=== PATIENT | male | born 1945 | race Caucasian/White ===

== ENCOUNTER 2017-01-01 09:40 | Inpatient (IN) | payer MEDICARE ==
[2016-12-31 14:06] VITALS: BMI 25.7
[2017-01-01 10:45] LABS: #Basophils 0.1 thou/uL (0.0-0.2); #Eosinphils 0.3 thou/uL (0.0-0.7); #Lymphocytes 3.3 thou/uL (1.20-3.40); #Monocytes 0.5 thou/uL (0.11-0.59); #Neutrophils 4.1 thou/uL (1.40-6.50); %Basophils 1.2 % (0.0-1.0); %Eosinophils 4.1 % (0.0-10.0); %Lymphocytes 39.7 % (21.0-51.0); %Monocytes 5.5 % (0.0-10.0); Hematocrit 36.2 % (42.0-52.0); Mean Platelet Volume 6.3 fL (7.4-10.4); Red Blood Cell (RBC) Count 4.33 mill/uL (4.70-6.10); White Blood Cell (WBC) Count 8.2 thou/uL (4.8-10.8)
[2017-01-01] MEDS ORDERED: Fentanyl 100 MCG/2 ML VIAL ONE ×7 (11:05→15:27)
[2017-01-01 11:37] LABS: Anion Gap 15 mmol/L (10-20); BUN (Urea Nitrogen) 30 mg/dL (8.4-25.7); Calc. Creatinine Clearance 50 mL/min (70-130); Calcium 9.8 mg/dL (7.8-10.44); Carbon Dioxide 22 mmol/L (23-31); Chloride 106 mmol/L (98-107); Estimated GFR-MDRD 47
[2017-01-01] MEDS ORDERED: CEFAZOLIN/Water 2 GM/20 ML SYRINGE ONE (11:53)
[2017-01-01] MEDS ORDERED: Propofol 200 MG/20 ML VIAL ONE (12:12)
[2017-01-01] MEDS ORDERED: Ondansetron HCl/PF 4 MG/2 ML Vial ONE (12:12)
[2017-01-01] MEDS ORDERED: ePHEDrine/0.9% NaCl/PF SYRINGE 50 mg/10 ml ONE (12:12)
[2017-01-01] MEDS ORDERED: PHENYLEPHRINE-NS 100 MCG/ML 10 ML SYRINGE ONE (12:12)
[2017-01-01] MEDS ORDERED: Tobramycin/Dexamethasone Ophth Oint 3.5 GM TUBE ONE (13:07)
[2017-01-01] MEDS ORDERED: Tobramycin Sulfate 1.2 GM VIAL ONE (13:08)
[2017-01-01] MEDS ORDERED: Promethazine HCl 25 MG/ML VIAL SLOW IVP PRN (14:25)
[2017-01-01] MEDS ORDERED: Promethazine HCl 25 MG/ML VIAL IM PRN (14:25)
[2017-01-01] MEDS ORDERED: HYDROmorphone 2 MG/ML VIAL SLOW IVP PRN (14:25)
[2017-01-01] MEDS ORDERED: Ondansetron HCl/PF 4 MG/2 ML Vial IVP PRN (14:25)
[2017-01-01] MEDS ORDERED: Ondansetron ODT 4 MG TAB PO PRN (15:47)
[2017-01-01] MEDS: HYDROcodone/Acetaminophen 10/325 mg Tablet PO PRN ×2 (17:32→21:26)
[2017-01-01] MEDS: Sodium Chloride 0.9% 1,000 ML IV SCH ×2 (17:36→21:47)
[2017-01-01] MEDS: diphenhydrAMINE 25 MG CAP PO PRN (21:33)
--- NOTE | 2017-01-02 00:48 | OP ---
DATE OF PROCEDURE: 01/01/2017 PREOPERATIVE DIAGNOSIS: Left septic shoulder or septic arthritis, possible osteomyelitis. POSTOPERATIVE DIAGNOSES: Left septic shoulder with chronic infection, possible shoulder osteomyelitis versus cystic changes. PROCEDURES PERFORMED: 1. Irrigation and debridement, left shoulder with arthrotomy. 2. Curettage and debridement of the humeral head cyst versus osteomyelitis. STAFF: Bradley Thurston M.D. TRANSPLANTER ORCHID: Azam Elizalde. ANESTHESIA: Renato Pedroza M.D. The patient received general endotracheal intubation. ESTIMATED BLOOD LOSS: 250 mL. TOURNIQUET TIME: None. IMPLANTS: Nine beads on a string from a mixture of 3 grams of vancomycin, 3.6 grams of tobramycin mixed with 3 grams of vancomycin with 1 package of cement. ANTIBIOTICS: After cultures were taken was vancomycin. CULTURES TAKEN: The patient had a superficial abscess anterior to the skin, which had tissue taken for path as well as for culture and culture sent. The patient had a deep abscess in his humeral head versus cyst which was taken. Cultures were taken as well as pathologic samples were taken for frozen and for permanents. Synovium was taken for both frozen and permanents. COMPLICATIONS: None. HISTORY OF PRESENT ILLNESS: Mr. Ring is a 71-year-old male who presents with continued left shoulder pain. He had an I\T\D down in February by Dr. Levi, had a repeat I\T\D performed by al, 10/25 and 10/27. He had undergone 6 weeks of antibiotics for a septic shoulder and he then had a chronic sinus that started on 11/19. I discussed with him on several times about repeating this I\T\D, but the patient could not, he said he was not able to, he came back in with draining sinuses in superior and inferior limb of this incision. The patient had a repeat MRI after this most recent I\T\D, showed the cystic changes of the humeral head, rotator cuff arthropathy, fluid collections. The patient previously cultured Pacnes in February of 2016, but no cultures were positive in September of 2016. The patient understood the risks and benefits of I\T\ D with arthrotomy with curettage of the bone, possible wound vacuum placement, indication for procedure, and he understood these risks and benefits and elected to proceed. A timeout was performed as the patient's left upper extremity as the operative site. Based on sight, consents, markings of completion of timeout, made an incision in line with the previous two draining sinuses superior and inferior, excising the inferior one, leaving the superior one in place, we incised down, came down onto what we thought was the deltopectoral interval in the previous scar plane that was from the previous procedure, went through that scar plane, found a cyst just adjacent subcutaneous, which was a large cyst noted on CT scan , which had a voluminous fat necrosis and possible skin, which had multiple neutrophils on high-power field when looked under greater than 20 on the frozen sections. We also cultured that. He had bleeding perfusion everywhere from the skin, everything that was touched bled. There were no obvious massive vessels. There was potentially a portion of the remnant cephalic that we cauterized, but he bled approximately 250 mL through the procedure. We then found our deltopectoral interval and came down onto the shoulder. We came down , took the remnants subscapularis and scar plane off the portion of the pec, exposed the head. We came under and got our subdeltoid space created and we then brought the head into position to where we could see it. We found the soft spot that might be the cystic change, creating the osteomyelitis. We then curetted into it and we created a hole into the space. We then curetted out, cultured and sent off fluid from the top of the head. We then scraped the glenoid, sent some synovium from the glenoid as well for path and culture. We then proceeded washing. We washed 5 liters. We mixed our vancomycin, tobramycin, and plain cement, placed 9 beads on a string which we passed which took the majority of the procedure to heal, we had controlled our bleeding, we then passed the beads into the glenohumeral space as well as into our previous large cyst. We closed the deltopectoral interval with some Prolenes and then closed the skin with nylon stitches. The patient will be admitted to the hospital, received a PICC line, IV antibiotics, started on vancomycin and consulted Dr. Hernandez for evaluation. The patient's outlook is guarded. I feel this is a difficult infection, may be difficult to clear. [facility]
[2017-01-02] MEDS: Vancomycin HCl 1.5 GM in Sodium Chloride 0.9% 250 ML 300 ML IVPB SCH ×2 (01:14→13:33)
[2017-01-02] MEDS: HYDROcodone/Acetaminophen 10/325 mg Tablet PO PRN ×6 (01:14→21:39)
[2017-01-02] MEDS: diphenhydrAMINE 25 MG CAP PO PRN ×2 (05:24→13:33)
[2017-01-02 07:57] LABS: Hematocrit 28.5 % (42.0-52.0)
[2017-01-02] MEDS ORDERED: FLU VACC TS2017-18 (>65YR) 0.5 ML SYRINGE IM ONE (09:00)
[2017-01-02] MEDS ORDERED: HYDROcodone/Acetaminophen 10/325 mg Tablet PO PRN ×2 (10:22→12:00)
[2017-01-02] MEDS: Polyethylene Glycol 3350 17 GM Packet PO PRN (11:47)
[2017-01-02] MEDS: Sodium Chloride 0.9% 1,000 ML IV SCH (17:53)
[2017-01-02] MEDS: diphenhydrAMINE 50 MG CAP PO PRN (21:42)
[2017-01-03] MEDS: Vancomycin HCl 1.5 GM in Sodium Chloride 0.9% 250 ML 300 ML IVPB SCH ×3 (01:52→15:41)
[2017-01-03] MEDS: HYDROcodone/Acetaminophen 10/325 mg Tablet PO PRN ×4 (04:02→20:00)
[2017-01-03] MEDS: Folic Acid 1 MG TAB PO SCH (08:01)
[2017-01-03] MEDS: Aspirin 325 mg Enteric Coated Tablet PO SCH (08:01)
[2017-01-03] MEDS: Lisinopril 10 MG TAB PO SCH (08:01)
[2017-01-03] MEDS: Multivit, Therapeutic 1 TAB PO SCH (08:02)
[2017-01-03] MEDS ORDERED: Fentanyl 100 MCG/2 ML VIAL ONE ×2 (10:37→12:22)
[2017-01-03] MEDS ORDERED: PHENYLEPHRINE-NS 100 MCG/ML 10 ML SYRINGE ONE (10:54)
[2017-01-03] MEDS ORDERED: Ondansetron HCl/PF 4 MG/2 ML Vial ONE (10:54)
[2017-01-03] MEDS ORDERED: Propofol 200 MG/20 ML VIAL ONE (10:54)
[2017-01-03] MEDS ORDERED: Promethazine HCl 25 MG/ML VIAL IM PRN (11:13)
[2017-01-03] MEDS ORDERED: Promethazine HCl 25 MG/ML VIAL SLOW IVP PRN (11:13)
[2017-01-03] MEDS ORDERED: Ondansetron HCl/PF 4 MG/2 ML Vial IVP PRN (11:13)
[2017-01-03 13:16] LABS: Hematocrit 28.1 % (42.0-52.0)
--- NOTE | 2017-01-03 13:22 | OP ---
DATE OF PROCEDURE: 01/03/2017 PREOPERATIVE DIAGNOSIS: Left septic shoulder with osteomyelitis. PROCEDURE PERFORMED: Incision and drainage of left shoulder. STAFF: Bradley Thurston M.D. GERIATRIC SOCIAL WORK PROFESSOR: Azam Elizalde PA-C. ANESTHESIA: [place]. The patient received general endotracheal intubation. ESTIMATED BLOOD LOSS: 100 mL. TOURNIQUET TIME: None. IMPLANTS: None. ANTIBIOTICS: Patient is currently on scheduled vancomycin. We removed a vancomycin and tobramycin bead string 9 total beads removed. The patient had 1 gram of vancomycin powder placed into the sub cutaneous tissues and into the subdeltoid space. The patient had a large Hemovac and a medium Hemov ac drain in place. COMPLICATIONS: None. HISTORY OF PRESENT ILLNESS: Mr. Ring is a 71-year-old male with a septic shoulder that has alr rianna undergone 3 I\T\D's. I discussed with the patient the risks and benefits of a repeat I\T\D wit h closure, drains in place. I discussed that this is difficult given his history of inability to cl ear the infection. PROCEDURE: We washed his shoulder, took down the sutures, rewashed the shoulder with blood again pr ofusely from everywhere. All of the path samples showed group B strep with obvious infection withou t any obvious at this point malignant cells. The patient had numerous white blood cells in his cyst within his humeral head. We opened up the space again, took down our previous sutures, removed ser hiram. Everything when just touched, grossly blood without any difficulty. There was no pulsatile bl eeding, just oozing from all the scarring and granulation tissue. We cleaned out the head again to ensure, we washed in the head, placed some Surgicel to stop the bleeding after we washed about a lit er and a half through the head. We then washed the rest of the tissues with the remaining 3-1/2 lit ers. We placed Surgicel, allowed it to dry. We then closed with Prolene. The deltopectoral remnan t interval more like predominantly conjoint and deltoid, we placed a Hemovac drain in the cyst anter iorly, medium, placed another Hemovac drain subdeltoid, large, medium was placed medially under the anterior chest wall within the cyst, a large one was placed subdeltoid. We then closed the skin wit h #1 PDS horizontal mattress and trauma stitches. The patient will be admitted back to the hospital. We will continue IV antibiotics. ID will be con sulted. Medicine will be consulted I will place a wound VAC on the patient's skin to help with stuart ling of the wound and leave the drains in likely for a week or longer to allow them to egress and de compress the cyst.
[2017-01-03] MEDS: Sodium Chloride 0.9% 1,000 ML IV SCH (15:38)
[2017-01-03] MEDS: diphenhydrAMINE 25 MG CAP PO PRN (15:41)
--- NOTE | 2017-01-03 16:30 | CON ---
DATE OF CONSULTATION: 01/03/2017 INITIAL INPATIENT CONSULTATION FOR MEDICINE/INFECTIOUS DISEASE REFERRING PHYSICIAN: Bradley Thurston M.D. PRIMARY CARE PHYSICIAN: Kenroy Ring M.D. CHIEF COMPLAINT: Chronic left shoulder infection. REASON FOR CONSULTATION: Antibiotic recommendations and medical management. HISTORY OF PRESENT ILLNESS: Mr. Ring is a pleasant 71-year-old gentleman with a recent past med ical history. The patient is really in his normal state of health with chronic left shoulder pain due to overuse a nd in 10/2015 underwent a left shoulder injection with steroids by Dr. Thurston. The patient initial ly did okay and felt better for a short period of time. The interval history is complicated by development of abdominal pain, evaluation showed a perforated duodenal ulcer with abdominal free air. The patient underwent exploratory laparotomy here in [facility] with repair of his perforated duodenal ulcer. He recovered, not doing well. On 02/25/2016, the patient was admitted for shoulder pain with increased erythema and fluctuance of the apex of the shoulder, as well as right hand weakness and possible stroke. MRI was done and was unremarkable for that, but due to the shoulder inflammation, the patient underwent incision and drai nage with removal of the gelatinous coagulated purulence. The patient was initially started on vanc omycin and Rocephin. Infectious Disease was consulted and the patient was seen by Dr. Hernandez. At that time, Dr. Hernandez recommended changing to the Rocephin to Zosyn. Cultures ultimately grew out Propionibacterium acnes and the patient was discharged on minocycline that to complete another 7 da ys for soft tissue infection only. The patient did well for about 7-1/2 half months, but developed increasing pain and swelling to the left shoulder. He had developed a fistulous tract and was seen by Dr. Thurston. He underwent aspira tion of the shoulder which revealed purulence, the patient had a PICC line placed and was subsequent ly admitted for incision and drainage on 10/27/2016. Cultures from the aspirate and from the incisi on and drainage were negative, but the patient was set up for 6 weeks of IV Rocephin and spent time at the [facility] and getting his antibiotics during that time. A sedimentation rate and C-reactive protein initially at that time were 76 and 10.16 respectively, and by the time he comple grant the antibiotic course were improved but not normal. The patient did not receive any oral antibi otics post-discharge. He had two repeat cultures done after the initial surgery, they cultured the drainage on 10/31/2016 and on 11/20/2016, and both those cultures were negative as well. The patient completed antibiotics in early 11/2016 and was ultimately discharged. Repeat MRI was do ne on 12/07/2016 that showed extensive abnormal longstanding rotator cuff injuries and severe muscle volume loss. It also showed associated nondisplaced, but healed fracture of the coronoid process. There is extensive abnormal joint fluid and periarticular fluid with fluid extending through the re gion of the AC joint and what appeared to be a superficial wound and a large multiloculated, multilo bulated fluid collections anteriorly, probably which were felt to be large synovial cyst. They did have some debris and there was abnormal bone marrow signal with enhancement of the humeral head and destruction within the humeral head itself. The patient will follow up with Dr. Thurston and was felt to still have ongoing infection and subsequ ently admitted postoperatively on 01/01/2017 for another incision and drainage of the shoulder with debridement to the bone and evacuation of this synovial cyst. On admission, his sed rate was 65 still, C-reactive protein was still elevated at 4.46. He was afeb rile with normal vitals. The patient tolerated the procedure well and was transferred to the floor. Cultures are positive at this point for group G strep and Staph aureus, oxacillin susceptibility i s pending. The patient is just now postop today from a second incision and drainage and washout of that shoulder. He denies any fevers or chills, no chest pain or shortness of breath, no nausea and vomiting. He is currently on vancomycin, tolerating that without any difficulty. No retching, no rashes or itching . PAST MEDICAL HISTORY: 1. Alcohol abuse. 2. Chronic obstructive pulmonary disease. 3. Paroxysmal atrial fibrillation. 4. Shoulder history as above. PAST SURGICAL HISTORY: 1. He had as a child at age 14, he has some kind of abdominal catastrophe and an exploratory laparo willie. 2. On 10/2015, he underwent a shoulder injection with steroids. 3. On 12/17/2015, he underwent exploratory laparotomy and duodenal ulcer repair. 4. On 02/25/2016, he underwent a superficial shoulder soft tissue incision and drainage. 5. On 10/27/2016, he underwent incision and drainage of the left shoulder by Dr. Levi. 6. On 01/01/2017, he underwent incision and drainage of the shoulder with debridement of the synovi al cyst. 7. On 01/03/2017, he underwent a repeat incision and drainage of the left shoulder with washout. HOME MEDICATIONS: 1. Aspirin 325 mg daily. 2. Hydrocodone/APAP 10/325. 3. Lisinopril 10 mg p.o. q.a.m. 4. Multivitamin. 5. MiraLax 17 grams daily. 6. Benadryl 25 to 50 mg p.r.n. 7. Folic acid 1 mg p.o. daily. 8. Thiamine 100 mg daily. ALLERGIES: NKDA. FAMILY HISTORY: Negative for clotting or bleeding disorder, no immune dysfunction. 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 He smoked 1 to 2 packs per day for 15 years, but q uit some 15 years ago. He drinks around 4 to 6 drinks per day of beer or hard spirits. He says it helps with his pain in his shoulder and neck. REVIEW OF SYSTEMS: A 10-point review of systems was performed and is negative for all other systems except as stated as per HPI. PHYSICAL EXAMINATION: VITAL SIGNS: Temperature current is 98.1, T-max is 98.3; pulse 73; blood pressure 100/63; respirato ry rate 16. GENERAL: He is awake. He is alert. He is oriented x3. He is a slightly disheveled looking and fontanez s a raspy voice. He appears to be in no distress. HEENT: Normocephalic, atraumatic. Pupils are equal, round, reactive to light bilaterally, mucous m embranes moist. He has no visible lesions, no thrush. NECK: Supple with no lymphadenopathy, JVD or thyromegaly with normal carotid upstrokes. LUNGS: Clear anteriorly. There are no wheezes, no rales, no rhonchi with good air movement. Symme tric chest excursion. CARDIOVASCULAR: Normal S1, S2, no S3 or S4. No audible murmurs. ABDOMEN: Scaphoid, it is nontender, nondistended, no masses, no organomegaly with normoactive bowel sounds present in all four quadrants. Prior surgical scars are well healed. EXTREMITIES: Lower extremities show no cyanosis, no clubbing, no edema with 2+ peripheral pulses shima unding. Right shoulder appears to be intact. Left shoulder is wrapped with postop dressing. There are two drain tubes coming out of the dressing. The dressing was not removed. SKIN: Otherwise, warm, moist and well-perfused without any rashes or lesions. NEUROLOGIC: Cranial nerves II through XII are grossly intact without any focal neurologic deficits. Strength on the left is secondary to pain with motion. LABORATORY DATA: Labs on admission showed sodium 139; potassium 4.2; chloride 106; bicarbonate 22; BUN 30; creatinine 1.46, up from his normal at 1 to 1.2; glucose 132; calcium 9.8. Liver function i s normal. CBC showed a white count of 8.2; hemoglobin 11.3 on admission, now down to 8.9 postop thi s morning; hematocrit of 36.2 and platelets of 387,000. Sed rate is 65 and C-reactive protein is 4. 46. RADIOGRAPHIC STUDIES: The patient's MRI on 12/07/2016, as detailed in the HPI. ASSESSMENT AND PLAN: 1. Chronic left shoulder infection/chronic osteomyelitis. The patient has had a definitive drainag e procedure open with debridement of bone and synovial cyst. He had a repeat washout two days after the first. Cultures are growing Staphylococcus aureus with susceptibilities pending and group G st rep. He is currently on vancomycin, which will continue for now. I recommend for long-term treatme nt and he receive a 6 to 8 week course of intravenous antibiotics with weekly sedimentation rate, C- reactive protein, and monitoring labs. If a sedimentation rate and C-reactive protein returned to n ormal at 6 weeks and then transition to p.o. at that time, otherwise would continue to complete a fu ll 8-week course. If he turns out to have methicillin-resistant Staphylococcus aureus, we would rec ommend 8 weeks regardless. We would consider adding rifampin 300 mg p.o. b.i.d. to aid in biofilm r eduction and penetration of the antibiotics into the bone tissue. I discussed with the patient, he is okay, not having any alcoholic beverages, so go ahead and start that therapy currently. I do thi nk the rifampin will interfere with treatment of his group G strep. If any other organisms do show up, I will have a look threshold for stopping the rifampin as an adjunct therapy. A final antibioti c selection will be determined based upon the susceptibility testing of the current organisms and th e finality of his currently pending cultures. 2. Long-term toxic medications: The patient will be on long-term antibiotics. We will need weekly sedimentation rate and C-reactive protein for infection monitoring as well as CBC and CMP. He vicki ins on vancomycin. He will need weekly vancomycin trough as well. 3. Abnormal creatinine: Normally, it is 1 to 1.2. It is currently 1.46. BUN is also elevated roman ost 20:1 pattern. This could be suggestive of dehydration. The patient is getting IV fluids at pre sent and has not been checked since admission. Recheck morning labs. 4. Acute blood loss anemia. Hemoglobin is 8.9 this morning preoperative for his second washout. W e will repeat hemoglobin and hematocrit in the morning. 5. History of alcohol abuse: Watch for signs of withdrawal. 6. History of chronic obstructive pulmonary disease: Breathing is currently stable. 7. History of paroxysmal atrial fibrillation, currently in normal sinus rhythm. 8. Hypertension, on lisinopril, we will hold that for the time being. Continue current management.
[2017-01-03 17:16] LABS: Prothrombin Time 13.9 SEC (12.0-14.7)
[2017-01-03] MEDS: Polyethylene Glycol 3350 17 GM Packet PO PRN (20:01)
[2017-01-03] MEDS: Rifampin 300 MG CAP PO SCH (21:43)
[2017-01-04] MEDS: HYDROcodone/Acetaminophen 10/325 mg Tablet PO PRN ×6 (01:43→22:24)
[2017-01-04] MEDS: diphenhydrAMINE 25 MG CAP PO PRN ×2 (01:44→18:19)
[2017-01-04] MEDS: Sodium Chloride 0.9% 1,000 ML IV SCH ×2 (02:47→19:54)
[2017-01-04] MEDS: Vancomycin HCl 1.5 GM in Sodium Chloride 0.9% 250 ML 300 ML IVPB SCH (04:48)
[2017-01-04 05:34] LABS: Hematocrit 21.5 % (42.0-52.0)
[2017-01-04 05:36] LABS: #Eosinphils 0.3 thou/uL (0.0-0.7); #Lymphocytes 2.9 thou/uL (1.20-3.40); #Monocytes 0.5 thou/uL (0.11-0.59); #Neutrophils 2.7 thou/uL (1.40-6.50); %Basophils 0.5 % (0.0-1.0); %Eosinophils 4.5 % (0.0-10.0); %Lymphocytes 45.6 % (21.0-51.0); Hematocrit 21.8 % (42.0-52.0); Mean Platelet Volume 6.6 fL (7.4-10.4); Red Blood Cell (RBC) Count 2.55 mill/uL (4.70-6.10); White Blood Cell (WBC) Count 6.4 thou/uL (4.8-10.8)
[2017-01-04] MEDS: Polyethylene Glycol 3350 17 GM Packet PO PRN ×2 (05:48→18:23)
[2017-01-04 05:55] LABS: ALT (SGPT) 7 U/L (8-55); AST (SGOT) 18 U/L (5-34); Alkaline Phosphatase 79 U/L (40-150); Anion Gap 9 mmol/L (10-20); BUN (Urea Nitrogen) 10 mg/dL (8.4-25.7); Bilirubin, Total 0.3 mg/dL (0.2-1.2); Calc. Creatinine Clearance 81 mL/min (70-130); Calcium 8.5 mg/dL (7.8-10.44); Carbon Dioxide 25 mmol/L (23-31); Chloride 108 mmol/L (98-107); Estimated GFR-MDRD 82; Globulin 2.8 g/dL (2.4-3.5); Protein, Total 5.7 g/dL (5.8-8.1)
[2017-01-04] MEDS ORDERED: CEFAZOLIN 2 GM in Sodium Chloride 0.9% 100 ML IVPB SCH (09:15)
[2017-01-04] MEDS ORDERED: CEFAZOLIN/Water 2 GM/20 ML SYRINGE SLOW IVP SCH (09:15)
[2017-01-04] MEDS: diphenhydrAMINE 50 MG CAP PO PRN (10:08)
[2017-01-04] MEDS: Aspirin 325 mg Enteric Coated Tablet PO SCH (10:09)
[2017-01-04] MEDS: Lisinopril 10 MG TAB PO SCH (10:09)
[2017-01-04] MEDS: Multivit, Therapeutic 1 TAB PO SCH (10:09)
[2017-01-04] MEDS: Folic Acid 1 MG TAB PO SCH (10:09)
[2017-01-04] MEDS: Rifampin 300 MG CAP PO SCH ×2 (10:10→21:05)
--- NOTE | 2017-01-04 12:16 | PDOC.PN ---
- Subjective Encounter Start Date: 01/04/17 Encounter Start Time: 10:30 -: old records requested/rev Pt seen and examined. Chart reviewed. Pain controlled, no acute events overnight. Deneis F/C, no N/V/D/C, no CP or SOB, shoulder discomfort tolerable. Cultrues reviewed 10 point ROS performed and neg for all systems except as above - Objective Resuscitation Status: FULL MAR Reviewed: Yes Vital Signs & Weight: Vital Signs (12 hours) Temp Pulse Resp BP BP Pulse Ox 01/04/17 12:05 98.9 F 93 18 132/61 97 01/04/17 10:09 111/62 01/04/17 08:25 98.4 F 80 20 111/62 94 L 01/04/17 04:39 97.9 F 82 16 119/60 97 01/04/17 00:15 98.4 F 87 16 105/51 L 98 Weight Weight 174 lb I&O: 01/03/17 01/04/17 01/05/17 06:59 06:59 06:59 Intake Total 1800 3280 Output Total 1725 1220 Balance 75 2060 Result Diagrams: 01/04/17 05:11 01/04/17 05:11 Radiology Reviewed by me: Yes EKG Reviewed by me: Yes Phys Exam - Physical Examination Constitutional: NAD HEENT: PERRLA, moist MMs, sclera anicteric, oral pharynx no lesions Neck: no nodes, no JVD, supple, full ROM Respiratory: no wheezing, no rales, no rhonchi, clear to auscultation bilateral Cardiovascular: RRR, no significant murmur, no rub Gastrointestinal: soft, non-tender, no distention, positive bowel sounds Musculoskeletal: no edema, pulses present left shoulder dressing c/D/I without strikethrough Neurological: non-focal, normal sensation, moves all 4 limbs Lymphatic: no nodes Psychiatric: normal affect, A&O x 3 Skin: no rash, normal turgor, cap refill <2 seconds Dx/Plan (1) Chronic osteomyelitis of humerus Code(s): M86.629 - OTHER CHRONIC OSTEOMYELITIS, UNSPECIFIED HUMERUS Status: Acute (2) MSSA (methicillin susceptible Staphylococcus aureus) infection Code(s): A49.01 - METHICILLIN SUSCEP STAPH INFECTION, UNSP SITE Status: Acute (3) Group G streptococcal infection Code(s): B95.4 - OTH STREPTOCOCCUS THE CAUSE OF DISEASES CLASSD ELSWHR Status: Acute (4) Septic arthritis of shoulder, left Code(s): M00.9 - PYOGENIC ARTHRITIS, UNSPECIFIED Status: Acute (5) group home (current) use of antibiotics Code(s): Z79.2 - [employer] SERVER DBA (CURRENT) USE OF ANTIBIOTICS Status: Acute (6) Acute blood loss as cause of postoperative anemia Code(s): D62 - ACUTE POSTHEMORRHAGIC ANEMIA Status: Acute (7) Chronic obstructive pulmonary disease Status: Acute (8) Paroxysmal a-fib Code(s): I48.0 - PAROXYSMAL ATRIAL FIBRILLATION Status: Acute Comment: Pt has discontinued meds (9) CKD (chronic kidney disease) stage 2, GFR 60-89 ml/min Code(s): N18.2 - CHRONIC KIDNEY DISEASE, STAGE 2 (MILD) Status: Chronic (10) Chronic alcoholism Code(s): F10.20 - ALCOHOL DEPENDENCE, UNCOMPLICATED Status: Chronic Comment : Counselled. on ASE protocol (11) HTN (hypertension) Code(s): I10 - ESSENTIAL (PRIMARY) HYPERTENSION Status: Chronic Comment: Pt has discontinued meds - Plan cont current plan of care, continue antibiotics, PT/OT, psychosocial rehabilitation counselor * . 1. Streamline Vanc to Ancef 2g IV q 8 hours, continue po Rifampin 300mg po BID. watch LFTs on Rifampin. PICC line today. Will discuss with case management superintendent terminal IV antibiotic options. 2. Would plan on treating for 6-8 weeks with IV antibiotics and Rifampin. weekly ESR and CRP. if nomal at 6wekks from 01/03, then would transition to oral abx for 3-6 months if not for lifelong suppression. If inflammatory markers not normal at 6 weeks, would continue until 8 before trnasition to oral. Will need weekly CBC, CMP, ESr, CRP while on abx, weekly PICC dressing change Pt interested in home or outpatient since he just spent 6 weeks in [place]
[2017-01-04] MEDS: CEFAZOLIN/Water 2 GM/20 ML SYRINGE SLOW IVP SCH ×2 (14:47→21:05)
[2017-01-05] MEDS: CEFAZOLIN/Water 2 GM/20 ML SYRINGE SLOW IVP SCH ×3 (05:05→21:46)
[2017-01-05] MEDS: HYDROcodone/Acetaminophen 10/325 mg Tablet PO PRN ×5 (05:06→21:45)
[2017-01-05 06:02] LABS: ALT (SGPT) Less than 7 U/L (8-55); AST (SGOT) 19 U/L (5-34); Alkaline Phosphatase 100 U/L (40-150); Anion Gap 9 mmol/L (10-20); BUN (Urea Nitrogen) 10 mg/dL (8.4-25.7); Bilirubin, Total 0.6 mg/dL (0.2-1.2); Calc. Creatinine Clearance 67 mL/min (70-130); Calcium 9.1 mg/dL (7.8-10.44); Carbon Dioxide 28 mmol/L (23-31); Chloride 108 mmol/L (98-107); Estimated GFR-MDRD 66; Globulin 3.1 g/dL (2.4-3.5); Protein, Total 6.1 g/dL (5.8-8.1)
[2017-01-05 06:19] LABS: Hematocrit 22.6 % (42.0-52.0); Hypochromia SLIGHT = 6-15 cells (100X) (0-5/hpf); Mean Platelet Volume 6.5 fL (7.4-10.4); Neutrophil 39 % (42-75); Red Blood Cell (RBC) Count 2.66 mill/uL (4.70-6.10); White Blood Cell (WBC) Count 4.9 thou/uL (4.8-10.8)
[2017-01-05] MEDS: diphenhydrAMINE 50 MG CAP PO PRN (09:18)
[2017-01-05] MEDS: Rifampin 300 MG CAP PO SCH ×2 (09:19→21:45)
[2017-01-05] MEDS: Aspirin 325 mg Enteric Coated Tablet PO SCH (09:19)
[2017-01-05] MEDS: Multivit, Therapeutic 1 TAB PO SCH (09:19)
[2017-01-05] MEDS: Lisinopril 10 MG TAB PO SCH (09:19)
[2017-01-05] MEDS: Folic Acid 1 MG TAB PO SCH (09:19)
--- NOTE | 2017-01-05 10:20 | PDOC.PN ---
- Subjective Encounter Start Date: 01/05/17 Encounter Start Time: 08:20 Pt seen and examined. NO acute events overnight. No F/C, noitching or rash, no n/V/D/C. Pain fairly well controlled. - Objective Resuscitation Status: Full MAR Reviewed: Yes Vital Signs & Weight: Vital Signs (12 hours) Temp Pulse Resp BP BP BP Pulse Ox 01/05/17 09:19 117/70 01/05/17 08:00 97.8 F 76 18 117/70 96 01/05/17 04:00 97.5 F L 79 12 116/65 95 01/05/17 00:00 97.9 F 73 18 114/63 96 Weight Admit Weight 174 lb Weight 174 lb I&O: 01/04/17 01/05/17 01/06/17 06:59 06:59 06:59 Intake Total 3280 2770 Output Total 1220 1050 Balance 2060 1720 Result Diagrams: 01/05/17 04:55 01/05/17 04:55 Phys Exam - Physical Examination Constitutional: NAD HEENT: PERRLA, moist MMs, sclera anicteric, oral pharynx no lesions Neck: no nodes, no JVD, supple, full ROM Respiratory: no wheezing, no rales, no rhonchi, clear to auscultation bilateral Cardiovascular: RRR, no significant murmur, no rub Gastrointestinal: soft, non-tender, no distention, positive bowel sounds Musculoskeletal: no edema, pulses present left shoulder dressing c/D/I Neurological: non-focal, normal sensation, moves all 4 limbs Lymphatic: no nodes Psychiatric: normal affect, A&O x 3 Skin: no rash, normal turgor, cap refill <2 seconds Deviation from normal: RUE PICC C/D/I Dx/Plan (1) Chronic osteomyelitis of humerus Code(s): M86.629 - OTHER CHRONIC OSTEOMYELITIS, UNSPECIFIED HUMERUS Status: Acute Comment: IV ancef plus rifampin for 6-8 weeks. can stop at 6 only if ESR and CRP normal. At completion of IV abx, would transition to po keflex TID for 3-6 months if not life. GBS and MSSA on culture. S/P debridement X 2 (2) MSSA (methicillin susceptible Staphylococcus aureus) infection Code(s): A49.01 - METHICILLIN SUSCEP STAPH INFECTION, UNSP SITE Status: Acute (3) Group G streptococcal infection Code(s): B95.4 - OTH STREPTOCOCCUS THE CAUSE OF DISEASES CLASSD ELSWHR Status: Acute (4) Septic arthritis of shoulder, left Code(s): M00.9 - PYOGENIC ARTHRITIS, UNSPECIFIED Status: Acute Qualifiers: Septic arthritis organism: staphylococcal Qualified Code(s): M00.012 - Staphylococcal arthritis, left shoulder (5) skilled nursing (current) use of antibiotics Code(s): Z79.2 - DIRECTOR OF ENTERPRISE STRATEGY (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 h/H 7.2 toda,y check in AM (7) Chronic obstructive pulmonary disease Status: Acute Qualifiers: COPD type: unspecified COPD Qualified Code(s): J44.9 - Chronic obstructive pulmonary disease, unspecified (8) Paroxysmal a-fib Code(s): I48.0 - PAROXYSMAL ATRIAL FIBRILLATION Status: Acute Comment: Pt has discontinued meds (9) CKD (chronic kidney disease) stage 2, GFR 60-89 ml/min Code(s): N18.2 - CHRONIC KIDNEY DISEASE, STAGE 2 (MILD) Status: Chronic (10) Chronic alcoholism Code(s): F10.20 - ALCOHOL DEPENDENCE, UNCOMPLICATED Status: Chronic Comment : Counselled. on ASE protocol (11) HTN (hypertension) Code(s): I10 - ESSENTIAL (PRIMARY) HYPERTENSION Status: Chronic Qualifiers: Hypertension type: essential hypertension Qualified Code(s): I10 - Essential (primary) hypertension Comment: Pt has discontinued meds - Plan cont current plan of care, continue antibiotics, PT/OT, social welfare clerk * . per Case management, pt to go to [facility] again. Will follow until discharge
[2017-01-05] MEDS: Sodium Chloride 0.9% 1,000 ML IV SCH (11:50)
[2017-01-05] MEDS: diphenhydrAMINE 25 MG CAP PO PRN (17:43)
--- NOTE | 2017-01-05 18:00 | PRG ---
DATE OF SERVICE: 01/05/2017 SUBJECTIVE: Mr. Ring has been readmitted with recrudescence of inflammatory process, left shoul olivia. The patient had completed 6 weeks of IV Rocephin in [place] in 12/07. Dr. Thurston order an MRI because of persistence of pain and it demonstrated extensive rotator cuff abnormalities, flui d in the joint as well as enhancement and abnormal marrow signal in humeral head consistent with inf ection or degenerative changes. Patient was admitted this time and underwent surgical debridement a gain by Dr. Thurston and the operative report has been reviewed. Sutures were taken down and shoulde r was rewashed, a lot of bleeding was noticed, a lot of granulation tissue was noticed with oozing. Previously patient had had a procedure on 01/01. The procedure was more extensive and initially th e area was approached to the deltopectoral interval, a large cyst noted on CT scan with fat necrosis and then the head of the humerus was inspected and there was evidence of a soft spot and this area was curetted. Cultures from the site have identified Staph aureus and group G strep and in rare tristian unts of Staph aureus with methicillin susceptible. The patient currently is awake and alert, modera te pain in the left shoulder. The patient has a PICC line in the right upper extremity. Denies hea daches, no visual symptoms, sore throat, odynophagia, or dysphagia. No dyspnea or chest pain. No a bdominal pain or diarrhea. Voiding without difficulty. No lower extremity symptoms. No neurologic al symptoms. PHYSICAL EXAMINATION: VITAL SIGNS: Essentially normal findings. He has been afebrile. LUNGS: Clear. HEART: S1, S2, regular rate. No S3, S4. SKIN: Left shoulder with negative pressure dressing over the anterior wound segment. He has a drai n in the anterolateral upper arm segment. ABDOMEN: Soft, not distended or tender. EXTREMITIES: Moves all lower extremities equally. Pulses are 1+ in dorsalis pedis. NEUROLOGIC: Cognitive function appears to be intact. LABORATORY AND DIAGNOSTIC DATA: White cell count 6.4 and 4.9, hemoglobin 7.2, platelets 270, and cr eatinine 1.09 down from admission. Cultures as noted above. The patient has a chest CT from October , which showed Bosniak II cyst, left shoulder joint destruction of humeral head and glenoid identifi ed. 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 The patient has had prior treatment for a protract ed period of time with IV Rocephin, which would have covered all the organisms isolated from the sit e, but now he has recurrence, and therefore we will need continuation of therapy. The patient has b een transitioned to cefazolin, is on rifampin too and I would advise continuation at least the cefaz binu for 8 weeks; after that, transition to oral Keflex 500 mg 3 times daily for a protracted period of time. Probably we will need to be on suppressive doses of Keflex at least for a year after that even longer than that in view of the chronicity of the lesion. We will set up treatment through ca se cardiac cath lab manager and will probably have to go back to [place] swing bed. Potential adverse reactions from the treatment discussed with patient, will need weekly labs throughout the duration of therapy and date of therapy calculated to be 03/06/2017.
[2017-01-06] MEDS: HYDROcodone/Acetaminophen 10/325 mg Tablet PO PRN ×6 (01:46→23:48)
[2017-01-06] MEDS: Sodium Chloride 0.9% 1,000 ML IV SCH ×2 (04:30→21:27)
[2017-01-06] MEDS: CEFAZOLIN/Water 2 GM/20 ML SYRINGE SLOW IVP SCH ×3 (06:46→21:28)
[2017-01-06 07:40] LABS: Hematocrit 22.9 % (42.0-52.0); Mean Platelet Volume 6.5 fL (7.4-10.4); Red Blood Cell (RBC) Count 2.69 mill/uL (4.70-6.10); White Blood Cell (WBC) Count 5.5 thou/uL (4.8-10.8)
[2017-01-06 08:01] LABS: Metamyelocyte 1 % (0-0); Neutrophil 29 % (42-75); Ovalocytes SLIGHT = 2-5 cells (100X) (0-1/hpf); Polychromasia SLIGHT = 2-3 cells (100X) (0-2/hpf); Reactive Lymphocytes 3 % (0-10)
[2017-01-06] MEDS: Aspirin 325 mg Enteric Coated Tablet PO SCH (09:08)
[2017-01-06] MEDS: Folic Acid 1 MG TAB PO SCH (09:08)
[2017-01-06] MEDS: Rifampin 300 MG CAP PO SCH ×2 (09:09→21:28)
[2017-01-06] MEDS: Lisinopril 10 MG TAB PO SCH (09:09)
[2017-01-06] MEDS: Multivit, Therapeutic 1 TAB PO SCH (09:09)
[2017-01-06] MEDS ORDERED: Dextrose 50% Abboject 50 ML SYRINGE SLOW IVP PRN (11:10)
[2017-01-06] MEDS ORDERED: HumaLOG 300 UNITS/3 ML VIAL SC PRN (11:10)
[2017-01-06] MEDS ORDERED: Dextrose 5% in Water 1,000 ML IV PRN (11:10)
--- NOTE | 2017-01-06 11:30 | PDOC.PN ---
- Subjective Encounter Start Date: 01/06/17 Encounter Start Time: 11:05 Pt sleeping soundly, no overnight events. 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 - Objective Resuscitation Status: Full MAR Reviewed: Yes Vital Signs & Weight: Vital Signs (12 hours) Temp Pulse Resp BP BP BP Pulse Ox 01/06/17 09:09 159/68 H 01/06/17 07:45 98.0 F 69 18 01/06/17 07:40 98.0 F 69 18 159/68 H 159/68 H 96 01/06/17 04:00 98 F 77 16 115/56 L 98 01/06/17 00:00 98.1 F 78 16 120/57 L 99 Weight Admit Weight 174 lb Weight 174 lb I&O: 01/05/17 01/06/17 01/07/17 06:59 06:59 06:59 Intake Total 2770 1800 Output Total 1050 70 Balance 1720 1730 Result Diagrams: 01/06/17 07:26 01/05/17 04:55 Radiology Reviewed by me: Yes Phys Exam - Physical Examination Constitutional: NAD HEENT: PERRLA, moist MMs, sclera anicteric, oral pharynx no lesions Neck: no nodes, no JVD, supple, full ROM Respiratory: no wheezing, no rales, no rhonchi, clear to auscultation bilateral Cardiovascular: RRR, no significant murmur, no rub Gastrointestinal: soft, non-tender, no distention, positive bowel sounds Musculoskeletal: no edema, pulses present left shoulder dressing c/D/I, RUE PICC c/D/I Neurological: non-focal, normal sensation, moves all 4 limbs Lymphatic: no nodes Psychiatric: normal affect, A&O x 3 Skin: no rash, normal turgor, cap refill <2 seconds Dx/Plan (1) Chronic osteomyelitis of humerus Code(s): M86.629 - OTHER CHRONIC OSTEOMYELITIS, UNSPECIFIED HUMERUS Status: Acute Comment: IV ancef plus rifampin for 6-8 weeks. can stop at 6 only if ESR and CRP normal. At completion of IV abx, would transition to po keflex TID for 3-6 months if not life. GBS and MSSA on culture. S/P debridement X 2. 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 h/H 7.2 toda,y check in AM (7) Chronic obstructive pulmonary disease Status: Acute Qualifiers: COPD type: unspecified COPD Qualified Code(s): J44.9 - Chronic obstructive pulmonary disease, unspecified (8) Paroxysmal a-fib Code(s): I48.0 - PAROXYSMAL ATRIAL FIBRILLATION Status: Acute Comment: Pt has discontinued meds (9) CKD (chronic kidney disease) stage 2, GFR 60-89 ml/min Code(s): N18.2 - CHRONIC KIDNEY DISEASE, STAGE 2 (MILD) Status: Chronic (10) Chronic alcoholism Code(s): F10.20 - ALCOHOL DEPENDENCE, UNCOMPLICATED Status: Chronic Comment : Counselled. on ASE protocol (11) HTN (hypertension) Code(s): I10 - ESSENTIAL (PRIMARY) HYPERTENSION Status: Chronic Qualifiers: Hypertension type: essential hypertension Qualified Code(s): I10 - Essential (primary) hypertension Comment: Pt has discontinued meds - Plan cont current plan of care, continue antibiotics, PT/OT, geriatric social worker to [facility] when arranged. Christopher mera DMM per my conversatio -: when i first saw him. surgars here have been fine. can check accuchecks -: today to make sure, but dount will be needed care home * .
[2017-01-06] MEDS: diphenhydrAMINE 25 MG CAP PO PRN (19:52)
[2017-01-07] MEDS: HYDROcodone/Acetaminophen 10/325 mg Tablet PO PRN ×3 (03:41→13:07)
[2017-01-07] MEDS: diphenhydrAMINE 25 MG CAP PO PRN ×2 (03:41→10:15)
[2017-01-07] MEDS: CEFAZOLIN/Water 2 GM/20 ML SYRINGE SLOW IVP SCH ×2 (05:33→13:05)
[2017-01-07] MEDS: Lisinopril 10 MG TAB PO SCH (08:51)
[2017-01-07] MEDS: Folic Acid 1 MG TAB PO SCH (08:51)
[2017-01-07] MEDS: Aspirin 325 mg Enteric Coated Tablet PO SCH (08:51)
[2017-01-07] MEDS: Multivit, Therapeutic 1 TAB PO SCH (08:51)
[2017-01-07] MEDS: Rifampin 300 MG CAP PO SCH (10:17)
[2017-01-07] MEDS: Sodium Chloride 0.9% 1,000 ML IV SCH (10:20)
--- NOTE | 2017-01-07 10:38 | SPC ---
ULTRASOUND GUIDED RIGHT UPPER EXTREMITY PICC LINE PLACEMENT: 01/04/2017 HISTORY: Left shoulder infection. The patient needs long-term IV antibiotics. FLUOROSCOPY TIME: 0.5 minutes with a total dose of 4102 mGy per cm2. TECHNIQUE: After informed consent was obtained, the patient was placed on the angiography table in the supine p osition. The right upper extremity was meticulously prepped and draped in the usual sterile fashion . The skin and subcutaneous tissues were infiltrated with buffered 1% Lidocaine for local anesthesi a at the intended puncture site. Utilizing concurrent real-time ultrasound guidance, the right basilic vein was accessed utilizing a micropuncture technique and concurrent real-time ultrasound guidance. A 5 Sami peel-away sheath w as placed. The catheter was measured and cut to the appropriate length. The catheter was placed ov er the guide wire with the tip positioned overlying the cavoatrial junction. The guide wire and pee l-away sheath were removed. The catheter was accessed and aspirated/flushed easily. The catheter w as secured to the skin utilizing a StatLock device. A dry, sterile dressing was placed. The patient tolerated the procedure well and without immediate complication. IMPRESSION: Technically successful placement of a single lumen, 5 Sami, 38 cm peripherally inserted central ca theter line via the right basilic vein. The tip of the catheter overlies the cavoatrial junction. Final spot fluoroscopic imaging of catheter placement is obtained. POS: [facility]
[2017-01-07 16:04] VITALS: BP 172/69; TEMP 97.6
--- NOTE | 2017-01-07 17:16 | PDOC.PN ---
- Subjective Encounter Start Date: 01/07/17 Encounter Start Time: 17:14 Patient seen and examined. No new complaints. No overnight events - Objective MAR Reviewed: Yes Vital Signs & Weight: Vital Signs (12 hours) Temp Pulse Resp BP BP Pulse Ox 01/07/17 15:10 97.6 F 81 16 172/69 H 97 01/07/17 08:51 159/68 H 01/07/17 08:20 98 F 72 16 98 01/07/17 07:55 98 F 72 16 127/72 98 01/07/17 07:50 98.0 F 72 16 127/72 98 Weight Admit Weight 174 lb Weight 174 lb I&O: 01/06/17 01/07/17 01/08/17 06:59 06:59 06:59 Intake Total 1800 2200 1600 Output Total 70 65 Balance 1730 2135 1600 Result Diagrams: 01/06/17 07:26 01/05/17 04:55 Phys Exam - Physical Examination Constitutional: NAD HEENT: PERRLA Neck: no JVD Respiratory: no wheezing Cardiovascular: no significant murmur Gastrointestinal: non-tender Musculoskeletal: pulses present Neurological: moves all 4 limbs lt shoulder dressing and wound vac noted Psychiatric: A&O x 3 Dx/Plan (1) Chronic osteomyelitis of humerus Code(s): M86.629 - OTHER CHRONIC OSTEOMYELITIS, UNSPECIFIED HUMERUS Status: Acute Comment: IV ancef plus rifampin for 6-8 weeks. can stop at 6 only if ESR and CRP normal. At completion of IV abx, would transition to po keflex TID for 3-6 months if not life. GBS and MSSA on culture. S/P debridement X 2. dr Hernandez back from vacation, can asssume termination clerk care (2) Chronic obstructive pulmonary disease Status: Acute Qualifiers: COPD type: unspecified COPD Qualified Code(s): J44.9 - Chronic obstructive pulmonary disease, unspecified (3) Depression Code(s): F32.9 - MAJOR DEPRESSIVE DISORDER, SINGLE EPISODE, UNSPECIFIED Status : Acute (4) CKD (chronic kidney disease) stage 2, GFR 60-89 ml/min Code(s): N18.2 - CHRONIC KIDNEY DISEASE, STAGE 2 (MILD) Status: Chronic (5) HTN (hypertension) Code(s): I10 - ESSENTIAL (PRIMARY) HYPERTENSION Status: Chronic Qualifiers: Hypertension type: essential hypertension Qualified Code(s): I10 - Essential (primary) hypertension Comment: Pt has discontinued meds - Plan * doing well * abx per dr hernandez * case mx for placement
--- NOTE | 2017-01-09 08:08 | DIS ---
DATE OF ADMISSION: 01/01/2017 DATE OF DISCHARGE: 01/07/2017 PREOPERATIVE DIAGNOSIS: Left septic shoulder with osteomyelitis. DISCHARGE DIAGNOSIS: Left septic shoulder with osteomyelitis. PROCEDURE: The patient underwent incision and drainage of left shoulder on 01/03/2017. HOSPITAL COURSE: Hospital stay fairly unremarkable. The patient was seen by our medical staff for his medical issues and was also seen by Dr. Hernandez for Infectious Disease purposes. He had no postop erative complications. At this time in the hospital, was unremarkable. He got IV antibiotics and a waited cultures and sensitivities. DISCHARGE CONDITION: Good/stable. DISPOSITION: He was discharged to other hospital inpatient facility for IV antibiotics and rehabili tation care. FOLLOWUP: Follow up would be in 10-[address] Hernandez would be completed via his office. DISCHARGE MEDICATIONS: Given with usage instructions. This is Duane Roman PA-C, dictating for Bradley Thurston M.D.
--- NOTE | 2017-01-10 23:16 | PQF ---
BREN GALLEGOS JUSTIN MD [id number] SURG B- [id number] CLINICAL DOCUMENTATION CLARIFICATION FORM: POST DISCHARGE Addendum to original discharge summary date: ____ Late entry note date: __ DATE: 01/10/17 ATTN: Dr. Thurston Please clarify the type of debridement done on the 01/01/17 for this patient. Please exercise your independent, professional judgment in responding to the clarification form. Clinical indicators are provided on the bottom of this form for your review Please check appropriate box(s): [ ] Excisional Debridement: [ ] Excised [ ] Cut away [ ] Other: Depth / layer: (deepest layer of debridement): [ ] Skin[ ] SubQ Tissue [ ] Fascia [ ] Muscle [ ] Tendon [ ] Bone Appearance of wound: (e.g., down to fresh bleeding tissue, etc.)___ Margins: (please specify): / x x Instruments used: [ ] Scissors [ ] Scalpel [ ] Curette [ ] Soft tissue clipper [ ] Other: [ ] Non-excisional Debridement: (Removal by ?ushing, brushing, chemical, or washing) [ ] Incision and Drainage only (No Debridement): Depth:[ ] Skin [ ] Sub Q[ ] Into soft tissue [ ] Escharectomy [ ] Other procedure diagnosis [ ] Unable to determine For continuity of documentation, please document condition throughout progress notes and discharge summary. Thank You. CLINICAL INDICATORS - SIGNS / SYMPTOMS / LABS I&D Cutting away of tissue (e.g., scissors, scalpel, curette, etc.) Debridement Removal of or excision of necrotic devitalized tissue or slough RISK FACTORS Bedridden/Immobile patient MTDD
== END 2017-01-07 15:55 | disposition swing bed (61) | DRG 498 ==
LOC: SDC 09:40 → SURG B 15:31
PROVIDERS: ADMIT Orthopaedic Surgery; ATTEND Orthopaedic Surgery
PROC: 0PDD0ZZ Extraction of Left Humeral Head, Open Approach (ICD-10-PCS; 2017-01-01)
PROC: 0R9K00Z Drainage of Left Shoulder Joint with Drainage Device, Open Approach (ICD-10-PCS; 2017-01-03)
PROC: 02HV33Z Insertion of Infusion Device into Superior Vena Cava, Percutaneous Approach (ICD-10-PCS; principal; 2017-01-04)
PROC: 30233N1 Transfusion of Nonautologous Red Blood Cells into Peripheral Vein, Percutaneous Approach (ICD-10-PCS; 2017-01-04)
PROC: B548ZZA Ultrasonography of Superior Vena Cava, Guidance (ICD-10-PCS; 2017-01-04)
PROC: 0QB90ZZ Excision of Left Femoral Shaft, Open Approach (ICD-10-PCS; 2017-01-04)
DX: M86.612 Other chronic osteomyelitis, left shoulder (principal); M00.812 Arthritis due to other bacteria, left shoulder; E11.22 Type 2 diabetes mellitus with diabetic chronic kidney disease; I48.0 Paroxysmal atrial fibrillation; D62 Acute posthemorrhagic anemia; J44.9 Chronic obstructive pulmonary disease, unspecified; Z87.891 Personal history of nicotine dependence; I12.9 Hypertensive chronic kidney disease with stage 1 through stage 4 chronic kidney disease, or unspecified chronic kidney disease; N18.2 Chronic kidney disease, stage 2 (mild)
CPT/HCPCS: 36415; 36416; 36430; 36569; 80048; 80053; 80202; 82565; 85014; 85018; 85025; 85610; 85652; 86140; 86850; 86900; 86901; 87070; 87077; 87102; 87186; 87205; 87206; 88304; 88307; 88312; 88331; 88342; 90471; 90682; C1713; C1751; G0008; J2405; J2704; J3010; J3260; J3370; J7050; P9016; Q0162; Q2036

== ENCOUNTER 2017-04-25 07:11 | Observation (INO) | payer MEDICARE ==
[2017-04-24 15:59] VITALS: BMI 26.6
--- NOTE | 2017-04-25 11:01 | MRI ---
MRI OF THE LEFT SHOULDER WITH AND WITHOUT IV CONTRAST: Date: 04/25/17 INDICATION: Left shoulder infection without injury. TECHNIQUE: Multiplanar, multisequence MR images were obtained of the left shoulder with and without IV contrast. The patient received 18 mL of MultiHance for the examination. FINDINGS: Again seen is a massive rotator cuff tear involving the subscapularis, supraspinatus, and infraspinat us. The teres minor tendon appears intact. There is marked muscular atrophy of the torn tendon muscul ature. There is cephalad migration of the humeral head with remodeling of the undersurface of the acr omion. There is marked concave-like remodeling of the glenoid articular surface, likely related to lo ngstanding rotator cuff osteoarthropathy. However, the areas of periarticular osteolysis involving th e humeral head persists. There is marked synovial enhancement seen within the glenohumeral joint with a focal peripherally enhancing complex fluid collection protruding through the subscapularis defect and through the level of the anterior deltoid measuring 4.3 x 7.8 x 4.6 cm suspicious for a large per iarticular abscess. There are some multiple shotty appearing lymph nodes seen within the left axillar y region. There is susceptibility artifact within the subcutaneous tissues overlying the superior and lateral aspect of the glenohumeral joint which may reflect sequelae of prior surgical intervention. IMPRESSION: 1. Findings of persistent septic arthritis and osteomyelitis of the proximal humeral head with assoc iated periarticular abscess. 2. Stable changes of massive rotator cuff tear with severe rotator cuff osteoarthropathy. POS: [facility]
[2017-04-25] MEDS ORDERED: Dexamethasone 4 mg/ml Vial ONE (12:22)
[2017-04-25] MEDS ORDERED: Midazolam HCl 2 mg/2 ml Vial ONE (12:22)
[2017-04-25] MEDS ORDERED: Fentanyl 100 MCG/2 ML VIAL ONE (12:22)
[2017-04-25 12:45] LABS: #Basophils 0.1 thou/uL (0.0-0.2); #Eosinphils 0.2 thou/uL (0.0-0.7); #Lymphocytes 2.5 thou/uL (1.20-3.40); #Monocytes 0.6 thou/uL (0.11-0.59); #Neutrophils 3.9 thou/uL (1.40-6.50); %Eosinophils 2.9 % (0.0-10.0); %Lymphocytes 34.5 % (21.0-51.0); %Monocytes 8.7 % (0.0-10.0); %Neutrophils 52.8 % (42.0-75.0); Hemoglobin 11.7 g/dL (14.0-18.0); Mean Corpuscular HGB CONC 31.7 g/dL (32.0-36.0); Mean Corpuscular Hemoglobin 25.5 pg (27.0-31.0); Mean Corpuscular Volume 80.4 fl (80.0-94.0); Mean Platelet Volume 7.4 fL (7.4-10.4); Platelet Count 295 thou/uL (130-400); RBC Distribution Width 14.2 % (11.5-14.5); White Blood Cell (WBC) Count 7.3 thou/uL (4.8-10.8)
[2017-04-25 13:03] LABS: Anion Gap 15 mmol/L (10-20); BUN (Urea Nitrogen) 22 mg/dL (8.4-25.7); Calc. Creatinine Clearance 64 mL/min (70-130); Calcium 9.7 mg/dL (7.8-10.44); Carbon Dioxide 18 mmol/L (23-31); Chloride 107 mmol/L (98-107); Estimated GFR-MDRD 61; Glucose 114 mg/dL (83-110); Potassium 4.3 mmol/L (3.5-5.1); Sodium 136 mmol/L (136-145)
[2017-04-25] MEDS ORDERED: Vancomycin HCl 1.5 GM, Admixture Fee 1 EACH in Sodium Chloride 0.9% 250 ML 300 ML IVPB SCH (13:15)
[2017-04-25] MEDS ORDERED: Diprivan 20 ML ONE (13:24)
[2017-04-25] MEDS ORDERED: PHENYLEPHRINE-NS 100 MCG/ML 10 ML SYRINGE ONE ×2 (13:33→14:30)
[2017-04-25] MEDS ORDERED: ePHEDrine/0.9% NaCl/PF SYRINGE 50 mg/10 ml ONE ×2 (13:43→14:30)
[2017-04-25] MEDS ORDERED: Bupivacaine HCl 0.5%/Epinephrine 1:200,000/PF 30 ml Vial ONE (14:09)
[2017-04-25] MEDS ORDERED: diphenhydrAMINE 25 MG CAP PO PRN ×2 (14:27→15:43)
[2017-04-25] MEDS ORDERED: Acetaminophen 325 MG TAB PO PRN (14:27)
[2017-04-25] MEDS ORDERED: Milk Of Magnesia 30 ML UDCUP PO PRN (14:27)
[2017-04-25] MEDS ORDERED: Bisacodyl 10 MG SUPP PR PRN (14:27)
[2017-04-25] MEDS ORDERED: Zolpidem Tartrate 5 MG TAB PO PRN (14:27)
[2017-04-25] MEDS ORDERED: traMADol HCl 50 MG TAB PO PRN (14:30)
[2017-04-25] MEDS ORDERED: Propofol 200 MG/20 ML VIAL ONE (14:30)
[2017-04-25] MEDS ORDERED: Ondansetron HCl/PF 4 MG/2 ML Vial IVP PRN (14:32)
[2017-04-25] MEDS ORDERED: Ondansetron ODT 4 MG TAB SL PRN (14:32)
[2017-04-25] MEDS ORDERED: Methocarbamol 1 GM/10 ML VIAL SLOW IVP PRN (14:34)
[2017-04-25] MEDS ORDERED: HYDROcodone/Acetaminophen 10/325 mg Tablet PO PRN (14:35)
--- NOTE | 2017-04-25 15:01 | RAD ---
TWO VIEWS RIGHT SHOULDER: Date: 04-25-17 Time: 1:54 p.m. Comparison: 04-10-17, CT of right shoulder 04-12-17 History: Status post reduction of previously noted glenohumeral joint dislocation. FINDINGS: The posterior dislocation of the right glenohumeral joint noted on prior imaging has been reduced. Th ere is prominent degenerative change at the right AC joint with joint space narrowing as well as supe rior and inferior osteophyte formation. There is no widening of the coracoclavicular interspace. There is an osseous density on the lateral examination projecting posterior to the proximal left twila ral shaft, just distal to the humeral head, partially obscured by monitoring lead. This is consistent with the posterior fracture fragment noted on the prior examination suggesting a reverse Bankhart fr acture fragment. In addition, on the scapular Y view, there is an osseous density anterior to the pro ximal humeral shaft inferior to the coracoid process, which appears to represent a remote anterior Ba nkhart fracture, as seen on prior CT exam. Osseous fragments noted anterior and posterior to the proximal left humeral head/neck junction, as se en on prior CT examination. IMPRESSION: Interval reduction in previously noted posterior shoulder dislocation. There is a corticated osseous fragment seen anterior and posterior, evidence of remote osseous anterior and posterior Bankhart frac tures respectively. These findings were better seen on the recent CT exam. POS: [facility]
[2017-04-25] MEDS ORDERED: Lorazepam 1 MG TAB PO PRN (15:44)
[2017-04-25] MEDS ORDERED: Polyethylene Glycol 3350 17 GM Packet PO PRN (15:44)
[2017-04-25] MEDS: Ketorolac Tromethamine 30 MG/ML VIAL IVP SCH ×2 (17:31→23:18)
--- NOTE | 2017-04-25 19:34 | OP ---
DATE OF PROCEDURE: 04/25/2017 PREOPERATIVE DIAGNOSES: Right rotator cuff arthropathy with posterior shoulder dislocation glenoid fracture, chronic, greater than 2 weeks. POSTOPERATIVE DIAGNOSES: Right rotator cuff arthropathy with posterior shoulder dislocation glenoid fracture, chronic, greater than 2 weeks. PROCEDURE PERFORMED: Closed reduction right shoulder. SURGEON: Bradley Thurston M.D. ANESTHESIA: Vakey. The patient received an LMA with single-shot interscalene. ESTIMATED BLOOD LOSS: None. ANTIBIOTICS: Vancomycin 1.5. IMPLANTS: None. EXPLANTS: None. COMPLICATIONS: None. HISTORY OF PRESENT ILLNESS: Mr. Ring is a 71-year-old male who had a fall on his right arm, dislocated his right shoulder posteriorly, had a locked posterior dislocation that was noted in the ER. I saw the patient in clinic 2 days ago, occurred about 16-17 days. The patient has a history of left shoulder chronic infection with osteomyelitis, had undergone multiple I and Ds, which has been unable to clear the infection. The patient presented back with a continued draining in his left shoulder, which was aspirated. MRI was performed today showing continued signs of osteomyelitis in the humeral head without continued abscess. The patient has now this right shoulder fracture dislocation with greater than 2 weeks old, locked posterior dislocation. I discussed with the patient undergoing a closed reduction. I do not desire at this time with the active osteo on his left shoulder to consider undergoing a reverse shoulder arthroplasty that would be definitive care for his right shoulder. The patient's left shoulder will need to be resolved this infection before we consider reversal on his right shoulder. The patient's left shoulder will need to undergo a repeat I and D and potentially [place], and I would like to stage it with this closed reduction today. The patient understood. My plan was an open versus closed reduction of his right shoulder. The patient understood the risks and benefits of pain, scar, bleeding, infection, damage to vital structures, decreased range of motion or strength, failure of procedure, and continued pain, need for further surgeries, redislocation. Understood the risks and benefits and elected to proceed. DESCRIPTION OF PROCEDURE: Timeout was performed designating the patient's right upper extremity as the operative site based on sight, consents, and markings. After completion of timeout, the patient received his interscalene block, his LMA placed. The patient was asleep on the table. I placed axial traction and locked the defect posteriorly as I unlocked he was able to sublux the shoulder anteriorly and was able to reduce the shoulder in to position. As I brought the patient up to about 50-degree point of elevation in front of his shoulder, he fell off the back when he was externally rotated. The patient was reduced. I took fluoro shots as well as hard film showing the patient reduced and placed him in a shoulder abduction brace with his arm externally rotated. The patient will likely require staged reverse shoulder arthroplasty to his right side so he can have one good arm. I need to clear the infection on his left shoulder before I proceed with the right shoulder. The patient is currently receiving Cipro from Dr. Hernandez. The patient will be admitted overnight for observation. I will need to create a plan with Dr. Hernandez for eradication. ELIZABETH
[2017-04-25] MEDS: Ciprofloxacin 500 MG TAB PO SCH (21:49)
[2017-04-25] MEDS: Famotidine 20 MG TAB PO SCH (21:49)
[2017-04-26] MEDS: Ketorolac Tromethamine 30 MG/ML VIAL IVP SCH ×2 (05:47→11:11)
[2017-04-26] MEDS: Ciprofloxacin 500 MG TAB PO SCH ×2 (05:47→20:37)
[2017-04-26] MEDS: traMADol HCl 50 MG TAB PO PRN ×2 (07:27→18:35)
[2017-04-26] MEDS: Multivit, Therapeutic 1 TAB PO SCH (08:19)
[2017-04-26] MEDS: Metoprolol Tartrate 25 MG TAB PO SCH (08:19)
[2017-04-26] MEDS: Aspirin 325 mg Enteric Coated Tablet PO SCH (08:19)
[2017-04-26] MEDS: Famotidine 20 MG TAB PO SCH ×2 (08:19→20:37)
[2017-04-26] MEDS: Lisinopril 5 MG TAB PO SCH (08:19)
[2017-04-26] MEDS: HYDROcodone/Acetaminophen 10/325 mg Tablet PO PRN ×2 (08:23→13:54)
[2017-04-26] MEDS: Methocarbamol 500 MG TAB PO PRN ×2 (11:11→18:34)
[2017-04-27] MEDS: traMADol HCl 50 MG TAB PO PRN ×2 (02:10→08:24)
[2017-04-27] MEDS: Ciprofloxacin 500 MG TAB PO SCH (04:50)
[2017-04-27] MEDS: HYDROcodone/Acetaminophen 10/325 mg Tablet PO PRN ×2 (04:53→12:15)
[2017-04-27 08:22] VITALS: TEMP 98.6
[2017-04-27] MEDS: Aspirin 325 mg Enteric Coated Tablet PO SCH (08:22)
[2017-04-27] MEDS: Multivit, Therapeutic 1 TAB PO SCH (08:22)
[2017-04-27] MEDS: Metoprolol Tartrate 25 MG TAB PO SCH (08:23)
[2017-04-27] MEDS: Lisinopril 5 MG TAB PO SCH (08:23)
[2017-04-27] MEDS: Famotidine 20 MG TAB PO SCH (08:23)
[2017-04-27] MEDS: Methocarbamol 500 MG TAB PO PRN (08:23)
[2017-04-27 11:54] VITALS: BP 131/72
== END 2017-04-27 12:22 | disposition home or self-care (01) ==
LOC: SDC 07:11 → SURG B 14:18
PROVIDERS: ADMIT Orthopaedic Surgery; ATTEND Orthopaedic Surgery
PROC: 0PS5XZZ Reposition Right Scapula, External Approach (ICD-10-PCS; principal; 2017-04-25)
DX: M12.811 Other specific arthropathies, not elsewhere classified, right shoulder (principal); S42.141A Displaced fracture of glenoid cavity of scapula, right shoulder, initial encounter for closed fracture; I10 Essential (primary) hypertension; E11.9 Type 2 diabetes mellitus without complications; F32.9 Major depressive disorder, single episode, unspecified; M86.8X1 Other osteomyelitis, shoulder; Z79.82 Long term (current) use of aspirin; Z79.2 Long term (current) use of antibiotics; Z79.84 Long term (current) use of oral hypoglycemic drugs; Z79.899 Other long term (current) drug therapy; Z88.1 Allergy status to other antibiotic agents; Z90.49 Acquired absence of other specified parts of digestive tract; Z98.890 Other specified postprocedural states; Z87.891 Personal history of nicotine dependence
CPT/HCPCS: 23575; 73030; 73223; 76000; 80048; 85025; 93005; 96374; 96376 ×2; 97139 ×5; 97530; 97535; G0378; G8978; G8979; G8980; G8987; G8988; G8989; 93010; J0670; J1100; J1885; J2250; J2704; J3010; J3370; J7050; Q0162

== ENCOUNTER 2017-05-16 09:03 | Inpatient (IN) | payer MEDICARE ==
[2017-05-15 15:44] VITALS: BMI 25.8
[2017-05-16 10:45] LABS: #Eosinphils 0.3 thou/uL (0.0-0.7); #Lymphocytes 2.2 thou/uL (1.20-3.40); #Monocytes 0.5 thou/uL (0.11-0.59); #Neutrophils 4.7 thou/uL (1.40-6.50); %Basophils 0.5 % (0.0-1.0); %Eosinophils 3.6 % (0.0-10.0); %Lymphocytes 28.5 % (21.0-51.0); %Neutrophils 61.5 % (42.0-75.0); Hemoglobin 10.9 g/dL (14.0-18.0); Mean Corpuscular HGB CONC 30.3 g/dL (32.0-36.0); Mean Corpuscular Hemoglobin 25.2 pg (27.0-31.0); Mean Corpuscular Volume 83.1 fl (80.0-94.0); Mean Platelet Volume 7.8 fL (7.4-10.4); Platelet Count 299 thou/uL (130-400); RBC Distribution Width 14.6 % (11.5-14.5); Red Blood Cell (RBC) Count 4.34 mill/uL (4.70-6.10); White Blood Cell (WBC) Count 7.7 thou/uL (4.8-10.8)
[2017-05-16 10:57] LABS: Anion Gap 14 mmol/L (10-20); BUN (Urea Nitrogen) 20 mg/dL (8.4-25.7); Calc. Creatinine Clearance 80 mL/min (70-130); Calcium 9.6 mg/dL (7.8-10.44); Carbon Dioxide 16 mmol/L (23-31); Chloride 109 mmol/L (98-107); Estimated GFR-MDRD 81; Glucose 126 mg/dL (83-110); Potassium 4.4 mmol/L (3.5-5.1); Sodium 135 mmol/L (136-145)
[2017-05-16] MEDS ORDERED: Midazolam HCl 2 mg/2 ml Vial ONE (10:57)
[2017-05-16] MEDS ORDERED: Fentanyl 100 MCG/2 ML VIAL ONE ×2 (10:57→14:10)
[2017-05-16] MEDS ORDERED: Tobramycin Sulfate 1.2 GM VIAL ONE (12:40)
[2017-05-16] MEDS ORDERED: Tobramycin/Dexamethasone Ophth Oint 3.5 GM TUBE ONE (12:40)
[2017-05-16] MEDS ORDERED: Milk Of Magnesia 30 ML UDCUP PO PRN (14:37)
[2017-05-16] MEDS ORDERED: traMADol HCl 50 MG TAB PO PRN (14:37)
[2017-05-16] MEDS ORDERED: Ondansetron HCl/PF 4 MG/2 ML Vial IV PRN (14:37)
[2017-05-16] MEDS ORDERED: Acetaminophen 325 MG TAB PO PRN (14:37)
[2017-05-16] MEDS ORDERED: Fentanyl 100 MCG/2 ML VIAL SLOW IVP PRN (14:37)
[2017-05-16] MEDS ORDERED: Bisacodyl 10 MG SUPP PR PRN (14:37)
[2017-05-16] MEDS ORDERED: Promethazine HCl 25 MG/ML VIAL IM PRN (14:37)
[2017-05-16] MEDS ORDERED: Vancomycin HCl 1 GM in Premix Bag 1 BAG IVPB SCH ×2 (16:00→17:00)
[2017-05-16] MEDS ORDERED: Bupivacaine PF 0.5% 30 ML VIAL ONE (16:36)
[2017-05-16] MEDS ORDERED: PHENYLEPHRINE-NS 100 MCG/ML 10 ML SYRINGE ONE (17:11)
[2017-05-16] MEDS ORDERED: ePHEDrine/0.9% NaCl/PF SYRINGE 50 mg/10 ml ONE (17:11)
[2017-05-16] MEDS ORDERED: Glycopyrrolate 0.2 MG/ML 5 ML SYRINGE ONE (17:11)
[2017-05-16] MEDS ORDERED: Labetalol 100 MG/20 ML MDV ONE (17:11)
[2017-05-16] MEDS ORDERED: Lidocaine 1% PF 5 ML VIAL ONE (17:11)
[2017-05-16] MEDS ORDERED: Propofol 200 MG/20 ML VIAL ONE (17:11)
[2017-05-16] MEDS ORDERED: HumaLOG 300 UNITS/3 ML VIAL SC PRN (17:46)
[2017-05-16] MEDS ORDERED: Dextrose 50% Abboject 50 ML SYRINGE SLOW IVP PRN (17:46)
[2017-05-16] MEDS ORDERED: Dextrose 5% in Water 1,000 ML IV PRN (17:46)
--- NOTE | 2017-05-16 21:09 | CON ---
DATE OF CONSULTATION: 05/16/2017 REASON FOR CONSULTATION: Medical management. HISTORY OF PRESENT ILLNESS: A 71-year-old male with a past medical history of hypertension, atrial f ibrillation on aspirin and type 2 diabetes (diet controlled), as well as COPD, who presents to the em ergency room with toe pain, right shoulder pain and had right shoulder surgery today. Surgical Riky noel consulted us for medical management. He currently has no complaints. His pain is well controlled . He denies chest pain, shortness of breath, lightheadedness. He has no abdominal or urinary sympto ms. REVIEW OF SYSTEMS: A 10-point review of systems done and negative. PHYSICAL EXAMINATION: VITAL SIGNS: Temperature 97.3, pulse 70, respiratory rate 18, oxygen saturation 95% on room air, blo od pressure 90/47. LABORATORY DATA: CBC and CMP noncontributory. IMAGING: None. ASSESSMENT AND PLAN: 1. Hypotension. The patient is asymptomatic and he is currently receiving IV fluids. We will monit or blood pressure and give him a bolus of normal saline if he remains hypotensive. 2. Hypertension. Hold his home medications. He takes metoprolol and lisinopril on outpatient basis . 3. Atrial fibrillation. He is currently rate controlled. He takes aspirin on an outpatient basis. He also states Eliquis was prescribed in the past, but he was unable to afford it and Coumadin was n ot prescribed by doctors for unclear reasons. He can restart aspirin once cleared by Surgery. 4. Chronic obstructive pulmonary disease. The patient not on any inhalers on reports. No symptoms. He quit smoking cigarettes in 2001 5. Type 2 diabetes mellitus, diet controlled. We will monitor his blood glucose before meals and at bedtime. Place him on a diabetic diet and sliding scale insulin. CODE STATUS: FULL CODE.
[2017-05-16] MEDS ORDERED: Sodium Chloride 0.9% 500 ML IV SCH (22:30)
[2017-05-16] MEDS ORDERED: Chloraseptic Spray 180 ml Bottle PO PRN (22:30)
[2017-05-17] MEDS: HYDROcodone/Acetaminophen 10/325 mg Tablet PO PRN ×5 (00:22→23:28)
[2017-05-17] MEDS: Vancomycin HCl 1 GM in Premix Bag 1 BAG IVPB SCH ×2 (00:22→12:24)
[2017-05-17] MEDS: traMADol HCl 50 MG TAB PO PRN ×2 (02:53→08:34)
[2017-05-17 04:27] LABS: #Eosinphils 0.1 thou/uL (0.0-0.7); #Lymphocytes 2.1 thou/uL (1.20-3.40); #Monocytes 0.5 thou/uL (0.11-0.59); #Neutrophils 3.2 thou/uL (1.40-6.50); %Basophils 0.7 % (0.0-1.0); %Eosinophils 2.2 % (0.0-10.0); %Neutrophils 54.2 % (42.0-75.0); Mean Corpuscular HGB CONC 31.6 g/dL (32.0-36.0); Mean Corpuscular Hemoglobin 25.3 pg (27.0-31.0); Mean Corpuscular Volume 80.2 fl (80.0-94.0); Mean Platelet Volume 7.4 fL (7.4-10.4); Platelet Count 240 thou/uL (130-400); RBC Distribution Width 14.3 % (11.5-14.5); Red Blood Cell (RBC) Count 3.55 mill/uL (4.70-6.10); White Blood Cell (WBC) Count 5.9 thou/uL (4.8-10.8)
--- NOTE | 2017-05-17 07:00 | OP ---
PREOPERATIVE DIAGNOSES: Left shoulder osteomyelitis with subcutaneous abscess, failure of previous treatment, IV's, as well as open treatment. PROCEDURES PERFORMED: Humeral head resection with placement of PROSTALAC antibiotic spacer (hemiarthroplasty) and incision and drainage of the left shoulder wound and abscess. STAFF: Bradley Thurston M.D. STRATEGIC ACCOUNT DIRECTOR: Danie Elizalde PA-C. ANESTHESIA: [place]. The patient received general endotracheal intubation with a single-shot interscalene block. ESTIMATED BLOOD LOSS: 650 with 1 unit of blood in. URINE OUTPUT: The patient had no urine output. COMPLICATIONS: None. ANTIBIOTICS: One gram of vancomycin. CULTURES SENT: Abscess fluid and tissue for path as well as culture, Gram stain , aerobe, anaerobe, fungal and acid fast. Humeral head sent for path and culture, Gram stain, acid fast. COMPLICATIONS: None. HISTORY OF PRESENT ILLNESS: Mr. Ring is a 71-year-old male who is well known to my service, had multiple I and D of left shoulder for recurrent abscess and fluid collection. I discussed with him that given that he continues to have this drainage and shows signs of potentially fluid within the humeral head that I needed to perform an osteotomy to remove any potential site of infection, clear out the recurrent infections, wash the shoulder out, the antibiotic spacer potentially require repeat I and D, understood these risks and benefits and elected to proceed. PROCEDURE NOTE: Time-out was performed designating the patient's left lower extremity as the operative site based on sight, consents, and markings. After timeout, the patient's left shoulder incision, went down, found the abscess evacuated. Probably 40 mL of purulent material abscess found in the plane, previous scar plane, came down through the plane to expose the humeral head using an osteotome and saw cut the head in about 12-15 degrees of retroversion, removed the head, broached up to size 3 for the Ascend Flex stem and bur down to ensure we had good position for our humeral head, and then for our PROSTALAC spacer. We washed out the wound. We had substantial bleeding about 450 mL out medially, this is predominantly from the bone after we built a spacer, we had put 2 bags of cement with 6 grams of vancomycin and 4 vials of tobramycin built our spacer, let it cure, it was hardened. We then placed it into position. I liked the overall alignment and position of this spacer, we then reduced the shoulder. We curetted and cleaned out the abscess and removed some of the rind of the abscess, but it was subcu, and I was concerned it might devascularize if I took too much for washing out total of 4.5 liters of fluid. We then closed with #1 Prolene. The deltopectoral interval of the scar plane leaving a large drain in the subdeltoid plane and a second drain and the large abscess fluid. We tried to close the space down. We then closed the skin with 2-0 nylon. The patient will be admitted for ID consult, PICC line placed, will be on vancomycin and Levaquin until the consult by Dr. Hernandez. The patient will await final cultures. ELIZABETH
--- NOTE | 2017-05-17 08:50 | PDOC.PN ---
- Subjective Encounter Start Date: 05/17/17 Encounter Start Time: 08:52 Subjective: No new complaints- has L shoulder pain but controlled w medications -: No acute events overnight. He had tachycardia but resolved w hydration. - Objective Resuscitation Status: Resuscitation Status FULL:Full Resuscitation MAR Reviewed: Yes Vital Signs & Weight: Vital Signs (12 hours) Temp Pulse Resp BP Pulse Ox 05/17/17 04:00 97.8 F 72 18 123/72 96 05/17/17 02:37 96 05/16/17 23:58 97.8 F 123 H 21 H 119/78 96 05/16/17 23:30 97.8 F 121 H 20 119/78 96 Weight Weight 175 lb I&O: 05/16/17 05/17/17 05/18/17 06:59 06:59 06:59 Intake Total 2200 Output Total 1370 Balance 830 Result Diagrams: 05/17/17 03:42 05/16/17 10:33 Additional Labs: Accuchecks 05/17/17 05:42 POC Glucose 129 H Phys Exam - Physical Examination Constitutional: NAD HEENT: PERRLA, moist MMs, sclera anicteric Neck: no JVD, supple, full ROM Respiratory: no wheezing, no rales, no rhonchi, clear to auscultation bilateral Cardiovascular: RRR, no significant murmur, no rub Gastrointestinal: soft, non-tender, no distention, positive bowel sounds Musculoskeletal: no edema, pulses present Neurological: non-focal, moves all 4 limbs Psychiatric: normal affect, A&O x 3 Skin: no rash, normal turgor Dx/Plan (1) Paroxysmal a-fib Code(s): I48.0 - PAROXYSMAL ATRIAL FIBRILLATION Status: Acute Comment: Rate controlled now. Will resume metoprolol when BP stable. (2) HTN (hypertension) Code(s): I10 - ESSENTIAL (PRIMARY) HYPERTENSION Status: Chronic Qualifiers: Hypertension type: essential hypertension Comment: On metoprolol and Lisinopril. BP being held due to hypotensive episodes that resolved w hydration (3) Tachycardia Code(s): R00.0 - TACHYCARDIA, UNSPECIFIED Status: Acute Plan: Likely 2/2 volume depletion. EKG showed sinus tachy, BNP not elevated. Resolved w parenteral hydration - Plan cont current plan of care * .
--- NOTE | 2017-05-17 13:21 | EKG ---
Test Reason : CHEST PAIN Blood Pressure : / mmHG Vent. Rate : 119 BPM Atrial Rate : 119 BPM P-R Int : 200 ms QRS Dur : 078 ms QT Int : 288 ms P-R-T Axes : -14 048 025 degrees QTc Int : 405 ms Sinus tachycardia Otherwise normal ECG Confirmed by DOLLY PATINO ([id number]) on 05/17/2017 1:21:30 PM Referred By: MICHELLE Confirmed By:DOLLY PATINO
--- NOTE | 2017-05-17 17:00 | CON ---
DATE OF CONSULTAITON: 05/17/2017 REASON FOR CONSULTATION: Recrudescence of inflammatory process, left shoulder. HISTORY OF PRESENT ILLNESS: A 71-year-old patient, history of alcoholism, COPD, and atrial fibrillat ion, who has had recurrent left shoulder dislocations. In 10/2015, the patient received a shoulder i njection of corticosteroids and subsequently developed pain and erythema. Dr. Levi at that time d id surgical debridement of the left shoulder, there was a significant amount of cloudy fluid identifi ed. The area was irrigated and drain placed. Cultures from the site yielded propionibacterium acne and the patient was discharged with 7-day course of minocycline. In 10/2016, he was readmitted with persistence of leakage of fluids from the left shoulder site. A CT of the area demonstrated progress ion of changes secondary to septic joint involving the left shoulder with stranding of the subcutaneo us fat and evidence of a joint effusion there. There was evidence of destructive changes in the prox imal humerus and glenoid and collection noted. The operative report included the lack of evidence of significant scar. There was evidence of excessive fluid in the space. From 10/2016, we have 4 diff erent samples submitted for cultures and only one of them yielded what is described as skin jerry in rare amounts. The patient was nonetheless prescribed intravenous Rocephin for the possibility of pro pionibacterium acne. In 12/07/2016, the patient underwent repeat MRI of the left shoulder and it myles wed a very extensive abnormal longstanding rotator cuff injuries with muscle volume loss and a nondis placed healed fracture, coronoid process, and extensive abnormal joint fluid and periarticular fluid and a multiloculated fluid collection anteriorly with extensive amount of debris. There was also ext ensive abnormal marrow signal within enhancement within the humeral head and multiple focal areas of circumscribed bone destruction within the humeral head. In 01/05/2017, he was readmitted with recrud escence of inflammatory process and this is after 6 weeks of IV Rocephin in [place]. Dr. Brad conklin did a surgical intervention again and did a washout and was bleeding and lot of granulation tissue noticed with oozing. Cultures at this time identified Staphylococcus aureus and group G Streptococcu s in rare amounts, and he was then transitioned to cefazolin and rifampin and then this was planned t o be given for 8 weeks. I was able to see patient in the outpatient setting after completion of ther apy. Because of developmental reaction to cephalosporins, we had to transition him to oral ciproflox acin. Unfortunately, he persisted with drainage and pain in the left shoulder and required another s urgical procedure, at this time was more radical procedure including resection of the humeral head by Dr. Cruz. The operative note was reviewed and there was abscess evacuated probably 40 mL of purul ent material. The head was cut about 12-15 degrees of retroversion, removed, and spacer was placed w ith cement and vancomycin as well as tobramycin. We have 2 pathology reports from the shoulder, one from December, which showed acute neutrophilic inflammation, but no necrosis with negative AFB and fun gal stains and one from 05/16/2017 with numerous necrotic fragments and negative for neutrophils, lym phocytes from the abscess, negative for malignancy and then the soft tissue left humeral head as well with 5 broken active tissue fragments with granulation tissue acute and chronic inflammation. Thus far, the cultures from the shoulder have yielded no growth. There is an aspirate from 04/23/2017 whi ch yielded no growth, although there were many WBCs seen. The patient is currently in bed. He does not in acute distress. Denies headaches. No sore throat, odynophagia, dysphagia, or dyspnea. No ch est pain, no back pain, no genitourinary symptoms. No abdominal pain. No diarrhea. No other joint symptoms. PAST MEDICAL HISTORY: Includes perforated duodenal ulcer with surgical repair, alcohol dependence sy ndrome, COPD, paroxysmal atrial fibrillation, chronic rotator cuff problems left shoulder with ruptur e, chronic arthritis there and multiple procedures with one superficial culture from the initial I&D by Dr. Levi in 2015 yielded propionibacterium and then procedures in October with numerous samples sent with negative cultures and then third procedure by Dr. Thurston with more extensive I&D which yie lded Staph aureus and group B strep. FAMILY HISTORY: Noncontributory. ALLERGIES: CEFAZOLIN. CURRENT MEDICATION LIST: Includes levofloxacin and vancomycin. PHYSICAL EXAMINATION: VITAL SIGNS: Temperature normal. Other vital signs are not remarkable. SKIN: Shows the left shoulder surgical site with the usual appearance. He still has a drain in plac e. Peripheral IV access. No lymphadenopathy. HEENT: Ocular movements are conjugate. Oral cavity with numerous teeth in place with marked dental decay and gum disease. NECK: Supple. No jugular venous distention. LUNGS: With symmetric clear breath sounds. HEART: S1, S2, regular rate. No S3 or S4. ABDOMEN: Soft, not distended or tender. No ascites. No bladder distention. GENITOURINARY: No genital abnormalities. EXTREMITIES: No other joint inflammatory activity noted. Pulses are 1+ in dorsalis pedis. He is ab le to move extremities equally except for limitations imposed by the left shoulder process. NEUROLOGIC: Cognitive function appears to be intact. LABORATORY DATA: White cell count 7.7 and 5.9, hemoglobin 10.9, MCV 83, platelets 299 with normal di fferential. Creatinine 0.92, sodium 135, and BNP 39. The patient has had hepatitis C nonreactive te sting in the recent past. All the cultures from the shoulder samples have been reviewed in the above note. ASSESSMENT: Chronic obstructive pulmonary disease and alcohol dependency syndrome, atrial fibrillati on, chronic rotator cuff abnormality, left shoulder with rupture, arthritis left shoulder and recurre nt fluid buildup in shoulder with numerous procedures with one positive culture for propionibacterium at the end of 2015 from a superficial drainage and then numerous cultures in the middle of 2016 with all negative results and then positive culture for Staph aureus and Streptococcus from October with p ersistence of abnormalities and drainage and now more radical procedure. DISCUSSION: The patient probably has 3 different components of his current issue. Degenerative arth ritis of the joint with rotator cuff damage and degenerative process of the head of humerus and super imposed infection, possibly initially from propionibacterium and then possible superinfection by Stap hylococcus aureus and streptococcus. The patient has been received extensive antimicrobial therapy a nd now has persisted with changes. He was admitted and had resection of the humeral head. It is pos sible that this time that he does not have any more viable organism at the site, although he still fontanez d some element of acute and chronic inflammation with extensive necrosis. We will wait for further r esults of cultures, but most likely he will require retreatment in view of the refractory nature of t his problem and the still presence of inflammatory changes in the pathology from the resected humeral head. The patient has intent allow PICC line to be inserted, but I have discussed with him that it will be necessary. The regimen will be chosen once we have the final culture results.
[2017-05-18] MEDS: Vancomycin HCl 1 GM in Premix Bag 1 BAG IVPB SCH (01:13)
[2017-05-18 01:14] LABS: Vancomycin, Trough 12.1 ug/mL
[2017-05-18] MEDS: HYDROcodone/Acetaminophen 10/325 mg Tablet PO PRN ×4 (03:36→22:16)
[2017-05-18 04:42] LABS: Hemoglobin 8.8 g/dL (14.0-18.0); Mean Corpuscular HGB CONC 31.6 g/dL (32.0-36.0); Mean Corpuscular Hemoglobin 25.5 pg (27.0-31.0); Mean Corpuscular Volume 80.5 fl (80.0-94.0); Mean Platelet Volume 7.7 fL (7.4-10.4); Platelet Count 218 thou/uL (130-400); RBC Distribution Width 14.5 % (11.5-14.5); Red Blood Cell (RBC) Count 3.46 mill/uL (4.70-6.10); White Blood Cell (WBC) Count 6.4 thou/uL (4.8-10.8)
[2017-05-18 04:52] LABS: Anion Gap 11 mmol/L (10-20); BUN (Urea Nitrogen) 11 mg/dL (8.4-25.7); Calc. Creatinine Clearance 85 mL/min (70-130); Calcium 9.1 mg/dL (7.8-10.44); Carbon Dioxide 25 mmol/L (23-31); Chloride 104 mmol/L (98-107); Estimated GFR-MDRD 86; Glucose 117 mg/dL (83-110); Potassium 3.9 mmol/L (3.5-5.1); Sodium 136 mmol/L (136-145)
[2017-05-18] MEDS: diphenhydrAMINE 25 MG CAP PO PRN ×2 (08:15→22:16)
[2017-05-18] MEDS: Multivit, Therapeutic 1 TAB PO SCH (08:17)
[2017-05-18] MEDS: Metoprolol Tartrate 25 MG TAB PO SCH (08:57)
[2017-05-18] MEDS: Lisinopril 5 MG TAB PO SCH (08:57)
[2017-05-18] MEDS: traMADol HCl 50 MG TAB PO PRN (09:22)
[2017-05-18] MEDS ORDERED: Ketorolac Tromethamine 30 MG/ML VIAL IVP SCH (10:30)
--- NOTE | 2017-05-18 11:43 | PDOC.PN ---
- Subjective Encounter Start Date: 05/18/17 Encounter Start Time: 11:40 Subjective: no fever chills - Objective Resuscitation Status: Resuscitation Status FULL:Full Resuscitation MAR Reviewed: Yes Vital Signs & Weight: Vital Signs (12 hours) Temp Pulse Resp BP Pulse Ox 05/18/17 08:57 75 05/18/17 08:00 98.3 F 75 16 95 05/18/17 07:20 98.3 F 75 16 108/52 L 95 05/18/17 04:00 98.2 F 60 18 107/58 L 92 L 05/18/17 00:00 98.3 F 80 18 129/82 95 Weight Weight 175 lb I&O: 05/17/17 05/18/17 05/19/17 06:59 06:59 06:59 Intake Total 2200 400 Output Total 1370 2205 Balance 830 -1805 Result Diagrams: 05/18/17 00:31 05/18/17 00:31 Additional Labs: Accuchecks 05/18/17 05/17/17 05/17/17 11:13 19:30 16:12 POC Glucose 189 H 129 H 137 H 05/17/17 11:07 POC Glucose 149 H Phys Exam - Physical Examination Neck: no JVD Respiratory: no wheezing Cardiovascular: no significant murmur, irregular Gastrointestinal: soft, positive bowel sounds Musculoskeletal: no edema Dx/Plan (1) DM type 2 (diabetes mellitus, type 2) Status: Acute Qualifiers: Diabetes mellitus complication status: without complication Diabetes mellitus chcf insulin use: without chcf use Qualified Code(s): E11.9 - Type 2 diabetes mellitus without complications (2) Atrial fibrillation Code(s): I48.91 - UNSPECIFIED ATRIAL FIBRILLATION Status: Chronic Qualifiers: Atrial fibrillation type: paroxysmal Qualified Code(s): I48.0 - Paroxysmal atrial fibrillation Comment: currently in sinus rhythm, on Amiodarone (3) HTN (hypertension) Code(s): I10 - ESSENTIAL (PRIMARY) HYPERTENSION Status: Chronic Qualifiers: Hypertension type: essential hypertension Comment: On metoprolol and Lisinopril. BP being held due to hypotensive episodes that resolved w hydration (4) Anemia Code(s): D64.9 - ANEMIA, UNSPECIFIED Status: Acute Qualifiers: Anemia type: unspecified type Qualified Code(s): D64.9 - Anemia, unspecified - Plan cont B-khalida/ GLORIA for HTN -: DM diet controlled, cont ACCU -: AF rate controlled on B-khalida * .
[2017-05-18] MEDS: Vancomycin HCl 1.25 GM in Sodium Chloride 0.9% 250 ML 250 ML IVPB SCH (12:04)
[2017-05-18] MEDS ORDERED: Polyethylene Glycol 3350 17 GM Packet PO SCH (14:30)
[2017-05-18] MEDS: Ketorolac Tromethamine 30 MG/ML VIAL IVP SCH (18:02)
[2017-05-19] MEDS: Ketorolac Tromethamine 30 MG/ML VIAL IVP SCH ×4 (00:31→17:48)
[2017-05-19] MEDS: Vancomycin HCl 1.25 GM in Sodium Chloride 0.9% 250 ML 250 ML IVPB SCH ×2 (00:32→12:25)
[2017-05-19] MEDS: HYDROcodone/Acetaminophen 10/325 mg Tablet PO PRN ×2 (08:11→18:12)
[2017-05-19] MEDS: Multivit, Therapeutic 1 TAB PO SCH (08:12)
[2017-05-19] MEDS: Polyethylene Glycol 3350 17 GM Packet PO SCH (08:12)
[2017-05-19] MEDS: Metoprolol Tartrate 25 MG TAB PO SCH (09:51)
[2017-05-19] MEDS: Lisinopril 5 MG TAB PO SCH (09:51)
[2017-05-19] MEDS: diphenhydrAMINE 25 MG CAP PO PRN ×2 (10:45→20:26)
[2017-05-19] MEDS ORDERED: Metoprolol Tartrate 25 MG TAB PO SCH (11:15)
[2017-05-19] MEDS ORDERED: Lisinopril 5 MG TAB PO SCH (11:15)
--- NOTE | 2017-05-19 12:23 | PDOC.PN ---
- Subjective Encounter Start Date: 05/19/17 Encounter Start Time: 12:21 Subjective: shoulder pain but otherwise feels OK -: no dizziness/CP.no fever/chills - Objective Resuscitation Status: Resuscitation Status FULL:Full Resuscitation MAR Reviewed: Yes Vital Signs & Weight: Vital Signs (12 hours) Temp Pulse Resp BP BP Pulse Ox 05/19/17 11:22 80 98/48 L 05/19/17 09:51 68 91/52 L 05/19/17 09:36 97.8 F 68 18 95 05/19/17 07:15 97.8 F 68 18 91/52 L 95 05/19/17 05:29 96 05/19/17 04:00 98.3 F 83 18 123/68 96 Weight Weight 175 lb I&O: 05/18/17 05/19/17 05/20/17 06:59 06:59 06:59 Intake Total 400 Output Total 2205 40 Balance -1805 -40 Result Diagrams: 05/18/17 00:31 05/18/17 00:31 Additional Labs: Accuchecks 05/19/17 05/19/17 05/18/17 11:23 05:52 20:46 POC Glucose 138 H 113 H 109 05/18/17 05/18/17 15:53 06:22 POC Glucose 108 125 H Microbiology 05/16/17 13:05 Shoulder - Left Acid Fast Bacilli Smear - Final 05/16/17 13:05 Humerus - Left Acid Fast Bacilli Smear - Final 05/16/17 13:05 Shoulder - Left Bacterial Culture - Preliminary 05/16/17 13:05 Shoulder - Fluid Bacterial Culture - Preliminary 05/16/17 13:05 Shoulder - Fluid Anaerobic Culture - Preliminary 05/16/17 13:05 Humerus - Left Bacterial Culture - Preliminary 05/16/17 13:05 Humerus - Left Anaerobic Culture - Preliminary Laboratory Tests 05/16/17 05/17/17 05/18/17 10:33 03:42 00:31 Hgb 10.9 L 9.0 L 8.8 L Phys Exam - Physical Examination Constitutional: NAD HEENT: PERRLA, moist MMs, sclera anicteric, oral pharynx no lesions Neck: no nodes, no JVD, supple, full ROM Respiratory: no wheezing, no rales, no rhonchi, clear to auscultation bilateral Cardiovascular: RRR, no significant murmur Gastrointestinal: soft, non-tender, no distention, positive bowel sounds Musculoskeletal: no edema, pulses present Neurological: non-focal, normal sensation, moves all 4 limbs Left shoulder in sling ,dressing w/o bleeding Psychiatric: normal affect, A&O x 3 Skin: no rash Dx/Plan (1) Hypotension Status: Acute Qualifiers: Hypotension type: other hypotension type Qualified Code(s): I95.89 - Other hypotension (2) Status post total shoulder arthroplasty Code(s): Z96.619 - PRESENCE OF UNSPECIFIED ARTIFICIAL SHOULDER JOINT Status: Acute Qualifiers: Laterality: left Qualified Code(s): Z96.612 - Presence of left artificial shoulder joint (3) DM type 2 (diabetes mellitus, type 2) Status: Chronic Qualifiers: Diabetes mellitus complication status: without complication Diabetes mellitus shelter insulin use: without terminologist use Qualified Code(s): E11.9 - Type 2 diabetes mellitus without complications (4) Acute blood loss as cause of postoperative anemia Code(s): D62 - ACUTE POSTHEMORRHAGIC ANEMIA Status: Acute Comment: Monitor trend (5) Chronic obstructive pulmonary disease Status: Chronic Qualifiers: COPD type: unspecified COPD Qualified Code(s): J44.9 - Chronic obstructive pulmonary disease, unspecified (6) Paroxysmal a-fib Code(s): I48.0 - PAROXYSMAL ATRIAL FIBRILLATION Status: Chronic Comment: Rate controlled now. Will resume metoprolol when BP stable. (7) Rotator cuff arthropathy Code(s): M12.819 - OTH SPECIFIC ARTHROPATHIES, NEC, UNSP SHOULDER Status: Chronic Qualifiers: Laterality: right Qualified Code(s): M12.811 - Other specific arthropathies , not elsewhere classified, right shoulder (8) Chronic alcoholism Code(s): F10.20 - ALCOHOL DEPENDENCE, UNCOMPLICATED Status: Chronic Comment : Counselled. (9) H/O TIA (transient ischemic attack) and stroke Code(s): Z86.73 - PRSNL HX OF TIA (TIA), AND CEREB INFRC W/O RESID DEFICITS Status: Chronic Comment: on ASA (10) HTN (hypertension) Code(s): I10 - ESSENTIAL (PRIMARY) HYPERTENSION Status: Chronic Qualifiers: Hypertension type: essential hypertension Comment: On metoprolol and Lisinopril. BP being held due to hypotensive episodes that resolved w hydration - Plan DVT proph w/SCDs restart IVF as BP still lower side.Metoprolol on hold w risk of A-fib/RVR -: monitor H/H. -: pain meds ,rehab per primary team -: ABx per ID.may need PICC but has H/O Alcohalism -: Blood sugar controlled.cont ISS & accuchecks * . Review of Systems - Review of Systems Constitutional: negative: fever, chills, sweats, weakness, malaise, other ENT: negative: Ear Pain, Ear Discharge, Nose Pain, Nose Discharge, Nose Congestion, Mouth Pain, Mouth Swelling, Throat Pain, Throat Swelling, Other Respiratory: negative: Cough, Dry, Shortness of Breath, Hemoptysis, SOB with Excertion, Pleuritic Pain, Sputum, Wheezing Cardiovascular: negative: chest pain, palpitations, orthopnea, paroxysmal nocturnal dyspnea, edema, light headedness, other Gastrointestinal: negative: Nausea, Vomiting, Abdominal Pain, Diarrhea, Constipation, Melena, Hematochezia, Other Genitourinary: negative: Dysuria, Frequency, Incontinence, Hematuria, Retention , Other Musculoskeletal: Shoulder Pain. negative: Neck Pain, Arm Pain, Back Pain, Hand Pain, Leg Pain, Foot Pain, Other Skin: negative: Rash, Lesions, Dm, Bruising, Other Neurological: negative: Weakness, Numbness, Incoordination, Change in Speech, Confusion, Seizures, Other - Medications/Allergies Allergies/Adverse Reactions: Allergies Allergy/AdvReac Type Severity Reaction Status Date / Time cefazolin [From [facility]] Allergy Severe Swollen Verified 05/15/17 15:44 Lips Medications: Current Medications Acetaminophen (Tylenol) 650 mg PO Q6H PRN PRN Reason: Headache/Temp >101F/Mild Pain Last Admin: 05/16/17 22:51 Dose: 650 mg Hydrocodone Bitart/Acetaminophen ([place] 10/325) 1 tab PO Q4H PRN PRN Reason: Moderate Pain (4-6) Last Admin: 05/17/17 06:55 Dose: 1 tab Hydrocodone Bitart/Acetaminophen ([place] 10/325) 2 tab PO Q4H PRN PRN Reason: Severe Pain (7-10) Last Admin: 05/19/17 08:11 Dose: 2 tab Bisacodyl (Dulcolax) 10 mg GA DAILY PRN PRN Reason: Constipation Dextrose/Water (Dextrose 50%) 25 gm SLOW IVP PRN PRN PRN Reason: Hypoglycemia Diphenhydramine HCl (Benadryl) 50 mg PO BID PRN PRN Reason: Allergies Last Admin: 05/19/17 10:45 Dose: 50 mg Fentanyl (Sublimaze) 50 mcg SLOW IVP Q30M PRN PRN Reason: Severe breakthrough pain Glucagon (Glucagon) 1 mg IM PRN PRN PRN Reason: Hypoglycemia Levofloxacin 500 mg/ Device 100 mls @ 100 mls/hr IVPB 1500 [facility] Last Admin: 05/18/17 14:06 Dose: 100 mls Dextrose/Water (D5w) 1,000 mls @ 0 mls/hr IV .Q0M PRN; As Directed PRN Reason: Hypoglycemia Vancomycin HCl 1.25 gm/ Sodium (Chloride) 250 mls @ 166.667 mls/hr IVPB 0100, 1300 [facility] Last Admin: 05/19/17 00:32 Dose: 250 mls Sodium Chloride (Normal Saline 0.9%) 1,000 mls @ 70 mls/hr IV .[id number] [facility] Insulin Human Lispro (Humalog) 0 units SC .MILD SLIDING SCALE PRN PRN Reason: Mild Correctional Scale Ketorolac Tromethamine (Toradol) 15 mg IVP Q6HR [facility] Stop: 05/23/17 18:01 Last Admin: 05/19/17 11:54 Dose: 15 mg Lisinopril (Zestril) 5 mg PO DAILY [facility] Lisinopril (Zestril) 5 mg PO NOW [facility] Stop: 05/19/17 13:15 Last Admin: 05/19/17 11:22 Dose: Not Given Magnesium Hydroxide (Milk Of Magnesium) 30 ml PO DAILY PRN PRN Reason: Constipation Metoprolol Tartrate (Lopressor) 25 mg PO QAM [facility] Metoprolol Tartrate (Lopressor) 25 mg PO NOW [facility] Stop: 05/19/17 13:15 Last Admin: 05/19/17 11:24 Dose: Not Given Miscellaneous Medication (Pharmacy To Dose) 1 each IVPB ONE PRN PRN Reason: DOSING Stop: 06/15/17 15:46 Multivitamins (Theragran) 1 tab PO DAILY [facility] Last Admin: 05/19/17 08:12 Dose: 1 tab Ondansetron HCl (Zofran) 4 mg IV Q6H PRN PRN Reason: Nausea Phenol (Chloraseptic [place] 180 Ml Bot) 0 ml PO PRN PRN PRN Reason: SORE THROAT Last Admin: 05/16/17 22:51 Dose: 1 spr Polyethylene Glycol (Miralax) 17 gm PO DAILY [facility] Last Admin: 05/19/17 08:12 Dose: 17 gm Promethazine HCl (Phenergan) 12.5 mg IM Q4H PRN PRN Reason: Nausea Sodium Chloride (Flush - Normal Saline) 10 ml IVF PRN PRN PRN Reason: Saline Flush Tramadol HCl (Ultram) 50 mg PO Q6H PRN PRN Reason: Mild Pain (1-3) Last Admin: 05/16/17 18:09 Dose: 50 mg Tramadol HCl (Ultram) 100 mg PO Q6H PRN PRN Reason: Moderate Pain (4-6) Last Admin: 05/18/17 09:22 Dose: 100 mg
[2017-05-19] MEDS: Sodium Chloride 0.9% 1,000 ML IV SCH (12:51)
[2017-05-20] MEDS: Ketorolac Tromethamine 30 MG/ML VIAL IVP SCH ×4 (01:09→17:39)
[2017-05-20] MEDS: HYDROcodone/Acetaminophen 10/325 mg Tablet PO PRN ×6 (01:10→22:54)
[2017-05-20] MEDS: Vancomycin HCl 1.25 GM in Sodium Chloride 0.9% 250 ML 250 ML IVPB SCH (01:11)
[2017-05-20 01:20] LABS: Vancomycin, Trough 23.5 ug/mL
[2017-05-20] MEDS: Sodium Chloride 0.9% 1,000 ML IV SCH ×2 (03:58→17:39)
[2017-05-20] MEDS: diphenhydrAMINE 25 MG CAP PO PRN ×2 (07:43→16:22)
[2017-05-20] MEDS: Polyethylene Glycol 3350 17 GM Packet PO SCH (07:44)
[2017-05-20] MEDS: Multivit, Therapeutic 1 TAB PO SCH (07:45)
[2017-05-20] MEDS: Metoprolol Tartrate 25 MG TAB PO SCH (09:59)
[2017-05-20] MEDS: Lisinopril 5 MG TAB PO SCH (09:59)
[2017-05-20] MEDS: Vancomycin HCl 1 GM in Premix Bag 1 BAG IVPB SCH (16:22)
--- NOTE | 2017-05-20 17:07 | PDOC.PN ---
- Subjective Encounter Start Date: 05/20/17 Encounter Start Time: 17:05 Subjective: only complaint is his allergies, on benedryl, his request - Objective Resuscitation Status: Resuscitation Status FULL:Full Resuscitation MAR Reviewed: Yes Vital Signs & Weight: Vital Signs (12 hours) Temp Pulse Resp BP BP Pulse Ox 05/20/17 16:46 98.3 F 65 12 146/61 H 99 05/20/17 11:40 98.1 F 72 12 123/70 94 L 05/20/17 09:59 73 111/55 L 05/20/17 09:58 73 111/55 L 05/20/17 08:35 98.4 F 55 L 16 97 05/20/17 07:51 98.4 F 55 L 16 124/64 97 05/20/17 05:16 98 F 92 16 127/59 L 95 Weight Weight 175 lb I&O: 05/19/17 05/20/17 05/21/17 06:59 06:59 06:59 Intake Total 840 1080 Output Total 40 20 950 Balance -40 820 130 Result Diagrams: 05/18/17 00:31 05/18/17 00:31 Additional Labs: Accuchecks 05/20/17 05/20/17 05/20/17 16:39 11:07 05:53 POC Glucose 137 H 120 H 120 H 05/19/17 20:19 POC Glucose 128 H Phys Exam - Physical Examination Neck: no JVD Respiratory: clear to auscultation bilateral Cardiovascular: RRR, no significant murmur Gastrointestinal: soft, non-tender, positive bowel sounds Musculoskeletal: no edema Dx/Plan (1) DM type 2 (diabetes mellitus, type 2) Status: Chronic Qualifiers: Diabetes mellitus complication status: without complication Diabetes mellitus termite technician insulin use: without residential use Qualified Code(s): E11.9 - Type 2 diabetes mellitus without complications (2) Atrial fibrillation Code(s): I48.91 - UNSPECIFIED ATRIAL FIBRILLATION Status: Chronic Qualifiers: Atrial fibrillation type: paroxysmal Qualified Code(s): I48.0 - Paroxysmal atrial fibrillation Comment: currently in sinus rhythm, on Amiodarone (3) HTN (hypertension) Code(s): I10 - ESSENTIAL (PRIMARY) HYPERTENSION Status: Chronic Qualifiers: Hypertension type: essential hypertension Comment: On metoprolol and Lisinopril. BP being held due to hypotensive episodes that resolved w hydration (4) Anemia Code(s): D64.9 - ANEMIA, UNSPECIFIED Status: Acute Qualifiers: Anemia type: unspecified type Qualified Code(s): D64.9 - Anemia, unspecified - Plan on iv antibx. cont lisinopril,metoprolol * .
[2017-05-21] MEDS: Ketorolac Tromethamine 30 MG/ML VIAL IVP SCH ×4 (00:46→17:42)
[2017-05-21] MEDS: diphenhydrAMINE 25 MG CAP PO PRN ×3 (00:46→17:41)
[2017-05-21] MEDS: Vancomycin HCl 1 GM in Premix Bag 1 BAG IVPB SCH ×2 (04:26→16:31)
[2017-05-21] MEDS: HYDROcodone/Acetaminophen 10/325 mg Tablet PO PRN ×5 (04:27→22:01)
[2017-05-21] MEDS: Sodium Chloride 0.9% 1,000 ML IV SCH ×2 (04:28→17:42)
[2017-05-21] MEDS: Multivit, Therapeutic 1 TAB PO SCH (08:55)
[2017-05-21] MEDS: Polyethylene Glycol 3350 17 GM Packet PO SCH (08:56)
--- NOTE | 2017-05-21 10:10 | PDOC.PN ---
- Subjective Encounter Start Date: 05/21/17 Encounter Start Time: 10:08 Subjective: no complaints - Objective Resuscitation Status: Resuscitation Status FULL:Full Resuscitation MAR Reviewed: Yes Vital Signs & Weight: Vital Signs (12 hours) Temp Pulse Resp BP Pulse Ox 05/21/17 09:47 97.6 F 72 16 96 05/21/17 07:50 97.6 F 72 16 133/69 96 05/21/17 04:00 98.2 F 79 18 131/72 95 05/21/17 00:00 98.1 F 76 18 132/70 94 L Weight Weight 175 lb I&O: 05/20/17 05/21/17 05/22/17 06:59 06:59 06:59 Intake Total 840 1920 Output Total 20 1002 Balance 820 918 Result Diagrams: 05/18/17 00:31 05/18/17 00:31 Additional Labs: Accuchecks 05/21/17 05/20/17 05/20/17 05:23 20:45 16:39 POC Glucose 120 H 152 H 137 H 05/20/17 11:07 POC Glucose 120 H Phys Exam - Physical Examination Neck: no JVD Respiratory: clear to auscultation bilateral Cardiovascular: RRR, no significant murmur Gastrointestinal: soft, positive bowel sounds Musculoskeletal: no edema Dx/Plan (1) DM type 2 (diabetes mellitus, type 2) Status: Chronic Qualifiers: Diabetes mellitus complication status: without complication Diabetes mellitus intermediate card tender insulin use: without shelter use Qualified Code(s): E11.9 - Type 2 diabetes mellitus without complications (2) Atrial fibrillation Code(s): I48.91 - UNSPECIFIED ATRIAL FIBRILLATION Status: Chronic Qualifiers: Atrial fibrillation type: paroxysmal Qualified Code(s): I48.0 - Paroxysmal atrial fibrillation Comment: currently in sinus rhythm, on Amiodarone (3) HTN (hypertension) Code(s): I10 - ESSENTIAL (PRIMARY) HYPERTENSION Status: Chronic Qualifiers: Hypertension type: essential hypertension Comment: On metoprolol and Lisinopril. BP being held due to hypotensive episodes that resolved w hydration (4) Anemia Code(s): D64.9 - ANEMIA, UNSPECIFIED Status: Acute Qualifiers: Anemia type: unspecified type Qualified Code(s): D64.9 - Anemia, unspecified - Plan cont lisinopril, metoprolol -: cont accu/ss -: on iv antibx * .
[2017-05-21] MEDS: Lisinopril 5 MG TAB PO SCH ×2 (11:35→16:38)
[2017-05-21] MEDS: Metoprolol Tartrate 25 MG TAB PO SCH ×2 (11:35→16:38)
--- NOTE | 2017-05-21 16:43 | SPC ---
ULTRASOUND GUIDED RIGHT UPPER EXTREMITY PICC LINE PLACEMENT 05/21/17 HISTORY: Shoulder infection. Patient knees shelter IV antibiotics. TECHNIQUE: After informed consent was obtained, patient was placed on the angiography table in the supine positi on. The right upper extremity was meticulously prepped and draped in the usual sterile fashion. Skin and subcutaneous tissues were infiltrated with buffered 1% lidocaine overlying the right basilic vein . The right basilic vein was accessed utilizing micropuncture technique and concurrent real time ultr asound guidance. The 5 Romanian peel away sheath was placed. The catheter was measured and cut to the appropriate length . The catheter was placed over the guide wire with the tip position overlying the distal SVC. The cat heter was accessed and aspirated/flushed easily. The catheter was secured to the skin and a dry steri le dressing was placed. Patient tolerated the procedure well without immediate complication. FLUOROSCOPY: Total fluoroscopy time is 0.9 minutes with total dose of 6727 mGy*cm2. FINDINGS: Technically successful placement of a single lumen 5 Romanian 40 cm PICC line via the right basilic vei n. Tip of the catheter overlies the distal SVC. IMPRESSION: Technically successful right upper extremity PICC line placement. POS: [facility]
[2017-05-22] MEDS: Ketorolac Tromethamine 30 MG/ML VIAL IVP SCH ×2 (00:48→06:31)
[2017-05-22 04:04] LABS: Vancomycin, Trough 28.9 ug/mL
[2017-05-22] MEDS: Vancomycin HCl 1 GM in Premix Bag 1 BAG IVPB SCH (04:41)
[2017-05-22] MEDS: diphenhydrAMINE 25 MG CAP PO PRN (06:32)
[2017-05-22] MEDS: HYDROcodone/Acetaminophen 10/325 mg Tablet PO PRN (06:32)
[2017-05-22] MEDS: Metoprolol Tartrate 25 MG TAB PO SCH (08:27)
[2017-05-22] MEDS: Lisinopril 5 MG TAB PO SCH (08:27)
[2017-05-22] MEDS: Multivit, Therapeutic 1 TAB PO SCH (08:27)
[2017-05-22 08:28] VITALS: BP 141/65
[2017-05-22 08:29] VITALS: TEMP 98.1
[2017-05-22] MEDS: Sodium Chloride 0.9% 1,000 ML IV SCH (08:29)
[2017-05-22] MEDS: Polyethylene Glycol 3350 17 GM Packet PO SCH (08:30)
[2017-05-22 10:20] LABS: Fungus Stain Final report (.)
--- NOTE | 2017-05-22 11:46 | DIS ---
DATE OF ADMISSION: 05/16/2017 DATE OF DISCHARGE: 05/22/2017 Patient admitted to [facility] by Dr. Bradley Thurston on 05/16/2017. Underwent humeral head resection with placement of spacer, incision and drainage of left wound abscess for osteomyelitis. FINAL DIAGNOSES: Osteomyelitis of left humerus, depression, hyponatremia, long-term use of antibioti cs, methicillin sensitive Staph aureus, atrial fibrillation, chronic alcoholism, COPD, diabetes melli tus type 2, hypertension, paroxysmal atrial fibrillation. DISCHARGE MEDICATIONS: Metoprolol 25 mg a day, aspirin 2 tabs daily, lisinopril 5 mg a day, vancomyc in 1 gram q.24 hours, levofloxacin 500 mg IV q.24 hours, hydrocodone 10/325 one or two as needed for pain q.4 hours. ALLERGIES: Allergic to CEFAZOLIN. CODE STATUS: FULL. PENDING AT THE TIME OF DISCHARGE: Acid fast culture, anaerobic culture of humeral fluid on multiple specimens. HOSPITAL COURSE: Postoperatively, [facility] was consulted for medical management. H is blood sugar was monitored and ranged from 107 to 164, on no medications. His white cell count was 7.7, 5.9, and 6.4 with no left shift, platelet count was normal, hemoglobin postop 10.9 dropped down to 8.8. He was also seen in consultation by Dr. Krunal Hernandez. On 05/21/2017, the patient had a PI CC line placed. Patient will be followed outpatient basis for antibiotics by Dr. Krunal Hernandez. Joseph l be followed up by Dr. Bradley Thurston per his recommendations.
[2017-05-22] MEDS ORDERED: Vancomycin HCl 1 GM in Premix Bag 1 BAG IVPB SCH (16:00)
[2017-05-22] MEDS ORDERED: Heparin 1,000 UNITS/ML VIAL ONE (16:29)
[2017-05-24 10:20] LABS: Fungus Stain Final report (.)
== END 2017-05-22 09:39 | disposition swing bed (61) | DRG 982 ==
LOC: SDC 09:03 → SURG B 15:28
PROVIDERS: ADMIT Orthopaedic Surgery; ATTEND Orthopaedic Surgery
PROC: 0PBD0ZZ Excision of Left Humeral Head, Open Approach (ICD-10-PCS; principal; 2017-05-16)
PROC: 0RHK08Z Insertion of Spacer into Left Shoulder Joint, Open Approach (ICD-10-PCS; 2017-05-16)
PROC: 0X930ZZ Drainage of Left Shoulder Region, Open Approach (ICD-10-PCS; 2017-05-16)
PROC: 0J9F00Z Drainage of Left Upper Arm Subcutaneous Tissue and Fascia with Drainage Device, Open Approach (ICD-10-PCS; 2017-05-16)
PROC: 3E0T3BZ Introduction of Anesthetic Agent into Peripheral Nerves and Plexi, Percutaneous Approach (ICD-10-PCS; 2017-05-16)
PROC: 30233N1 Transfusion of Nonautologous Red Blood Cells into Peripheral Vein, Percutaneous Approach (ICD-10-PCS; 2017-05-16)
PROC: 02HV33Z Insertion of Infusion Device into Superior Vena Cava, Percutaneous Approach (ICD-10-PCS; 2017-05-21)
PROC: B548ZZA Ultrasonography of Superior Vena Cava, Guidance (ICD-10-PCS; 2017-05-21)
DX: E11.69 Type 2 diabetes mellitus with other specified complication (principal); D62 Acute posthemorrhagic anemia; I95.89 Other hypotension; I48.0 Paroxysmal atrial fibrillation; J44.9 Chronic obstructive pulmonary disease, unspecified; E87.1 Hypo-osmolality and hyponatremia; L02.414 Cutaneous abscess of left upper limb; M86.612 Other chronic osteomyelitis, left shoulder; B95.62 Methicillin resistant Staphylococcus aureus infection as the cause of diseases classified elsewhere; M12.811 Other specific arthropathies, not elsewhere classified, right shoulder; F32.9 Major depressive disorder, single episode, unspecified; Z79.2 Long term (current) use of antibiotics; F10.20 Alcohol dependence, uncomplicated; Z79.84 Long term (current) use of oral hypoglycemic drugs; I10 Essential (primary) hypertension; Z88.1 Allergy status to other antibiotic agents; M19.012 Primary osteoarthritis, left shoulder; Z79.82 Long term (current) use of aspirin; Z87.891 Personal history of nicotine dependence; Z86.73 Personal history of transient ischemic attack (TIA), and cerebral infarction without residual deficits
CPT/HCPCS: 36415; 36416; 36430; 36569; 80048; 80202; 83880; 85025; 85027; 86850; 86900; 86901; 87070; 87102; 87116; 87205; 87206; 88305; 93005; 93010; C1713; C1751; G8978-GP-CM; G8979-GP-CK; G8987-GO-CK; G8988-GO-CK; G8989-GO-CK; J1644; J1885; J1956; J2001; J2250; J2704; J3010; J3260; J3370; J7050; P9016; S0020

== ENCOUNTER 2017-06-26 15:52 | Inpatient (IN) | payer MEDICARE ==
[2017-06-26 19:11] LABS: #Eosinphils 0.1 thou/uL (0.0-0.7); #Lymphocytes 3.6 thou/uL (1.20-3.40); #Monocytes 0.8 thou/uL (0.11-0.59); #Neutrophils 5.2 thou/uL (1.40-6.50); %Basophils 0.5 % (0.0-1.0); %Eosinophils 0.8 % (0.0-10.0); %Lymphocytes 37.3 % (21.0-51.0); %Monocytes 7.7 % (0.0-10.0); %Neutrophils 53.8 % (42.0-75.0); Hemoglobin 10.8 g/dL (14.0-18.0); Mean Corpuscular HGB CONC 33.1 g/dL (32.0-36.0); Mean Corpuscular Hemoglobin 24.7 pg (27.0-31.0); Mean Corpuscular Volume 74.8 fl (80.0-94.0); Mean Platelet Volume 7.4 fL (7.4-10.4); Platelet Count 325 thou/uL (130-400); RBC Distribution Width 14.4 % (11.5-14.5); Red Blood Cell (RBC) Count 4.35 mill/uL (4.70-6.10); White Blood Cell (WBC) Count 9.7 thou/uL (4.8-10.8)
[2017-06-26] MEDS ORDERED: Morphine 4 MG/ML VIAL ONE (19:14)
[2017-06-26 19:18] LABS: INR-International Normal Ratio 1.1; PTT 34.7 SEC (22.9-36.1); Prothrombin Time 14.3 SEC (12.0-14.7)
[2017-06-26 19:26] LABS: Hypochromia SLIGHT = 6-15 cells (100X) (0-5/hpf); MDiff Complete? YES; Microcytosis SLIGHT = 6-15 cells (100X) (0-5/hpf); PLT Morphology Comment Appears Adequate; Polychromasia SLIGHT = 2-3 cells (100X) (0-2/hpf)
[2017-06-26 19:27] LABS: Lactic Acid 1.9 mmol/L (0.5-2.2)
[2017-06-26 19:33] LABS: ALT (SGPT) 13 U/L (8-55); AST (SGOT) 19 U/L (5-34); Albumin 4.4 g/dL (3.4-4.8); Alkaline Phosphatase 91 U/L (40-150); Anion Gap 12 mmol/L (10-20); BUN (Urea Nitrogen) 29 mg/dL (8.4-25.7); Bilirubin, Total 0.2 mg/dL (0.2-1.2); Calc. Creatinine Clearance 0 mL/min (70-130); Calcium 10.3 mg/dL (7.8-10.44); Carbon Dioxide 25 mmol/L (23-31); Chloride 105 mmol/L (98-107); Estimated GFR-MDRD 60; Globulin 3.8 g/dL (2.4-3.5); Glucose 139 mg/dL (83-110); Magnesium 1.7 mg/dL (1.6-2.6); Potassium 3.6 mmol/L (3.5-5.1); Protein, Total 8.2 g/dL (5.8-8.1); Sodium 138 mmol/L (136-145)
[2017-06-26] MEDS ORDERED: Lorazepam 2 MG/ML VIAL ONE (20:05)
[2017-06-26 21:58] LABS: Bilirubin Negative (Negative); Blood, Urine Negative (Negative); Clarity CLEAR (Clear); Glucose, Urine (Dipstick) Negative (Negative); Leukocyte Negative (Negative); Nitrite Negative (Negative); Protein, Urine (Dipstick) Trace mg/dL (Neg-Trace); Urobilinogen 0.2 mg/dL (0.2-1.0); pH, Urine 5.5 (5.0-9.0)
[2017-06-26] MEDS ORDERED: Ondansetron ODT 4 MG TAB SL PRN (22:46)
[2017-06-26] MEDS ORDERED: Sodium Chloride 0.9% 1,000 ML IV SCH (22:46)
[2017-06-26] MEDS ORDERED: Ondansetron HCl/PF 4 MG/2 ML Vial IVP PRN (22:46)
[2017-06-26] MEDS ORDERED: Acetaminophen 325 MG TAB PO PRN (22:46)
[2017-06-26 22:59] VITALS: BMI 25.8
[2017-06-26] MEDS ORDERED: Diazepam 5 MG TAB PO PRN (23:11)
[2017-06-26] MEDS ORDERED: Magnesium Oxide 400 MG TAB PO SCH (23:15)
[2017-06-26] MEDS ORDERED: Multivitamin W/ Minerals 1 TAB PO SCH (23:15)
[2017-06-26] MEDS ORDERED: Thiamine HCl 200 MG/2 ML VIAL IM SCH (23:15)
[2017-06-26] MEDS ORDERED: Folic Acid 1 MG TAB PO SCH (23:15)
[2017-06-26] MEDS ORDERED: Diazepam 5 MG TAB PO SCH (23:15)
--- NOTE | 2017-06-27 02:48 | PDOC.EVN ---
Event Note - Event Note Event Note: Full code. DPOA - self/family
[2017-06-27] MEDS ORDERED: HYDROcodone/Acetaminophen 10/325 mg Tablet PO PRN (02:49)
[2017-06-27] MEDS ORDERED: Bisacodyl 10 MG SUPP PR PRN (02:50)
[2017-06-27] MEDS ORDERED: Mag-Al 1200 mg/1200 mg/30 ML UDCUP PO PRN (02:50)
[2017-06-27] MEDS ORDERED: Ondansetron ODT 4 MG TAB PO PRN (02:50)
[2017-06-27] MEDS ORDERED: Senokot 8.6 MG TAB PO PRN (02:50)
[2017-06-27] MEDS ORDERED: Ondansetron HCl/PF 4 MG/2 ML Vial IVP PRN (02:50)
[2017-06-27] MEDS ORDERED: Calcium Carbonate 500 MG ChewTAB PO PRN (02:50)
[2017-06-27] MEDS ORDERED: Acetaminophen 325 MG TAB PO PRN (02:50)
[2017-06-27] MEDS ORDERED: cloNIDine 0.1 MG TAB PO PRN (02:53)
[2017-06-27] MEDS ORDERED: Nitroglycerin 0.4 MG TAB (25 Tab Bottle) PO PRN (02:54)
--- NOTE | 2017-06-27 03:49 | HP ---
DATE OF ADMISSION: 06/26/2017 The patient was seen and examined on 06/26/2017. CHIEF COMPLAINT: The patient was sent from Dr. Thurston's office for possible opioid withdrawal and a ntibiotic. HISTORY OF PRESENT ILLNESS: The patient is a 71-year-old white male with chronic osteomyelitis of th e left shoulder, presented to the emergency room with above complaints. The patient was admitted to this facility in 04/2017 and underwent the humeral head resection with pl acement of the spacer. He underwent PICC line placement and was started on antibiotics to be complet ed until 07/04/2017. Four days ago, the patient signed against medical advice and PICC line was discontinued. He was also on [place] 10/325 two tablets every 4 hours along with Ativan as needed at the assisted [facility]. Over the last 2 to 3 days, the patient has been feeling generally weak, fatigued with poor appetite. He also had nausea and diarrhea. No vomiting, abdominal pain, fever reported. He had intermittent chills without any diaphoresis. No chest pain, palpitations, lightheadedness, syncope or focal neuro logic deficit reported. In the emergency room, initial vital signs showed temperature 98.1, respirations 16, pulse of 96 with a blood pressure of 127/70 with O2 saturation 98% on room air. He received vancomycin, Ativan, morp neal with 1 liter IV fluid in the emergency room. PAST MEDICAL HISTORY: 1. Chronic osteomyelitis of the left shoulder, status post humeral head resection with placement of spacer. 2. Hypertension. 3. Paroxysmal atrial fibrillation on aspirin. He was unable to afford Eliquis or Xarelto. 4. History of TIA. 5. Chronic anemia. 6. History of alcoholism. 7. COPD. 8. History of diabetes. Last A1c was 5.6. 9. Chronic low back pain. PAST SURGICAL HISTORY: 1. Several left shoulder surgeries. 2. Gastric surgery. ALLERGIES: The patient is allergic to CEFAZOLIN. CURRENT HOME MEDICATIONS: The patient takes aspirin 325 mg daily, Benadryl as needed, Dwight 10/325 a s needed. Please note the patient is currently out of pain medications. Lisinopril 5 mg daily, Lopr essor 25 mg daily, multivitamin 1 tablet daily. SOCIAL HISTORY: The patient currently lives at home. He left AMA 4 days ago. 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 He is . He is independent of activities of daily living. He has history of alcoh olism. He has been off alcohol while in the assisted facility. However, he was found to have alcohol intoxication when he left for [facility]. FAMILY HISTORY: Negative for premature coronary artery disease. REVIEW OF SYSTEMS: The following complete review of systems was negative, unless otherwise mentioned in the HPI or below: Constitutional: Weight loss or gain, ability to conduct usual activities. Sk in: Rash, itching. Eyes: Double vision, pain. ENT/Mouth: Nose bleeding, neck stiffness, pain, te nderness. Cardiovascular: Palpitations, dyspnea on exertion, orthopnea. Respiratory: Shortness of breath, wheezing, cough, hemoptysis, fever or night sweats. Gastrointestinal: Poor appetite, abdom inal pain, heartburn, nausea, vomiting, constipation, or diarrhea. Genitourinary: Urgency, frequenc y, dysuria, nocturia. Musculoskeletal: Pain, swelling. Neurologic/Psychiatric: Anxiety, depressio n. Allergy/Immunologic: Skin rash, bleeding tendency. PHYSICAL EXAMINATION: VITAL SIGNS: As discussed above. GENERAL: A 71-year-old male in no apparent distress, feels better after the IV fluids and medication s in the emergency room. HEENT: Head atraumatic, normocephalic. Sclerae are anicteric. Dry mucous membranes. No oral lesio n. NECK: Supple, no JVD appreciated. No carotid bruit. LUNGS: Clear to auscultation bilaterally, no wheezing, rales or rhonchi. HEART: S1, S2 present. Regular rate and rhythm. No murmur, rubs, or gallops appreciated. ABDOMEN: Soft, nontender, bowel sounds present. EXTREMITIES: No edema or calf tenderness. There is some ecchymosis with mild tenderness over the le ft shoulder. No drainage noted. There is reduced range of motion. SKIN: As discussed above. LYMPH NODES: No palpable lymph nodes in the neck. PERIPHERAL VASCULAR: Radial pulses palpable bilaterally. MUSCULOSKELETAL: No joint swelling or tenderness. LABORATORY FINDINGS: CBC showed WBC 9.7 with hemoglobin 10.8, hematocrit 32.5, and platelet of 325. PT, INR, PTT normal range. Chemistry showed sodium 138, potassium 3.6, chloride 105, bicarbonate 25 , BUN 29, creatinine 1.19, glucose of 139. Lactic acid 1.9. Urinalysis was negative for wbc and femi teria. Shoulder x-ray by my review from last admission was negative for acute fractures or dislocation. IMPRESSION: 1. Dehydration, probably secondary to narcotic withdrawal. Please note that the patient signed agai nst medical advice from the assisted facility on 06/23/2017. 2. Osteomyelitis of the left humerus status post humeral head resection and placement of spacer in 04/2017. Please note that patient was supposed to continue antibiotics until for 07/04/2017. 3. Chronic pain syndrome secondary to #2. 4. History of alcohol abuse. 5. Chronic obstructive pulmonary disease. 6. Diabetes mellitus type 2. 7. Hypertension. 8. Paroxysmal atrial fibrillation on aspirin. 9. Depression without any suicidal ideation. 10. Chronic anemia. 11. Prerenal azotemia from dehydration. 12. Chronic kidney disease stage 2. PLAN: The patient will be monitored on the medical floor. Dr. Thurston and Infectious Disease, Dr. Marie gardiner will be consulted. We will hold PICC line placement for now until clarified with Dr. Bertrand Hernandez. We will start him on hydrocodone for pain control. We will keep him n.p.o. for possibl e surgical intervention if needed. We will continue his home medications. We will monitor for alcoh ol withdrawal. Plan of care was discussed with the patient in detail, he stated understanding. IV vancomycin will be continued.
[2017-06-27] MEDS ORDERED: Diazepam 5 MG TAB PO PRN (04:00)
[2017-06-27] MEDS: Sodium Chloride 0.9% 1,000 ML IV SCH ×2 (05:47→07:49)
[2017-06-27] MEDS: Aspirin 325 MG TAB PO SCH (07:44)
[2017-06-27] MEDS: Multivit, Therapeutic 1 TAB PO SCH (07:45)
[2017-06-27] MEDS: Metoprolol Tartrate 25 MG TAB PO SCH ×2 (07:45→20:26)
[2017-06-27] MEDS: Docusate 100 MG CAP PO SCH ×2 (07:45→20:26)
[2017-06-27] MEDS: Heparin 5,000 UNITS/ML VIAL SC SCH ×2 (07:48→20:26)
[2017-06-27] MEDS ORDERED: Ketorolac Tromethamine 30 MG/ML VIAL IVP SCH (11:00)
--- NOTE | 2017-06-27 14:39 | CON ---
DATE OF CONSULTATION: 06/27/2017 HISTORY OF PRESENT ILLNESS: Mr. Ring is a 71-year-old male, who presented to my office yesterday concerning for withdrawal as well as dehydration. The patient has a history of chronic osteomyeliti s, treated on a 42-day course that stopped as of being discharged from a facility in [place], be cause of AMA. The patient presented to my office and noted to have boggy swelling in his left arm. The patient had signs and symptoms of potential withdrawal. He was getting opioids as well as benzod iazepines in the clinic. The patient was sent to the emergency room, evaluated, and admitted per Honorio gutiérrez. PAST MEDICAL HISTORY: Osteomyelitis of left shoulder, status post a hemostat resection with antibiot ic spacer placement, multiple I and Ds of his left shoulder, hypertension, paroxysmal atrial fibrilla tion, history of TIA, chronic anemia, history of alcoholism, history of questionable chronic obstruct snow pulmonary disease, history of diabetes, and chronic low back pain. PAST SURGICAL HISTORY: Multiple left shoulder surgeries and I and Ds, gastric procedure. ALLERGIES: CEFAZOLIN. CURRENT MEDICATIONS: Please see full list. SOCIAL HISTORY: Lives at home. 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 The patient has a history of alcoholism, was drinking last from his clinic. PHYSICAL EXAMINATION: GENERAL: Alert and oriented, in no acute distress. VITAL SIGNS: Stable. EXTREMITIES: Focus exam of left upper extremity shows some bogginess at the anterior incision, but n o erythema, no obvious gross purulence, nontender to palpation, crepitus to range of motion consisten t with his previous rotator cuff arthropathy. IMPRESSION: 1. Left shoulder osteomyelitis with chronic infection. 2. Chronic pain. 3. Alcohol abuse. 4. Chronic obstructive pulmonary disease. 5. Hypertension. 6. Anemia. 7. Chronic kidney disease. ASSESSMENT AND PLAN: The patient needs a PICC line placed, completed antibiotics, will be treated by Medicine for his withdrawal of IV antibiotics, and continuing IV antibiotics, I think he will need o rosita supression for life. The patient will need treatment for his pain medication withdrawal.
[2017-06-27] MEDS ORDERED: HYDROcodone/Acetaminophen 7.5/325 mg Tablet PO PRN (15:43)
--- NOTE | 2017-06-27 15:46 | PDOC.PN ---
- Subjective Encounter Start Date: 06/27/17 Encounter Start Time: 15:35 Subjective: f/u for L shoulder chronic osteomyelitis s/p PICC line placement today. -: Hx of strep/staph spp on L shoulder cx. Apparently left [place] -: Swing bed AMA on 06/25/17. - Objective Resuscitation Status: Resuscitation Status FULL:Full Resuscitation MAR Reviewed: Yes Vital Signs & Weight: Vital Signs (12 hours) Temp Pulse Resp BP Pulse Ox 06/27/17 12:00 97 06/27/17 08:00 97.9 F 92 18 107/62 97 06/27/17 04:00 97.4 F L 103 H 18 129/68 98 Weight Weight 175 lb I&O: 06/26/17 06/27/17 06/28/17 06:59 06:59 06:59 Intake Total 360 Output Total 500 Balance -500 360 Result Diagrams: 06/26/17 19:01 06/26/17 19:01 Phys Exam - Physical Examination Constitutional: NAD HEENT: PERRLA, oral pharynx no lesions Neck: no JVD, supple Respiratory: no wheezing, clear to auscultation bilateral Cardiovascular: RRR Gastrointestinal: soft, non-tender, no distention, positive bowel sounds L shoulder with surgical changes, fluctuance and TTP RUE with PICC line in place Musculoskeletal: pulses present, edema present Neurological: normal sensation, moves all 4 limbs Psychiatric: A&O x 3 Skin: normal turgor, cap refill <2 seconds Dx/Plan (1) Chronic osteomyelitis of humerus Code(s): M86.629 - OTHER CHRONIC OSTEOMYELITIS, UNSPECIFIED HUMERUS Status: Acute Comment: Continue Vancomycin 1gm IV q12h, consider po options, MRI of L shoulder pending (2) Dehydration Code(s): E86.0 - DEHYDRATION Status: Acute Comment: Improved with IVF's, encourage increased free-H2O intake (3) Chronic pain syndrome Code(s): G89.4 - CHRONIC PAIN SYNDROME Status: Chronic Comment: Restart [place] 7.5mg po Q4h prn, Toradol 30mg IV q6h (4) Alcohol abuse Code(s): F10.10 - ALCOHOL ABUSE, UNCOMPLICATED Status: Acute Comment: Monitor for withdrawal symptoms, Ativan prn - Plan 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
--- NOTE | 2017-06-27 16:09 | SPC ---
PROCEDURE PERIPHERAL INSERTION OF CENTRAL CATHETER RIGHT UPPER EXTREMITY. INDICATION: Monitor antibiotic therapy. FINDINGS: A dual-lumen PICC line was placed into the right brachial vein using ultrasound guidance for puncture . 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 An angle-tipped Glidewire was directed through this stenosis into the SVC and a dual-lumen 5 Wolof catheter was advanced over this wire into the SVC where the tip wa s positioned. PROCEDURE NOTE: Right upper extremity was prepped and draped in a sterile manner. Ultrasound was used to assess the venous structures. The brachial vein was chosen. Local anesthesia was given with Lidocaine. The ve in was punctured under ultrasound guidance micropuncture technique. And micropuncture technique. The was introduced and a sheath was placed. There was difficulty advancing the wire into the SVC, altho ugh the wire eventually passed into the SVC. However, the catheter would not follow the wire. The c atheter and wire were removed and a venogram was obtained by injecting through the sheath. 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 An 0.018 ang le-tipped Glidewire was used to pass through this stenosis. The catheter was then advanced over this wire and traversed through the stenosis. The tip of the catheter was positioned at the SVC and was cut to 42 cm. The wire was removed. The [place] sheath was removed. The catheter was flushed and secured with a sterile dressing. The patient tolerated the procedure fine. POS: [facility]
[2017-06-27] MEDS: Vancomycin HCl 1 GM in Premix Bag 1 BAG IVPB SCH (16:17)
[2017-06-27] MEDS: Ketorolac Tromethamine 30 MG/ML VIAL IVP SCH ×2 (17:29→23:50)
[2017-06-28] MEDS: Vancomycin HCl 1 GM in Premix Bag 1 BAG IVPB SCH ×2 (02:51→15:28)
[2017-06-28] MEDS: Sodium Chloride 0.9% 1,000 ML IV SCH ×2 (02:51→20:12)
[2017-06-28] MEDS: Lorazepam 0.5 MG TAB PO PRN ×2 (02:51→20:08)
--- NOTE | 2017-06-28 03:22 | CON ---
DATE OF CONSULTATION: 06/27/2017 REASON FOR CONSULTATION: Readmission for opioid withdrawal symptoms and a history of left shoulder i nfection. HISTORY OF PRESENT ILLNESS: A 71-year-old patient known to us from prior visits who has a history of alcoholism, COPD, atrial fibrillation, recurrent left shoulder dislocations. The patient has had ex tensive interventions in the left shoulder with at least 2 different cultures positive for pathogens including Propionibacterium and Staphylococcus aureus as well as Streptococcus, which culminated and a resection of the shoulder by Dr. Thurston recently. The patient has had extensive treatment and las t one was supposed to continue until 07/04/2017. Unfortunately, left against medical advice at the [facility] on 06/23/2017, all the antimicrobials were discontinued, now he is admitted to our hospital from, I believe, Dr. Thurston's for possible opioid withdrawal and for resumption of ant imicrobial therapy. He had some swelling and pain in the left shoulder. No headaches, no visual sym ptoms, sore throat, odynophagia, dysphagia, no dyspnea. No abdominal pain or diarrhea. No genitouri nary symptoms. PAST MEDICAL HISTORY: Includes perforated duodenal ulcer, surgical repair, alcoholism, COPD, paroxys mal atrial fibrillation, chronic rotator cuff left shoulder rupture, chronic arthritis, infections, o steomyelitis with Propionibacterium and Staph aureus and Streptococcus species infection, eventually resection of the humerus. ALLERGIES: CEFAZOLIN with rash. CURRENT MEDICATIONS: Include Tylenol, [place], Maalox, aspirin, Dulcolax, Tums, Colace, Toradol, Lopre ssor, Zofran, and vancomycin. PHYSICAL EXAMINATION: VITAL SIGNS: Temperature max 98.5, blood pressure 142/76, pulse 86, respirations 22, O2 sat 97%. SKIN: Shows the left shoulder with the healed incisions. There is an area of bulging in the anterio r left shoulder, peripheral IV access. No Chu catheter. No lymphadenopathy. HEENT: Ocular movements conjugate. Sclerae white. Pupils are equal. Oral cavity moist. LUNGS: Clear to auscultation and percussion. ABDOMEN: Soft, not distended. EXTREMITIES: Moves all extremities equally. NEUROLOGIC: Cognitive function appears to be intact. LABORATORY DATA: White cell count 9.7, hemoglobin 10.8, platelets 325. Chemistry with creatinine 1. 19. Liver profile normal. Albumin 4.4, total protein 8.2. Urinalysis normal. Two sets of blood cu ltures thus far with one positive for coagulase negative Staph, likely a contaminant. The last posit snow cultures from 12/2016 with Staphylococcus aureus, all the other cultures more recently been negat snow. IMAGING STUDIES: Last imaging studies in the upper extremity MRI from 04/25/2017, which demonstrated septic arthritis, osteomyelitis proximal humeral head with periarticular abscess, massive rotator cu ff tear, and osteoarthropathy. ASSESSMENT: 1. Alcoholism. 2. Recent extensive intervention in left shoulder, which ended up in resection of the humerus, protr acted antimicrobial therapy multiple times, the last positive culture from December last year for Stap hylococcus aureus and Streptococcus species. The patient left against medical advice about a week before completion of therapy in [place]. H e does have some changes concerning for persistence of inflammatory change in the left shoulder. We will repeat the MRI. May need an aspiration again to identify possible organism. It is also possibl e that the area is sterile and in that case, we could switch him to a suppressive dose of doxycycline to be given for protracted period at this time.
[2017-06-28] MEDS: Ketorolac Tromethamine 30 MG/ML VIAL IVP SCH ×4 (05:10→23:37)
[2017-06-28 05:34] LABS: #Basophils 0.1 thou/uL (0.0-0.2); #Eosinphils 0.3 thou/uL (0.0-0.7); #Lymphocytes 2.4 thou/uL (1.20-3.40); #Monocytes 0.5 thou/uL (0.11-0.59); #Neutrophils 2.8 thou/uL (1.40-6.50); %Basophils 1.1 % (0.0-1.0); %Eosinophils 4.5 % (0.0-10.0); %Lymphocytes 40.8 % (21.0-51.0); %Monocytes 7.5 % (0.0-10.0); %Neutrophils 46.1 % (42.0-75.0); Hemoglobin 8.9 g/dL (14.0-18.0); Mean Corpuscular HGB CONC 32.2 g/dL (32.0-36.0); Mean Corpuscular Hemoglobin 24.2 pg (27.0-31.0); Mean Corpuscular Volume 75.2 fl (80.0-94.0); Mean Platelet Volume 7.3 fL (7.4-10.4); Platelet Count 234 thou/uL (130-400); RBC Distribution Width 14.3 % (11.5-14.5); Red Blood Cell (RBC) Count 3.65 mill/uL (4.70-6.10)
[2017-06-28 05:46] LABS: Anion Gap 12 mmol/L (10-20); BUN (Urea Nitrogen) 24 mg/dL (8.4-25.7); Calc. Creatinine Clearance 68 mL/min (70-130); Calcium 9.1 mg/dL (7.8-10.44); Carbon Dioxide 21 mmol/L (23-31); Chloride 107 mmol/L (98-107); Estimated GFR-MDRD 67; Glucose 116 mg/dL (83-110); Sodium 136 mmol/L (136-145)
[2017-06-28] MEDS: Multivit, Therapeutic 1 TAB PO SCH (08:15)
[2017-06-28] MEDS: Metoprolol Tartrate 25 MG TAB PO SCH ×2 (08:15→20:07)
[2017-06-28] MEDS: Docusate 100 MG CAP PO SCH ×2 (08:15→20:15)
[2017-06-28] MEDS: Aspirin 325 MG TAB PO SCH (08:15)
[2017-06-28] MEDS: Heparin 5,000 UNITS/ML VIAL SC SCH ×2 (08:19→20:14)
[2017-06-28] MEDS: HYDROcodone/Acetaminophen 7.5/325 mg Tablet PO PRN ×3 (08:46→20:06)
[2017-06-28] MEDS ORDERED: Heparin 1,000 UNITS/ML VIAL ONE (10:00)
--- NOTE | 2017-06-28 13:59 | PDOC.PN ---
- Subjective Encounter Start Date: 06/28/17 Encounter Start Time: 13:40 Subjective: f/u for L shoulder septic arthritis and chronic osteomyelitis on current -: Vancomycin. MRI of L shoulder pending to ascertain a drainable fluid -: collection and potential re-culture. Pt feeling better today. - Objective Resuscitation Status: Resuscitation Status FULL:Full Resuscitation MAR Reviewed: Yes Vital Signs & Weight: Vital Signs (12 hours) Temp Pulse Resp BP Pulse Ox 06/28/17 11:03 98.1 F 103 H 16 112/68 96 06/28/17 08:00 98.0 F 88 18 95 06/28/17 07:27 98.0 F 88 18 115/76 95 Weight Weight 175 lb I&O: 06/27/17 06/28/17 06/29/17 06:59 06:59 06:59 Intake Total 600 Output Total 500 Balance -500 600 Result Diagrams: 06/28/17 05:23 06/28/17 05:23 Additional Labs: Accuchecks 06/27/17 06/27/17 19:58 16:36 POC Glucose 137 H 138 H Microbiology 01/01/17 12:59 Shoulder - Swab Bacterial Culture - Final 01/01/17 12:59 Shoulder - Swab Anaerobic Culture - Final Staphylococcus aureus No growth. 01/01/17 12:38 Shoulder - Abscess Bacterial Culture - Final 01/01/17 12:38 Shoulder - Abscess Anaerobic Culture - Final Streptococcus Group G 06/26/17 19:02 Venous blood - Left Arm Blood Culture - Preliminary Specimen has been received and culture in progress. No Growth to date. 06/26/17 19:01 Venous blood - Right Arm Blood Culture - Preliminary Coagulase Neg Staphylococcus Laboratory Tests 06/26/17 06/28/17 19:01 05:23 Hgb 10.8 L Neutrophils % 53.8 46.1 Phys Exam - Physical Examination Constitutional: NAD HEENT: PERRLA, oral pharynx no lesions Neck: no JVD, supple Respiratory: no wheezing, clear to auscultation bilateral Cardiovascular: RRR Gastrointestinal: soft, non-tender, no distention, positive bowel sounds L shoulder with fluctuance anteriorly, mild TTP, post-surgical changes noted Musculoskeletal: pulses present, edema present Neurological: normal sensation, moves all 4 limbs Psychiatric: A&O x 3 Skin: normal turgor, cap refill <2 seconds Dx/Plan (1) Chronic osteomyelitis of humerus Code(s): M86.629 - OTHER CHRONIC OSTEOMYELITIS, UNSPECIFIED HUMERUS Status: Acute Comment: Continue Vancomycin 1gm IV q12h, MRI L shoulder pending, plan for continuation of IV Vancomycin for another 8 days at [facility] then convert to suppressive therapy with Doxycycline indefinitely (2) Dehydration Code(s): E86.0 - DEHYDRATION Status: Acute Comment: Improved with IVF's, encourage increased free-H2O intake (3) Chronic pain syndrome Code(s): G89.4 - CHRONIC PAIN SYNDROME Status: Chronic Comment: Restart [place] 7.5mg po Q4h prn, Toradol 30mg IV q6h (4) Alcohol abuse Code(s): F10.10 - ALCOHOL ABUSE, UNCOMPLICATED Status: Acute Comment: Monitor for withdrawal symptoms, Ativan prn - Plan Stable overall -: Continue Vancomycin for another 8 days, convert to Doxycycline for -: suppressive therapy indefinitely after completion of IV therapy -: MRI L shoulder to assess for drainable fluid collection -: Pain control with [place] * Likely transition to [facility] in 24-48h
[2017-06-29] MEDS: Vancomycin HCl 1 GM in Premix Bag 1 BAG IVPB SCH ×2 (03:24→05:47)
[2017-06-29] MEDS: HYDROcodone/Acetaminophen 7.5/325 mg Tablet PO PRN ×3 (03:25→16:26)
[2017-06-29 04:15] LABS: Hemoglobin 8.8 g/dL (14.0-18.0); Platelet Count 244 thou/uL (130-400)
[2017-06-29 04:30] LABS: Vancomycin, Trough 24.9 ug/mL
[2017-06-29] MEDS: Vancomycin HCl 750 MG in Sodium Chloride 0.9% 250 ML 250 ML IVPB SCH ×2 (05:43→18:31)
[2017-06-29] MEDS: Ketorolac Tromethamine 30 MG/ML VIAL IVP SCH ×4 (05:43→23:26)
[2017-06-29] MEDS: Aspirin 325 MG TAB PO SCH (08:15)
[2017-06-29] MEDS: Metoprolol Tartrate 25 MG TAB PO SCH ×2 (08:15→19:51)
[2017-06-29] MEDS: Multivit, Therapeutic 1 TAB PO SCH (08:16)
[2017-06-29] MEDS: Heparin 5,000 UNITS/ML VIAL SC SCH ×2 (08:17→19:52)
[2017-06-29] MEDS: Docusate 100 MG CAP PO SCH ×2 (08:17→19:51)
--- NOTE | 2017-06-29 14:07 | PDOC.PN ---
- Subjective Encounter Start Date: 06/29/17 Encounter Start Time: 10:00 patient is seen today, alert and oriented. No other concern snoted. He still have pain in right shoulder but is getting better. - Objective Resuscitation Status: Resuscitation Status FULL:Full Resuscitation MAR Reviewed: Yes Vital Signs & Weight: Vital Signs (12 hours) Temp Pulse Resp BP Pulse Ox 06/29/17 11:16 97.7 F 84 16 124/69 96 06/29/17 08:00 97.7 F 90 16 97 06/29/17 07:20 97.7 F 90 16 136/81 97 Weight Weight 175 lb I&O: 06/28/17 06/29/17 06/30/17 06:59 06:59 06:59 Intake Total 600 450 180 Balance 600 450 180 Result Diagrams: 06/29/17 04:08 06/28/17 05:23 Radiology Reviewed by me: Yes Phys Exam - Physical Examination HEENT: PERRLA, moist MMs Neck: no nodes, no JVD Respiratory: no wheezing, no rales Cardiovascular: RRR, no significant murmur Gastrointestinal: soft, non-tender Musculoskeletal: no edema, pulses present Neurological: non-focal Lymphatic: no nodes Dx/Plan (1) Septic arthritis of shoulder, left Code(s): M00.9 - PYOGENIC ARTHRITIS, UNSPECIFIED Status: Acute Qualifiers: Septic arthritis organism: staphylococcal Qualified Code(s): M00.012 - Staphylococcal arthritis, left shoulder Comment: continue on vancomycin for 8 more days and then chage to Doxycyclin. pending MRI left Shoulder to see if any drainable fluid. (2) Chronic osteomyelitis of humerus Code(s): M86.629 - OTHER CHRONIC OSTEOMYELITIS, UNSPECIFIED HUMERUS Status: Acute Comment: Continue Vancomycin 1gm IV q12h, , plan for continuation of IV Vancomycin for another 8 days at [facility] then convert to suppressive therapy with Doxycycline indefinitely (3) Chronic pain syndrome Code(s): G89.4 - CHRONIC PAIN SYNDROME Status: Chronic Comment: Restart [place] 7.5mg po Q4h prn, Toradol 30mg IV q6h (4) Acute kidney injury Code(s): N17.9 - ACUTE KIDNEY FAILURE, UNSPECIFIED Status: Acute Comment: renal function improving, attribute injury to bowel perforation, continue to monitor and limit nephrotoxic agents (5) Anemia Code(s): D64.9 - ANEMIA, UNSPECIFIED Status: Acute Qualifiers: Anemia type: unspecified type Qualified Code(s): D64.9 - Anemia, unspecified (6) CKD (chronic kidney disease) stage 2, GFR 60-89 ml/min Code(s): N18.2 - CHRONIC KIDNEY DISEASE, STAGE 2 (MILD) Status: Chronic (7) DM type 2 (diabetes mellitus, type 2) Status: Chronic Qualifiers: 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 - Plan cont current plan of care, PT/OT, respiratory therapy, incentive spirometry, DVT proph w/lovenox * . - Discharge Day Encounter end time: 10:35 Review of Systems - Review of Systems Eyes: negative: Pain, Vision Change, Conjunctivae Inflammation, Eyelid Inflammation, Redness, Other ENT: negative: Ear Pain, Ear Discharge, Nose Pain, Nose Discharge, Nose Congestion, Mouth Pain, Mouth Swelling, Throat Pain, Throat Swelling, Other Respiratory: negative: Cough, Dry, Shortness of Breath, Hemoptysis, SOB with Excertion, Pleuritic Pain, Sputum, Wheezing Cardiovascular: negative: chest pain, palpitations, orthopnea, paroxysmal nocturnal dyspnea, edema, light headedness, other Gastrointestinal: negative: Nausea, Vomiting, Abdominal Pain, Diarrhea, Constipation, Melena, Hematochezia, Other Genitourinary: negative: Dysuria, Frequency, Incontinence, Hematuria, Retention , Other Musculoskeletal: negative: Neck Pain, Shoulder Pain, Arm Pain, Back Pain, Hand Pain, Leg Pain, Foot Pain, Other Skin: negative: Rash, Lesions, Dm, Bruising, Other - Medications/Allergies Allergies/Adverse Reactions: Allergies Allergy/AdvReac Type Severity Reaction Status Date / Time cefazolin [From [facility]] Allergy Severe Swollen Verified 05/22/17 10:33 Lips Medications: Current Medications Acetaminophen (Tylenol) 650 mg PO Q4H PRN PRN Reason: Headache/Fever or Pain Hydrocodone Bitart/Acetaminophen ([place] 7.5/325) 1 tab PO Q4H PRN PRN Reason: Mild Pain (1-3) Hydrocodone Bitart/Acetaminophen ([place] 7.5/325) 2 tab PO Q4H PRN PRN Reason: Moderate Pain (4-6) Last Admin: 06/29/17 08:16 Dose: 2 tab Al Hydroxide/Mg Hydroxide (Maalox) 30 ml PO Q6H PRN PRN Reason: Heartburn or Indigestion Aspirin (Aspirin) 325 mg PO DAILY [facility] Last Admin: 06/29/17 08:15 Dose: 325 mg Bisacodyl (Dulcolax) 10 mg [place] Q24H PRN PRN Reason: Constipation Calcium Carbonate (Tums) 1,000 mg PO Q4H PRN PRN Reason: Heartburn or Indigestion Clonidine (Catapres) 0.1 mg PO Q4H PRN PRN Reason: Systolic BP > 180 Docusate Sodium (Colace) 100 mg PO BID [facility] Last Admin: 06/29/17 08:17 Dose: 100 mg Heparin Sodium (Porcine) (Heparin) 5,000 units SC BID [facility] Last Admin: 06/29/17 08:17 Dose: 5,000 units Vancomycin HCl 750 mg/ Sodium (Chloride) 250 mls @ 250 mls/hr IVPB 0600,1800 [facility] Last Admin: 06/29/17 05:43 Dose: 250 mls Ketorolac Tromethamine (Toradol) 30 mg IVP Q6HR [facility] Stop: 07/02/17 18:01 Last Admin: 06/29/17 13:23 Dose: 30 mg Metoprolol Tartrate (Lopressor) 12.5 mg PO BID [facility] Last Admin: 06/29/17 08:15 Dose: 12.5 mg Miscellaneous Medication (Pharmacy To Dose) 1 each IVPB PRN PRN PRN Reason: Pharmacy to dose Multivitamins (Theragran) 1 tab PO DAILY [facility] Last Admin: 06/29/17 08:16 Dose: 1 tab Nitroglycerin (Nitrostat) 0.4 mg PO Q5MIN PRN PRN Reason: Chest Pain Ondansetron HCl (Zofran Odt) 4 mg PO Q6H PRN PRN Reason: Nausea/Vomiting Ondansetron HCl (Zofran) 4 mg IVP Q6H PRN PRN Reason: Nausea/Vomiting Senna (Senokot) 2 tab PO HSPRN PRN PRN Reason: Constipation Sodium Chloride (Flush - Normal Saline) 10 ml IVF Q12HR [facility] Last Admin: 06/29/17 08:17 Dose: Not Given Sodium Chloride (Flush - Normal Saline) 10 ml IVF PRN PRN PRN Reason: Saline Flush
--- NOTE | 2017-06-29 14:58 | MRI ---
MRI LEFT SHOULDER WITH AND WITHOUT GADOLINIUM CONTRAST: Date: 06/29/17 HISTORY: Septic arthritis. Osteomyelitis. Interval surgery. COMPARISON: 04/25/17. FINDINGS: Interval surgical changes since the prior study include a signal void in the shape and configuration of a humeral head stem prosthesis, although a metallic blooming artifact is not present, and the obje ct is less dense on radiograph than metal. The articular surface remains displaced anteriorly and sup eriorly from the glenoid. There is extensive edema/inflammation and enhancement of the tissues immedi ately surrounding the humeral head, very similar to the previous study. Fluid protruding anteriorly f rom the joint capsule extends to the skin surface. On today's exam, it measures up to 7.0 cm width x 2.7 cm depth x 4.0 cm length. This is slightly larger than on the previous study. Internal component is primarily fluid with some peripheral enhancement of the rim. Erosion of the glenoid is similar in appearance to the prior study. Bone marrow immediately surroundi ng the humeral neck stem component show decreased T1 signal and increased T2 signal with enhancement after Gadolinium administration. While this would be suggestive of osteomyelitis in the absence of re cent surgery, the recent surgery could also result in the bone marrow abnormality, which is greater t roque on the previous exam. IMPRESSION: Interval surgical placement of prosthetic device at the humeral head with persistent dislocation from the glenoid. The enhancement of the synovium and tissues immediately surrounding the humeral head is similar to the prior study, but the fluid and tissue protruding anteriorly from the joint capsule fontanez s enlarged, as detailed above, lying immediately deep to the skin surface. It would be easily sampled percutaneously if needed for culture. Bone marrow abnormality of the proximal humerus is as detailed above, and while it could be consistent with osteomyelitis, the recent surgery makes the bone marrow abnormality nonspecific. POS: [facility]
--- NOTE | 2017-06-30 00:59 | EKG ---
Test Reason : Blood Pressure : / mmHG Vent. Rate : 116 BPM Atrial Rate : 116 BPM P-R Int : 000 ms QRS Dur : 078 ms QT Int : 362 ms P-R-T Axes : 000 051 042 degrees QTc Int : 503 ms Undetermined rhythm Nonspecific T wave abnormality Abnormal ECG Confirmed by KEHINDE LONGORIA ([id number]), metropolitan editor PAOLA KERR ([id number] on 06/30/2017 12:59:09 AM Referred By: Confirmed By:KEHINDE LONGORIA
[2017-06-30] MEDS: Vancomycin HCl 750 MG in Sodium Chloride 0.9% 250 ML 250 ML IVPB SCH ×2 (05:25→17:02)
[2017-06-30] MEDS: Ketorolac Tromethamine 30 MG/ML VIAL IVP SCH ×4 (07:00→23:23)
[2017-06-30] MEDS: HYDROcodone/Acetaminophen 7.5/325 mg Tablet PO PRN ×3 (08:06→20:37)
[2017-06-30] MEDS: Metoprolol Tartrate 25 MG TAB PO SCH ×2 (08:58→20:37)
--- NOTE | 2017-06-30 10:17 | ULT ---
SONOGRAPHIC GUIDED LEFT SHOULDER ASPIRATION: Date: 06/30/17 HISTORY: Septic arthritis. FINDINGS: After explaining the procedure and answering all questions, the large fluid pocket anterior to the le ft shoulder was visualized sonographically. Sterile technique, local anesthesia, and sonographic guid ance were used to advance an 18 gauge needle into the complex fluid collection. A total of 30 mL thin , blood-tinged, brown fluid was aspirated and sent to pathology for evaluation. Postprocedure imaging shows a small amount of residual fluid. The patient tolerated the procedure well and was returned in unchanged condition. IMPRESSION: Technically successful sonographic guided left shoulder aspiration. Pathology pending. POS: [facility]
[2017-06-30] MEDS: Docusate 100 MG CAP PO SCH ×2 (11:04→20:37)
[2017-06-30] MEDS: Aspirin 325 MG TAB PO SCH (11:04)
[2017-06-30] MEDS: Heparin 5,000 UNITS/ML VIAL SC SCH ×2 (11:05→20:37)
[2017-06-30] MEDS: Multivit, Therapeutic 1 TAB PO SCH (11:05)
--- NOTE | 2017-06-30 13:51 | PDOC.PN ---
- Subjective Encounter Start Date: 06/30/17 Encounter Start Time: 10:00 Osmar is seen today, had Intraarticular joint Aspiration with 30 cc of blood tinged fluid, Pending cultures, No fever. - Objective Resuscitation Status: Resuscitation Status FULL:Full Resuscitation MAR Reviewed: Yes Vital Signs & Weight: Vital Signs (12 hours) Temp Pulse Resp BP BP Pulse Ox 06/30/17 12:38 98.2 F 93 18 111/66 95 06/30/17 10:20 98.4 F 97 18 169/78 H 95 06/30/17 08:06 98.1 F 65 18 95 06/30/17 07:06 98.1 F 65 18 146/66 H 95 Weight Weight 175 lb I&O: 06/29/17 06/30/17 07/01/17 06:59 06:59 06:59 Intake Total 450 640 Balance 450 640 Result Diagrams: 06/29/17 04:08 06/28/17 05:23 Phys Exam - Physical Examination HEENT: PERRLA, moist MMs Neck: no nodes, no JVD Respiratory: no wheezing, no rales Cardiovascular: RRR, no significant murmur Gastrointestinal: soft, non-tender Musculoskeletal: no edema, pulses present Improved ROM right shoulder Neurological: non-focal, normal sensation Dx/Plan (1) Septic arthritis of shoulder, left Code(s): M00.9 - PYOGENIC ARTHRITIS, UNSPECIFIED Status: Acute Qualifiers: Septic arthritis organism: staphylococcal Qualified Code(s): M00.012 - Staphylococcal arthritis, left shoulder Comment: continue on vancomycin for 6 more days and then chage to Doxycyclin. MRI left Shoulder showed Fluid Collection with signs of osteo on Humeros, Aspiration of fluid done sent to culture. Will plan outpaitent Antibiotic Infusion setup at [facility], on saturday with Case management. (2) Chronic osteomyelitis of humerus Code(s): M86.629 - OTHER CHRONIC OSTEOMYELITIS, UNSPECIFIED HUMERUS Status: Acute Comment: Continue Vancomycin 1gm IV q12h, , plan for continuation of IV Vancomycin for another 6 days at [facility] then convert to suppressive therapy with Doxycycline indefinitely (3) Chronic pain syndrome Code(s): G89.4 - CHRONIC PAIN SYNDROME Status: Chronic Comment: Restart Holliday 7.5mg po Q4h prn, Toradol 30mg IV q6h (4) Acute kidney injury Code(s): N17.9 - ACUTE KIDNEY FAILURE, UNSPECIFIED Status: Acute Comment: renal function improving, attribute injury to bowel perforation, continue to monitor and limit nephrotoxic agents (5) Anemia Code(s): D64.9 - ANEMIA, UNSPECIFIED Status: Acute Qualifiers: Anemia type: unspecified type Qualified Code(s): D64.9 - Anemia, unspecified (6) CKD (chronic kidney disease) stage 2, GFR 60-89 ml/min Code(s): N18.2 - CHRONIC KIDNEY DISEASE, STAGE 2 (MILD) Status: Chronic (7) DM type 2 (diabetes mellitus, type 2) Status: Chronic Qualifiers: Diabetes mellitus intermediate project manager insulin use: without half-way use Diabetes mellitus complication status: without complication Qualified Code(s): E11.9 - Type 2 diabetes mellitus without complications Comment: stbale, Continue with SSI. - Plan cont current plan of care, PT/OT, social sciences research scientist, DVT proph w/SCDs * . - Discharge Day Encounter end time: 10:35 Review of Systems - Review of Systems Eyes: negative: Pain, Vision Change, Conjunctivae Inflammation, Eyelid Inflammation, Redness, Other ENT: negative: Ear Pain, Ear Discharge, Nose Pain, Nose Discharge, Nose Congestion, Mouth Pain, Mouth Swelling, Throat Pain, Throat Swelling, Other Respiratory: negative: Cough, Dry, Shortness of Breath, Hemoptysis, SOB with Excertion, Pleuritic Pain, Sputum, Wheezing Cardiovascular: negative: chest pain, palpitations, orthopnea, paroxysmal nocturnal dyspnea, edema, light headedness, other Gastrointestinal: negative: Nausea, Vomiting, Abdominal Pain, Diarrhea, Constipation, Melena, Hematochezia, Other Musculoskeletal: Shoulder Pain. negative: Neck Pain, Arm Pain, Back Pain, Hand Pain, Leg Pain, Foot Pain, Other Skin: negative: Rash, Lesions, Dm, Bruising, Other - Medications/Allergies Allergies/Adverse Reactions: Allergies Allergy/AdvReac Type Severity Reaction Status Date / Time cefazolin [From [facility]] Allergy Severe Swollen Verified 05/22/17 10:33 Lips Medications: Current Medications Acetaminophen (Tylenol) 650 mg PO Q4H PRN PRN Reason: Headache/Fever or Pain Hydrocodone Bitart/Acetaminophen ([place] 7.5/325) 1 tab PO Q4H PRN PRN Reason: Mild Pain (1-3) Hydrocodone Bitart/Acetaminophen ([place] 7.5/325) 2 tab PO Q4H PRN PRN Reason: Moderate Pain (4-6) Last Admin: 06/30/17 13:38 Dose: 2 tab Al Hydroxide/Mg Hydroxide (Maalox) 30 ml PO Q6H PRN PRN Reason: Heartburn or Indigestion Aspirin (Aspirin) 325 mg PO DAILY [facility] Last Admin: 06/30/17 11:04 Dose: 325 mg Bisacodyl (Dulcolax) 10 mg RI Q24H PRN PRN Reason: Constipation Calcium Carbonate (Tums) 1,000 mg PO Q4H PRN PRN Reason: Heartburn or Indigestion Clonidine (Catapres) 0.1 mg PO Q4H PRN PRN Reason: Systolic BP > 180 Docusate Sodium (Colace) 100 mg PO BID [facility] Last Admin: 06/30/17 11:04 Dose: 100 mg Heparin Sodium (Porcine) (Heparin) 5,000 units SC BID [facility] Last Admin: 06/30/17 11:05 Dose: 5,000 units Vancomycin HCl 750 mg/ Sodium (Chloride) 250 mls @ 250 mls/hr IVPB 0600,1800 [facility] Last Admin: 06/30/17 05:25 Dose: 250 mls Ketorolac Tromethamine (Toradol) 30 mg IVP Q6HR [facility] Stop: 07/02/17 18:01 Last Admin: 06/30/17 11:08 Dose: 30 mg Metoprolol Tartrate (Lopressor) 12.5 mg PO BID [facility] Last Admin: 06/30/17 08:58 Dose: 12.5 mg Miscellaneous Medication (Pharmacy To Dose) 1 each IVPB PRN PRN PRN Reason: Pharmacy to dose Multivitamins (Theragran) 1 tab PO DAILY [facility] Last Admin: 06/30/17 11:05 Dose: 1 tab Nitroglycerin (Nitrostat) 0.4 mg PO Q5MIN PRN PRN Reason: Chest Pain Ondansetron HCl (Zofran Odt) 4 mg PO Q6H PRN PRN Reason: Nausea/Vomiting Ondansetron HCl (Zofran) 4 mg IVP Q6H PRN PRN Reason: Nausea/Vomiting Senna (Senokot) 2 tab PO HSPRN PRN PRN Reason: Constipation Sodium Chloride (Flush - Normal Saline) 10 ml IVF Q12HR [facility] Last Admin: 06/30/17 11:05 Dose: 10 ml Sodium Chloride (Flush - Normal Saline) 10 ml IVF PRN PRN PRN Reason: Saline Flush
[2017-07-01] MEDS: Ketorolac Tromethamine 30 MG/ML VIAL IVP SCH ×2 (05:10→12:38)
[2017-07-01 05:45] LABS: Vancomycin, Trough 20.4 ug/mL
[2017-07-01] MEDS: Vancomycin HCl 750 MG in Sodium Chloride 0.9% 250 ML 250 ML IVPB SCH (06:00)
[2017-07-01] MEDS: Aspirin 325 MG TAB PO SCH (07:58)
[2017-07-01] MEDS: Metoprolol Tartrate 25 MG TAB PO SCH (07:58)
[2017-07-01] MEDS: Multivit, Therapeutic 1 TAB PO SCH (07:58)
[2017-07-01] MEDS: Docusate 100 MG CAP PO SCH (07:58)
[2017-07-01] MEDS: Heparin 5,000 UNITS/ML VIAL SC SCH (07:59)
[2017-07-01] MEDS: HYDROcodone/Acetaminophen 7.5/325 mg Tablet PO PRN (08:07)
[2017-07-01] MEDS ORDERED: diphenhydrAMINE 25 MG CAP PO PRN (08:25)
[2017-07-01 14:15] VITALS: BP 142/68; TEMP 98.3
--- NOTE | 2017-07-01 14:41 | DIS ---
DATE OF ADMISSION: 06/27/2017 DATE OF DISCHARGE: 07/01/2017 ADMITTING DIAGNOSES: Osteomyelitis of the left humerus, status post humeral head resection. DISCHARGE DIAGNOSES: Acute osteomyelitis of the left humerus, status post humeral head resection. SECONDARY DIAGNOSES: 1. Moderate dehydration. 2. Chronic pain syndrome. 3. Chronic alcoholism. 4. Chronic obstructive pulmonary disease. 5. Type 2 diabetes mellitus. 6. Hypertension. 7. Paroxysmal atrial fibrillation, on aspirin 8. History of depression. 9. History of chronic anemia. 10. Chronic kidney disease, stage 2. CONSULTANTS: Involved in his care is Dr. Phillip Whatley and Dr. Mary Hector and Dr. Bradley conklin. INVESTIGATIONS: Done during this admission are, 1. Left shoulder intra-articular aspiration of serosanguineous fluid of 30 mL. 2. Upper extremity MRI showing evidence of possible osteomyelitis and with fluid collection. HISTORY OF PRESENT ILLNESS AND HOSPITAL COURSE: In brief, this is a 71-year-old white male with a ch ronic osteomyelitis of the left shoulder, presented to the emergency room with complaints of opioid w ithdrawal and needing IV antibiotics. HOSPITAL COURSE: The patient was admitted and underwent a humeral head resection with placement of a spacer in 04/2017, and he underwent a PICC line placement and started on antibiotics to be completed by 07/04/2017. The patient was feeling very weak and fatigued on the day of admission with poor clara etite and also had episodes of nausea and diarrhea. He was having, however, symptoms of opioid withd sudhakar. The patient was closely monitored and he was at high risk for falls with left shoulder being osteomyelitis and high risk for fractures. So, the patient was closely monitored, and when he was mo re alert, he had MRI of the left shoulder, which showed a fluid collection and it was aspirated and w as shown to be a serosanguineous fluid and was sent for culture. There was evidence of osteomyelitis of the humeral head. The patient was continued on IV vancomycin, which he needed 8 days of IV vanco mycin and he received almost 4 doses while in the hospital, and on the day of discharge, patient was discharged to a swing bed at the [facility] to complete the 4 more days of the IV antibiotic and fo llowing which he will continue on doxycycline for a prolonged period. The patient was stable on the day of discharge and was discharged home in stable condition. PHYSICAL EXAMINATION: On day of discharge, VITAL SIGNS: Blood pressure is 129/69, heart rate is 76, respiratory rate 16, saturation 96% on room air. GENERAL: The patient is moderately built, moderately nourished, does not appear to be in acute distr ess. CARDIOVASCULAR: S1 and S2 normal. No murmurs, no rubs, no gallops. LUNGS: Bilateral air entry was equal. No wheezing, no crackles. ABDOMEN: Soft, nontender, no guarding, no rebound tenderness. Bowel sounds normal. MUSCULOSKELETAL: No calf tenderness. No pedal edema noted. No joint tenderness and no swelling. SKIN: No cyanosis, no erythema, no rash, no pallor. MUSCULOSKELETAL: No calf tenderness. No pedal edema. Passive range of motion is improved in the le ft shoulder. DISCHARGE MEDICATIONS: 1. Aspirin 650 mg p.o. daily. 2. Diphenhydramine 50 mg p.o. b.i.d. 3. Hydrocodone 1 tablet p.o. q.4 hours p.r.n. for pain. 4. Metoprolol 25 mg p.o. daily. 5. Lisinopril 1 tablet p.o. daily. 6. Multivitamin 1 tablet p.o. daily. DISCHARGE NEW MEDICATIONS: Vancomycin advised to continue at the [facility] [place] for 4 more days, 1 gram IV b.i.d. Patient will follow with doxycycline 100 mg p.o. b.i.d. for a prolonged period of time as per the instruction per Infectious Disease. DISCHARGE INSTRUCTIONS: 1. Continue activity as tolerated. 2. Advised to follow up with primary care physician in 1-2 weeks. 3. Advised to follow up with Infectious Disease in 2 weeks. 4. Continue with diabetic diet. 5. Continue activity as tolerated. I spent 35 minutes with this patient on the day of discharge.
== END 2017-07-01 15:12 | DRG 540 ==
LOC: ERS 15:52 → T4-A 22:28
PROVIDERS: ADMIT Internal Medicine; ATTEND Internal Medicine
PROC: 02HV33Z Insertion of Infusion Device into Superior Vena Cava, Percutaneous Approach (ICD-10-PCS; principal; 2017-06-27)
PROC: 0R9K3ZX Drainage of Left Shoulder Joint, Percutaneous Approach, Diagnostic (ICD-10-PCS; 2017-06-30)
DX: M86.112 Other acute osteomyelitis, left shoulder (principal); F11.23 Opioid dependence with withdrawal; N17.9 Acute kidney failure, unspecified; E11.22 Type 2 diabetes mellitus with diabetic chronic kidney disease; I48.0 Paroxysmal atrial fibrillation; E86.0 Dehydration; F32.9 Major depressive disorder, single episode, unspecified; F10.20 Alcohol dependence, uncomplicated; M86.612 Other chronic osteomyelitis, left shoulder; G89.4 Chronic pain syndrome; I12.9 Hypertensive chronic kidney disease with stage 1 through stage 4 chronic kidney disease, or unspecified chronic kidney disease; J44.9 Chronic obstructive pulmonary disease, unspecified; N18.2 Chronic kidney disease, stage 2 (mild); M54.5 Low back pain; Z79.82 Long term (current) use of aspirin; Z79.899 Other long term (current) drug therapy
CPT/HCPCS: 10022; 36415; 36416; 36569; 76942; 80048; 80053; 80202; 81003; 83605; 83735; 85014; 85018; 85025; 85049; 85610; 85730; 87040; 87070; 87116; 87149; 87205; 87206; 93005; 94760; 96365; 96375; A4216; C1751; C1769; J1644; J1885; J2060; J2270; J3370; J3411; J3475; J7050

== ENCOUNTER 2017-07-10 16:55 | Inpatient (IN) | payer MEDICARE ==
[~2017-07-10 16:55] MED LIST: Heparin 1,000 UNITS/ML VIAL ONE
[2017-07-10] MEDS ORDERED: Sodium Chloride 0.9% 1,000 ML IV SCH (17:45)
[2017-07-10 17:50] LABS: #Basophils 0.1 thou/uL (0.0-0.2); #Eosinphils 0.3 thou/uL (0.0-0.7); #Monocytes 0.5 thou/uL (0.11-0.59); #Neutrophils 3.8 thou/uL (1.40-6.50); %Basophils 0.9 % (0.0-1.0); %Eosinophils 3.3 % (0.0-10.0); %Lymphocytes 39.2 % (21.0-51.0); %Monocytes 6.9 % (0.0-10.0); %Neutrophils 49.6 % (42.0-75.0); Hemoglobin 10.1 g/dL (14.0-18.0); Mean Corpuscular Hemoglobin 24.4 pg (27.0-31.0); Mean Corpuscular Volume 76.4 fl (80.0-94.0); Platelet Count 307 thou/uL (130-400); RBC Distribution Width 15.3 % (11.5-14.5); Red Blood Cell (RBC) Count 4.12 mill/uL (4.70-6.10); White Blood Cell (WBC) Count 7.7 thou/uL (4.8-10.8)
[2017-07-10 18:20] VITALS: BMI 25.8
[2017-07-10] MEDS ORDERED: HYDROcodone/Acetaminophen 7.5/325 mg Tablet PO PRN (18:55)
--- NOTE | 2017-07-10 19:23 | RAD ---
AP VIEW OF THE PELVIS: 07/10/17 INDICATION: Right hemipelvis pain. COMPARISON: None. FINDINGS: There is mild degenerative arthrosis of both hips. No acute fracture or subluxation is evident. There is scattered diverticula involving the colon. IMPRESSION: No acute osseous abnormality. POS: SOFIA
[2017-07-10] MEDS: Ketorolac Tromethamine 30 MG/ML VIAL IM SCH (19:48)
[2017-07-10] MEDS: HYDROcodone/Acetaminophen 7.5/325 mg Tablet PO PRN (19:49)
[2017-07-10] MEDS: Metoprolol Tartrate 25 MG TAB PO SCH (19:49)
[2017-07-10] MEDS: Docusate 100 MG CAP PO SCH (19:50)
[2017-07-11] MEDS: HYDROcodone/Acetaminophen 7.5/325 mg Tablet PO PRN ×3 (00:01→21:29)
--- NOTE | 2017-07-11 00:41 | PDOC.PN ---
- Subjective Encounter Start Date: 07/10/17 Encounter Start Time: 22:30 Patient seen and examined on 07/10. Left shoulder pain controlled on current meds. No new complaints. No overnight events - Objective MAR Reviewed: Yes Vital Signs & Weight: Vital Signs (12 hours) Temp Pulse Resp BP BP Pulse Ox 07/10/17 19:50 98.1 F 92 16 96 07/10/17 19:49 123/70 07/10/17 19:23 98.1 F 92 16 157/76 H 96 07/10/17 17:15 98.7 F 93 18 159/88 H 97 Weight Weight 175 lb Result Diagrams: 07/10/17 17:41 EKG Reviewed by me: Yes (SR with PVCs) Phys Exam - Physical Examination Constitutional: NAD Respiratory: no wheezing, no rales, no rhonchi, clear to auscultation bilateral Cardiovascular: RRR, no rub Gastrointestinal: soft, non-tender, positive bowel sounds Musculoskeletal: no edema Left shoulder swelling Neurological: non-focal, moves all 4 limbs Psychiatric: A&O x 3 Skin: no rash Dx/Plan - Plan DVT proph w/SCDs IMPRESSION: 1. Chronic Osteomyelitis of left shoulder 2. h/o Alcohol abuse 3. COPD 4. DM2 - diet controlled. 5. Par Afib on ASA 6. CKD 2 7. HTN 8. Chronic Anemia 9/ h/o TIA PLAN: * Resume ASA * Cont Metoprolol/Lisinopril * Add PRN Nebs * AM labs * Add PRN meds * On Vancomycin * Add Thiamine/Folic acid * Full code. DPOA - self/family Review of Systems - Review of Systems Respiratory: negative: Cough, Dry, Shortness of Breath, Hemoptysis, SOB with Excertion, Pleuritic Pain, Sputum, Wheezing Cardiovascular: negative: chest pain, palpitations, orthopnea, paroxysmal nocturnal dyspnea, edema, light headedness, other Gastrointestinal: negative: Nausea, Vomiting, Abdominal Pain, Diarrhea, Constipation, Melena, Hematochezia, Other - Medications/Allergies Allergies/Adverse Reactions: Allergies Allergy/AdvReac Type Severity Reaction Status Date / Time cefazolin [From [facility]] Allergy Severe Swollen Verified 07/01/17 16:58 Lips Medications: Current Medications Hydrocodone Bitart/Acetaminophen ([place] 7.5/325) 1 tab PO Q4H PRN PRN Reason: Mild-Moderate Pain (1-5) Hydrocodone Bitart/Acetaminophen ([place] 7.5/325) 2 tab PO Q4H PRN PRN Reason: Moderate to Severe Pain (6-10) Last Admin: 07/11/17 00:01 Dose: 2 tab Diphenhydramine HCl (Benadryl) 50 mg PO BIDPRN PRN PRN Reason: Itching & Insomnia Docusate Sodium (Colace) 100 mg PO BID [facility] Last Admin: 07/10/17 19:50 Dose: 100 mg Sodium Chloride (Normal Saline 0.9%) 1,000 mls @ 0 mls/hr IV .Q0M [facility] PRN Reason: KVO Last Admin: 07/11/17 00:02 Dose: 1,000 mls Vancomycin HCl 750 mg/ Sodium (Chloride) 250 mls @ 250 mls/hr IVPB 0600,1800 [facility] Ketorolac Tromethamine (Toradol) 30 mg IM Q6H [facility] Stop: 07/15/17 19:01 Last Admin: 07/10/17 19:48 Dose: 30 mg Lisinopril (Zestril) 5 mg PO DAILY [facility] Metoprolol Tartrate (Lopressor) 12.5 mg PO BID [facility] Last Admin: 07/10/17 19:49 Dose: 12.5 mg Multivitamins (Theragran) 1 tab PO DAILY [facility]
[2017-07-11] MEDS ORDERED: VANCOMYCIN/ RENALLY ADJUST ANTIBIOTICS IVPB PRN (01:45)
[2017-07-11] MEDS ORDERED: Calcium Carbonate 500 MG ChewTAB PO PRN (01:51)
[2017-07-11] MEDS ORDERED: Nitroglycerin 0.4 MG TAB (25 Tab Bottle) PO PRN (01:51)
[2017-07-11] MEDS ORDERED: Acetaminophen 325 MG TAB PO PRN (01:51)
[2017-07-11] MEDS ORDERED: Mag-Al 1200 mg/1200 mg/30 ML UDCUP PO PRN (01:51)
[2017-07-11] MEDS ORDERED: hydrALAZINE 20 MG/ML VIAL SLOW IVP PRN (01:51)
[2017-07-11] MEDS ORDERED: Ondansetron HCl/PF 4 MG/2 ML Vial IVP PRN ×2 (01:51→15:16)
[2017-07-11] MEDS ORDERED: Senokot 8.6 MG TAB PO PRN (01:51)
[2017-07-11] MEDS ORDERED: Milk Of Magnesia 30 ML UDCUP PO PRN (01:51)
[2017-07-11] MEDS ORDERED: cloNIDine 0.1 MG TAB PO PRN (01:51)
[2017-07-11] MEDS: Ketorolac Tromethamine 30 MG/ML VIAL IM SCH ×4 (02:05→18:17)
[2017-07-11 05:09] LABS: Albumin 3.6 g/dL (3.4-4.8); Anion Gap 8 mmol/L (10-20); BUN (Urea Nitrogen) 32 mg/dL (8.4-25.7); BUN/Creatinine Ratio 27.83; Calc. Creatinine Clearance 64 mL/min (70-130); Calcium 9.8 mg/dL (7.8-10.44); Carbon Dioxide 28 mmol/L (23-31); Chloride 104 mmol/L (98-107); Estimated GFR-MDRD 62; Glucose 125 mg/dL (83-110); Magnesium 1.6 mg/dL (1.6-2.6); Phosphorus 4.8 mg/dL (2.3-4.7); Potassium 3.9 mmol/L (3.5-5.1); Sodium 136 mmol/L (136-145)
[2017-07-11] MEDS: Vancomycin HCl 750 MG in Sodium Chloride 0.9% 250 ML 250 ML IVPB SCH ×2 (05:21→18:17)
[2017-07-11] MEDS: Metoprolol Tartrate 25 MG TAB PO SCH ×2 (08:37→21:28)
[2017-07-11] MEDS: Docusate 100 MG CAP PO SCH ×2 (08:39→21:30)
[2017-07-11] MEDS: Multivit, Therapeutic 1 TAB PO SCH (08:39)
[2017-07-11] MEDS: Aspirin 325 MG TAB PO SCH (08:39)
[2017-07-11] MEDS: Famotidine 20 MG TAB PO SCH ×2 (08:39→21:30)
[2017-07-11] MEDS: Folic Acid 1 MG TAB PO SCH (08:39)
[2017-07-11] MEDS: Lisinopril 5 MG TAB PO SCH (08:39)
[2017-07-11] MEDS ORDERED: Fentanyl 100 MCG/2 ML VIAL ONE ×3 (10:45→15:23)
--- NOTE | 2017-07-11 12:22 | HP ---
HISTORY OF PRESENT ILLNESS: Mr. Ring is a 71-year-old male well known to my service. Patient has history of chronic osteomyelitis of the left shoulder and undergone multiple I&D's since 2017. The patient continues to collect fluid. He most recently underwent a hemiarthroplasty with antibiotic Prostalac spacer to help with the osteomyelitis. It is still not resolved. The patient presented to my office. He had undergone aspiration which had grown nothing to date. His previous cultures were positive for P-acnes, Staphylococcus and streptococcus. The patient had an AMA leave hat potentially had substantial issues with this, but I feel that he is unable to clear the patient's infection. PAST MEDICAL HISTORY: Duodenal ulcer with repair, alcoholism, COPD, paroxysmal atrial fibrillation, chronic rotator cuff tear left shoulder with chronic osteomyelitis, right shoulder fracture dislocation with rotator cuff arthropathy. ALLERGIES: CEFZIL. MEDICATIONS: Tylenol, [place], Maalox, aspirin, Dulcolax, Tums, Colace, Toradol, Lopressor, Zofran, vancomycin. SOCIAL HISTORY: The patient has a history of alcohol. No recent tobacco use. Patient is retired. He lives with his [place] [facility] [place]. The patient is not . PHYSICAL EXAMINATION: VITAL SIGNS: The patient is febrile, pulse 60s, 93%, 130-140s/60s to 180s. GENERAL: Alert male in no acute distress. EXTREMITIES: Left upper extremity shows a boil, swelling in his left upper extremity. He is neurovascularly intact distally. He has crepitus with range of motion. The patient has sensation, 2+ radial pulse. Unlabored otherwise left upper extremity. IMPRESSION: Recurrent septic osteomyelitis. ASSESSMENT AND PLAN: I discussed with patient that I am going to open up his shoulder. I am going to allow it to drain. I will likely after he gets the acute bleeding, will likely plan for a postoperative wound vacuum and likely allow the wound VAC to heal until he is no longer draining. The patient's outcome has been difficult to control. I cannot tell if this is factors of malnourishment, patient compliance, chronicity of his initial open wound performed by another orthopedic in [facility], but I have been unable to clear this infection even with his prosthetic spacer. If I remove it, will likely place vancomycin powder in place, pack the wound and then place a wound VAC once the bleeding is controlled. ELIZABETH
--- NOTE | 2017-07-11 13:22 | PDOC.PN ---
- Subjective Encounter Start Date: 07/11/17 Encounter Start Time: 09:20 Pt seen for followup re: COPD. Denies chest pain, shortness of breath, fevers or chills. Complains of L shoulder pain - Objective Resuscitation Status: Resuscitation Status FULL:Full Resuscitation MAR Reviewed: Yes Vital Signs & Weight: Vital Signs (12 hours) Temp Pulse Resp BP Pulse Ox 07/11/17 08:00 98.5 F 65 18 07/11/17 07:57 98.5 F 65 18 123/66 96 07/11/17 05:06 97.8 F 67 16 137/74 97 Weight Weight 175 lb I&O: 07/10/17 07/11/17 07/12/17 06:59 06:59 06:59 Intake Total 880 Balance 880 Result Diagrams: 07/10/17 17:41 07/11/17 03:54 Phys Exam - Physical Examination Constitutional: NAD HEENT: moist MMs Neck: supple Respiratory: clear to auscultation bilateral Cardiovascular: irregular Gastrointestinal: soft dressing over L shoulder Neurological: moves all 4 limbs Psychiatric: normal affect Dx/Plan (1) Chronic obstructive pulmonary disease Status: Chronic Qualifiers: COPD type: unspecified COPD Qualified Code(s): J44.9 - Chronic obstructive pulmonary disease, unspecified Comment: stable (2) Chronic anemia Code(s): D64.9 - ANEMIA, UNSPECIFIED Status: Chronic Comment: Stable, hemoglobin 10.1 yesterday. (3) DM type 2 (diabetes mellitus, type 2) Status: Chronic Qualifiers: Diabetes mellitus termite exterminator insulin use: without termite exterminator use Diabetes mellitus complication status: without complication Qualified Code(s): E11.9 - Type 2 diabetes mellitus without complications Comment: Diet-controlled. Start accuchecks and insulin sliding scale. (4) H/O TIA (transient ischemic attack) and stroke Code(s): Z86.73 - PRSNL HX OF TIA (TIA), AND CEREB INFRC W/O RESID DEFICITS Status: Chronic Comment: on ASA (5) HTN (hypertension) Code(s): I10 - ESSENTIAL (PRIMARY) HYPERTENSION Status: Chronic Qualifiers: Hypertension type: essential hypertension Comment: Monitor vital signs, titrate antihypertensives as needed. (6) Paroxysmal a-fib Code(s): I48.0 - PAROXYSMAL ATRIAL FIBRILLATION Status: Chronic Comment: on metoprolol for rate control (7) Chronic osteomyelitis of humerus Code(s): M86.629 - OTHER CHRONIC OSTEOMYELITIS, UNSPECIFIED HUMERUS Status: Chronic Comment: On IV vancomycin. - Plan * . Review of Systems - Review of Systems Constitutional: negative: fever, chills, sweats, weakness, malaise Respiratory: negative: Cough, Shortness of Breath, SOB with Excertion, Pleuritic Pain, Wheezing Cardiovascular: negative: chest pain, palpitations, orthopnea, paroxysmal nocturnal dyspnea, edema, light headedness Musculoskeletal: Shoulder Pain - Medications/Allergies Allergies/Adverse Reactions: Allergies Allergy/AdvReac Type Severity Reaction Status Date / Time cefazolin [From [facility]] Allergy Severe Swollen Verified 07/01/17 16:58 Lips Medications: Current Medications Acetaminophen (Tylenol) 650 mg PO Q4H PRN PRN Reason: Headache/Fever or Pain Hydrocodone Bitart/Acetaminophen ([place] 7.5/325) 1 tab PO Q4H PRN PRN Reason: Mild-Moderate Pain (1-5) Hydrocodone Bitart/Acetaminophen ([place] 7.5/325) 2 tab PO Q4H PRN PRN Reason: Moderate to Severe Pain (6-10) Last Admin: 07/11/17 05:22 Dose: 2 tab Al Hydroxide/Mg Hydroxide (Maalox) 30 ml PO Q6H PRN PRN Reason: Heartburn or Indigestion Aspirin (Aspirin) 325 mg PO DAILY [facility] Last Admin: 07/11/17 08:39 Dose: Not Given Calcium Carbonate (Tums) 1,000 mg PO Q4H PRN PRN Reason: Heartburn or Indigestion Clonidine (Catapres) 0.1 mg PO Q4H PRN PRN Reason: Systolic BP > 180 Diphenhydramine HCl (Benadryl) 50 mg PO BIDPRN PRN PRN Reason: Itching & Insomnia Docusate Sodium (Colace) 100 mg PO BID [facility] Last Admin: 07/11/17 08:39 Dose: Not Given Famotidine (Pepcid) 20 mg PO BID [facility] Last Admin: 07/11/17 08:39 Dose: Not Given Folic Acid (Folvite) 1 mg PO DAILY [facility] Last Admin: 07/11/17 08:39 Dose: Not Given Hydralazine HCl (Apresoline) 5 mg SLOW IVP Q4H PRN PRN Reason: SBP Greater Than 180 Sodium Chloride (Normal Saline 0.9%) 1,000 mls @ 0 mls/hr IV .Q0M [facility] PRN Reason: KVO Last Admin: 07/11/17 00:02 Dose: 1,000 mls Vancomycin HCl 750 mg/ Sodium (Chloride) 250 mls @ 250 mls/hr IVPB 0600,1800 [facility] Last Admin: 07/11/17 05:21 Dose: 250 mls Ketorolac Tromethamine (Toradol) 30 mg IM Q6H [facility] Stop: 07/15/17 19:01 Last Admin: 07/11/17 06:39 Dose: 30 mg Lisinopril (Zestril) 5 mg PO DAILY [facility] Last Admin: 07/11/17 08:39 Dose: Not Given Magnesium Hydroxide (Milk Of Magnesium) 30 ml PO DAILYPRN PRN PRN Reason: Constipation Metoprolol Tartrate (Lopressor) 12.5 mg PO BID [facility] Last Admin: 07/11/17 08:37 Dose: 12.5 mg Miscellaneous Medication (Pharmacy To Dose) 1 each IVPB PRN PRN PRN Reason: Pharmacy to dose Multivitamins (Theragran) 1 tab PO DAILY [facility] Last Admin: 07/11/17 08:39 Dose: Not Given Nitroglycerin (Nitrostat) 0.4 mg PO Q5MIN PRN PRN Reason: Chest Pain Ondansetron HCl (Zofran Odt) 4 mg PO Q6H PRN PRN Reason: Nausea/Vomiting Ondansetron HCl (Zofran) 4 mg IVP Q6H PRN PRN Reason: Nausea/Vomiting Senna (Senokot) 2 tab PO HSPRN PRN PRN Reason: Constipation Thiamine HCl (Thiamine) 100 mg PO DAILY [facility] Last Admin: 07/11/17 08:40 Dose: Not Given
[2017-07-11] MEDS ORDERED: HumaLOG 300 UNITS/3 ML VIAL SC PRN (13:25)
[2017-07-11] MEDS ORDERED: Dextrose 50% Abboject 50 ML SYRINGE SLOW IVP PRN (13:25)
[2017-07-11] MEDS ORDERED: Dextrose 5% in Water 1,000 ML IV PRN (13:25)
[2017-07-11] MEDS ORDERED: Fentanyl 100 MCG/2 ML VIAL SLOW IVP PRN (14:52)
[2017-07-11] MEDS ORDERED: Promethazine HCl 25 MG/ML VIAL SLOW IVP PRN (15:16)
[2017-07-11] MEDS ORDERED: Promethazine HCl 25 MG/ML VIAL IM PRN (15:16)
[2017-07-11] MEDS ORDERED: PROPOFOL 200 MG/20 ML VIAL ONE (16:46)
--- NOTE | 2017-07-11 20:16 | OP ---
INDICATIONS: The patient has returned once again to the hospital with continued problems with his left shoulder. During his last visit, patient had a needle aspiration of his shoulder. He comes in today with increased pain and a large boil pus filled area of the anterior shoulder, which we wonder if that is where the needle had been inserted for the aspiration. SURGEON: Bradley Thurston M.D. VICE PRESIDENT AND PORTFOLIO MANAGER: Duane Roman PA-C. ESTIMATED BLOOD LOSS: 200 mL ANESTHESIA: LMA general. COMPLICATIONS: None. PROCEDURE: Reopened the original incision. Removed all visible sutures/ drained boil. Removed antibiotic spacer, irrigated with 5000 mL high pressure normal saline. Once everything was cleaned out and all visible sutures removed , I applied powdered vancomycin 2 grams into the wound and then packed with a sterile moist Kerlix. Upper part of the incision was closed with 2-0 nylon. Trauma sutures applied. I did pack the boil area with iodoform gauze. Sterile pressure dressing applied to the shoulder. The patient moved to [facility] and no complications during surgery. Duane Roman PA-C for Henri Watkins
[2017-07-11] MEDS: diphenhydrAMINE 25 MG CAP PO PRN (21:32)
[2017-07-12] MEDS: Ketorolac Tromethamine 30 MG/ML VIAL IM SCH ×4 (01:38→18:17)
[2017-07-12] MEDS: HYDROcodone/Acetaminophen 10/325 mg Tablet PO PRN ×5 (03:04→23:42)
[2017-07-12 05:33] LABS: #Basophils 0.1 thou/uL (0.0-0.2); #Eosinphils 0.2 thou/uL (0.0-0.7); #Monocytes 0.4 thou/uL (0.11-0.59); #Neutrophils 4.1 thou/uL (1.40-6.50); %Basophils 0.9 % (0.0-1.0); %Lymphocytes 29.6 % (21.0-51.0); %Monocytes 6.3 % (0.0-10.0); %Neutrophils 60.1 % (42.0-75.0); Hemoglobin 7.6 g/dL (14.0-18.0); Mean Corpuscular HGB CONC 31.8 g/dL (32.0-36.0); Mean Corpuscular Hemoglobin 24.6 pg (27.0-31.0); Mean Corpuscular Volume 77.1 fl (80.0-94.0); Mean Platelet Volume 7.4 fL (7.4-10.4); Platelet Count 249 thou/uL (130-400); RBC Distribution Width 15.6 % (11.5-14.5); Red Blood Cell (RBC) Count 3.09 mill/uL (4.70-6.10); White Blood Cell (WBC) Count 6.8 thou/uL (4.8-10.8)
[2017-07-12] MEDS: Vancomycin HCl 750 MG in Sodium Chloride 0.9% 250 ML 250 ML IVPB SCH ×2 (06:43→17:51)
[2017-07-12] MEDS: Lisinopril 5 MG TAB PO SCH (08:41)
[2017-07-12] MEDS: Multivit, Therapeutic 1 TAB PO SCH (08:41)
[2017-07-12] MEDS: Aspirin 325 MG TAB PO SCH (08:41)
[2017-07-12] MEDS: Famotidine 20 MG TAB PO SCH ×2 (08:41→20:15)
[2017-07-12] MEDS: Metoprolol Tartrate 25 MG TAB PO SCH ×2 (08:42→20:15)
[2017-07-12] MEDS: Docusate 100 MG CAP PO SCH ×2 (08:42→20:15)
[2017-07-12] MEDS: Folic Acid 1 MG TAB PO SCH (08:42)
[2017-07-12] MEDS: diphenhydrAMINE 25 MG CAP PO PRN ×2 (09:44→23:43)
[2017-07-12] MEDS: metFORMIN 500 MG TAB PO SCH (09:44)
--- NOTE | 2017-07-12 13:44 | PDOC.PN ---
- Subjective Encounter Start Date: 07/12/17 Encounter Start Time: 10:45 Subjective: c/o pain left shoulder, no sob -: got 1 unit prbc today - Objective Resuscitation Status: Resuscitation Status FULL:Full Resuscitation MAR Reviewed: Yes Vital Signs & Weight: Vital Signs (12 hours) Temp Pulse Pulse Resp BP BP BP 07/12/17 12:01 98.2 F 80 18 116/68 07/12/17 12:00 97.6 F 72 18 118/68 07/12/17 09:38 97.6 F 76 18 98/56 L 07/12/17 09:22 98.1 F 80 20 107/66 07/12/17 08:41 83 116/64 07/12/17 08:40 98 F 83 18 07/12/17 07:15 98.0 F 83 18 116/66 07/12/17 03:38 98.1 F 84 19 101/53 L Pulse Ox 07/12/17 12:01 99 07/12/17 12:00 99 07/12/17 09:38 96 07/12/17 09:22 98 07/12/17 08:41 07/12/17 08:40 99 07/12/17 07:15 99 07/12/17 03:38 97 Weight Admit Weight 175 lb Weight 175 lb I&O: 07/11/17 07/12/17 07/13/17 06:59 06:59 06:59 Intake Total 880 860 350 Balance 880 860 350 Result Diagrams: 07/12/17 04:10 07/11/17 03:54 Additional Labs: Accuchecks 07/12/17 07/12/17 07/11/17 11:09 05:48 19:55 POC Glucose 138 H 143 H 206 H Phys Exam - Physical Examination HEENT: PERRLA, moist MMs Neck: no JVD, supple Respiratory: no wheezing, no rales Cardiovascular: RRR, no significant murmur Gastrointestinal: soft, non-tender, positive bowel sounds Musculoskeletal: no edema, pulses present left shoulder in wound vac Neurological: non-focal, moves all 4 limbs Psychiatric: normal affect, A&O x 3 Dx/Plan (1) Acute blood loss as cause of postoperative anemia Code(s): D62 - ACUTE POSTHEMORRHAGIC ANEMIA Status: Acute (2) Chronic obstructive pulmonary disease Status: Chronic Qualifiers: COPD type: chronic bronchitis Comment: stable (3) DM type 2 (diabetes mellitus, type 2) Status: Chronic Qualifiers: 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 (4) HTN (hypertension) Code(s): I10 - ESSENTIAL (PRIMARY) HYPERTENSION Status: Chronic Qualifiers: Hypertension type: essential hypertension Comment: Monitor vital signs, titrate antihypertensives as needed. - Plan is on vancomycin, had debridement and wash out this hosp -: cultures are -ve so far -: on fentanyl/norco/toradol prn for pain -: got 1 unit prbc today -: continue lisinopril, add metformin daily from today for dm * . Review of Systems - Medications/Allergies Allergies/Adverse Reactions: Allergies Allergy/AdvReac Type Severity Reaction Status Date / Time cefazolin [From Anc] Allergy Severe Swollen Verified 07/01/17 16:58 Lips Medications: Current Medications Acetaminophen (Tylenol) 650 mg PO Q4H PRN PRN Reason: Headache/Fever or Pain Hydrocodone Bitart/Acetaminophen ([place] 7.5/325) 1 tab PO Q4H PRN PRN Reason: Mild-Moderate Pain (1-5) Hydrocodone Bitart/Acetaminophen ([place] 7.5/325) 2 tab PO Q4H PRN PRN Reason: Moderate to Severe Pain (6-10) Last Admin: 07/11/17 21:29 Dose: 2 tab Hydrocodone Bitart/Acetaminophen ([place] 10/325) 2 tab PO Q4H PRN PRN Reason: Pain 7-10 (IF TOLERATING PO) Last Admin: 07/12/17 11:34 Dose: 2 tab Al Hydroxide/Mg Hydroxide (Maalox) 30 ml PO Q6H PRN PRN Reason: Heartburn or Indigestion Aspirin (Aspirin) 325 mg PO DAILY [facility] Last Admin: 07/12/17 08:41 Dose: 325 mg Calcium Carbonate (Tums) 1,000 mg PO Q4H PRN PRN Reason: Heartburn or Indigestion Clonidine (Catapres) 0.1 mg PO Q4H PRN PRN Reason: Systolic BP > 180 Dextrose/Water (Dextrose 50%) 25 gm SLOW IVP PRN PRN PRN Reason: Hypoglycemia Diphenhydramine HCl (Benadryl) 50 mg PO BIDPRN PRN PRN Reason: Itching & Insomnia Last Admin: 07/12/17 09:44 Dose: 50 mg Docusate Sodium (Colace) 100 mg PO BID [facility] Last Admin: 07/12/17 08:42 Dose: 100 mg Famotidine (Pepcid) 20 mg PO BID [facility] Last Admin: 07/12/17 08:41 Dose: 20 mg Fentanyl (Sublimaze) 50 mcg SLOW IVP Q2H PRN PRN Reason: Pain 7-10 Last Admin: 07/11/17 21:32 Dose: 50 mcg Folic Acid (Folvite) 1 mg PO DAILY [facility] Last Admin: 07/12/17 08:42 Dose: 1 mg Glucagon (Glucagon) 1 mg IM PRN PRN PRN Reason: Hypoglycemia Hydralazine HCl (Apresoline) 5 mg SLOW IVP Q4H PRN PRN Reason: SBP Greater Than 180 Sodium Chloride (Normal Saline 0.9%) 1,000 mls @ 0 mls/hr IV .Q0M [facility] PRN Reason: KVO Last Admin: 07/11/17 00:02 Dose: 1,000 mls Vancomycin HCl 750 mg/ Sodium (Chloride) 250 mls @ 250 mls/hr IVPB 0600,1800 [facility] Last Admin: 07/12/17 06:43 Dose: 250 mls Dextrose/Water (D5w) 1,000 mls @ 0 mls/hr IV .Q0M PRN; As Directed PRN Reason: Hypoglycemia Insulin Human Lispro (Humalog) 0 units SC .MILD SLIDING SCALE PRN PRN Reason: Mild Correctional Scale Ketorolac Tromethamine (Toradol) 30 mg IM Q6H [facility] Stop: 07/15/17 19:01 Last Admin: 07/12/17 12:53 Dose: 30 mg Lisinopril (Zestril) 5 mg PO DAILY [facility] Last Admin: 07/12/17 08:41 Dose: 5 mg Magnesium Hydroxide (Milk Of Magnesium) 30 ml PO DAILYPRN PRN PRN Reason: Constipation Metformin HCl (Glucophage) 500 mg PO DAILY [facility] Last Admin: 07/12/17 09:44 Dose: 500 mg Metoprolol Tartrate (Lopressor) 12.5 mg PO BID [facility] Last Admin: 07/12/17 08:42 Dose: 12.5 mg Miscellaneous Medication (Pharmacy To Dose) 1 each IVPB PRN PRN PRN Reason: Pharmacy to dose Multivitamins (Theragran) 1 tab PO DAILY [facility] Last Admin: 07/12/17 08:41 Dose: 1 tab Nitroglycerin (Nitrostat) 0.4 mg PO Q5MIN PRN PRN Reason: Chest Pain Ondansetron HCl (Zofran Odt) 4 mg PO Q6H PRN PRN Reason: Nausea/Vomiting Ondansetron HCl (Zofran) 4 mg IVP Q6H PRN PRN Reason: Nausea/Vomiting Senna (Senokot) 2 tab PO HSPRN PRN PRN Reason: Constipation Thiamine HCl (Thiamine) 100 mg PO DAILY [facility] Last Admin: 07/12/17 08:41 Dose: 100 mg
--- NOTE | 2017-07-12 15:56 | SPC ---
SONOGRAPHIC GUIDED RIGHT UPPER EXTREMITY PICC PLACEMENT: 07/12/17 HISTORY: Left shoulder infection. FINDINGS: After explaining the procedure and answering all questions, the right upper extremity was prepped and draped in the usual sterile fashion. Sterile technique, buffered local anesthesia, sonographic brock nce, and a 22 gauge needle were used to carefully access the right brachial vein. Standard technique was then used to place a tip of a 5 [place] single lumen PICC so that the tip lies at the level of the superior vena cava. Some tortuosity of the right subclavian vein was again demonstrated, increasing difficulty in passage of wire and catheter. Catheter was secured externally and flushed. Patient twan rated the procedure well and was returned in unchanged condition. FLUORO TIME: 1.5 minutes. IMPRESSION: Technically successful right upper extremity PICC placement. Catheter is now ready for use. POS: [facility]
[2017-07-12] MEDS ORDERED: Iopamidol 300 61% 50 ML VIAL FS ONE (16:16)
[2017-07-12 17:51] LABS: Vancomycin, Trough 16.5 ug/mL
[2017-07-13] MEDS: Ketorolac Tromethamine 30 MG/ML VIAL IM SCH ×5 (00:12→23:58)
[2017-07-13] MEDS: HYDROcodone/Acetaminophen 7.5/325 mg Tablet PO PRN (05:21)
[2017-07-13] MEDS: Vancomycin HCl 750 MG in Sodium Chloride 0.9% 250 ML 250 ML IVPB SCH ×2 (05:31→18:50)
[2017-07-13 05:54] LABS: Hemoglobin 7.4 g/dL (14.0-18.0); Mean Corpuscular HGB CONC 31.5 g/dL (32.0-36.0); Mean Corpuscular Hemoglobin 24.9 pg (27.0-31.0); Mean Corpuscular Volume 79.2 fl (80.0-94.0); Mean Platelet Volume 7.2 fL (7.4-10.4); Platelet Count 209 thou/uL (130-400); RBC Distribution Width 15.7 % (11.5-14.5); Red Blood Cell (RBC) Count 2.95 mill/uL (4.70-6.10); White Blood Cell (WBC) Count 5.8 thou/uL (4.8-10.8)
[2017-07-13] MEDS: Lisinopril 5 MG TAB PO SCH (08:35)
[2017-07-13] MEDS: Multivit, Therapeutic 1 TAB PO SCH (08:35)
[2017-07-13] MEDS: Metoprolol Tartrate 25 MG TAB PO SCH ×2 (08:35→21:23)
[2017-07-13] MEDS: Docusate 100 MG CAP PO SCH ×2 (08:36→21:24)
[2017-07-13] MEDS: Folic Acid 1 MG TAB PO SCH (08:36)
[2017-07-13] MEDS: Famotidine 20 MG TAB PO SCH ×2 (08:36→21:22)
[2017-07-13] MEDS: Aspirin 325 MG TAB PO SCH (08:37)
[2017-07-13] MEDS: metFORMIN 500 MG TAB PO SCH (08:37)
[2017-07-13] MEDS: HYDROcodone/Acetaminophen 10/325 mg Tablet PO PRN ×4 (09:33→21:24)
[2017-07-13] MEDS: diphenhydrAMINE 25 MG CAP PO PRN ×2 (09:37→21:26)
[2017-07-13] MEDS: Ondansetron ODT 4 MG TAB PO PRN (10:44)
--- NOTE | 2017-07-13 11:05 | PDOC.PN ---
- Subjective Encounter Start Date: 07/13/17 Encounter Start Time: 11:08 Subjective: No new complaints. -: No acute events overnight. - Objective Resuscitation Status: Resuscitation Status FULL:Full Resuscitation MAR Reviewed: Yes Vital Signs & Weight: Vital Signs (12 hours) Temp Pulse Resp BP BP Pulse Ox 07/13/17 08:35 70 131/61 07/13/17 08:10 98 F 70 18 131/61 95 07/13/17 03:06 98 F 76 20 120/65 98 07/12/17 23:23 98.7 F 78 16 104/74 95 Weight Admit Weight 175 lb Weight 175 lb I&O: 07/12/17 07/13/17 07/14/17 06:59 06:59 06:59 Intake Total 860 2210 Balance 860 2210 Result Diagrams: 07/13/17 05:44 07/11/17 03:54 Additional Labs: Accuchecks 07/13/17 07/12/17 07/12/17 05:37 20:16 16:18 POC Glucose 135 H 114 H 136 H 07/12/17 11:09 POC Glucose 138 H Phys Exam - Physical Examination Constitutional: NAD HEENT: PERRLA, moist MMs, sclera anicteric, oral pharynx no lesions Neck: no JVD, full ROM Respiratory: no wheezing, no rales, no rhonchi, clear to auscultation bilateral Cardiovascular: RRR, no significant murmur, no rub Gastrointestinal: soft, non-tender, no distention, positive bowel sounds Musculoskeletal: no edema, pulses present L shoulder w vac and draining Neurological: non-focal, moves all 4 limbs Psychiatric: normal affect, A&O x 3 Skin: no rash, normal turgor Dx/Plan (1) Acute blood loss as cause of postoperative anemia Code(s): D62 - ACUTE POSTHEMORRHAGIC ANEMIA Status: Acute Comment: Hb stable following 1 unit PRBC. (2) Chronic obstructive pulmonary disease Status: Chronic Qualifiers: COPD type: chronic bronchitis Comment: Stable. Not in acute exacerbation. 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 Continue Accuchecks and insulin sliding scale. (4) HTN (hypertension) Code(s): I10 - ESSENTIAL (PRIMARY) HYPERTENSION Status: Chronic Qualifiers: Hypertension type: essential hypertension Comment: Controlled and at goal. (5) Atrial fibrillation Code(s): I48.91 - UNSPECIFIED ATRIAL FIBRILLATION Status: Chronic Qualifiers: Atrial fibrillation type: paroxysmal Qualified Code(s): I48.0 - Paroxysmal atrial fibrillation Comment: Rate controlled. - Plan cont current plan of care, out of bed/ambulate * . Mr Ring'jasper blood pressure and glucose are under control. He is clinically stable and without complaints. He has post surgical anemia and has received 1 unit of PRBC. He will be transfused as needed by the surgical service. He should follow up with his PCP for optimal blood pressure and glycemic control. Internal medicine will sign off now. Do not hesitate to call us if you have any more questions or concerns. Review of Systems - Medications/Allergies Allergies/Adverse Reactions: Allergies Allergy/AdvReac Type Severity Reaction Status Date / Time cefazolin [From Anc] Allergy Severe Swollen Verified 07/01/17 16:58 Lips Medications: Current Medications Acetaminophen (Tylenol) 650 mg PO Q4H PRN PRN Reason: Headache/Fever or Pain Hydrocodone Bitart/Acetaminophen ([place] 7.5/325) 1 tab PO Q4H PRN PRN Reason: Mild-Moderate Pain (1-5) Hydrocodone Bitart/Acetaminophen ([place] 7.5/325) 2 tab PO Q4H PRN PRN Reason: Moderate to Severe Pain (6-10) Last Admin: 07/13/17 05:21 Dose: 2 tab Hydrocodone Bitart/Acetaminophen ([place] 10/325) 2 tab PO Q4H PRN PRN Reason: Pain 7-10 (IF TOLERATING PO) Last Admin: 07/13/17 09:33 Dose: 2 tab Al Hydroxide/Mg Hydroxide (Maalox) 30 ml PO Q6H PRN PRN Reason: Heartburn or Indigestion Aspirin (Aspirin) 325 mg PO DAILY [facility] Last Admin: 07/13/17 08:37 Dose: 325 mg Calcium Carbonate (Tums) 1,000 mg PO Q4H PRN PRN Reason: Heartburn or Indigestion Clonidine (Catapres) 0.1 mg PO Q4H PRN PRN Reason: Systolic BP > 180 Dextrose/Water (Dextrose 50%) 25 gm SLOW IVP PRN PRN PRN Reason: Hypoglycemia Diphenhydramine HCl (Benadryl) 50 mg PO BIDPRN PRN PRN Reason: Itching & Insomnia Last Admin: 07/13/17 09:37 Dose: 50 mg Docusate Sodium (Colace) 100 mg PO BID [facility] Last Admin: 07/13/17 08:36 Dose: Not Given Famotidine (Pepcid) 20 mg PO BID [facility] Last Admin: 07/13/17 08:36 Dose: 20 mg Fentanyl (Sublimaze) 50 mcg SLOW IVP Q2H PRN PRN Reason: Pain 7-10 Last Admin: 07/11/17 21:32 Dose: 50 mcg Folic Acid (Folvite) 1 mg PO DAILY [facility] Last Admin: 07/13/17 08:36 Dose: 1 mg Glucagon (Glucagon) 1 mg IM PRN PRN PRN Reason: Hypoglycemia Hydralazine HCl (Apresoline) 5 mg SLOW IVP Q4H PRN PRN Reason: SBP Greater Than 180 Sodium Chloride (Normal Saline 0.9%) 1,000 mls @ 0 mls/hr IV .Q0M [facility] PRN Reason: KVO Last Admin: 07/11/17 00:02 Dose: 1,000 mls Vancomycin HCl 750 mg/ Sodium (Chloride) 250 mls @ 250 mls/hr IVPB 0600,1800 [facility] Last Admin: 07/13/17 05:31 Dose: 250 mls Dextrose/Water (D5w) 1,000 mls @ 0 mls/hr IV .Q0M PRN; As Directed PRN Reason: Hypoglycemia Insulin Human Lispro (Humalog) 0 units SC .MILD SLIDING SCALE PRN PRN Reason: Mild Correctional Scale Ketorolac Tromethamine (Toradol) 30 mg IM Q6H [facility] Stop: 07/15/17 19:01 Last Admin: 07/13/17 05:30 Dose: 30 mg Lisinopril (Zestril) 5 mg PO DAILY [facility] Last Admin: 07/13/17 08:35 Dose: 5 mg Magnesium Hydroxide (Milk Of Magnesium) 30 ml PO DAILYPRN PRN PRN Reason: Constipation Metformin HCl (Glucophage) 500 mg PO DAILY [facility] Last Admin: 07/13/17 08:37 Dose: 500 mg Metoprolol Tartrate (Lopressor) 12.5 mg PO BID [facility] Last Admin: 07/13/17 08:35 Dose: 12.5 mg Miscellaneous Medication (Pharmacy To Dose) 1 each IVPB PRN PRN PRN Reason: Pharmacy to dose Multivitamins (Theragran) 1 tab PO DAILY [facility] Last Admin: 07/13/17 08:35 Dose: 1 tab Nitroglycerin (Nitrostat) 0.4 mg PO Q5MIN PRN PRN Reason: Chest Pain Ondansetron HCl (Zofran Odt) 4 mg PO Q6H PRN PRN Reason: Nausea/Vomiting Last Admin: 07/13/17 10:44 Dose: 4 mg Ondansetron HCl (Zofran) 4 mg IVP Q6H PRN PRN Reason: Nausea/Vomiting Senna (Senokot) 2 tab PO HSPRN PRN PRN Reason: Constipation Last Admin: 07/12/17 20:16 Dose: 2 tab Sodium Chloride (Flush - Normal Saline) 10 ml IVF PRN PRN PRN Reason: Saline Flush Thiamine HCl (Thiamine) 100 mg PO DAILY [facility] Last Admin: 07/13/17 08:35 Dose: 100 mg
[2017-07-13] MEDS ORDERED: Albuterol Sulfate 2.5 mg/3 ml Neb NEB PRN (11:09)
[2017-07-13 17:19] LABS: Hemoglobin 7.9 g/dL (14.0-18.0)
[2017-07-13 17:37] LABS: Vancomycin, Trough 20.5 ug/mL
[2017-07-14] MEDS: HYDROcodone/Acetaminophen 10/325 mg Tablet PO PRN ×5 (03:39→20:10)
[2017-07-14] MEDS: diphenhydrAMINE 25 MG CAP PO PRN ×2 (03:39→20:10)
[2017-07-14] MEDS: Ketorolac Tromethamine 30 MG/ML VIAL IM SCH ×3 (06:05→18:52)
[2017-07-14] MEDS: Vancomycin HCl 750 MG in Sodium Chloride 0.9% 250 ML 250 ML IVPB SCH ×2 (06:06→18:16)
[2017-07-14 06:22] LABS: Hemoglobin 7.7 g/dL (14.0-18.0); Mean Corpuscular HGB CONC 31.7 g/dL (32.0-36.0); Mean Corpuscular Hemoglobin 25.4 pg (27.0-31.0); Mean Platelet Volume 7.1 fL (7.4-10.4); Platelet Count 191 thou/uL (130-400); RBC Distribution Width 15.8 % (11.5-14.5); Red Blood Cell (RBC) Count 3.04 mill/uL (4.70-6.10); White Blood Cell (WBC) Count 5.3 thou/uL (4.8-10.8)
[2017-07-14] MEDS: Folic Acid 1 MG TAB PO SCH (08:23)
[2017-07-14] MEDS: Famotidine 20 MG TAB PO SCH ×2 (08:23→20:09)
[2017-07-14] MEDS: Aspirin 325 MG TAB PO SCH (08:23)
[2017-07-14] MEDS: Multivit, Therapeutic 1 TAB PO SCH (08:23)
[2017-07-14] MEDS: Docusate 100 MG CAP PO SCH ×3 (08:23→20:09)
[2017-07-14] MEDS: Lisinopril 5 MG TAB PO SCH (08:24)
[2017-07-14] MEDS: metFORMIN 500 MG TAB PO SCH (08:24)
[2017-07-14] MEDS: Metoprolol Tartrate 25 MG TAB PO SCH ×2 (08:24→20:09)
--- NOTE | 2017-07-14 08:47 | EKG ---
Test Reason : Blood Pressure : / mmHG Vent. Rate : 090 BPM Atrial Rate : 090 BPM P-R Int : 154 ms QRS Dur : 080 ms QT Int : 360 ms P-R-T Axes : 000 055 033 degrees QTc Int : 440 ms Sinus rhythm with occasional Premature ventricular complexes Otherwise normal ECG When compared with ECG of 26-JUN-2017 20:32, Previous ECG has undetermined rhythm, needs review Nonspecific T wave abnormality no longer evident in Lateral leads Confirmed by NEHEMIAH AGUILAR MD ([id number]) on 07/14/2017 8:46:47 AM Referred By: KIM Confirmed By:NEHEMIAH AGUILAR MD
[2017-07-14 18:03] LABS: Vancomycin, Trough 24.5 ug/mL
--- NOTE | 2017-07-14 19:32 | CON ---
DATE OF CONSULTATION: 07/14/2017 REASON FOR CONSULTATION: Area of recrudescence inflammatory process left shoulder. 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 He has had issues with compliance with treatment due to his drug addiction issues, has left against medical advice from prior treatments. The last admission was in 06/27/2017 when he had opioid withdrawal symptoms. He had at that time an area of cystic swelling of the left shoulder, this was aspirated percutaneously under guidance and the sample had few wbc's and no epithelial cells, no organisms were seen and no growth in 5 days noted. The patient has had 2 or 3 different samples for acid fast cultures negative. At this time, he was admitted from Dr. Thurston's office mainly because of persistence of the fluid collection in the shoulder. At this time, the patient underwent procedure to remove the sutures, removal of the antibiotic spacer, irrigation and then vancomycin powder was applied to the wound. He has a negative pressure dressing in the site now. Cultures are still negative at this point. The patient denies any headaches, visual symptoms , sore throat, odynophagia, or dysphagia. No neck pain. No dyspnea or chest pain. No abdominal pain, no diarrhea, no genitourinary symptoms. No joint symptoms outside the area of involvement. PAST MEDICAL HISTORY: Perforated duodenal ulcer surgical repair, alcoholism, COPD, atrial fibrillation, rotator cuff rupture with surgery, chronic arthritis , left shoulder infections with osteomyelitis, Propionibacterium, Staph aureus and Streptococci, resection of humerus, placement of antibiotic spacer and now the latest surgery. ALLERGIES: CEFAZOLIN with rash. CURRENT MEDICATIONS: Include Tylenol, [place], Maalox, Ventolin, aspirin, Tums, Catapres, dextrose, Colace, Pepcid, Sublimaze, Folvite, glucagon, Apresoline, insulin, Toradol, Zestril, Glucophage, Lopressor, Theragran, Zofran, and vancomycin. PHYSICAL EXAMINATION: VITAL SIGNS: T-max 98.9, blood pressure 138/71. SKIN: Shows the left shoulder negative pressure dressing. No erythema noted around this area. The patient has a PICC line in the right upper extremity. No Chu catheter. HEENT: Unremarkable. LUNGS: Symmetric clear breath sounds. HEART: S1, S2, regular rate. ABDOMEN: Soft, not distended. EXTREMITIES: He moves extremities equally except for limitations imposed with a left shoulder process. NEUROLOGIC: Cognitive function appears to be intact. LABORATORY DATA: White cell count 7.7, down to 5.3; hemoglobin 7.7; MCV 80; platelets 191; normal differential. Chemistry: Sodium 136, creatinine 1.15, calcium 9.8. CRP is 2.65. The microbiology has been noted above. There is one set of blood cultures out of two from 06/26/2017, which is likely a contaminant. IMAGING STUDIES: There is a pelvis x-ray from 07/10/2017, which did not show any osseous abnormalities. There is a shoulder x-ray from 05/12/2017 with interval reduction in the posterior shoulder dislocation. There is an upper extremity MRI from 06/29/2017, which showed prosthetic device humeral head persistent dislocation from the glenoid, enhancement of synovium tissues immediately surrounding the humeral head. Fluid has enlarged. ASSESSMENT AND PLAN: Chronic complications left shoulder associated with other underlying chronic illnesses. Most of the latest cultures have been negative. The possibility of nutritionally variant bacteria such as Propionibacterium species is considered. The decision at this point will be between continuation of oral antimicrobials such as for example combination of minocycline and amoxicillin or resuming IV therapy with vancomycin and Rocephin for a protracted period of time. The patient would rather not have to take IV medications again for obvious reasons. I think that in view of the repeatedly negative cultures in the prior courses of antimicrobials, it will be reasonable to switch him to oral minocycline plus amoxicillin in the outpatient setting and continue it for a protracted period of time, probably at least 3 months and then transitioned to just minocycline alone. If IV therapy wants to be tried again at least in a sort of a transition phase, then I would recommend vancomycin and Rocephin. The patient does not seem to be willing to go that route at this point in time. [facility]
[2017-07-14] MEDS: Vancomycin HCl 500 MG in Sodium Chloride 0.9% 100 ML IVPB SCH (20:10)
[2017-07-15] MEDS: Ketorolac Tromethamine 30 MG/ML VIAL IM SCH ×4 (00:40→17:52)
[2017-07-15] MEDS: HYDROcodone/Acetaminophen 10/325 mg Tablet PO PRN ×6 (00:41→22:10)
[2017-07-15] MEDS: diphenhydrAMINE 25 MG CAP PO PRN ×5 (04:36→22:11)
[2017-07-15 05:00] LABS: #Basophils 0.1 thou/uL (0.0-0.2); #Eosinphils 0.3 thou/uL (0.0-0.7); #Lymphocytes 2.7 thou/uL (1.20-3.40); #Monocytes 0.4 thou/uL (0.11-0.59); #Neutrophils 2.6 thou/uL (1.40-6.50); %Basophils 0.9 % (0.0-1.0); %Eosinophils 4.5 % (0.0-10.0); %Lymphocytes 44.4 % (21.0-51.0); %Monocytes 7.2 % (0.0-10.0); Hemoglobin 8.2 g/dL (14.0-18.0); Mean Corpuscular HGB CONC 32.4 g/dL (32.0-36.0); Mean Corpuscular Hemoglobin 26.3 pg (27.0-31.0); Mean Platelet Volume 7.4 fL (7.4-10.4); Platelet Count 216 thou/uL (130-400); RBC Distribution Width 16.1 % (11.5-14.5); Red Blood Cell (RBC) Count 3.11 mill/uL (4.70-6.10)
[2017-07-15] MEDS: Vancomycin HCl 500 MG in Sodium Chloride 0.9% 100 ML IVPB SCH ×2 (08:11→20:53)
[2017-07-15] MEDS: Docusate 100 MG CAP PO SCH ×2 (08:12→20:52)
[2017-07-15] MEDS: Folic Acid 1 MG TAB PO SCH (08:12)
[2017-07-15] MEDS: Famotidine 20 MG TAB PO SCH ×2 (08:12→20:52)
[2017-07-15] MEDS: Aspirin 325 MG TAB PO SCH (08:12)
[2017-07-15] MEDS: Metoprolol Tartrate 25 MG TAB PO SCH ×2 (08:13→20:52)
[2017-07-15] MEDS: Lisinopril 5 MG TAB PO SCH (08:13)
[2017-07-15] MEDS: Multivit, Therapeutic 1 TAB PO SCH (08:13)
[2017-07-15] MEDS: metFORMIN 500 MG TAB PO SCH (08:22)
[2017-07-15] MEDS: Ondansetron ODT 4 MG TAB PO PRN (17:54)
[2017-07-16 07:37] LABS: Vancomycin, Trough 24.9 ug/mL
[2017-07-16] MEDS: Aspirin 325 MG TAB PO SCH (08:43)
[2017-07-16] MEDS: Vancomycin HCl 500 MG in Sodium Chloride 0.9% 100 ML IVPB SCH (08:43)
[2017-07-16] MEDS: Folic Acid 1 MG TAB PO SCH (08:43)
[2017-07-16] MEDS: Multivit, Therapeutic 1 TAB PO SCH (08:43)
[2017-07-16] MEDS: Famotidine 20 MG TAB PO SCH (08:43)
[2017-07-16] MEDS: Docusate 100 MG CAP PO SCH (08:43)
[2017-07-16] MEDS: Lisinopril 5 MG TAB PO SCH (08:44)
[2017-07-16] MEDS: Metoprolol Tartrate 25 MG TAB PO SCH (08:44)
[2017-07-16] MEDS: metFORMIN 500 MG TAB PO SCH (08:44)
[2017-07-16] MEDS: diphenhydrAMINE 25 MG CAP PO PRN (08:48)
[2017-07-16] MEDS: HYDROcodone/Acetaminophen 10/325 mg Tablet PO PRN (08:48)
[2017-07-16 12:05] VITALS: BP 163/74; TEMP 98.2
[2017-07-16] MEDS ORDERED: Amoxicillin/Potassium Clav 875 MG TAB PO ONE (13:06)
[2017-07-16] MEDS ORDERED: Doxycycline 100 MG CAP PO ONE (13:07)
[2017-07-16] MEDS ORDERED: Doxycycline 100 MG CAP PO SCH (13:45)
[2017-07-16] MEDS ORDERED: Amoxicillin/Potassium Clav 875 MG TAB PO SCH (13:45)
[2017-07-17] MEDS ORDERED: Vancomycin HCl 750 MG in Sodium Chloride 0.9% 250 ML 250 ML IVPB SCH (09:00)
== END 2017-07-16 15:39 | DRG 540 ==
LOC: SURG A 16:55 → UNDOADMIN 16:55 → SURG A 16:57 → EEVIPCON 16:57 → SURG A 18:07
PROVIDERS: ADMIT Orthopaedic Surgery; ATTEND Orthopaedic Surgery
PROC: 0RPK08Z Removal of Spacer from Left Shoulder Joint, Open Approach (ICD-10-PCS; principal; 2017-07-12)
PROC: 3E0U029 Introduction of Other Anti-infective into Joints, Open Approach (ICD-10-PCS; 2017-07-12)
PROC: 0H9CXZZ Drainage of Left Upper Arm Skin, External Approach (ICD-10-PCS; 2017-07-12)
PROC: 30233N1 Transfusion of Nonautologous Red Blood Cells into Peripheral Vein, Percutaneous Approach (ICD-10-PCS; 2017-07-12)
PROC: 02HV33Z Insertion of Infusion Device into Superior Vena Cava, Percutaneous Approach (ICD-10-PCS; 2017-07-12)
PROC: B548ZZA Ultrasonography of Superior Vena Cava, Guidance (ICD-10-PCS; 2017-07-12)
PROC: 30233N1 Transfusion of Nonautologous Red Blood Cells into Peripheral Vein, Percutaneous Approach (ICD-10-PCS; 2017-07-13)
DX: M86.612 Other chronic osteomyelitis, left shoulder (principal); D62 Acute posthemorrhagic anemia; I48.0 Paroxysmal atrial fibrillation; E11.22 Type 2 diabetes mellitus with diabetic chronic kidney disease; J44.9 Chronic obstructive pulmonary disease, unspecified; F19.20 Other psychoactive substance dependence, uncomplicated; F32.9 Major depressive disorder, single episode, unspecified; F10.20 Alcohol dependence, uncomplicated; Z89.232 Acquired absence of left shoulder; Z91.14 Patient's other noncompliance with medication regimen; Z86.73 Personal history of transient ischemic attack (TIA), and cerebral infarction without residual deficits; I12.9 Hypertensive chronic kidney disease with stage 1 through stage 4 chronic kidney disease, or unspecified chronic kidney disease; N18.2 Chronic kidney disease, stage 2 (mild); L02.424 Furuncle of left upper limb
CPT/HCPCS: 36415; 36416; 36430; 36569; 72170; 80069; 80202; 83735; 85025; 85027; 85652; 86140; 86850; 86900; 86901; 87070; 87205; 93005; 93010; C1751; J1644; J1885; J2704; J3010; J3370; J7050; P9016; Q0162

== ENCOUNTER 2017-08-01 17:58 | Inpatient (IN) | payer MEDICARE ==
[2017-08-01] MEDS ORDERED: HYDROcodone/Acetaminophen 5/325 mg Tablet PO PRN (18:19)
[2017-08-01] MEDS ORDERED: Calcium Carbonate 500 MG ChewTAB PO PRN (18:19)
[2017-08-01] MEDS ORDERED: Bisacodyl 5 MG TAB PO PRN ×2 (18:19)
[2017-08-01] MEDS ORDERED: Benzonatate 100 MG CAP PO PRN (18:19)
[2017-08-01] MEDS ORDERED: Diabetic Tussin 200 MG/10 ML UDCUP PO PRN (18:19)
[2017-08-01] MEDS ORDERED: Senokot 8.6 MG TAB PO PRN ×2 (18:19)
[2017-08-01] MEDS ORDERED: cloNIDine 0.1 MG TAB PO PRN (18:19)
[2017-08-01] MEDS ORDERED: Mag-Al 1200 mg/1200 mg/30 ML UDCUP PO PRN (18:19)
[2017-08-01] MEDS ORDERED: Loratadine 10 MG TAB PO PRN (18:19)
[2017-08-01] MEDS ORDERED: Nitroglycerin 0.4 MG TAB (25 Tab Bottle) SL PRN (18:19)
[2017-08-01] MEDS ORDERED: hydrALAZINE 20 MG/ML VIAL SLOW IVP PRN (18:19)
[2017-08-01] MEDS ORDERED: Acetaminophen 325 MG TAB PO PRN (18:19)
[2017-08-01] MEDS ORDERED: Ondansetron HCl/PF 4 MG/2 ML Vial IVP PRN ×2 (18:19)
[2017-08-01 19:07] LABS: #Basophils 0.1 thou/uL (0.0-0.2); #Eosinphils 0.3 thou/uL (0.0-0.7); #Lymphocytes 3.7 thou/uL (1.20-3.40); #Monocytes 0.7 thou/uL (0.11-0.59); #Neutrophils 5.6 thou/uL (1.40-6.50); %Basophils 0.7 % (0.0-1.0); %Eosinophils 2.5 % (0.0-10.0); %Lymphocytes 35.9 % (21.0-51.0); %Monocytes 6.8 % (0.0-10.0); Hemoglobin 11.4 g/dL (14.0-18.0); Mean Corpuscular HGB CONC 31.6 g/dL (32.0-36.0); Mean Corpuscular Volume 79.2 fl (80.0-94.0); Mean Platelet Volume 7.4 fL (7.4-10.4); Platelet Count 321 thou/uL (130-400); RBC Distribution Width 15.5 % (11.5-14.5); Red Blood Cell (RBC) Count 4.57 mill/uL (4.70-6.10); White Blood Cell (WBC) Count 10.3 thou/uL (4.8-10.8)
[2017-08-01 19:23] LABS: ALT (SGPT) 31 U/L (8-55); AST (SGOT) 38 U/L (5-34); Albumin 4.2 g/dL (3.4-4.8); Alkaline Phosphatase 123 U/L (40-150); Anion Gap 15 mmol/L (10-20); BUN (Urea Nitrogen) 34 mg/dL (8.4-25.7); Bilirubin, Total 0.2 mg/dL (0.2-1.2); Calc. Creatinine Clearance 0 mL/min (70-130); Calcium 10.3 mg/dL (7.8-10.44); Carbon Dioxide 24 mmol/L (23-31); Chloride 102 mmol/L (98-107); Estimated GFR-MDRD 50; Globulin 4.3 g/dL (2.4-3.5); Glucose 127 mg/dL (83-110); Potassium 4.9 mmol/L (3.5-5.1); Protein, Total 8.5 g/dL (5.8-8.1); Sodium 136 mmol/L (136-145)
[2017-08-01] MEDS ORDERED: Vancomycin HCl 1 GM in Premix Bag 1 BAG IVPB SCH ×2 (19:30→21:00)
--- NOTE | 2017-08-01 20:16 | HP ---
DATE OF ADMISSION: 08/01/2017 PRIMARY CARE PHYSICIAN: Kenroy Ring M.D. REASON FOR ADMISSION: Needs I and D of chronic left shoulder infection. HISTORY OF PRESENT ILLNESS: Mr. Ring is a 71-year-old male with multiple hospitalizations with h istory of recurrent left shoulder infection and osteomyelitis, who was admitted at the request of his orthopedic physician, Dr. Thurston. History is mainly obtained by the chart review, which is quite e xtensive and as well as from the patient. Mr. Ring has had multiple hospitalizations for left shoulder infection. He was admitted earlier in June when he underwent placement of a spacer in the shoulder. He was again admitted in the secon d week of June with recurrent infection and the spacer was removed and the shoulder was packed with vancomycin powder. He was discharged on 07/16/2017 to [facility] [address] on wound VAC. I am n ot able to find out what kind of antibiotics he has received as none is dictated in the discharge sum marianne. At this time, he does not seem to have any PICC line in. He has been seen by Dr. Hernandez on mul tiple occasions. He reports that over at [facility] [address], Wound Care was changing his dressing and wound VAC and he was found to have a pustule. Sutures were removed and he was found to have extensive discharg e of purulent material. His orthopedic physician, Dr. Thurston was contacted and he was instructed to get admitted as a direct admit for I&D in the OR tomorrow morning. Otherwise, the patient is stable and denies any other recent illnesses. He does report that he has pain which is chronic for him. H e denies any fever, chills, nausea, vomiting, diarrhea, abdominal pain. He does report poor appetite because he does not like the food at [facility] [address]. Upon presentation to the floor, he i s hemodynamically stable. PAST MEDICAL HISTORY: 1. Recurrent left shoulder infections and chronic osteomyelitis status post humeral head resection. 2. Hypertension. 3. Paroxysmal atrial fibrillation and aspirin. He is unable to afford Eliquis and Xarelto. 4. History of transient ischemic attack. 5. Chronic anemia. 6. History of alcoholism. 7. History of medical noncompliance. 8. COPD. 9. Questionable history of diabetes. 10. Chronic low back pain. PAST SURGICAL HISTORY: 1. Multiple left shoulder surgeries. 2. Gastric surgery. ALLERGIES: CEFAZOLIN. CURRENT HOME MEDICATIONS: Unknown. They further need to be confirmed. 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 He is currently living at [facility] [address]. History of alcohol abuse, but he is off since he is in a [place] [facility] facility. FAMILY HISTORY: Negative for any premature coronary artery disease, stroke or cancer. REVIEW OF SYSTEMS: The following complete review of systems was negative, unless otherwise mentioned in the HPI or below: Constitutional: Weight loss or gain, ability to conduct usual activities. Sk in: Rash, itching. Eyes: Double vision, pain. ENT/Mouth: Nose bleeding, neck stiffness, pain, te nderness. Cardiovascular: Palpitations, dyspnea on exertion, orthopnea. Respiratory: Shortness of breath, wheezing, cough, hemoptysis, fever or night sweats. Gastrointestinal: Poor appetite, abdom inal pain, heartburn, nausea, vomiting, constipation, or diarrhea. Genitourinary: Urgency, frequenc y, dysuria, nocturia. Musculoskeletal: Pain, swelling. Neurologic/Psychiatric: Anxiety, depressio n. Allergy/Immunologic: Skin rash, bleeding tendency. It is negative except for those mentioned in the history and physical. A 12-point review of systems was done. LABORATORY DATA: Labs are done in the hospital today include WBCs 10.3 without any left shift, hemog lobin 11.4, platelet count normal. Serum chemistry, BUN of 34, creatinine 1.40, AST 38, otherwise un remarkable. Blood sugar 127. PHYSICAL EXAMINATION: VITAL SIGNS: Temperature 97.6, pulse of 105, respirations 20, saturating 98% on room air, blood pres sure 120/66. GENERAL: No acute distress, awake, alert, oriented x3. HEENT: Mucous membrane is moist and pink. No oropharyngeal exudate or erythema. Head is normocepha lic, atraumatic. Pupils are equal, reactive to light and accommodation. Extraocular movement intact . NECK: Supple without any lymphadenopathy, JVD or bruits. CHEST: Clear to auscultation without any wheezing, rales or rhonchi. Rate and rhythm is regular wit hout any murmur, rubs or gallops. ABDOMEN: Soft, nontender, nondistended, positive bowel sounds. EXTREMITIES: Free of any cyanosis, clubbing, or edema. His left shoulder is in dressing. Wound VAC has been discontinued. There is no oozing on his dressings on the left shoulder. NEUROLOGIC: Nonfocal. SKIN: Free of any rashes or bruises. I feel warm and dry to touch. PSYCHIATRIC: Normal affect. IMPRESSION AND PLAN: 1. Recurrent left shoulder infection. I am unsure as to what antibiotics he was discharged on. At this time, we will go ahead and start him on vancomycin and Rocephin as suggested by Dr. Hernandez in the past. We will consult Orthopedic, Dr. Thurston who wanted the patient to be admitted for OR for mavis rr morning. He will be kept n.p.o. after midnight. We will also consult Dr. Hernandez for further rec ommendation regarding antibiotics. We will obtain blood cultures before starting of the antibiotic. Tissue cultures will be obtained at the time of the surgery tomorrow morning. He is currently hemod ynamically stable. Pain medications as needed. 2. History of atrial fibrillation, currently normal sinus rhythm. We will restart his aspirin post- procedure. Hold the aspirin for tonight. 3. History of alcohol abuse, currently abstinent. 4. Chronic obstructive pulmonary disease. Add nebulizers as needed. 5. History of chronic anemia, currently stable. 6. Chronic kidney disease stage 2. Currently, stable. Continue to monitor. We will start him on g entle intravenous fluid hydration as he is going to be n.p.o. 7. Questionable history of diabetes. At this time, we will choose not to start him on any sliding s phoebe, but monitor his blood sugar on a daily basis. 8. History of hypertension. We will restart home medications once confirmed. 9. Code status: FULL CODE. Discussed with the patient. 10. Deep venous thrombosis and gastrointestinal prophylaxis. We will start Lovenox post procedure. DISPOSITION: Mr. Ring is currently being admitted back to the hospital with recurrent left shoul olivia infection requiring surgical drainage in the morning. Further management will depend upon his cl inical course, but the estimated length of stay at this time is at least 2-3 midnights.
[2017-08-01] MEDS: HYDROcodone/Acetaminophen 5/325 mg Tablet PO PRN (20:59)
[2017-08-01] MEDS: cefTRIAXone\\ROCEPHIN 1 GM in Sodium Chloride 0.9% 100 ML IVPB SCH (21:00)
[2017-08-01] MEDS: Sodium Chloride 0.9% 1,000 ML IV SCH (21:00)
[2017-08-01] MEDS: Famotidine/PF 20 mg/2ml Vial SLOW IVP SCH (21:01)
[2017-08-01 21:20] VITALS: BMI 27.4
[2017-08-02 05:54] LABS: #Basophils 0.1 thou/uL (0.0-0.2); #Eosinphils 0.4 thou/uL (0.0-0.7); #Monocytes 0.7 thou/uL (0.11-0.59); #Neutrophils 4.5 thou/uL (1.40-6.50); %Basophils 0.8 % (0.0-1.0); %Eosinophils 4.4 % (0.0-10.0); %Lymphocytes 34.5 % (21.0-51.0); %Neutrophils 52.3 % (42.0-75.0); Hemoglobin 10.2 g/dL (14.0-18.0); Mean Corpuscular HGB CONC 31.2 g/dL (32.0-36.0); Mean Corpuscular Hemoglobin 24.5 pg (27.0-31.0); Mean Corpuscular Volume 78.4 fl (80.0-94.0); Mean Platelet Volume 7.6 fL (7.4-10.4); Platelet Count 259 thou/uL (130-400); RBC Distribution Width 15.5 % (11.5-14.5); Red Blood Cell (RBC) Count 4.16 mill/uL (4.70-6.10); White Blood Cell (WBC) Count 8.6 thou/uL (4.8-10.8)
[2017-08-02 06:30] LABS: Anion Gap 12 mmol/L (10-20); BUN (Urea Nitrogen) 30 mg/dL (8.4-25.7); Calc. Creatinine Clearance 71 mL/min (70-130); Calcium 9.4 mg/dL (7.8-10.44); Carbon Dioxide 23 mmol/L (23-31); Chloride 104 mmol/L (98-107); Estimated GFR-MDRD 72; Glucose 120 mg/dL (83-110); Potassium 3.8 mmol/L (3.5-5.1); Sodium 135 mmol/L (136-145)
--- NOTE | 2017-08-02 07:32 | CON ---
DATE OF CONSULTATION: 08/02/2017 HISTORY OF PRESENT ILLNESS: Mr. 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 The patient had an open I&D and had wound VACs placed wh ich sealed over. I think created a cavitary lesion behind where the proximal humerus was, attempt to heal by secondary intent. The patient was evaluated by Dr. Ring. There was a concern for possibl e necrotic tissue area. Given this plan the patient had lost 7 pounds at his previous facility where he was receiving wound VACs. He is currently in bed in no acute events. PHYSICAL EXAMINATION: VITAL SIGNS: Temperature 98.5, 88, 18, blood pressure 110/68. GENERAL: No acute distress. EXTREMITIES: Left upper extremity, the patient is neurovascularly intact, he has got a wound with so me serosanguineous mucopurulent drainage with no obvious skin, but some not healthy looking delt oid. LABORATORY: The patient's H&H 10 and 32, white blood cell count 8.8. IMPRESSION: Chronic osteomyelitis, septic left shoulder. PLAN: The patient will undergo an I&D by my partner, Dr. Azam Alex today at which time he will place a wound vacuum. An MRI will be performed to ensure the next marginal excision to ensure that I am not missing a pocket of osteomyelitis or area of fluid collection. I will make a larger anterio r incision and create a larger capsular lesion anteriorly to help with closure of the wound. I am goi ng to curet the glenoid and then take a larger proximal humerus segment to allow the deltoid to adher e to the space and create a collapse internally of the pocket. This will then require a wound VAC. I discussed with the patient. This is a difficult problem where there is not much evidence or past e xperience to draw upon. I discussed that ultimately he had a functional elbow and wrist and hand, bu t not a very functional shoulder. The patient understands this. I will continue his care.
[2017-08-02] MEDS: Morphine 4 MG/ML VIAL SLOW IVP PRN ×2 (08:23→22:13)
--- NOTE | 2017-08-02 09:03 | PDOC.PN ---
- Subjective Encounter Start Date: 08/02/17 Encounter Start Time: 19:39 Subjective: s/p left shoulder I&D.c/o pain - Objective MAR Reviewed: Yes Vital Signs & Weight: Vital Signs (12 hours) Temp Pulse Resp BP Pulse Ox 08/02/17 07:53 98.3 F 83 15 123/67 99 08/02/17 04:00 98.5 F 88 18 110/68 98 08/02/17 00:39 98.4 F 84 19 107/71 99 08/02/17 00:37 98.4 F 84 19 107/71 99 Weight Weight 170 lb I&O: 08/01/17 08/02/17 08/03/17 06:59 06:59 06:59 Intake Total 1675 Balance 1675 Result Diagrams: 08/02/17 04:28 08/02/17 04:28 Additional Labs: Microbiology 08/01/17 15:00 Shoulder - Left Bacterial Culture - Preliminary Phys Exam - Physical Examination Constitutional: NAD HEENT: PERRLA, moist MMs, sclera anicteric, oral pharynx no lesions Neck: no nodes, no JVD, supple, full ROM Respiratory: no wheezing, no rales, no rhonchi, clear to auscultation bilateral Cardiovascular: RRR, no significant murmur, no rub Gastrointestinal: soft, non-tender, no distention, positive bowel sounds Musculoskeletal: no edema, pulses present left shoulder wound Vac Neurological: non-focal, normal sensation, moves all 4 limbs Psychiatric: normal affect, A&O x 3 Skin: no rash Dx/Plan (1) Septic arthritis of shoulder, left Code(s): M00.9 - PYOGENIC ARTHRITIS, UNSPECIFIED Status: Acute Qualifiers: (2) Chronic osteomyelitis of humerus Code(s): M86.629 - OTHER CHRONIC OSTEOMYELITIS, UNSPECIFIED HUMERUS Status: Chronic (3) CKD (chronic kidney disease) stage 2, GFR 60-89 ml/min Code(s): N18.2 - CHRONIC KIDNEY DISEASE, STAGE 2 (MILD) Status: Chronic (4) Chronic anemia Code(s): D64.9 - ANEMIA, UNSPECIFIED Status: Chronic Comment: Stable, (5) Chronic obstructive pulmonary disease Status: Chronic Comment: Stable. Not in acute exacerbation. (6) Chronic pain syndrome Code(s): G89.4 - CHRONIC PAIN SYNDROME Status: Chronic Comment: PRN pain meds (7) H/O TIA (transient ischemic attack) and stroke Code(s): Z86.73 - PRSNL HX OF TIA (TIA), AND CEREB INFRC W/O RESID DEFICITS Status: Chronic Comment: on ASA (8) HTN (hypertension) Code(s): I10 - ESSENTIAL (PRIMARY) HYPERTENSION Status: Chronic Qualifiers: Comment: Controlled and at goal. (9) Paroxysmal a-fib Code(s): I48.0 - PAROXYSMAL ATRIAL FIBRILLATION Status: Chronic Comment: on metoprolol for rate control (10) Chronic alcoholism Code(s): F10.20 - ALCOHOL DEPENDENCE, UNCOMPLICATED Status: Acute Comment: Counselled. Pt has been hospitalized for the last few days. - Plan continue antibiotics, out of bed/ambulate, DVT proph w/SCDs cont ABx,follow Cx.Wound vac in place -: Abx per ID to be finalized prito to DC -: HD stable * . Review of Systems - Review of Systems Eyes: negative: Pain, Vision Change, Conjunctivae Inflammation, Eyelid Inflammation, Redness, Other ENT: negative: Ear Pain, Ear Discharge, Nose Pain, Nose Discharge, Nose Congestion, Mouth Pain, Mouth Swelling, Throat Pain, Throat Swelling, Other Respiratory: negative: Cough, Dry, Shortness of Breath, Hemoptysis, SOB with Excertion, Pleuritic Pain, Sputum, Wheezing Cardiovascular: negative: chest pain, palpitations, orthopnea, paroxysmal nocturnal dyspnea, edema, light headedness, other Gastrointestinal: negative: Nausea, Vomiting, Abdominal Pain, Diarrhea, Constipation, Melena, Hematochezia, Other Genitourinary: negative: Dysuria, Frequency, Incontinence, Hematuria, Retention , Other Musculoskeletal: Shoulder Pain. negative: Neck Pain, Arm Pain, Back Pain, Hand Pain, Leg Pain, Foot Pain, Other Skin: negative: Rash, Lesions, Dm, Bruising, Other Neurological: negative: Weakness, Numbness, Incoordination, Change in Speech, Confusion, Seizures, Other - Medications/Allergies Allergies/Adverse Reactions: Allergies Allergy/AdvReac Type Severity Reaction Status Date / Time cefazolin [From Ancef] Allergy Severe Swollen Verified 07/01/17 16:58 Lips Medications: Current Medications Acetaminophen (Tylenol) 650 mg PO Q4H PRN PRN Reason: Headache/Fever or Pain Hydrocodone Bitart/Acetaminophen ([place]ron 5/325) 1 tab PO Q4H PRN PRN Reason: Moderate Pain (4-6) Hydrocodone Bitart/Acetaminophen ([place]ron 5/325) 2 tab PO Q4H PRN PRN Reason: Severe Pain (7-10) Last Admin: 08/01/17 20:59 Dose: 2 tab Al Hydroxide/Mg Hydroxide (Maalox) 30 ml PO Q6H PRN PRN Reason: Heartburn or Indigestion Albuterol/Ipratropium (Duoneb) 3 ml NEB [id number] PRN PRN Reason: SOB &/or Wheezing Benzonatate (Tessalon) 100 mg PO Q4H PRN PRN Reason: Cough Bisacodyl (Dulcolax) 10 mg PO DAILYPRN PRN PRN Reason: Constipation Calcium Carbonate (Tums) 1,000 mg PO Q4H PRN PRN Reason: Heartburn or Indigestion Clonidine (Catapres) 0.1 mg PO Q4H PRN PRN Reason: Systolic BP > 160 Enoxaparin Sodium (Lovenox) 40 mg SC 0900 [facility] Famotidine (Pepcid) 20 mg SLOW IVP Q12HR [facility] Last Admin: 08/01/17 21:01 Dose: Not Given Guaifenesin (Robitussin Sf) 200 mg PO Q4H PRN PRN Reason: Cough Hydralazine HCl (Apresoline) 10 mg SLOW IVP Q4H PRN PRN Reason: Systolic BP > 170 Sodium Chloride (Normal Saline 0.9%) 1,000 mls @ 75 mls/hr IV .[id number] [facility] Last Admin: 08/01/17 21:00 Dose: 1,000 mls Ceftriaxone Sodium 1 gm/ (Sodium Chloride) 100 mls @ 200 mls/hr IVPB Q24HR [facility] Last Admin: 08/01/17 21:00 Dose: 100 mls Vancomycin HCl 1.25 gm/ Sodium (Chloride) 250 mls @ 166.667 mls/hr IVPB 0900 [facility] Lisinopril (Zestril) mg PO DAILY [facility] Loratadine (Claritin) 10 mg PO DAILYPRN PRN PRN Reason: Sinus Symptoms Metoprolol Tartrate (Lopressor) 12.5 mg PO DAILY [facility] Miscellaneous Medication (Pharmacy To Dose) 1 each IVPB PRN PRN PRN Reason: . Morphine Sulfate (Morphine) 2 mg SLOW IVP Q4H PRN PRN Reason: severe pain Last Admin: 08/02/17 08:23 Dose: 2 mg Multivitamins (Theragran) 1 tab PO DAILY [facility] Nitroglycerin (Nitrostat) 0.4 mg SL Q5MIN PRN PRN Reason: Chest Pain Ondansetron HCl (Zofran) 4 mg IVP Q6H PRN PRN Reason: Nausea/Vomiting Senna (Senokot) 2 tab PO HSPRN PRN PRN Reason: Constipation Tramadol HCl (Ultram) 50 mg PO Q4H PRN PRN Reason: Moderate Pain (4-6)
[2017-08-02] MEDS: HYDROcodone/Acetaminophen 5/325 mg Tablet PO PRN ×2 (09:24→20:16)
[2017-08-02] MEDS: Vancomycin HCl 1.25 GM in Sodium Chloride 0.9% 250 ML 250 ML IVPB SCH (09:25)
[2017-08-02] MEDS: Sodium Chloride 0.9% 1,000 ML IV SCH ×2 (09:29→22:21)
[2017-08-02] MEDS: Famotidine/PF 20 mg/2ml Vial SLOW IVP SCH ×2 (09:58→22:01)
[2017-08-02] MEDS ORDERED: Metoprolol Tartrate 25 MG TAB PO SCH (10:15)
[2017-08-02] MEDS ORDERED: Glycopyrrolate 0.2 MG/ML 5 ML SYRINGE ONE (10:49)
[2017-08-02] MEDS ORDERED: Esmolol 100 MG/10 ML VIAL ONE (10:49)
[2017-08-02] MEDS ORDERED: PROPOFOL 200 MG/20 ML VIAL ONE (10:49)
[2017-08-02] MEDS ORDERED: Lidocaine 1% PF 5 ML VIAL ONE (10:49)
[2017-08-02] MEDS ORDERED: Fentanyl 100 MCG/2 ML VIAL ONE ×4 (14:03→16:33)
[2017-08-02] MEDS ORDERED: Neomycin-Polymyxin 1 ML AMP ONE (14:37)
--- NOTE | 2017-08-02 16:07 | OP ---
DATE OF PROCEDURE: 08/02/2017 OPERATION: Left shoulder irrigation, debridement, and wound VAC placement. PREOPERATIVE DIAGNOSIS: Chronic left shoulder infection with reaccumulation of fluid. POSTOPERATIVE DIAGNOSIS: Chronic left shoulder infection with reaccumulation of fluid. COMPLICATIONS: None. ESTIMATED BLOOD LOSS: Minimal. SURGEON: Deshawn Alex M.D. ANESTHESIA: General. INDICATIONS: Mr. Ring is a 71-year-old male who has a chronic infection of his left shoulder. Dom atwood has had multiple debridements in the past. He has been indicated for repeat debridement to improve drainage with wound VAC. There was concern that he had reaccumulation of fluid deep in his shoulder . We have discussed risk with him. DESCRIPTION OF PROCEDURE: Mr. Ring was identified in the preoperative holding area. His correct extremity was marked. He was carried to the operating room. He was positioned supine. General ane sthesia was induced. A multidisciplinary timeout was performed. The left upper extremity was preppe d and draped in sterile fashion. We began the procedure with opening the patient's chronic wound. We bluntly did this through granula tion tissue. We accessed the deep shoulder joint space. The top of the humeral bone was identified and palpated. At this point, we thoroughly irrigated with copious lavage after culture was taken. W e performed an excisional debridement sharply with a knife as well as a curette. There is no obvious gross purulence identified. There was a small medial wound as well from a draining fistula. This w as opened and also curetted and excisionally debrided. We irrigated this. Finally, at this point af ter obtaining hemostasis we trimmed the skin edges. Then, we placed a wound VAC using a sponge on shima th wounds and applying the wound VAC appropriately, there was good suction. The patient was taken to the recovery room at this point in good condition without complication.
[2017-08-02] MEDS: cefTRIAXone\\ROCEPHIN 1 GM in Sodium Chloride 0.9% 100 ML IVPB SCH (22:01)
[2017-08-02] MEDS: Enoxaparin Sodium 40 MG/0.4 ML SYRINGE SC SCH (22:01)
[2017-08-03] MEDS: HYDROcodone/Acetaminophen 5/325 mg Tablet PO PRN ×3 (06:04→18:48)
[2017-08-03] MEDS: diphenhydrAMINE 25 MG CAP PO PRN ×2 (08:25→17:20)
[2017-08-03] MEDS: Lisinopril 5 MG TAB PO SCH (09:10)
[2017-08-03] MEDS: Multivit, Therapeutic 1 TAB PO SCH (09:10)
[2017-08-03] MEDS: Famotidine/PF 20 mg/2ml Vial SLOW IVP SCH (09:10)
[2017-08-03] MEDS: Enoxaparin Sodium 40 MG/0.4 ML SYRINGE SC SCH (09:10)
[2017-08-03] MEDS: Vancomycin HCl 1.25 GM in Sodium Chloride 0.9% 250 ML 250 ML IVPB SCH (09:11)
[2017-08-03] MEDS: Metoprolol Tartrate 25 MG TAB PO SCH (09:11)
[2017-08-03] MEDS: Morphine 4 MG/ML VIAL SLOW IVP PRN ×2 (09:20→13:51)
[2017-08-03] MEDS: Sodium Chloride 0.9% 1,000 ML IV SCH ×2 (10:28→23:18)
[2017-08-03] MEDS: traMADol HCl 50 MG TAB PO PRN (12:42)
--- NOTE | 2017-08-03 14:10 | CON ---
DATE OF CONSULTATION: 08/03/2017 REASON FOR CONSULTATION: Recrudescence of left shoulder drainage. HISTORY OF PRESENT ILLNESS: This is a 71-year-old known to us from multiple prior visits with histor y of alcoholism, COPD, atrial fibrillation, recurrent left shoulder dislocations and numerous prior i nterventions, prior infection with propionibacterium and Staphylococcus aureus as well as Streptococc us treated with 2 or 3 courses of IV antimicrobial therapy. Eventually, culminated in a resection of the shoulder with spacer placement. Since then, the patient has continued with problems and more re cently with areas of drainage. The most recent evaluation was in June and he developed persistence of fluid collection in the shoulder and he underwent a removal of sutures, removal of antibiotic spac ers, irrigation, vancomycin powder application to the wound, negative pressure dressing. All the cul tures obtained during this last visit showed no growth for the anaerobic component and no growth in t he aerobic component with rare wbcs present. The patient had a fungal and mycobacterial cultures neg ative as well. This last time, I discussed with him the possibility of retreating him with intraveno us antimicrobials, but he declined it and was placed on oral minocycline and I believe Augmentin, whi ch he had been taking reportedly. He had been transferred to a rehabilitation facility in [facility] for the past 3 weeks. Wound care was being performed over there and they noticed a pustule or benito inage. In his H and P on admission, it is stated that there was purulent material. The patient stat es that there was hemorrhagic drainage, but not purulent drainage. He was admitted again and underwe nt operative intervention yesterday by Dr. Alex. The operative report was reviewed and the proc edure was started with bluntly opening the chronic wound left shoulder through granulation tissue. T he top of the humeral bone was palpated. There was irrigation carried out. There was excisional marisol ridement, which was sharp with a knife and a curette. No gross purulence was identified. There is a small medial wound from a draining fistula. He had a wound VAC placed and cultures are pending. Th e patient is awake. He denies headaches, no visual symptoms, sore throat, odynophagia, or dysphagia, no dyspnea or chest pain. A little bit of right shoulder pain from the previous dislocation and mod erate pain in the left shoulder in the immediate postop period. No abdominal pain, diarrhea, or franny tourinary symptoms. No lower extremity symptoms. No neurological symptoms. 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 ALLERGIES: CEFAZOLIN with rash. MEDICATIONS: Currently, he is receiving [place], Maalox, DuoNeb, Tessalon, Dulcolax, ceftriaxone, Nancy dryl, lisinopril, loratadine, ondansetron, and vancomycin. SOCIAL HISTORY: He has history of alcoholism, which is still an ongoing problem. Chronic smoking. He has also a history of substance abuse including I believe cocaine in the past. PHYSICAL EXAMINATION: VITAL SIGNS: Show normal temperature, blood 102/72, pulse 95, respirations 16, O2 saturation 99%. GENERAL: Appears upset about the potential return to the assisted and mild pain at the site. SKIN EXAM: Shows the left shoulder negative pressure dressing, a little bit of faint salmon erythema in the left shoulder. Peripheral IV access. No Chu catheter. No lymphadenopathy. HEENT: Ocular movements conjugate. Nasal passages patent. Oral cavity is not remarkable. NECK: Supple. LUNGS: With symmetric clear breath sounds. HEART: S1 and S2, regular rate. No S3, S4. ABDOMEN: Soft, not distended or tender. No organomegaly, no bladder distention. : No genital abnormalities. EXTREMITIES: Pulses are 2+ in popliteals and faintly palpable dorsalis pedis. Cap refill less than 3 seconds. Moves lower extremities well. Plantar responses are flexor. NEUROLOGIC: His cognitive function appears to be intact. Appears anxious to go back home. LABORATORY DATA: White cell count 10.3 and 8.6, hemoglobin 10.2, platelets 259 with normal different ial. Sodium 135, creatinine 1.01, which is improved from admission, AST 38, ALT 31, albumin 4.2. He has had negative hepatitis C antibody test. ASSESSMENT: Alcoholism, chronic obstructive pulmonary disease with chronic right and left shoulder d islocation problems and the left shoulder osteoarthritis with superimposed infections with various di fferent organisms as listed above, which resulted in multiple procedures, protracted antimicrobial th erapy, and now with a wound management issues, persistent drainage related to the wound, left shoulde r. He has had resection of the humeral head. This last time it is not clear that there was an activ e infection, the cultures are still pending, but the macroscopic appearance of the joint itself did n ot appear obviously infected. We will wait for the final culture results and then decide if he will need further antimicrobial therapy via the intravenous route or if we will continue with the suppress snow minocycline and Augmentin as previously planned.
--- NOTE | 2017-08-03 15:13 | PDOC.PN ---
- Subjective Encounter Start Date: 08/03/17 Encounter Start Time: 15:12 Subjective: wants to get benadryl w norco and is upset when declined -: c/o 8/10 pain but appears very comfortable,watching TV - Objective MAR Reviewed: Yes Vital Signs & Weight: Vital Signs (12 hours) Temp Pulse Resp BP BP Pulse Ox 08/03/17 11:08 98.2 F 95 12 102/72 99 08/03/17 09:10 97 118/68 08/03/17 07:50 98.1 F 97 16 98 08/03/17 07:25 98.1 F 97 16 118/68 98 08/03/17 06:01 97.9 F 99 16 105/69 95 Weight Admit Weight 170 lb Weight 170 lb I&O: 08/02/17 08/03/17 08/04/17 06:59 06:59 06:59 Intake Total 1675 480 Balance 1675 480 Result Diagrams: 08/02/17 04:28 08/02/17 04:28 Additional Labs: Accuchecks 08/03/17 08/03/17 08/02/17 13:00 05:37 20:32 POC Glucose 143 H 144 H 153 H Microbiology 08/02/17 15:23 Shoulder - Left Bacterial Culture - Preliminary 08/01/17 22:40 Urine clean catch Urine Culture - Preliminary NO GROWTH AT 12 HOURS 08/01/17 15:00 Shoulder - Left Bacterial Culture - Preliminary Phys Exam - Physical Examination Constitutional: NAD HEENT: PERRLA, moist MMs, sclera anicteric, oral pharynx no lesions Neck: no nodes, no JVD, supple, full ROM Respiratory: no wheezing, no rales, no rhonchi, clear to auscultation bilateral Cardiovascular: RRR, no significant murmur, no rub Gastrointestinal: soft, non-tender, no distention, positive bowel sounds Musculoskeletal: no edema, pulses present Left shoulder wound vac Neurological: non-focal, normal sensation, moves all 4 limbs Psychiatric: normal affect, A&O x 3 Skin: no rash Dx/Plan (1) Septic arthritis of shoulder, left Code(s): M00.9 - PYOGENIC ARTHRITIS, UNSPECIFIED Status: Acute Qualifiers: Comment: s/p I&D and wound Vac per ortho 08/02/17 (2) Chronic osteomyelitis of humerus Code(s): M86.629 - OTHER CHRONIC OSTEOMYELITIS, UNSPECIFIED HUMERUS Status: Chronic (3) CKD (chronic kidney disease) stage 2, GFR 60-89 ml/min Code(s): N18.2 - CHRONIC KIDNEY DISEASE, STAGE 2 (MILD) Status: Chronic (4) Chronic anemia Code(s): D64.9 - ANEMIA, UNSPECIFIED Status: Chronic Comment: Stable, (5) Chronic obstructive pulmonary disease Status: Chronic Comment: Stable. Not in acute exacerbation. (6) Chronic pain syndrome Code(s): G89.4 - CHRONIC PAIN SYNDROME Status: Chronic Comment: PRN pain meds (7) H/O TIA (transient ischemic attack) and stroke Code(s): Z86.73 - PRSNL HX OF TIA (TIA), AND CEREB INFRC W/O RESID DEFICITS Status: Chronic Comment: on ASA (8) HTN (hypertension) Code(s): I10 - ESSENTIAL (PRIMARY) HYPERTENSION Status: Chronic Qualifiers: Comment: Controlled and at goal. (9) Paroxysmal a-fib Code(s): I48.0 - PAROXYSMAL ATRIAL FIBRILLATION Status: Chronic Comment: on metoprolol for rate control (10) Chronic alcoholism Code(s): F10.20 - ALCOHOL DEPENDENCE, UNCOMPLICATED Status: Acute Comment: Counselled. Pt has been hospitalized for the last few days. - Plan PT/OT, out of bed/ambulate, DVT proph w/SCDs cont empiric IV Abx.follow Cx , -: cont wound vac. -: home meds as below. -: HD stable. -: am labs * . Review of Systems - Review of Systems Constitutional: negative: fever, chills, sweats, weakness, malaise, other ENT: negative: Ear Pain, Ear Discharge, Nose Pain, Nose Discharge, Nose Congestion, Mouth Pain, Mouth Swelling, Throat Pain, Throat Swelling, Other Respiratory: negative: Cough, Dry, Shortness of Breath, Hemoptysis, SOB with Excertion, Pleuritic Pain, Sputum, Wheezing Cardiovascular: negative: chest pain, palpitations, orthopnea, paroxysmal nocturnal dyspnea, edema, light headedness, other Gastrointestinal: negative: Nausea, Vomiting, Abdominal Pain, Diarrhea, Constipation, Melena, Hematochezia, Other Genitourinary: negative: Dysuria, Frequency, Incontinence, Hematuria, Retention , Other Musculoskeletal: Shoulder Pain. negative: Neck Pain, Arm Pain, Back Pain, Hand Pain, Leg Pain, Foot Pain, Other Skin: negative: Rash, Lesions, Dm, Bruising, Other Neurological: negative: Weakness, Numbness, Incoordination, Change in Speech, Confusion, Seizures, Other - Medications/Allergies Allergies/Adverse Reactions: Allergies Allergy/AdvReac Type Severity Reaction Status Date / Time cefazolin [From [facility]] Allergy Severe Swollen Verified 07/01/17 16:58 Lips Medications: Current Medications Acetaminophen (Tylenol) 650 mg PO Q4H PRN PRN Reason: Headache/Fever or Pain Hydrocodone Bitart/Acetaminophen ([place] 5/325) 1 tab PO Q4H PRN PRN Reason: Moderate Pain (4-6) Hydrocodone Bitart/Acetaminophen ([place] 5/325) 2 tab PO Q4H PRN PRN Reason: Severe Pain (7-10) Last Admin: 08/03/17 10:51 Dose: 2 tab Al Hydroxide/Mg Hydroxide (Maalox) 30 ml PO Q6H PRN PRN Reason: Heartburn or Indigestion Albuterol/Ipratropium (Duoneb) 3 ml NEB [id number] PRN PRN Reason: SOB &/or Wheezing Benzonatate (Tessalon) 100 mg PO Q4H PRN PRN Reason: Cough Bisacodyl (Dulcolax) 10 mg PO DAILYPRN PRN PRN Reason: Constipation Calcium Carbonate (Tums) 1,000 mg PO Q4H PRN PRN Reason: Heartburn or Indigestion Clonidine (Catapres) 0.1 mg PO Q4H PRN PRN Reason: Systolic BP > 160 Diphenhydramine HCl (Benadryl) 25 mg PO Q6H PRN PRN Reason: Itching & Insomnia Last Admin: 08/03/17 08:25 Dose: 25 mg Enoxaparin Sodium (Lovenox) 40 mg SC 0900 [facility] Last Admin: 08/03/17 09:10 Dose: 40 mg Famotidine (Pepcid) 20 mg PO BID [facility] Guaifenesin (Robitussin Sf) 200 mg PO Q4H PRN PRN Reason: Cough Hydralazine HCl (Apresoline) 10 mg SLOW IVP Q4H PRN PRN Reason: Systolic BP > 170 Sodium Chloride (Normal Saline 0.9%) 1,000 mls @ 75 mls/hr IV .[id number] [facility] Last Admin: 08/03/17 10:28 Dose: 1,000 mls Ceftriaxone Sodium 1 gm/ (Sodium Chloride) 100 mls @ 200 mls/hr IVPB Q24HR [facility] Last Admin: 08/02/17 22:01 Dose: 100 mls Vancomycin HCl 1.25 gm/ Sodium (Chloride) 250 mls @ 166.667 mls/hr IVPB 0900 [facility] Last Admin: 08/03/17 09:11 Dose: 250 mls Lisinopril (Zestril) 5 mg PO DAILY [facility] Last Admin: 08/03/17 09:10 Dose: 5 mg Loratadine (Claritin) 10 mg PO DAILYPRN PRN PRN Reason: Sinus Symptoms Metoprolol Tartrate (Lopressor) 12.5 mg PO DAILY [facility] Last Admin: 08/03/17 09:11 Dose: 12.5 mg Miscellaneous Medication (Pharmacy To Dose) 1 each IVPB PRN PRN PRN Reason: . Morphine Sulfate (Morphine) 2 mg SLOW IVP Q4H PRN PRN Reason: severe pain Last Admin: 08/03/17 13:51 Dose: 2 mg Multivitamins (Theragran) 1 tab PO DAILY [facility] Last Admin: 08/03/17 09:10 Dose: 1 tab Nitroglycerin (Nitrostat) 0.4 mg SL Q5MIN PRN PRN Reason: Chest Pain Ondansetron HCl (Zofran) 4 mg IVP Q6H PRN PRN Reason: Nausea/Vomiting Senna (Senokot) 2 tab PO HSPRN PRN PRN Reason: Constipation Tramadol HCl (Ultram) 50 mg PO Q4H PRN PRN Reason: Moderate Pain (4-6) Last Admin: 08/03/17 12:42 Dose: 50 mg
[2017-08-03] MEDS: Famotidine 20 MG TAB PO SCH (20:47)
[2017-08-03] MEDS: cefTRIAXone\\ROCEPHIN 1 GM in Sodium Chloride 0.9% 100 ML IVPB SCH (20:47)
[2017-08-04] MEDS: HYDROcodone/Acetaminophen 5/325 mg Tablet PO PRN ×5 (00:17→21:51)
[2017-08-04] MEDS: Famotidine 20 MG TAB PO SCH ×2 (08:26→21:46)
[2017-08-04] MEDS: Multivit, Therapeutic 1 TAB PO SCH (08:26)
[2017-08-04] MEDS: Lisinopril 5 MG TAB PO SCH (08:26)
[2017-08-04] MEDS: Enoxaparin Sodium 40 MG/0.4 ML SYRINGE SC SCH (08:27)
[2017-08-04] MEDS: Metoprolol Tartrate 25 MG TAB PO SCH (08:27)
[2017-08-04 08:33] LABS: Vancomycin, Trough 15.1 ug/mL
[2017-08-04] MEDS: Vancomycin HCl 1.25 GM in Sodium Chloride 0.9% 250 ML 250 ML IVPB SCH (09:31)
[2017-08-04] MEDS: Sodium Chloride 0.9% 1,000 ML IV SCH (12:41)
[2017-08-04] MEDS: diphenhydrAMINE 25 MG CAP PO PRN (16:36)
--- NOTE | 2017-08-04 18:05 | MRI ---
MRI OF THE LEFT SHOULDER WITH AND WITHOUT IV CONTRAST: Date: 08/04/17 INDICATION: Reoccurring left shoulder infections with multiple I&D's, with severe left shoulder pain and arm pain . TECHNIQUE: Multiplanar, multisequence MR images were obtained of the left shoulder with and without IV contrast utilizing 15 mL of MultiHance. The exam is compared to the prior dated 06/29/17. FINDINGS: Since the comparison examination, there has been interval removal of the low signal intensity joint s pacer involving the left glenohumeral joint from the proximal left humerus. There has also been incis ion and debridement of the large left anterior and lateral periarticular soft tissue abscess. There i s now a large incision and debridement wound site overlying the anterolateral aspect of the glenohume ral joint extending into the left glenohumeral joint space. There is extensive intraarticular and periarticular abnormal signal intensity and enhancement of the soft tissues consistent with persistent left glenohumeral septic arthritis with periarticular myositi s and cellulitis. There is persistent abnormal signal intensity and enhancement involving the distal clavicle consisten t with mild osteomyelitis of the distal clavicle. A large portion of the acromion has been debrided, but appears stable to the comparison exam. The extent of the osteomyelitis of the proximal humerus a ppears to have progressed from the prior exam. There is worsening signal abnormality and enhancement involving the marrow cavity of the visualized left proximal humerus and proximal humeral shaft. There is persistent remodeling and abnormal enhancement involving the glenoid head and glenoid neck consis tent with changes of osteomyelitis of the glenoid. This appears similar to the comparison exam. There is worsening abnormal signal enhancement involving the deltoid consistent with worsening myosit is. There is complete disruption of the subscapularis, supraspinatus, and infraspinatus tendon with s evere muscular atrophy. The teres minor is intact. No large drainable fluid collection remains within the periarticular soft tissues. IMPRESSION: 1. Interval removal of the previously seen left humeral joint spacer with debridement of the previou sly seen periarticular abscess involving the anterolateral aspect of the left shoulder joint. There is open communication of the left glenohumeral joint to the left anterolateral shoulder skin surface suspicious for left shoulder soft tissue debridement site. 2. There is worsening osteomyelitis of the proximal left humerus with persistent septic arthritis of the left glenohumeral joint. There is worsening surrounding myositis of the left shoulder particular ly involving the deltoid. There is persistent osteomyelitis of the glenoid and distal clavicle. 3. There is stable osteectomy of the distal acromial process. 4. Stable chronic complete rotator cuff tears of the supraspinatus, infraspinatus, and subscapularis with maintenance of the teres minor. POS: LUCIO
--- NOTE | 2017-08-04 19:54 | PRG ---
DATE OF SERVICE: 08/04/2017 SUBJECTIVE: The patient is seen and examined at the bedside. He is doing relatively well. He has p ain which is rated as 7 at most and after the treatment with the pain medications, it is down to 5, h e is scheduled for washout #2 by orthopedic surgeon tomorrow. OBJECTIVE: VITAL SIGNS: Blood pressure is 141/70, pulse is 65, temperature is 97.6 and O2 saturation is 99% on room air. HEENT: His head is atraumatic, normocephalic. Eyes are PERRLA. Conjunctivae pinkish. Sclerae power cteric. Oral mucosa is moist. LUNGS: Clear. HEART: S1, S2 normal. There is a vacuum dressing over the left shoulder. ABDOMEN: Soft, nontender, nondistended. EXTREMITIES: No clubbing, cyanosis or edema. NEUROLOGIC: He follows my commands. He answers all my questions and his neurological examination is nonfocal. LABORATORY DATA: Showed vancomycin trough at 15.1. Glycemia is ranging from 143-153. IMPRESSION: 1. Septic arthritis of the left shoulder. The patient is on wound VAC and he is going to have washo ut #2 tomorrow by the orthopedic surgeon. 2. Chronic osteomyelitis of the humerus. 3. Chronic kidney disease. 4. Chronic anemia. 5. Chronic obstructive pulmonary disease, chronic. 6. Chronic pain syndrome. 7. Hypertension. 8. Paroxysmal atrial fibrillation, on metoprolol. 9. Chronic alcoholism. PLAN: Plan is to continue wound VAC at this point. Continue PT, OT out of bed. Deep venous thrombo sis prophylaxis with sequential compression devices and continue vancomycin and ceftriaxone per Dr. Marie gardiner.
[2017-08-04] MEDS: cefTRIAXone\\ROCEPHIN 1 GM in Sodium Chloride 0.9% 100 ML IVPB SCH (21:46)
[2017-08-05] MEDS: Sodium Chloride 0.9% 1,000 ML IV SCH ×2 (02:40→18:41)
[2017-08-05] MEDS: HYDROcodone/Acetaminophen 5/325 mg Tablet PO PRN ×3 (06:36→21:11)
--- NOTE | 2017-08-05 08:05 | CON ---
DATE OF CONSULTATION: 08/05/2017 HISTORY OF PRESENT ILLNESS: Mr. Ring 71-year-old male with chronic osteomyelitis infection of left shoulder with open wound, now for 3 days status post I&D by my partner, Dr. Aazm Alex who said the wound looked actually healthy other than the bone looking somewhat brittle and damaged. The patient has a wound VAC in place. The patient's pain is rated between 7-8/10 currently. OBJECTIVE: VITAL SIGNS: Right now 98, 80, 16, 99%, 104/66. GENERAL: Alert and oriented, no acute distress, resting comfortably in bed. EXTREMITIES: Left upper extremity wound VAC cleaned out and VAC distally. We limited shoulder abduction, extension, external rotation. The patient had an MRI that showed a chronic arthritic changes noted to his proximal humerus. No fluid accumulation was noted and some destruction of his AC joint, his clavicle has no active fluid collections other than damage to the glenoid and proximal humerus. PAST MEDICAL HISTORY: 1. Septic arthritis/osteomyelitis. 2. Chronic kidney disease. 3. Chronic anemia. 4. Chronic pain 6. History of TIA. 7. Stroke. 8. Hypertension. 9. COPD. 10. History of alcoholism. 11. Paroxysmal atrial fibrillation. ASSESSMENT AND PLAN: I discussed with patient that I am concerned his wound VAC had been attempted to heal by secondary intent was not being packed deep, therefore, the patient was sealing over what would be a reaccumulation of fluid collection with his osteopenic bone. I feel that the patient needs his proximal humerus resected to a greater extent to allow for cavitary defect that we packed deep and allowed to heal by secondary intent from inferiorly out exteriorly. I discussed with the patient he would have limited function of his shoulder, but would still have elbow, wrist, and hand motion. I discussed that I felt this would be the only way for the patient to complete his hospital course. He has had a prolonged hospital stay with an inability to heal his wounds. The patient is concerned about wound VAC, continuing oral antibiotics. I discussed that this is the only effective way to clear the patient's wound at this point. The patient would like to have his wound packed and be sent home. I discussed he would be leaving AMA. He would only receive a small prescription for pain medication and need oral antibiotics would be packed. I discussed that we may not be able to find him somebody to perform the wound care packings at home. The patient is considering this. The patient will discuss with my PA before his procedure today at 11:30. I discussed again with the patient, I do not feel this is the best way to proceed. I discussed that this is the patient's choice. He is in control of his medical care. The patient will discuss and will proceed later this morning before I send the patient home AMA. JOHNSON
[2017-08-05] MEDS: Metoprolol Tartrate 25 MG TAB PO SCH (10:11)
[2017-08-05] MEDS ORDERED: Neomycin-Polymyxin 1 ML AMP ONE (10:45)
[2017-08-05] MEDS ORDERED: Fentanyl 250 MCG/5 ML VIAL ONE (11:06)
[2017-08-05] MEDS ORDERED: Fentanyl 100 MCG/2 ML VIAL ONE ×2 (11:09→13:11)
[2017-08-05] MEDS ORDERED: PROPOFOL 200 MG/20 ML VIAL ONE (11:55)
[2017-08-05] MEDS ORDERED: Glycopyrrolate 0.2 MG/ML 5 ML SYRINGE ONE (11:55)
[2017-08-05] MEDS ORDERED: Lidocaine 1% PF 5 ML VIAL ONE (11:55)
[2017-08-05] MEDS: Famotidine 20 MG TAB PO SCH ×2 (12:31→21:12)
[2017-08-05] MEDS: Enoxaparin Sodium 40 MG/0.4 ML SYRINGE SC SCH (12:31)
[2017-08-05] MEDS: Lisinopril 5 MG TAB PO SCH ×2 (12:31→17:02)
[2017-08-05] MEDS: Vancomycin HCl 1.25 GM in Sodium Chloride 0.9% 250 ML 250 ML IVPB SCH (12:32)
[2017-08-05] MEDS: Multivit, Therapeutic 1 TAB PO SCH (12:32)
--- NOTE | 2017-08-05 12:46 | PDOC.PN ---
- Subjective Encounter Start Date: 08/05/17 Encounter Start Time: 07:50 -: old records requested/rev Patient seen and examined left shoulder infection. No new complaints. No overnight events - Objective MAR Reviewed: Yes Vital Signs & Weight: Vital Signs (12 hours) Temp Pulse Resp BP Pulse Ox 08/05/17 12:31 89 08/05/17 08:43 98.3 F 89 12 149/82 H 98 08/05/17 03:30 98 F 80 16 104/66 99 Weight Admit Weight 170 lb Weight 170 lb I&O: 08/04/17 08/05/17 08/06/17 06:59 06:59 06:59 Intake Total 3630 3130 Output Total 950 600 Balance 2680 2530 Result Diagrams: 08/02/17 04:28 08/02/17 04:28 Phys Exam - Physical Examination Constitutional: NAD HEENT: PERRLA, moist MMs, sclera anicteric Neck: no JVD, supple Respiratory: no wheezing, no rales, no rhonchi Cardiovascular: RRR, no significant murmur, no rub Gastrointestinal: soft, non-tender, no distention, positive bowel sounds Musculoskeletal: no edema, pulses present left shoulder with wound vac Neurological: non-focal, normal sensation, moves all 4 limbs Psychiatric: normal affect, A&O x 3 Skin: no rash, normal turgor Dx/Plan (1) Septic arthritis of shoulder, left Code(s): M00.9 - PYOGENIC ARTHRITIS, UNSPECIFIED Status: Acute Qualifiers: Comment: s/p I&D and wound Vac per ortho 08/02/17 (2) Chronic osteomyelitis of left humerus Code(s): M86.622 - OTHER CHRONIC OSTEOMYELITIS, LEFT HUMERUS Status: Chronic (3) CKD (chronic kidney disease) stage 2, GFR 60-89 ml/min Code(s): N18.2 - CHRONIC KIDNEY DISEASE, STAGE 2 (MILD) Status: Chronic (4) Chronic anemia Code(s): D64.9 - ANEMIA, UNSPECIFIED Status: Chronic Comment: Stable, (5) Chronic obstructive pulmonary disease Status: Chronic Comment: Stable. Not in acute exacerbation. (6) Chronic pain syndrome Code(s): G89.4 - CHRONIC PAIN SYNDROME Status: Chronic Comment: PRN pain meds (7) DM type 2 (diabetes mellitus, type 2) Status: Chronic Qualifiers: Diabetes mellitus termite renewal inspector insulin use: without termite renewal inspector use Diabetes mellitus complication status: without complication Qualified Code(s): E11.9 - Type 2 diabetes mellitus without complications Comment: At goal. Continue Accuchecks and insulin sliding scale. (8) HTN (hypertension) Code(s): I10 - ESSENTIAL (PRIMARY) HYPERTENSION Status: Chronic Qualifiers: Comment: Controlled and at goal. (9) Paroxysmal a-fib Code(s): I48.0 - PAROXYSMAL ATRIAL FIBRILLATION Status: Chronic Comment: on metoprolol for rate control - Plan cont current plan of care, continue antibiotics * as per ortho, if pt consents, then he will need another I & D today * continue vancomycin and rocephin * continue wound care * pain controlled * medication reviewed as below * symptomatic treatment. * repeat labs tomorrow * ID team following Review of Systems - Review of Systems Constitutional: negative: fever, chills, sweats, weakness, malaise, other Eyes: negative: Pain, Vision Change, Conjunctivae Inflammation, Eyelid Inflammation, Redness, Other ENT: negative: Ear Pain, Ear Discharge, Nose Pain, Nose Discharge, Nose Congestion, Mouth Pain, Mouth Swelling, Throat Pain, Throat Swelling, Other Respiratory: negative: Cough, Dry, Shortness of Breath, Hemoptysis, SOB with Excertion, Pleuritic Pain, Sputum, Wheezing Cardiovascular: negative: chest pain, palpitations, orthopnea, paroxysmal nocturnal dyspnea, edema, light headedness, other Gastrointestinal: negative: Nausea, Vomiting, Abdominal Pain, Diarrhea, Constipation, Melena, Hematochezia, Other Genitourinary: negative: Dysuria, Frequency, Incontinence, Hematuria, Retention , Other Musculoskeletal: Shoulder Pain. negative: Neck Pain, Arm Pain, Back Pain, Hand Pain, Leg Pain, Foot Pain, Other - Medications/Allergies Allergies/Adverse Reactions: Allergies Allergy/AdvReac Type Severity Reaction Status Date / Time cefazolin [From [facility]] Allergy Severe Swollen Verified 07/01/17 16:58 Lips Medications: Current Medications Acetaminophen (Tylenol) 650 mg PO Q4H PRN PRN Reason: Headache/Fever or Pain Hydrocodone Bitart/Acetaminophen ([place] 5/325) 1 tab PO Q4H PRN PRN Reason: Moderate Pain (4-6) Hydrocodone Bitart/Acetaminophen ([place] 5/325) 2 tab PO Q4H PRN PRN Reason: Severe Pain (7-10) Last Admin: 08/05/17 06:36 Dose: 2 tab Al Hydroxide/Mg Hydroxide (Maalox) 30 ml PO Q6H PRN PRN Reason: Heartburn or Indigestion Albuterol/Ipratropium (Duoneb) 3 ml NEB [id number] PRN PRN Reason: SOB &/or Wheezing Benzonatate (Tessalon) 100 mg PO Q4H PRN PRN Reason: Cough Bisacodyl (Dulcolax) 10 mg PO DAILYPRN PRN PRN Reason: Constipation Calcium Carbonate (Tums) 1,000 mg PO Q4H PRN PRN Reason: Heartburn or Indigestion Clonidine (Catapres) 0.1 mg PO Q4H PRN PRN Reason: Systolic BP > 160 Diphenhydramine HCl (Benadryl) 25 mg PO Q6H PRN PRN Reason: Itching & Insomnia Last Admin: 08/04/17 16:36 Dose: 25 mg Enoxaparin Sodium (Lovenox) 40 mg SC 0900 [facility] Last Admin: 08/05/17 12:31 Dose: Not Given Famotidine (Pepcid) 20 mg PO BID [facility] Last Admin: 08/05/17 12:31 Dose: Not Given Guaifenesin (Robitussin Sf) 200 mg PO Q4H PRN PRN Reason: Cough Hydralazine HCl (Apresoline) 10 mg SLOW IVP Q4H PRN PRN Reason: Systolic BP > 170 Sodium Chloride (Normal Saline 0.9%) 1,000 mls @ 75 mls/hr IV .[id number] [facility] Last Admin: 08/05/17 02:40 Dose: Not Given Ceftriaxone Sodium 1 gm/ (Sodium Chloride) 100 mls @ 200 mls/hr IVPB Q24HR [facility] Last Admin: 08/04/17 21:46 Dose: 100 mls Vancomycin HCl 1.25 gm/ Sodium (Chloride) 250 mls @ 166.667 mls/hr IVPB 0900 [facility] Last Admin: 08/05/17 12:32 Dose: Not Given Lisinopril (Zestril) 5 mg PO DAILY [facility] Last Admin: 08/05/17 12:31 Dose: Not Given Loratadine (Claritin) 10 mg PO DAILYPRN PRN PRN Reason: Sinus Symptoms Metoprolol Tartrate (Lopressor) 12.5 mg PO DAILY [facility] Last Admin: 08/05/17 10:11 Dose: 12.5 mg Miscellaneous Medication (Pharmacy To Dose) 1 each IVPB PRN PRN PRN Reason: . Morphine Sulfate (Morphine) 2 mg SLOW IVP Q4H PRN PRN Reason: severe pain Last Admin: 08/03/17 13:51 Dose: 2 mg Multivitamins (Theragran) 1 tab PO DAILY [facility] Last Admin: 08/05/17 12:32 Dose: Not Given Nitroglycerin (Nitrostat) 0.4 mg SL Q5MIN PRN PRN Reason: Chest Pain Ondansetron HCl (Zofran) 4 mg IVP Q6H PRN PRN Reason: Nausea/Vomiting Senna (Senokot) 2 tab PO HSPRN PRN PRN Reason: Constipation Last Admin: 08/04/17 08:34 Dose: 2 tab Tramadol HCl (Ultram) 50 mg PO Q4H PRN PRN Reason: Moderate Pain (4-6) Last Admin: 08/03/17 12:42 Dose: 50 mg
[2017-08-05] MEDS ORDERED: Ondansetron HCl/PF 4 MG/2 ML Vial IVP PRN (13:10)
[2017-08-05] MEDS ORDERED: Promethazine HCl 25 MG/ML VIAL SLOW IVP PRN (13:10)
[2017-08-05] MEDS ORDERED: Promethazine HCl 25 MG/ML VIAL IM PRN (13:10)
[2017-08-05] MEDS: traMADol HCl 50 MG TAB PO PRN (17:02)
[2017-08-05] MEDS: diphenhydrAMINE 25 MG CAP PO PRN (18:35)
[2017-08-05] MEDS: Morphine 4 MG/ML VIAL SLOW IVP PRN (18:35)
--- NOTE | 2017-08-05 18:50 | OP ---
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 PROCEDURES PERFORMED: 1. Irrigation and debridements of left shoulder open wound. 2. Resection of proximal humerus osteomyelitis. STAFF: Bradley Thurston M.D. DEHORNER: BARBER Scherer ANESTHESIA: Dr. Pedroza. The patient received general endotracheal intubation. ESTIMATED BLOOD LOSS: 250 mL. TOURNIQUET TIME: None. IMPLANTS: None. ANTIBIOTICS: Patient is on scheduled vancomycin and Rocephin. TOURNIQUET TIME: None. COMPLICATIONS: None. HISTORY OF PRESENT ILLNESS: Mr. Ring is a 71-year-old male well known to my service. The patien t has had multiple I&Ds of the left shoulder. The patient presented most recently after open I&D. T he patient was left to close by secondary intent. The patient moves his proximal humerus and I think because that was motion was causing his proximal humerus to break open the incision line from the sc ar. I also created at potential cavity behind the deltoid. The wound VACs were now being placed sup erficially but not deep into the void; therefore, he was not collapsing into the defect, creating a p ocket of fluid behind the closing wound. The wound otherwise looks good. He underwent I&D by my par tner, Dr. Alex on Saturday the . The patient had been undergoing wound VAC and had been on ronic IV antibiotics by Dr. Hernandez. The patient is neurovascularly intact. I discussed with him befo re the surgery that I needed to perform the proximal section to remove the potential nidus for foot i nfection as well as allow for space for collapse of the shoulder. He understands, function of his el bow, wrist, and hand, but not have good function of his shoulder. After this, he would have some mob ility of the shoulder, but very limited. I discussed that the purpose of this is to try to help livan r his infection, which has been a very difficult and long process. The patient understood the risks and benefits of surgery, pain, scar, bleeding, infection, damage to vital structures, decreased range of motion or strength, failure of procedure, continued pain or loss of life or limb, need for furthe r surgeries. The patient understood the need to have a wound vacuum placed afterwards to help seal t he wound from the bottom. He understands all these risks and benefits and elects to proceed. PROCEDURE IN DETAIL: Time out was performed designating the patient's left upper extremity as the op erative site based on sight, consents, and marking. After time out, patient had been intubated. The patient was placed in a beach chair position. His wound VAC had been removed. We cleaned it with B etadine. I extended incision distally came between the deltopectoral interval, came down onto the hu meral head. We manipulated the small finger like sealed in wound that he had, previously more medial ly which still had good granulation and good healing, so no undermined did not connect any more with open portion of the proximal humerus. Therefore, with cautery, midline of the humerus dissected medi ally and laterally, circumferentially around the proximal humerus to expose the entire proximal humer us and metaphysis. I used a saw, cut and removed the entire humeral head, exposed the glenoid, I cur etted out the glenoid articular surface and any fluid, any spots in the joint space. Otherwise, the tissue had good healthy bleeding granulation looking tissue. There was no other gross contaminated t issue within the wound. I used my curet and curetted out the canal of the humerus removing any exces s intramedullary tissues. On completing this, I had washed with 3 liters of fluid. I looked around, curetted again removing some debris within the glenoid as well as over the subcutaneous tissue, but I felt like I created the appropriate defect to allow for healing by secondary intent. No active ble eding and the patient had a wound vacuum placed into his left shoulder by wound care. The patient will be admitted back. We will continue IV antibiotics. We will need continued wound ca re. I prefer the patient to be sent to be kept here near the hospital to help for wound care managem ent. The patient will require long-term wound VAC and also he will hopefully heal this chronic infec tion of his left shoulder.
--- NOTE | 2017-08-05 19:04 | PRG ---
DATE OF SERVICE: 08/05/2017 SUBJECTIVE: The patient feeling depressed because of the need for the treatment to be carried out ag felicitas in the assisted. He does not have transportation to come to the [facility]. He will need wound c are and IV antimicrobials. He has moderate pain in the left shoulder. No respiratory symptoms or ab dominal pain. No diarrhea. OBJECTIVE: VITAL SIGNS: His vital signs are normal. Awake, alert, oriented. EXTREMITIES: Left shoulder with negative pressure dressing. Midline has been inserted in the right upper extremity. LUNGS: Clear. HEART: S1, S2, regular rate. ABDOMEN: Soft, not distended. LABORATORY: White cell count 8.6, hemoglobin 10.2, platelets 259. Sodium 135, creatinine 1.01, AST 38, ALT 31. Microbiology from the shoulder this time showed Serratia marcescens and Staphylococcus e pidermides. Serratia is susceptible to cephalosporins, resistant to cefoxitin. Staph epidermides is the usual MRSE type and the previous isolates include coagulase-negative staph, Staph aureus and joseph up D strep. ASSESSMENT AND DISCUSSION: Refractory left shoulder infection with osteomyelitis and multiple proced ures some social issues with drug abuse issues as well as alcoholism. We will reinsert PICC line and plan 8 weeks of treatment with Rocephin and vancomycin or daptomycin and after that suppressive ther apy with doxycycline, plus/minus quinolone.
[2017-08-05] MEDS: cefTRIAXone\\ROCEPHIN 1 GM in Sodium Chloride 0.9% 100 ML IVPB SCH (21:10)
[2017-08-06] MEDS: HYDROcodone/Acetaminophen 5/325 mg Tablet PO PRN ×5 (03:36→20:44)
[2017-08-06] MEDS: Sodium Chloride 0.9% 1,000 ML IV SCH (04:26)
[2017-08-06] MEDS: Multivit, Therapeutic 1 TAB PO SCH (08:20)
[2017-08-06] MEDS: Lisinopril 5 MG TAB PO SCH (08:20)
[2017-08-06] MEDS: Famotidine 20 MG TAB PO SCH ×2 (08:20→20:36)
[2017-08-06] MEDS: Metoprolol Tartrate 25 MG TAB PO SCH (08:21)
[2017-08-06] MEDS: Enoxaparin Sodium 40 MG/0.4 ML SYRINGE SC SCH (08:25)
[2017-08-06 09:36] LABS: #Eosinphils 0.3 thou/uL (0.0-0.7); #Lymphocytes 1.9 thou/uL (1.20-3.40); #Monocytes 0.2 thou/uL (0.11-0.59); %Basophils 0.7 % (0.0-1.0); %Eosinophils 5.3 % (0.0-10.0); %Lymphocytes 34.6 % (21.0-51.0); %Monocytes 4.5 % (0.0-10.0); %Neutrophils 54.8 % (42.0-75.0); Mean Corpuscular HGB CONC 31.8 g/dL (32.0-36.0); Mean Corpuscular Hemoglobin 25.4 pg (27.0-31.0); Mean Corpuscular Volume 80.1 fl (80.0-94.0); Mean Platelet Volume 7.6 fL (7.4-10.4); Platelet Count 240 thou/uL (130-400); RBC Distribution Width 15.2 % (11.5-14.5); Red Blood Cell (RBC) Count 3.14 mill/uL (4.70-6.10); White Blood Cell (WBC) Count 5.4 thou/uL (4.8-10.8)
[2017-08-06 09:50] LABS: Vancomycin, Trough 14.7 ug/mL
[2017-08-06 09:54] LABS: ALT (SGPT) 14 U/L (8-55); AST (SGOT) 17 U/L (5-34); Albumin 3.4 g/dL (3.4-4.8); Alkaline Phosphatase 85 U/L (40-150); Anion Gap 10 mmol/L (10-20); BUN (Urea Nitrogen) 11 mg/dL (8.4-25.7); Bilirubin, Total 0.2 mg/dL (0.2-1.2); CRP (Inflammatory) 3.12 mg/dL (= or < 0.5); Calc. Creatinine Clearance 76 mL/min (70-130); Calcium 8.9 mg/dL (7.8-10.44); Carbon Dioxide 24 mmol/L (23-31); Chloride 106 mmol/L (98-107); Estimated GFR-MDRD 78; Globulin 2.7 g/dL (2.4-3.5); Glucose 177 mg/dL (83-110); Potassium 3.8 mmol/L (3.5-5.1); Protein, Total 6.1 g/dL (5.8-8.1); Sodium 136 mmol/L (136-145)
[2017-08-06] MEDS: Vancomycin HCl 1.25 GM in Sodium Chloride 0.9% 250 ML 250 ML IVPB SCH (11:14)
[2017-08-06] MEDS: traMADol HCl 50 MG TAB PO PRN (11:14)
--- NOTE | 2017-08-06 12:20 | SPC ---
RIGHT UPPER EXTREMITY PICC LINE EXCHANGE: Date: 08/06/17 HISTORY: Infection. Patient has a right-sided midline. COMPARISON: None. EXPOSURE: 3.7 minutes. 10,812 mGy*cm^2. FINDINGS: Technically successful right upper extremity PICC line exchange. Trim length is 39 cm. Distal tip is in the right atrium. Single lumen catheter flushes and aspirates without difficulty. TECHNIQUE: Through existing midline, a 0.018 guidewire was advanced. There was difficulty in advancing the wire beyond the right axilla. Therefore, contrast was administered to assess the upper extremity venous sy stem. There is evidence of contrast opacifying the right upper extremity venous system with a small p ossible kinking of the right axillary vein at the level of the first rib. A 0.018 guidewire was advan rudi beyond this level of kinking into the right atrium. Tract was dilated. Single lumen 5 Faroese cath eter was advanced over the wire. Wire was removed. Catheter flushes and aspirates without difficulty. IMPRESSION: Successful right upper extremity PICC line exchange. POS: [facility]
--- NOTE | 2017-08-06 12:37 | PDOC.PN ---
- Subjective Encounter Start Date: 08/06/17 Encounter Start Time: 07:50 Patient seen and examined for left shoulder septic arthritis. pain is controlled with pain meds. No new complaints. No overnight events - Objective MAR Reviewed: Yes Vital Signs & Weight: Vital Signs (12 hours) Temp Pulse Resp BP BP Pulse Ox 08/06/17 11:23 97.8 F 100 12 100/61 98 08/06/17 08:20 97.9 F 107 H 12 142/76 H 98 08/06/17 07:27 97.9 F 107 H 12 142/76 H 98 08/06/17 04:36 98 08/06/17 03:38 97.8 F 97 16 103/66 98 Weight Admit Weight 170 lb Weight 170 lb I&O: 08/05/17 08/06/17 08/07/17 06:59 06:59 06:59 Intake Total 3130 1280 Output Total 600 Balance 2530 1280 Result Diagrams: 08/06/17 09:21 08/06/17 09:21 Phys Exam - Physical Examination Constitutional: NAD HEENT: PERRLA, moist MMs, sclera anicteric Neck: no JVD, supple Respiratory: no wheezing, no rales, no rhonchi Cardiovascular: RRR, no significant murmur, no rub Gastrointestinal: soft, non-tender, no distention, positive bowel sounds Musculoskeletal: no edema, pulses present left shoulder with wound vac in place Neurological: non-focal, normal sensation, moves all 4 limbs Psychiatric: normal affect, A&O x 3 Skin: no rash, normal turgor Dx/Plan (1) Septic arthritis of shoulder, left Code(s): M00.9 - PYOGENIC ARTHRITIS, UNSPECIFIED Status: Acute Qualifiers: Comment: s/p I&D and wound Vac per ortho 08/02/17 (2) CKD (chronic kidney disease) stage 2, GFR 60-89 ml/min Code(s): N18.2 - CHRONIC KIDNEY DISEASE, STAGE 2 (MILD) Status: Chronic (3) Chronic anemia Code(s): D64.9 - ANEMIA, UNSPECIFIED Status: Chronic Comment: Stable, (4) Chronic obstructive pulmonary disease Status: Chronic Comment: Stable. Not in acute exacerbation. (5) Chronic pain syndrome Code(s): G89.4 - CHRONIC PAIN SYNDROME Status: Chronic Comment: PRN pain meds (6) DM type 2 (diabetes mellitus, type 2) Status: Chronic Qualifiers: Diabetes mellitus shelter insulin use: without shelter use Diabetes mellitus complication status: without complication Qualified Code(s): E11.9 - Type 2 diabetes mellitus without complications Comment: At goal. Continue Accuchecks and insulin sliding scale. (7) HTN (hypertension) Code(s): I10 - ESSENTIAL (PRIMARY) HYPERTENSION Status: Chronic Qualifiers: Comment: Controlled and at goal. (8) Paroxysmal a-fib Code(s): I48.0 - PAROXYSMAL ATRIAL FIBRILLATION Status: Chronic Comment: on metoprolol for rate control - Plan cont current plan of care, continue antibiotics, social services coordinator * continue wound care with wound vac * today PICC line placement * final antibiotics on discharge will defer to ID team * social work for arrangement of IV antibiotics therapy * medication reviewed as below * symptomatic treatment * pain control with pain meds as below * currently on vancomycin and rocephin. Review of Systems - Review of Systems Constitutional: negative: fever, chills, sweats, weakness, malaise, other Eyes: negative: Pain, Vision Change, Conjunctivae Inflammation, Eyelid Inflammation, Redness, Other ENT: negative: Ear Pain, Ear Discharge, Nose Pain, Nose Discharge, Nose Congestion, Mouth Pain, Mouth Swelling, Throat Pain, Throat Swelling, Other Respiratory: negative: Cough, Dry, Shortness of Breath, Hemoptysis, SOB with Excertion, Pleuritic Pain, Sputum, Wheezing Cardiovascular: negative: chest pain, palpitations, orthopnea, paroxysmal nocturnal dyspnea, edema, light headedness, other Gastrointestinal: negative: Nausea, Vomiting, Abdominal Pain, Diarrhea, Constipation, Melena, Hematochezia, Other Genitourinary: negative: Dysuria, Frequency, Incontinence, Hematuria, Retention , Other Musculoskeletal: Shoulder Pain. negative: Neck Pain, Arm Pain, Back Pain, Hand Pain, Leg Pain, Foot Pain, Other - Medications/Allergies Allergies/Adverse Reactions: Allergies Allergy/AdvReac Type Severity Reaction Status Date / Time cefazolin [From [facility]] Allergy Severe Swollen Verified 07/01/17 16:58 Lips Medications: Current Medications Acetaminophen (Tylenol) 650 mg PO Q4H PRN PRN Reason: Headache/Fever or Pain Hydrocodone Bitart/Acetaminophen ([place] 5/325) 1 tab PO Q4H PRN PRN Reason: Moderate Pain (4-6) Hydrocodone Bitart/Acetaminophen ([place] 5/325) 2 tab PO Q4H PRN PRN Reason: Severe Pain (7-10) Last Admin: 08/06/17 12:34 Dose: 2 tab Al Hydroxide/Mg Hydroxide (Maalox) 30 ml PO Q6H PRN PRN Reason: Heartburn or Indigestion Albuterol/Ipratropium (Duoneb) 3 ml NEB Q2OM-XV PRN PRN Reason: SOB &/or Wheezing Benzonatate (Tessalon) 100 mg PO Q4H PRN PRN Reason: Cough Bisacodyl (Dulcolax) 10 mg PO DAILYPRN PRN PRN Reason: Constipation Calcium Carbonate (Tums) 1,000 mg PO Q4H PRN PRN Reason: Heartburn or Indigestion Clonidine (Catapres) 0.1 mg PO Q4H PRN PRN Reason: Systolic BP > 160 Last Admin: 08/05/17 17:01 Dose: 0.1 mg Diphenhydramine HCl (Benadryl) 25 mg PO Q6H PRN PRN Reason: Itching & Insomnia Last Admin: 08/05/17 18:35 Dose: 25 mg Enoxaparin Sodium (Lovenox) 40 mg SC 0900 [facility] Last Admin: 08/06/17 08:25 Dose: 40 mg Famotidine (Pepcid) 20 mg PO BID [facility] Last Admin: 08/06/17 08:20 Dose: 20 mg Guaifenesin (Robitussin Sf) 200 mg PO Q4H PRN PRN Reason: Cough Hydralazine HCl (Apresoline) 10 mg SLOW IVP Q4H PRN PRN Reason: Systolic BP > 170 Ceftriaxone Sodium 1 gm/ (Sodium Chloride) 100 mls @ 200 mls/hr IVPB Q24HR [facility] Last Admin: 08/05/17 21:10 Dose: 100 mls Vancomycin HCl 1.25 gm/ Sodium (Chloride) 250 mls @ 166.667 mls/hr IVPB 0900 [facility] Last Admin: 08/06/17 11:14 Dose: 250 mls Lisinopril (Zestril) 5 mg PO DAILY [facility] Last Admin: 08/06/17 08:20 Dose: 5 mg Loratadine (Claritin) 10 mg PO DAILYPRN PRN PRN Reason: Sinus Symptoms Metoprolol Tartrate (Lopressor) 12.5 mg PO DAILY [facility] Last Admin: 08/06/17 08:21 Dose: 12.5 mg Miscellaneous Medication (Pharmacy To Dose) 1 each IVPB PRN PRN PRN Reason: . Morphine Sulfate (Morphine) 2 mg SLOW IVP Q4H PRN PRN Reason: severe pain Last Admin: 08/05/17 18:35 Dose: 2 mg Multivitamins (Theragran) 1 tab PO DAILY [facility] Last Admin: 08/06/17 08:20 Dose: 1 tab Nitroglycerin (Nitrostat) 0.4 mg SL Q5MIN PRN PRN Reason: Chest Pain Ondansetron HCl (Zofran) 4 mg IVP Q6H PRN PRN Reason: Nausea/Vomiting Senna (Senokot) 2 tab PO HSPRN PRN PRN Reason: Constipation Last Admin: 08/04/17 08:34 Dose: 2 tab Sertraline HCl (Zoloft) 50 mg PO DAILY [facility] Last Admin: 08/06/17 08:21 Dose: 50 mg Tramadol HCl (Ultram) 50 mg PO Q4H PRN PRN Reason: Moderate Pain (4-6) Last Admin: 08/06/17 11:14 Dose: 50 mg
[2017-08-06] MEDS: diphenhydrAMINE 25 MG CAP PO PRN (19:40)
[2017-08-06] MEDS ORDERED: Activase 2 MG VIAL CATH PRN (20:27)
[2017-08-06] MEDS ORDERED: Sterile Water 10 ML VIAL IVP PRN (20:28)
[2017-08-06] MEDS: cefTRIAXone\\ROCEPHIN 1 GM in Sodium Chloride 0.9% 100 ML IVPB SCH (20:36)
[2017-08-07] MEDS: HYDROcodone/Acetaminophen 5/325 mg Tablet PO PRN ×3 (04:12→12:04)
[2017-08-07 04:54] LABS: Hemoglobin 7.9 g/dL (14.0-18.0)
[2017-08-07] MEDS: Famotidine 20 MG TAB PO SCH (08:05)
[2017-08-07] MEDS: Multivit, Therapeutic 1 TAB PO SCH (08:05)
[2017-08-07] MEDS: Metoprolol Tartrate 25 MG TAB PO SCH (08:06)
[2017-08-07] MEDS: Lisinopril 5 MG TAB PO SCH (08:06)
[2017-08-07] MEDS: Enoxaparin Sodium 40 MG/0.4 ML SYRINGE SC SCH (08:06)
[2017-08-07] MEDS ORDERED: Metoprolol Tartrate 25 MG TAB PO SCH (09:00)
[2017-08-07] MEDS: Vancomycin HCl 1.25 GM in Sodium Chloride 0.9% 250 ML 250 ML IVPB SCH (09:03)
[2017-08-07] MEDS: traMADol HCl 50 MG TAB PO PRN (10:16)
[2017-08-07 10:38] LABS: Vancomycin, Trough 16.2 ug/mL
--- NOTE | 2017-08-07 11:58 | DIS ---
PRIMARY CARE PHYSICIAN: Dr. Kenroy Ring DATE OF ADMISSION: 08/01/2017 DATE OF DISCHARGE: 08/07/2017 DISCHARGE DISPOSITION: [facility] bed. PRIMARY DISCHARGE DIAGNOSES: Septic arthritis of left shoulder with a chronic osteomyelitis of left humerus. SECONDARY DISCHARGE DIAGNOSES: Alcohol abuse, chronic normocytic anemia, COPD, osteomyelitis of left humerus, chronic pain disorder, CKD stage 3, diabetes type 2, hypertension, paroxysmal atrial fibril lation. PRIMARY PROCEDURE/OPERATION: The patient required incision and debridement by Dr. Deshawn Pak son and subsequently the patient required repeat incision and debridement by Dr. rBadley Thurston. PIC C line was placed on 08/06/2017. RADIOLOGICAL INVESTIGATION: Upper extremity MRI was consistent with osteomyelitis of left humerus wi th septic arthritis. SIGNIFICANT LABS: WBC 5.4, hemoglobin 7.9, platelets 240. Sodium 136, potassium 3.8, BUN 11, creati nine 0.95, calcium 8.9. LFT normal. CRP 3.12. Blood culture negative. Culture from shoulder grew Staph epidermidis and Serratia marcescens. DISCHARGE MEDICATIONS: The patient will have Rocephin 2 gram IV daily until 10/01/2017. The patient will have vancomycin 1.25 gram IV daily until 10/01/2017 and subsequently patient will have Cipro an d minocycline for another 3 months. During this IV antibiotic therapy the patient will have weekly C BC, CMP, CRP and he will follow up with orthopedic physician as well as Dr. Hernandez. Continue following medication: Aspirin 325 mg p.o. daily, Pepcid 20 mg p.o. b.i.d., [place] 7.5 one ta blet q.4h. p.r.n., lisinopril 5 mg p.o. daily, Lopressor 25 mg p.o. daily, multivitamin 1 tablet p.o. daily, Florastor 250 mg p.o. daily, Zoloft 50 mg p.o. daily. CONTRAINDICATIONS: None. CODE STATUS: FULL CODE. INPATIENT CONSULTANTS: Dr. Hernandez was following while in hospital. Orthopedic physician was shabnam plunkett while in hospital. TEST RESULTS PENDING ON DISCHARGE: None. ALLERGIES: CEFAZOLIN. DISCHARGE PLAN: Post hospital, the patient is planned for discharge to [facility]. Subs equently the patient will follow up with primary care physician, Dr. Hernandez, and Dr. Thurston. HOSPITAL COURSE: A 71-year-old male who has above-mentioned medical problem who was admitted by Dr. Ghada Ferraro on 08/01/2017. Please see her H&P for further details. This patient does have chroni c osteomyelitis of left humerus and this time, the patient was having increasing pain in his left myles ulder. This patient was also diagnosed with septic arthritis of left shoulder. He required I&D by Low Alex. Subsequently the patient also required repeat I&D by Dr. Bradley Thurston. His culture from shoulder grew Serratia marcescens and Staph epidermidis. Based on culture and sensitivity resul t, the patient was receiving while in hospital with Rocephin and vancomycin. Dr. Hernandez was also cons ulted while in hospital and he recommended prolonged IV antibiotic therapy and that is why PICC line was placed. The patient will continue to get IV antibiotic therapy until 10/01/2017 with vancomycin and Rocephin. During that period, the patient will have CBC, CMP, CRP and vancomycin trough level we ekly and follow up with primary care physician as well as Dr. Hernandez. The patient is not able to handle IV antibiotic therapy and wound care at home and that is why he req uested to send him to [facility]. With the help of counter caser, we arranged [facility] swing bed. This patient has surgical site wound VAC, which will be changed every other day. He wi ll get IV antibiotic therapy as per Dr. Hernandez. PICC line was placed yesterday. The patient's pain i s also controlled with pain medication. The patient is seen and examined at bedside today. VITAL SIGNS: Currently, temperature 98.1, pulse 88, respiratory rate 16, saturation 98% on room air, blood pressure 112/71, weight 170 pounds. GENERAL: The patient is currently alert, awake, no acute distress. HEAD: Normocephalic, atraumatic. EYES: Pupils round, reactive to light. Extraocular muscle intact. ENT: Oropharynx within normal limits. Moist mucous membranes. NECK: Supple, no JVD, no thyromegaly, no carotid bruit. LUNGS: Clear to auscultation without any rhonchi or rales. SHOULDER: Left shoulder is surgically dressed with a wound VAC. NEUROLOGIC: Nonfocal examination. Paperwork for discharge done. Discharge medication reconciliation done. Total time spent on discharge day 31 minutes.
[2017-08-07 12:08] VITALS: BP 145/85; TEMP 98
[2017-08-07] MEDS: Morphine 4 MG/ML VIAL SLOW IVP PRN (14:28)
[2017-08-09 10:23] LABS: Fungus Stain Final report (.)
== END 2017-08-07 14:35 | disposition swing bed, planned readmission (89) | DRG 493 ==
LOC: SURG A 17:58
PROVIDERS: ADMIT Internal Medicine; ATTEND Internal Medicine
PROC: 0PBD0ZZ Excision of Left Humeral Head, Open Approach (ICD-10-PCS; principal; 2017-08-02)
PROC: 0PT Upper Bones, Resection (ICD-10-PCS; 2017-08-05)
DX: M00.012 Staphylococcal arthritis, left shoulder (principal); M86.612 Other chronic osteomyelitis, left shoulder; M00.812 Arthritis due to other bacteria, left shoulder; B96.89 Other specified bacterial agents as the cause of diseases classified elsewhere; B95.7 Other staphylococcus as the cause of diseases classified elsewhere; I48.0 Paroxysmal atrial fibrillation; I12.9 Hypertensive chronic kidney disease with stage 1 through stage 4 chronic kidney disease, or unspecified chronic kidney disease; E11.22 Type 2 diabetes mellitus with diabetic chronic kidney disease; N18.3 Chronic kidney disease, stage 3 (moderate); F10.20 Alcohol dependence, uncomplicated; J44.9 Chronic obstructive pulmonary disease, unspecified; G89.4 Chronic pain syndrome; M54.5 Low back pain; D64.9 Anemia, unspecified; Z86.73 Personal history of transient ischemic attack (TIA), and cerebral infarction without residual deficits; Z88.1 Allergy status to other antibiotic agents; Z79.82 Long term (current) use of aspirin; Z79.899 Other long term (current) drug therapy
CPT/HCPCS: 36415; 36416; 36569; 80048; 80053; 80202; 85014; 85018; 85025; 86140; 86850; 86900; 86901; 87070; 87077; 87086; 87102; 87186; 87205; 87206; 88305; 88311; C1751; G8978-GP-CI; G8979-GP-CI; G8980-GP-CI; G8987-GO-CI; G8988-GO-CI; G8989-GO-CI; J0696; J1650; J2001; J2270; J2704; J3010; J3370; J7050; S0028

== ENCOUNTER 2018-07-23 16:49 | Inpatient (IN) | payer MEDICARE ==
[2018-07-23] MEDS ORDERED: Diltiazem 125 MG/25 ML ONE (17:59)
[2018-07-23 18:10] LABS: #Basophils 0.1 thou/uL (0.0-0.2); #Lymphocytes 2.3 thou/uL (1.20-3.40); #Monocytes 0.7 thou/uL (0.11-0.59); #Neutrophils 3.6 thou/uL (1.40-6.50); %Basophils 0.9 % (0.0-1.0); %Eosinophils 0.4 % (0.0-10.0); %Lymphocytes 34.6 % (21.0-51.0); %Monocytes 10.2 % (0.0-10.0); %Neutrophils 53.9 % (42.0-75.0); Hemoglobin 15.7 g/dL (14.0-18.0); Mean Corpuscular Hemoglobin 27.4 pg (27.0-31.0); Mean Corpuscular Volume 88.6 fL (78.0-98.0); Mean Platelet Volume 9.6 fL (7.4-10.4); Platelet Count 200 thou/uL (130-400); Red Blood Cell (RBC) Count 5.74 mill/uL (4.70-6.10); White Blood Cell (WBC) Count 6.7 thou/uL (4.8-10.8)
[2018-07-23] MEDS ORDERED: Ketorolac Tromethamine 30 MG/ML VIAL ONE (18:51)
[2018-07-23] MEDS ORDERED: Piperacillin/Tazobactam 3.375 GM VIAL ONE (18:51)
[2018-07-23 19:10] LABS: ALT (SGPT) 879 U/L (8-55); AST (SGOT) 1397 U/L (5-34); Albumin 3.2 g/dL (3.4-4.8); Alkaline Phosphatase 167 U/L (40-150); Anion Gap 17 mmol/L (10-20); BUN (Urea Nitrogen) 43 mg/dL (8.4-25.7); Bilirubin, Total 1.7 mg/dL (0.2-1.2); CK (CPK) 222 U/L (30-200); Calc. Creatinine Clearance 0 mL/min (70-130); Calcium 8.9 mg/dL (7.8-10.44); Carbon Dioxide 23 mmol/L (23-31); Chloride 99 mmol/L (98-107); Estimated GFR-MDRD 40; Globulin 3.2 g/dL (2.4-3.5); Glucose 119 mg/dL (83-110); Protein, Total 6.4 g/dL (5.8-8.1); Sodium 135 mmol/L (136-145)
[2018-07-23] MEDS ORDERED: Pantoprazole 40 MG VIAL ONE (19:54)
--- NOTE | 2018-07-23 21:11 | ULT ---
ULTRASOUND ABDOMEN LIMITED: (RIGHT UPPER QUADRANT) DATE: 07/23/2018 History: Right upper quadrant abdominal pain and elevated liver enzymes in 72-year-old male FINDINGS: Gallbladder is surgically absent. Common duct caliber is 4 mm. Right pleural effusion. No hydronephrosis in right kidney. 3.5 cm exophytic cyst at posterior aspect of right renal upper pole. Tiny amount of free fluid in Morison's pouch. Hepatic echogenicity within normal limits. Pancreas poorly visualized. IMPRESSION: 1. Status post cholecystectomy. 2. Right pleural effusion.
[2018-07-23 21:29] LABS: Troponin I 0.036 ng/mL (< 0.028)
[2018-07-23] MEDS ORDERED: Piperacillin/Tazobactam 3.375 GM in Sodium Chloride 0.9% 100 ML IVPB SCH (23:59)
[2018-07-24] MEDS ORDERED: Lorazepam 2 MG/ML VIAL SLOW IVP PRN (00:14)
[2018-07-24] MEDS ORDERED: Diltiazem 125 MG in Sodium Chloride 0.9% 100 ML IVPB SCH ×2 (00:14→15:30)
[2018-07-24] MEDS ORDERED: Ondansetron PF 4 MG/2 ML Vial IVP PRN (00:14)
[2018-07-24] MEDS ORDERED: Vancomycin HCl 1 GM in Premix Bag 1 BAG IVPB SCH (00:14)
[2018-07-24] MEDS ORDERED: Ondansetron ODT 4 MG TAB PO PRN (00:14)
[2018-07-24 00:31] LABS: Bilirubin Small (Negative); Blood, Urine Negative (Negative); Clarity CLEAR (Clear); Glucose, Urine (Dipstick) Negative (Negative); Leukocyte Negative (Negative); Nitrite Negative (Negative); Protein, Urine (Dipstick) 100 mg/dL (Neg-Trace); Specific Gravity, Urine 1.026 (1.002-1.036)
[2018-07-24] MEDS ORDERED: Diazepam 5 MG TAB PO PRN (00:31)
[2018-07-24 00:34] LABS: Bacteria/HPF None Seen HPF (None Seen); Squamous Epithelial 0-3 HPF (0-3); WBC/HPF 0-3 HPF (0-3)
[2018-07-24 00:35] LABS: Pathc Cast-AUWi Flag 4.89 (0-2.49)
[2018-07-24] MEDS: Piperacillin/Tazobactam 3.375 GM in Sodium Chloride 0.9% 100 ML IVPB SCH ×5 (00:41→22:39)
[2018-07-24 00:43] LABS: Other Casts/LPF 0-3 COARSE GRAN LPF (0-3 Hyaline)
[2018-07-24] MEDS ORDERED: Diazepam 5 MG TAB ONE (00:44)
[2018-07-24] MEDS ORDERED: Diazepam 5 MG TAB PO SCH (00:45)
[2018-07-24] MEDS ORDERED: Thiamine HCl 200 MG/2 ML VIAL IM SCH (00:45)
[2018-07-24 00:49] LABS: INR-International Normal Ratio 2.3; Prothrombin Time 25.4 SEC (12.0-14.7)
[2018-07-24 01:16] LABS: Troponin I 0.022 ng/mL (< 0.028)
--- NOTE | 2018-07-24 02:39 | HP ---
PRIMARY CARE PHYSICIAN: Kenroy Ring MD. CHIEF COMPLAINT: The patient is complaining of stomach pain for the last couple of weeks as well as drainage from his left shoulder. HISTORY OF PRESENT ILLNESS: Mr. Ring is a pleasant 72-year-old gentleman who has a complex past medical history. He has a history of recurrent left shoulder infections which initially started back in 2016 after he had a steroid injection in his shoulder. He has had multiple episodes of infection in the shoulder and in the humerus. He had osteomyelitis and had to have the head of the humerus surgically removed. He has had multiple hospitalizations and long-term IV antibiotics with regard to the shoulder infection. He had been placed on oral antibiotics and he says that he ran out of the antibiotics and had been taking them sporadically and not as directed and had been out of them for sometime and he says that he has noticed drainage from the left shoulder. He says generally in a 24-hour period , he will soak up gauze with pus in the left shoulder and has also been hurting more. Also in the last 2 weeks, he has been having epigastric pain. He says it hurts all the time. The pain is about an 8 to 10 out of 10 and he says it is like a band across his abdomen. He has had no nausea, no vomiting, no fever, no chills, but he does admit that it is worse after eating. He says sometimes M[place] will help, but only helps for just a few minutes. He admits that he drinks alcohol to try to alleviate the pain. He says 7 months ago, he was taken off hydrocodone and as a result, he has been drinking at least 3 to 4 shots a day of whiskey or even more in order to help with the pain. He also notes some pain in his left leg. He says he has no circulation in either leg and has noted increasing swelling in the leg. He also says that it is hard to breathe at times. When asked if he has had any pain in his chest, he denies this. If asked if he had any palpitation, he also denies this as well. REVIEW OF SYSTEMS: Essentially as the history of present illness. PAST MEDICAL HISTORY: Significant for recurrent left shoulder infection as well as osteomyelitis, hypertension, atrial fibrillation, transient ischemic attack as well as alcoholism, and COPD. PAST SURGICAL HISTORY: He had resection of the left humeral head and multiple surgeries. ALLERGIES: TO CEFAZOLIN AND RIFAMPIN. FAMILY HISTORY: Significant for COPD in his mother and father had liver disease. SOCIAL HISTORY: He is a . He is a former smoker, he quit 15 years ago; prior to that he smoked pipes. He has 3 children and his stepson's 5 children live with him. He would like to be a full code. He has not designated anybody to be a surrogate decision maker. He does drink at least 3 to 5 shots a day. CURRENT MEDICATIONS: Include; 1. Metformin, which he does not take regularly as well as lisinopril, which he also does not take regularly. 2. Aspirin. 3. Motrin. 4. Benadryl/. 5. Some antibiotics, either Cipro or doxycycline. 6. Vitamins. 7. Iron. PHYSICAL EXAMINATION: GENERAL: He is alert and oriented. He appears to be in no acute distress. He is a bit disheveled in appearance. VITAL SIGNS: Blood pressure was 101/80, heart rate initially was 120 and irregular, respiratory rate of 24, and he is afebrile. HEENT: Pupils are equal, round, and reactive. Extraocular muscles are intact. His sclerae are anicteric. Throat, there is no erythema and no exudates. NECK: No adenopathy, no bruits. LUNGS: He has bilateral rhonchi and some mild expiratory wheezing. Decreased breath sounds at the bases. CARDIOVASCULAR: Heart sounds is a bit distant, is irregular. No murmurs, clicks, or rubs. ABDOMEN: Soft. He has some epigastric as well as right upper quadrant tenderness. The liver edge is palpable and tender. He has positive bowel sounds. There is no rebound, no guarding, no organomegaly. EXTREMITIES: There is no edema. He does have some erythema in the left lower extremity as well as some mild erythema. His left foot is a bit cooler than the right. There is no palpable pulse, but no significant skin lesions. NEUROLOGIC: His cranial nerves are intact. SKIN AND INTEGUMENT: He has some pus draining from the left shoulder. There is a small open area in anterior and shoulder deformity and scar formation there, but no induration, no erythema. LABORATORY DATA: White blood cell count 6.7, hemoglobin 15.7, hematocrit is 50.8, and platelet count is 200. Sodium 135, potassium 4.0, chloride is 99, CO2 is 23 , BUN of 43, creatinine 1.7, glucose is 119, total bilirubin is 1.7, AST is 1397, ALT is 879, alkaline phosphatase is 167. CK is 222. IMAGING STUDIES: EKG by my reading is atrial fibrillation with rapid ventricular response. ASSESSMENT: This is a pleasant 72-year-old gentleman who presents with multiple medical problems; His major presenting complaint was the epigastric pain. He has a hepatitis picture with elevated transaminases as well as an elevation in his bilirubin. This is in the setting of the patient who drinks fairly heavily. 1. Alcoholic Hepatitis He will be admitted to telemetry and we will consult GI. An abdominal ultrasound has been ordered and we will need to avoid any Tylenol or acetaminophen products. Will check his PT/INR, i suspect this will be elevated. Will also need to calculate his discriminant function. He will also need to be placed on an ASE protocol for potential alcohol withdrawal. 2. Atrial fibrillation with rapid ventricular response. He has already been placed on a Cardizem drip. We will continue this. Get an echocardiogram if it has not been done recently and consult Cardiology for further recommendations. Will hold on anticoagulation, as I suspect he may be auto-anticoagulated. 3. Chronic left shoulder osteomyelitis and infection. He has been noncompliant on his chronic suppressive antibiotics. Since he has a history of methicillin-resistant Staphylococcus aureus in the shoulder, we will place him on vancomycin and Zosyn has already been started as well and consult Infectious Disease specialist, Dr. Hernandez for further recommendations. 4. Hypertension. Currently, his blood pressure is controlled on the Cardizem drip. We will re-establish his medications as needed. 5. [id number] kidney injury. This is likely cardiovascular mediated. We will trend his creatinine. His natriuretic peptide is elevated and for this reason, we will not place him on any maintenance fluids. Further recommendations to follow. Job ID: [id number] MTDD
[2018-07-24 04:27] LABS: #Basophils 0.1 thou/uL (0.0-0.2); #Eosinphils 0.2 thou/uL (0.0-0.7); #Monocytes 0.7 thou/uL (0.11-0.59); #Neutrophils 3.6 thou/uL (1.40-6.50); %Basophils 0.8 % (0.0-1.0); %Eosinophils 2.5 % (0.0-10.0); %Lymphocytes 31.2 % (21.0-51.0); %Monocytes 11.1 % (0.0-10.0); %Neutrophils 54.4 % (42.0-75.0); Hemoglobin 12.8 g/dL (14.0-18.0); Mean Corpuscular HGB CONC 30.7 g/dL (32.0-36.0); Mean Corpuscular Hemoglobin 27.9 pg (27.0-31.0); Mean Corpuscular Volume 90.9 fL (78.0-98.0); Mean Platelet Volume 8.4 fL (7.4-10.4); Platelet Count 186 thou/uL (130-400); Red Blood Cell (RBC) Count 4.58 mill/uL (4.70-6.10); White Blood Cell (WBC) Count 6.5 thou/uL (4.8-10.8)
[2018-07-24 04:54] LABS: ALT (SGPT) 636 U/L (8-55); AST (SGOT) 880 U/L (5-34); Albumin 2.5 g/dL (3.4-4.8); Alkaline Phosphatase 140 U/L (40-150); Anion Gap 15 mmol/L (10-20); BUN (Urea Nitrogen) 37 mg/dL (8.4-25.7); Bilirubin, Total 1.2 mg/dL (0.2-1.2); Calc. Creatinine Clearance 0 mL/min (70-130); Calcium 7.2 mg/dL (7.8-10.44); Carbon Dioxide 17 mmol/L (23-31); Chloride 105 mmol/L (98-107); Estimated GFR-MDRD 56; Globulin 2.6 g/dL (2.4-3.5); Glucose 118 mg/dL (83-110); Potassium 2.9 mmol/L (3.5-5.1); Protein, Total 5.1 g/dL (5.8-8.1); Sodium 134 mmol/L (136-145)
--- NOTE | 2018-07-24 07:33 | RAD ---
2 views chest: 07/24/2018 COMPARISON: 12/13/2015 HISTORY: Shortness of breath FINDINGS: Mild pulmonary vascular prominence. Blunting of bilateral costophrenic angle suggests small bilateral pleural effusions. Cardiac silhouette is prominent. Multilevel lower thoracic spine degenerative change. The left humeral head is absent which could be on the basis of prior surgery, tr auma, and/or infection. IMPRESSION: Small bilateral pleural effusions. No alveolar edema. Absent left humeral head.
[2018-07-24] MEDS ORDERED: Potassium Chloride 20 MEQ TAB PO SCH (09:30)
[2018-07-24] MEDS ORDERED: Thiamine 100 MG TAB ONE (09:47)
[2018-07-24] MEDS ORDERED: Folic Acid 1 MG TAB ONE (09:47)
[2018-07-24] MEDS ORDERED: Famotidine 20 MG TAB ONE (09:47)
[2018-07-24] MEDS: Multivitamin W/ Minerals 1 TAB PO SCH (09:54)
[2018-07-24] MEDS: Folic Acid 1 MG TAB PO SCH (09:54)
[2018-07-24] MEDS: Thiamine 100 MG TAB PO SCH (09:54)
[2018-07-24] MEDS: Famotidine 20 MG TAB PO SCH (09:54)
[2018-07-24] MEDS ORDERED: Clindamycin/D5W 900 MG in Premix Bag 1 BAG IVPB SCH (10:30)
--- NOTE | 2018-07-24 11:15 | ULT ---
Bilateral lower extremity venous Doppler ultrasound: 07/24/2018 COMPARISON: None HISTORY: Concern for DVT, surgery tomorrow TECHNIQUE: Multiplanar grayscale sonographic imaging of the venous structures of the bilateral lower extremities obtained with color flow and spectral analysis FINDINGS:Bilateral common femoral vein, greater saphenous vein, profunda femoral vein, femoral vein, popliteal vein, and posterior tibial vein appear patent. Normal blood flow, augmentation, and compression within the deep venous system. No evidence for DVT. Cystic structure in left popliteal fossa measures 5.2 x 0.9 x 2.7 cm, suggesting a Mcgill's cyst. IMPRESSION: No evidence for deep venous thrombosis of either lower extremity.
--- NOTE | 2018-07-24 15:39 | PDOC.PN ---
- Subjective Encounter Start Date: 07/24/18 Encounter Start Time: 15:37 Mr. Ring was seen today in follow-up of left shoulder infection, and abdominal pain. He says he is feeling better. He says his appetite is beginning to improve. He denies chest pain or difficulty breathing. - Objective Resuscitation Status - Order Detail: 07/23/18 20:37 Resuscitation Status Routine Resuscitation Status: FULL: Full Resuscitation MAR Reviewed: Yes Vital Signs & Weight: Vital Signs (12 hours) Temp Pulse Resp BP Pulse Ox 07/24/18 14:39 97.5 F L 102 H 18 129/85 97 Weight Weight 196 lb 14.4 oz Result Diagrams: 07/24/18 03:46 07/24/18 03:46 Phys Exam - Physical Examination HEENT: PERRLA Respiratory: no wheezing, no rales, no rhonchi, clear to auscultation bilateral Cardiovascular: no rub, irregular 2/6 systolic murmur Gastrointestinal: soft, non-tender, no distention, positive bowel sounds Musculoskeletal: edema present mild erythema, and pulses are not present Dx/Plan (1) Hepatitis Status: Acute (2) Afib Code(s): I48.91 - UNSPECIFIED ATRIAL FIBRILLATION Status: Acute (3) Infection of shoulder Code(s): M00.9 - PYOGENIC ARTHRITIS, UNSPECIFIED Status: Chronic (4) Alcohol abuse Code(s): F10.10 - ALCOHOL ABUSE, UNCOMPLICATED Status: Chronic Comment: Monitor for withdrawal symptoms, Ativan prn (5) DM type 2 (diabetes mellitus, type 2) Status: Chronic Qualifiers: Diabetes mellitus terminal system operator insulin use: without terminal system operator use Diabetes mellitus complication status: without complication Qualified Code(s): E11.9 - Type 2 diabetes mellitus without complications Comment: At goal. Continue Accuchecks and insulin sliding scale. (6) HTN (hypertension) Code(s): I10 - ESSENTIAL (PRIMARY) HYPERTENSION Status: Chronic Qualifiers: Comment: Controlled and at goal. - Plan * Hepatitis- likely alcoholic- his liver function tests are a bit improved today * GI work-up to rule out other causes is in progress * Atrial fibrillation with RVR- his heart rate is controlled on IV Cardizem drip * He is auto-anticoagulated. Echo is pending * Acute on chronic Left Shoulder infection- continue Vancomycin and Zosyn- Orthopedic and ID evaluations in progress * HTN- blood pressure is stable * Alcohol abuse- brief counseling given
[2018-07-24 15:48] LABS: Acetaminophen Less than 6.0 mcg/mL (10.0-30.0); Salicylate 8.8 mg/dL (15.0-30.0)
[2018-07-24 16:08] LABS: HBCM Index 0.07 S/CO (0-0.79); HBSAg Index 0.39 S/CO (0-0.99); Hep A IgM AB Non-Reactive (NonReactive); Hep A IgM S/CO 0.37 S/CO (0-0.79); Hep B Surf Ag Non-Reactive S/CO (NonReactive); Hep C IgG Ab Non-Reactive (NonReactive); Hep C Index 0.04 S/CO (0-0.79); Hepatitis B Core IgM Abs Non-Reactive (NonReactive)
--- NOTE | 2018-07-24 16:22 | CON ---
DATE OF CONSULTATION: 07/24/2018 REASON FOR CONSULTATION: Atrial fibrillation with RVR. HISTORY OF PRESENT ILLNESS: Mr. Ring is a pleasant 72-year-old white gentleman, who I have seen in the past, who comes to the hospital for left shoulder pain. He has chronic infection in his left shoulder and recently was taken off his pain medications. He has been drinking a lot more, drinking about four shots of whiskey a day, he states to make the pain go away. He was admitted here in 2016 for perforated viscus. He was taken to the OR and in the postoperative stay, he developed atrial fibrillation RVR, thus when I got involved. He was treated conservatively with medications and amiodarone. He was discharged home eventually in sinus rhythm. I saw him one time in the office, offered him stress testing and echo and he never showed up. Currently, he comes in for the shoulder pain. He states that recently he started having abdominal pain as well. He was seen in the ER and was found to be in atrial fibrillation RVR, started on diltiazem, so Cardiology has been consulted for this. PAST MEDICAL HISTORY: 1. Paroxysmal atrial fibrillation. 2. Alcohol abuse. 3. COPD. 4. Shoulder issues as well. SURGICAL HISTORY: 1. Abdominal exploratory laparotomy at age 14. 2. Shoulder injection with steroids. 3. Exploratory laparotomy and duodenal ulcer repair in 2015. 4. Superficial soft tissue incision and drainage. 5. Several debridements of synovial cyst in the left shoulder . 6. Repeat incision and drainage in 2017 about a year later. OUTPATIENT MEDICATIONS: 1. Sertraline. 2. Florastor. 3. Bactroban. 4. . 5. Minocycline. 6. Lopressor. 7. Lisinopril. 8. Hydrocodone. 9. Ferrous sulfate. 10. Famotidine. 11. Cipro. 12. Aspirin. ALLERGIES: CEFAZOLIN GIVES SWELLING. FAMILY HISTORY: Noncontributory. 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 Smoked up to two packs a day, but quit several years back. He drinks about 4 to 6 drinks a day. REVIEW OF SYSTEMS: A 12-point review of systems was done and was found to be negative unless stated in history of present illness. PHYSICAL EXAMINATION: VITAL SIGNS: Temperature 97.5, pulse 102, respiratory rate 18, saturating 97% on room air, and blood pressure 129/85. GENERAL: Awake, alert, and oriented x3. No distress. HEENT: Normocephalic and atraumatic. NECK: Supple. LUNGS: Clear. CARDIOVASCULAR: S1 and S2. No S3 or S4. No murmurs. ABDOMEN: Soft. Positive bowel sounds. EXTREMITIES: Trace edema. SKIN: Warm and dry. LABORATORY DATA: Laboratory work was reviewed. CBC, coags and chemistries were reviewed. Potassium at 2.9 compared to 4.0 yesterday. An AST and ALT are very elevated actually on the way down. Troponin is negative x3. BNP was 1261. UA was unremarkable except for bilirubin and proteins. Lower extremity venous ultrasound showed no evidence of DVT. There is a popliteal fossa cyst suggestive of Mcgill's cyst. Chest x-ray, pleural effusions, but no alveolar edema. ASSESSMENT AND PLAN: 1. Atrial fibrillation with rapid ventricular rate. We will opt for rate control at this time. He is not a good candidate for any anticoagulation given his noncompliance and his alcohol use. 2. Shortness of breath. We will get an echocardiogram to make sure that his LV function remains normal, which it was in the past. 3. Abdominal pain. Abdominal ultrasound done yesterday evening suggested the right pleural effusion, otherwise unremarkable. Thank you for letting me to participate in the care of your patient. We will follow. Job ID: [id number]
[2018-07-24] MEDS ORDERED: Dextrose 5% in Water 1,000 ML IV PRN (16:34)
[2018-07-24] MEDS ORDERED: Dextrose 50% Abboject 50 ML SYRINGE SLOW IVP PRN (16:34)
[2018-07-24] MEDS ORDERED: HumaLOG 300 UNITS/3 ML VIAL SC PRN (16:34)
[2018-07-24] MEDS: Vancomycin HCl 1.75 GM in Sodium Chloride 0.9% 500 ML IVPB SCH (17:51)
--- NOTE | 2018-07-24 22:03 | CON ---
DATE OF CONSULTATION: 07/24/2018 REASON FOR CONSULTATION: Elevated LFTs/shock liver. CONSULTING PROVIDER: Leonard Schmidt MD. HISTORY OF PRESENT ILLNESS: The patient is a 72-year-old male with past medical history of osteomyelitis of the left shoulder, on chronic antibiotic suppressive therapy, hypertension, atrial fibrillation, TIA, COPD, alcoholism, and chronic kidney disease, presenting with complaints of right upper quadrant abdominal pain and noted to have elevated liver function tests on labs. He states that he was in his usual state of health until approximately 4 to 5 days ago when he experienced the acute onset of right upper quadrant abdominal pain. He characterizes a sharp type pain radiating to the midepigastric and right mid abdomen, was constant with waxing/waning severity, and reached a 9/10 severity. The pain was worse with eating/drinking any particular food stuff as well as pressure to the region, better with taking Machel[place] and NSAIDs. Of note, the patient had been taking increased NSAIDs as an outpatient due to chronic back pain, for which he had been previously taking hydrocodone. Over the last few weeks, he had been taking approximately three full-strength aspirin daily for at least the last 7 days as well as 400 mg of ibuprofen daily for at least the last 7 days. Associated with his increased right upper quadrant abdominal pain with increased shortness of breath at rest as well as dyspnea on exertion. Currently, he denies any nausea, vomiting, fevers, chills, GI bleeding, dysphagia, odynophagia, or weight loss. Of note, he was recently diagnosed with right lower extremity deep vein thrombosis, but it is unclear whether or not he was placed on anticoagulation therapy for this particular condition (the patient is a poor historian). REVIEW OF SYSTEMS: A 10-category review of systems was obtained with all responses negative except for the pertinent positives as listed in HPI. PAST SURGICAL HISTORY: Resection of the left humeral head and multiple shoulder surgeries secondary to osteomyelitis, cholecystectomy. FAMILY HISTORY: Father diagnosed with chronic liver disease (unknown type), otherwise denies any GI malignancies. SOCIAL HISTORY: Currently denies any tobacco or illicit drug use. However, he drinks approximately 4 glasses of wine daily, 4-5 shots of liquor daily as well as 1-2 beers daily. OUTPATIENT MEDICATIONS: Reviewed. ALLERGIES: CEFAZOLIN, RIFAMPIN. PHYSICAL EXAMINATION: VITAL SIGNS: Heart rate 93, blood pressure 104/68, respiratory rate 15, saturating 98% on room air. GENERAL: The patient was lying in bed, in no acute distress. Alert and oriented x4, although speech was somewhat garbled and difficult to understand at times. HEENT: Normocephalic, atraumatic. No scleral icterus noted. CARDIOVASCULAR: Difficult to discern heart sounds, but regular rate and rhythm with no discernible murmurs, gallops, or rubs. RESPIRATORY: Decreased breath sounds in the bilateral lower lung bases, otherwise clear to auscultation bilaterally. ABDOMEN: Normoactive bowel sounds. Soft, nondistended. Tenderness to palpation in the right upper quadrant and midepigastric regions. EXTREMITIES: 2+ edema extending to above the knee on bilateral lower extremities. Otherwise, no cyanosis or clubbing. LABORATORY DATA: CBC with a white blood cell count of 6.5, hemoglobin 12.8, hematocrit 41.6, platelets 186. INR 2.3. BNP 1268. Chemistry with a sodium of 134, potassium 2.9, chloride 105, CO2 of 17, BUN 37, creatinine 1.25, glucose 118, AST 880, ALT 636, alkaline phosphatase 140, total bilirubin 1.2, albumin 2.5. IMAGING DATA: Right upper quadrant ultrasound obtained on July 23, 2018, showed the common bile duct at 4 mm in size with surgically absent gallbladder. Also noted on the ultrasound was a right pleural effusion. Chest x-ray obtained on July 24, 2018, showed mild pulmonary vascular prominence as well as small bilateral pleural effusions. Lower spine DJD was also noted. ASSESSMENT AND PLAN: The patient is a 72-year-old male with past medical history of osteomyelitis of the left shoulder, hypertension, atrial fibrillation, transient ischemic attack, chronic obstructive pulmonary disease, chronic kidney disease, and chronic alcoholism, presenting with significantly elevated liver functions tests/shock liver. Elevated transaminases/shock liver: The patient is presenting with a recent history of increased right upper quadrant abdominal pain characterized as a sharp type sensation radiating to the midepigastric region and constant in its severity. On admission to the ER for evaluation of this right upper quadrant abdominal pain, he was noted to have significantly transaminases with his AST reaching as high as 1397 and ALT 879 (both of which are currently downtrending). He also endorses a recent history of significant NSAID use coupled with chronic alcoholism, which could further contribute to his transaminitis at this time. However, he also does have elements of pulmonary edema seen on ultrasound and chest x-ray as well as a significantly elevated BNP concerning for congestive heart failure. At this time, the etiology of his elevated LFTs is unknown. However, the differential could include medication/toxin induced (recent increased NSAID use), congestive hepatopathy due to worsening congestive heart failure, infection, or vascular insufficiency related to either congestive heart failure or otherwise. RECOMMENDATIONS: 1. We would continue to trend LFTs and INR daily to determine response to treatment and/or possible liver failure. 2. We would continue serial neurological exams daily as hepatic encephalopathy could be a harbinger of worsening hepatic function. 3. We would avoid all NSAIDs during this admission and we will draw a salicylate and acetaminophen level for possible toxin mediated liver injury. 4. We will obtain an acute hepatitis workup including viral hepatitis, ceruloplasmin, antinuclear antibody, and antismooth muscle antibody, which could potentially contribute to this elevation. I will also draw CMV and Timothy-Montalvo virus as well. 5. We would recommend cardiology consult with possible echo for evaluation of cardiac function contributing to possible congestive hepatopathy. 6. Agree with placement of the patient on withdrawal protocol given his significant alcohol history. 7. Given his right upper quadrant abdominal pain and recent NSAID use, it is mildly concerning for the possibility of peptic ulcer disease, but given his pulmonary edema, I will hold off on upper endoscopy at the current time. We would consider CT of the abdomen and pelvis for further evaluation of the GI tract for this reason. We will continue to follow. Please call with any questions. Job ID: [id number]
[2018-07-24] MEDS ORDERED: Temazepam 15 MG CAP PO PRN (22:57)
--- NOTE | 2018-07-25 00:35 | CON ---
DATE OF CONSULTATION: 07/24/2018 REASON FOR CONSULTATION: Recrudescence of left shoulder inflammatory process and abdominal pain. HISTORY OF PRESENT ILLNESS: A 72-year-old patient, who has had multiple re-admissions for the same problem within the recent past, history of alcoholism , COPD, atrial fibrillation, and left shoulder dislocations with numerous prior interventions. Initial infection with propionibacterium and then Staphylococcus aureus and then Streptococcus group G. He has been treated with surgical intervention and 3 courses of IV antimicrobial therapy, eventually had resection of the shoulder with spacer. He continues with drainage chronically intermittently. In 07/2017, he presented with worsening drainage and pain. Dr. Thurston did irrigation and debridement of left shoulder open wound, and the operative report is reviewed now and incision was distally extended between the deltopectoral interval onto the humeral head and it did not have any undermining. The midline of the humerus was dissected medially and laterally, circumferentially around the proximal humerus. The entire proximal humerus was exposed. The entire humeral head was removed. The glenoid was exposed, and this was curetted out. Healthy bleeding granulation looking tissue was left. There was a washout and then some more curetting was accomplished. Cultures at that time yielded coagulase negative Staph, Serratia marcescens, and Staphylococcus epidermidis. The patient was discharged with eight weeks of treatment with Rocephin and vancomycin. The plan was to switch him to suppression doxycycline indefinitely after that. He was transferred to [facility], and Dr. Ring took over the care of the patient and he finished the treatment course there. Discharge medications included Cipro and minocycline, and the patient did not come for followup after that and now one year later, he presents with worsening drainage in the left shoulder. He also has some abdominal cramps, although no reported diarrhea. The drainage in left shoulder is yellow in perfuse and saturates the gauze padding placed in the wound. The wound still has slit-like opening. He continues to drink alcoholic beverages, usually five to six drinks per day and he also noted swelling of lower extremities, which is moderate. PAST MEDICAL HISTORY: COPD, atrial fibrillation, TIAs, hypertension, chronic smoking, and left shoulder chronic infection with various organisms and eventual development of osteomyelitis. The pathology from the last surgery in July last year showed focal resolving osteomyelitis with granulation tissue and fibrosis. The margin negative for necrosis and negative for acute inflammation. PAST SURGICAL HISTORY: As above. ALLERGIES: CEFAZOLIN AND RIFAMPIN. FAMILY HISTORY: COPD and liver disease. SOCIAL HISTORY: . Former smoker, quit many years ago. He used to smoke pipes. Drinks daily, 4 to 5 shots of whiskey, sometimes more. CURRENT MEDICATIONS: 1. Clindamycin. 2. Diltiazem. 3. Famotidine. 4. Glucagon. 5. Insulin. 6. Lorazepam. 7. Zosyn. 8. Vancomycin. PHYSICAL EXAMINATION: VITAL SIGNS: T-max 97.5, blood pressure 120/85, pulse 102, respirations 18, and O2 saturation 97%. SKIN: Shows the left shoulder slit-like wound opening with kind of a grayish drainage in relatively perfuse amount. His legs are erythematous and a very symmetric distribution of the erythema in a circumferential distribution all the way from the tips of the toes to the area below the right and left knee. There is some onychodystrophy noted. No areas of open wounds in the lower extremities. The patient has a peripheral IV access and is voiding in the toilet. GENERAL: Disheveled, oriented, alert. HEENT: Ocular movements conjugate. Sclerae white. Pupils are equal. Oral cavity with few remaining teeth with marked decay. Oral cavity mucosa is moist. NECK: Supple. No jugular venous distention or carotid bruits. No thyromegaly. LUNGS: With symmetric air entry. HEART: S1, S2. Irregular rate. ABDOMEN: Soft, not distended or tender. EXTREMITIES: Left shoulder is not erythematous. There are deformities associated with past surgeries. It is markedly tender. Pulses are 1+ in popliteal and dorsalis pedis. Cap refill is normal. There is 1+ edema in lower extremities. He is able to move extremities equally. NEUROLOGIC: He is oriented, follows commands. LABORATORY DATA: White cell count of 6.7 and 6.5, hemoglobin 12.8, and platelets 186. Chemistry with sodium 134 and creatinine 1.25, which is down from admission. His AST was 1397, down to 880. ALT was 879, down to 636. Alkaline phosphatase was 167 and now is 140. Lipase was 12. Albumin 3.2. Urinalysis with 0 to 3 wbc's , 100 protein. Microbiology; two sets of blood cultures pending, shoulder, preliminary Gram stain with no organisms seen, no growth at 12 hours. Chest x-ray with small bilateral pleural effusions and there is an abdomen ultrasound with cholecystectomy and right pleural effusion. ASSESSMENT: 1. Chronic obstructive pulmonary disease. 2. 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 Chronic left shoulder infection with previous extensive interventions including resection of the proximal humerus and pathology demonstrated resolving chronic osteomyelitis. This has been associated with numerous different pathogens isolated from the site. The patient had been on chronic suppressive therapy. 4. Abdominal cramps. 5. Worsening drainage, left shoulder. 6. Stasis dermatitis in lower extremities. DISCUSSION: The patient comes again with this refractory process. He is going to have surgical intervention. A repeat MRI may be considered to re-evaluate the area. The previous MRI was done in last year, about a year ago approximately and it showed open communication of the left glenohumeral joint to the left anterolateral shoulder skin surface and osteomyelitis of the proximal left humerus with persistent septic arthritis of left glenohumeral joint. He may have now osteomyelitis of the scapula/glenoid. Clindamycin will be discontinued. Continue Zosyn and vancomycin and we will await for the culture results and go from there. The abdominal cramps increase the concern for possibility of C difficile in view of this chronic suppression with Cipro and minocycline. Another possibility is pain associated with alcoholic hepatitis. Drug induced hepatitis would be another possibility. Job ID: [id number] [facility]
--- NOTE | 2018-07-25 01:21 | CON ---
DATE OF CONSULTATION: 07/24/2018 HISTORY OF PRESENT ILLNESS: Mr. Ring is a 72-year-old male well known to my service with history of multiple I and D's of left shoulder with osteomyelitis of left shoulder with multiple periods of IV antibiotics. The patient most recently had vein wound healed, but then has now recently unsealed from a cavitary sinus from his subdeltoid recess from the hole from his previous removal of his humeral head. The patient presents back after being lost to follow up for over half a year. The patient is currently being evaluated by Medicine for multiple medical problems, which include atrial fibrillation, diabetes, alcoholism, hypertension, hepatitis. The patient got a left chronic draining sinus. The patient is currently worked up by Medicine for his cardiac issues as well as abdomen. PAST MEDICAL HISTORY: Includes osteomyelitis, left shoulder; atrial fibrillation; TIA; alcoholism; COPD. PAST SURGICAL HISTORY: Left humeral head resection, multiple I and D's with chronic course of antibiotics. ALLERGIES: CEFAZOLIN AND RIFAMPIN. CURRENT MEDICATIONS: See medications list. SOCIAL HISTORY: , former smoker, 3 children. Lives with his stepson. He is full code. The patient has history of alcoholism. PHYSICAL EXAMINATION: VITAL SIGNS: 98, 112, 18 rate, 97% on room air, 132/87. GENERAL: Alert and oriented male in no acute distress. EXTREMITIES: Left arm, the patient has a 3 cm draining sinus through his deltopectoral incision. He has brisk cap refill. The patient is neurovascularly intact distally. LABORATORY VALUES: Showing a white count of 6.5, hemoglobin and hematocrit of 12 and 41. The patient has INR of 2.3, potassium 2.9, and a sodium of 134. His troponins have downtrended. The patient's AST and ALT are also elevated at 880 and 636. He has elevated liver enzymes. The patient's cultures have already been sent from the shoulder and blood cultures. Ultrasound of his leg was negative. IMPRESSION: recurrent infection, left shoulder with multiple medical problems. ASSESSMENT AND PLAN: Plan would be to take the patient for an I and D of the left shoulder tomorrow. If at all possible, need medical clearance before proceeding. The patient's INR is not therapeutic. For an unknown cause, his potassium is off. The patient is currently septic and has a history of a chronic draining sinus, therefore we will await medicine's recommendations that potentially can not be done tomorrow, we will put off until early next week. The patient will tentatively be placed n.p.o. and resolve the patient's supratherapeutic INR, which is potentially secondary to his liver disease. We will plan to discuss this care tomorrow further with Medicine, then he will be made n.p.o. at midnight for surgery tomorrow. Job ID: [id number] [facility]
[2018-07-25] MEDS: Piperacillin/Tazobactam 3.375 GM in Sodium Chloride 0.9% 100 ML IVPB SCH ×4 (03:18→22:48)
[2018-07-25] MEDS ORDERED: Diazepam 5 MG TAB PO PRN (04:00)
[2018-07-25 04:52] LABS: #Eosinphils 0.2 thou/uL (0.0-0.7); #Lymphocytes 0.7 thou/uL (1.20-3.40); #Monocytes 0.3 thou/uL (0.11-0.59); #Neutrophils 3.1 thou/uL (1.40-6.50); %Basophils 0.6 % (0.0-1.0); %Eosinophils 4.3 % (0.0-10.0); %Lymphocytes 15.7 % (21.0-51.0); %Monocytes 7.4 % (0.0-10.0); Hemoglobin 14.3 g/dL (14.0-18.0); Mean Corpuscular Hemoglobin 28.4 pg (27.0-31.0); Mean Corpuscular Volume 88.6 fL (78.0-98.0); Mean Platelet Volume 7.9 fL (7.4-10.4); Platelet Count 162 thou/uL (130-400); RBC Distribution Width 16.3 % (11.5-14.5); Red Blood Cell (RBC) Count 5.04 mill/uL (4.70-6.10); White Blood Cell (WBC) Count 4.4 thou/uL (4.8-10.8)
[2018-07-25 04:58] LABS: INR-International Normal Ratio 1.6; Prothrombin Time 19.2 SEC (12.0-14.7)
[2018-07-25 05:17] LABS: ALT (SGPT) 531 U/L (8-55); AST (SGOT) 551 U/L (5-34); Albumin 2.9 g/dL (3.4-4.8); Alkaline Phosphatase 151 U/L (40-150); Anion Gap 13 mmol/L (10-20); BUN (Urea Nitrogen) 34 mg/dL (8.4-25.7); Calc. Creatinine Clearance 77 mL/min (70-130); Calcium 8.3 mg/dL (7.8-10.44); Carbon Dioxide 24 mmol/L (23-31); Chloride 101 mmol/L (98-107); Estimated GFR-MDRD 68; Glucose 110 mg/dL (83-110); Potassium 3.2 mmol/L (3.5-5.1); Protein, Total 5.9 g/dL (5.8-8.1); Sodium 135 mmol/L (136-145)
[2018-07-25] MEDS: Famotidine 20 MG TAB PO SCH (09:17)
[2018-07-25] MEDS: Thiamine 100 MG TAB PO SCH (09:17)
[2018-07-25] MEDS: Multivitamin W/ Minerals 1 TAB PO SCH (09:17)
[2018-07-25] MEDS: Magnesium Oxide 400 MG TAB PO SCH (09:17)
[2018-07-25] MEDS: Folic Acid 1 MG TAB PO SCH (09:18)
--- NOTE | 2018-07-25 13:10 | CON ---
DATE OF CONSULTATION: 07/25/2018 HISTORY OF PRESENT ILLNESS: Mr. Ring is a 72-year-old male, well known to my service, with history of chronic left shoulder infection and osteomyelitis, status post humeral head resection, who presents with left shoulder drainage about 2 weeks. The patient is currently being treated by Medicine for hepatitis, diabetes, alcoholism, dehydration and poor nutrition. The patient's INR is elevated. He is resting comfortably in bed. PHYSICAL EXAMINATION: VITAL SIGNS: 99, 109, 18, 114/81. GENERAL: Alert and oriented male, in no acute distress. EXTREMITIES: Left shoulder, wound VAC in place. Neurovascularly intact distally. Brisk cap refill. 2+ pulse. LABORATORY DATA: The patient's white count is 4.4, H and H are 14 and 44, and platelets are 162. His INR is now 1.6. AST 531 and AST 551. Potassium 3.2 and glucose 110. Cultures are still pending. IMPRESSION: Chronic left shoulder infection. ASSESSMENT/PLAN: Given the patient who is currently being hydrated, recovering from hepatitis and supratherapeutic INR, I would like to give the patient a period of time to improve his nutritional status as well as his laboratory values before proceeding. I would likely proceed early next week with an I and D of his left shoulder. This is not an acute process, if the patient may needs to go and come, we can repeat it in the future as an outpatient/inpatient readmission. The plan will be to take the patient to surgery early next week, likely on Saturday. We will attempt to make the patient medically optimized preprocedure. I agree with recommendations of Dr. Hernandez for IV antibiotic admission. The plan will be for making cavitary defect, which could be filled by a wound VAC to help try to seal from the bottom up. I will plan for an MRI of the patient's left shoulder to better evaluate potential changes in osteomyelitis. Job ID: [id number]
--- NOTE | 2018-07-25 15:06 | PDOC.PN ---
- Subjective Encounter Start Date: 07/25/18 (f/u elevated lft's) Encounter Start Time: 15:05 Subjective: pt reports he feels like he is dying. Notes that hands are numb right > -: left. Less energy today. - Objective Resuscitation Status - Order Detail: 07/23/18 20:37 Resuscitation Status Routine Resuscitation Status: FULL: Full Resuscitation Vital Signs & Weight: Vital Signs (12 hours) Temp Pulse Resp BP BP Pulse Ox 07/25/18 12:00 97.9 F 101 H 20 133/79 98 07/25/18 08:00 98.1 F 95 18 123/90 98 07/25/18 03:16 99 F 109 H 18 114/81 95 Weight Admit Weight 196 lb 14.4 oz Weight 196 lb 14.4 oz I&O: 07/24/18 07/25/18 07/26/18 06:59 06:59 06:59 Intake Total 560 Output Total 420 Balance 140 Result Diagrams: 07/25/18 04:27 07/25/18 04:27 Additional Labs: Accuchecks 07/25/18 07/25/18 07/24/18 11:05 05:21 21:41 POC Glucose 86 117 H 124 H 07/24/18 16:39 POC Glucose 122 H EKG Reviewed by me: Yes (a fib 90-110's) Phys Exam - Physical Examination Constitutional: NAD Respiratory: no wheezing, no rales, no rhonchi Cardiovascular: no significant murmur, irregular Gastrointestinal: soft, non-tender, positive bowel sounds bilateral hand and LE edema - mild, non-pitting Neurological: non-focal Dx/Plan (1) Afib Code(s): I48.91 - UNSPECIFIED ATRIAL FIBRILLATION Status: Acute (2) Hepatitis Status: Acute (3) Septic arthritis of shoulder, left Code(s): M00.9 - PYOGENIC ARTHRITIS, UNSPECIFIED Status: Acute Qualifiers: Qualified Code(s): M00.9 - Pyogenic arthritis, unspecified (4) Alcohol abuse Code(s): F10.10 - ALCOHOL ABUSE, UNCOMPLICATED Status: Chronic (5) Chronic anemia Code(s): D64.9 - ANEMIA, UNSPECIFIED Status: Chronic Comment: , (6) Chronic obstructive pulmonary disease Status: Chronic (7) DM type 2 (diabetes mellitus, type 2) Status: Chronic Qualifiers: Diabetes mellitus fpc insulin use: without adjunct faculty for medical terminology use Diabetes mellitus complication status: without complication Qualified Code(s): E11.9 - Type 2 diabetes mellitus without complications (8) HTN (hypertension) Code(s): I10 - ESSENTIAL (PRIMARY) HYPERTENSION Status: Chronic Qualifiers: Comment: - Plan * appreciate multiple specialists * GI - lft's improving * Cards - on cardizem gtt with plan for one -time dose diuretic * Ortho - I&D next week * ID - Vanc and zosyn * * replace potassium and check mag in AM with other labs * monitor hand sx - may be related to edema * request PT and OT for likely weakness/deconditioning * continue ASE monitoring and vitamin replacements * * dvt prophy - scd's * gi prophy -continue famotidine * * pt remains at high risk in current condition.
[2018-07-25] MEDS ORDERED: Furosemide 100 MG/10 ML VIAL SLOW IVP SCH (16:00)
--- NOTE | 2018-07-25 16:03 | PDOC.CTH ---
Cardiology Progress Note - Subjective He feels a little more SOB today. HR is better controlled. - Objective Vital Signs Temp Pulse Resp BP BP Pulse Ox 07/25/18 12:00 97.9 F 101 H 20 133/79 98 07/25/18 08:00 98.1 F 95 18 123/90 98 Admit Weight 196 lb 14.4 oz Weight 196 lb 14.4 oz 07/24/18 07/25/18 07/26/18 06:59 06:59 06:59 Intake Total 560 Output Total 420 Balance 140 - Physical Examination General/Neuro: alert & oriented x3, NAD Neck: no JVD present Lungs: unlabored respirations Heart: other: (Irregular) Abdomen: NT/ND Extremities: + edema B (Trace) - Telemetry Telemetry Rhythm: Afib HR 90-100 - Labs Result Diagrams: 07/25/18 04:27 07/25/18 04:27 Troponin/CKMB Troponin I 0.022 ng/mL (< 0.028) 07/24/18 00:35 - Assessment/Plan 1. Afib RVR 2. Dilated CM EF at 20-25%, new onset. 3. Chronic shoulder infection 4. Acute on chronic systolic heart failure. 5. Abnormal LFT's. PLAN: - IV lasix. - Will try to rate control with BB rather than diltiazem given LV dysfunction. - Monitor Ins and outs. - Replace K. - Elevated LFT's may be related to cardiac congestion. Follow levels.
--- NOTE | 2018-07-25 16:26 | MRI ---
MRI OF THE LEFT SHOULDER WITHOUT CONTRAST 07/25/18 INDICATION: History of left shoulder infection. COMPARISON: MR of the left shoulder with and without contrast dated 08/04/17. FINDINGS: Since comparison examination there has been interval resection of the proximal humeral head. There is persistent abnormal marrow signal intensity and irregularity involving the proximal humeral shaft co ncerning for persistent osteomyelitis. There is extensive fluid in the glenohumeral joint that commun icates to a wound of the anterolateral aspect of the shoulder soft tissues. There is fluid distention which extends along the inferior aspect of the glenohumeral joint with extension of fluid, tracking along the latissimus dorsi muscle. There is prominent muscular atrophy of the rotator cuff musculatur e likely related to chronic tears. There is stable ostectomy involving portions of the acromion. IMPRESSION: 1. Interval partial resection of the proximal humeral head and metaphysis with residual abnorma l signal and irregularity involving the cortex of the proximal humerus suspicious for residual osteom yelitis of the proximal humeral shaft. 2. Prominent glenohumeral and periarticular soft tissue fluid collection extending to an open wo und of the anterolateral left shoulder joint. There is some fluid dissecting into the surrounding sof t tissue musculature of the left shoulder with fluid extending down along the superior and lateral a spect of the latissimus dorsi suspicious for periarticular abscess extension. 3. Stable changes of chronic rotator cuff tear and severe atrophy of the rotator cuff musculatur e. 4. Stable postsurgical change consistent with some debridement of portions of the acromial proce ss. 5. Extensive motion artifact limits image detail. POS: ERIKA
[2018-07-25] MEDS: Potassium Chloride 20 MEQ TAB PO SCH (16:34)
[2018-07-25] MEDS: Carvedilol 6.25 MG TAB PO SCH (16:35)
[2018-07-25] MEDS: Vancomycin HCl 1.75 GM in Sodium Chloride 0.9% 500 ML IVPB SCH (17:34)
[2018-07-25] MEDS: HumaLOG 300 UNITS/3 ML VIAL SC PRN (17:41)
[2018-07-25 17:46] LABS: ANA Symphony (Qualitative) Negative (Negative); ANA Symphony (Quantitative) 0.1 Ratio (< 0.7 Negative); dsDNA IgG Antibody Less than 0.5 IU/mL (<10 Negative)
--- NOTE | 2018-07-25 19:27 | PRG ---
DATE OF SERVICE: 07/25/2018 REASON FOR CONSULTATION: Elevated LFTs. SUBJECTIVE: Today, the patient states that he is not feeling very well with increased shortness of breath, general malaise, and numbness in his bilateral upper extremities. He did have a bowel movement earlier today that was semi-solid and liquid in consistency, but did not have any difficulty with defecation. Infectious stool studies have been negative thus far for obvious pathogen. Currently, he denies any nausea, vomiting, fevers, chills, or GI bleeding. OBJECTIVE: VITAL SIGNS: Temperature 98.2, pulse 103, blood pressure 112/73, respiratory rate 18, saturating 97% on room air. GENERAL: The patient is lying in bed, in no acute distress. Alert and oriented x4. CARDIOVASCULAR: Tachycardic rate, but regular rate and rhythm. RESPIRATORY: Clear to auscultation bilaterally. ABDOMEN: Normoactive bowel sounds. Soft, nondistended, mild tenderness to palpation in the right upper quadrant and midepigastric regions. EXTREMITIES: 2+ edema extending to above bilateral knees. Otherwise, no cyanosis or clubbing. LABORATORY DATA: CBC with a white blood cell count of 4.4, hemoglobin 14.3, hematocrit 44.7, platelets 162. INR 1.6. Chemistry with a sodium of 135, potassium 3.2, chloride 101, CO2 of 24, BUN 34, creatinine 1.06, glucose 110. AST 551, ALT 531, alkaline phosphatase 151, total bilirubin 2.0. IMAGING DATA: No current GI imaging is available for review. ASSESSMENT AND PLAN: The patient is a 72-year-old male with past medical history of osteomyelitis of the left shoulder, hypertension, atrial fibrillation, transient ischemic attack, chronic obstructive pulmonary disease, chronic kidney disease, and chronic alcoholism presenting with significantly elevated liver function tests. Elevated LFTs. The patient is presenting with a recent history of increased right upper quadrant abdominal pain occurring shortly prior to his admission to the ER. However, on his evaluation in the ER, he was noted to have significantly elevated transaminases with his AST reaching as high as 1397 and ALT 879. At this time, the rise in his LFTs could be multifold including a recent history of significant increased NSAID use coupled with chronic alcoholism or further compound by possible congestive hepatopathy given his significantly elevated BNP on admission concerning for acute exacerbation of congestive heart failure. Thus far, the liver workup has been negative for acetaminophen toxicity, although he did have the presence of salicylates in his blood stream making the likelihood of this salicylate toxicity a bit more likely. However, autoimmune panels have thus far been negative and chronic viral hepatitis has also been negative as well (in addition to hepatitis A IgM). RECOMMENDATIONS: 1. Would continue to trend LFTs and INR daily to determine response to treatment and/or worsening liver function. 2. Would continue serial neurological exams daily as hepatic encephalopathy could be a harbinger of worsening hepatic function. 3. Would avoid all NSAIDs during this admission. 4. We will follow up on the previously obtained liver workup thus far including ceruloplasmin, antismooth muscle antibody, CMV and EBV titers as well. 5. We will continue to follow. Please call with any questions. Job ID: [id number]
[2018-07-26] MEDS: Piperacillin/Tazobactam 3.375 GM in Sodium Chloride 0.9% 100 ML IVPB SCH ×4 (02:35→22:59)
[2018-07-26 05:27] LABS: #Eosinphils 0.2 thou/uL (0.0-0.7); #Lymphocytes 1.2 thou/uL (1.20-3.40); #Monocytes 0.5 thou/uL (0.11-0.59); %Basophils 0.1 % (0.0-1.0); %Eosinophils 3.7 % (0.0-10.0); %Lymphocytes 25.4 % (21.0-51.0); %Monocytes 9.5 % (0.0-10.0); %Neutrophils 61.3 % (42.0-75.0); Hemoglobin 13.6 g/dL (14.0-18.0); Mean Corpuscular HGB CONC 31.6 g/dL (32.0-36.0); Mean Corpuscular Hemoglobin 28.3 pg (27.0-31.0); Mean Corpuscular Volume 89.8 fL (78.0-98.0); Mean Platelet Volume 8.4 fL (7.4-10.4); Platelet Count 146 thou/uL (130-400); RBC Distribution Width 16.2 % (11.5-14.5); Red Blood Cell (RBC) Count 4.79 mill/uL (4.70-6.10); White Blood Cell (WBC) Count 4.9 thou/uL (4.8-10.8)
[2018-07-26 05:49] LABS: Anion Gap 14 mmol/L (10-20); BUN (Urea Nitrogen) 24 mg/dL (8.4-25.7); Calc. Creatinine Clearance 91 mL/min (70-130); Calcium 7.8 mg/dL (7.8-10.44); Carbon Dioxide 24 mmol/L (23-31); Chloride 100 mmol/L (98-107); Estimated GFR-MDRD 82; Glucose 90 mg/dL (83-110); Magnesium 1.2 mg/dL (1.6-2.6); Potassium 3.2 mmol/L (3.5-5.1); Sodium 135 mmol/L (136-145)
[2018-07-26] MEDS ORDERED: Furosemide 40 MG/4 ML VIAL SLOW IVP SCH ×2 (06:00→09:00)
[2018-07-26] MEDS ORDERED: Magnesium 2 GM/50 ML 2 GM in Premix Bag 1 BAG IVPB SCH (06:45)
--- NOTE | 2018-07-26 06:47 | PDOC.EVN ---
Event Note - Event Note Event Note: Reviewing labs this morning and pt has mag level of 1.2 - 2 grams IV magnesium ordered. Continue potassium replacement as well - current level is 3.2
[2018-07-26] MEDS: Multivitamin W/ Minerals 1 TAB PO SCH (09:46)
[2018-07-26] MEDS: Famotidine 20 MG TAB PO SCH (09:47)
[2018-07-26] MEDS: Folic Acid 1 MG TAB PO SCH (09:47)
[2018-07-26] MEDS: Carvedilol 6.25 MG TAB PO SCH (09:47)
[2018-07-26] MEDS: Magnesium Oxide 400 MG TAB PO SCH (09:47)
[2018-07-26] MEDS: Potassium Chloride 20 MEQ TAB PO SCH ×2 (09:47→18:14)
--- NOTE | 2018-07-26 12:08 | PDOC.CTH ---
Cardiology Progress Note - Subjective The pt seen and examined. No overnight events. No cardiac complaints. - Objective Vital Signs Temp Pulse Resp BP BP BP Pulse Ox 07/26/18 09:47 99/64 07/26/18 04:32 110/78 07/26/18 04:10 97.3 F L 89 18 110/78 95 07/26/18 00:41 86/50 L 07/26/18 00:23 98.1 F 80 18 86/50 L Admit Weight 196 lb 14.4 oz Weight 196 lb 14.4 oz 07/25/18 07/26/18 07/27/18 06:59 06:59 06:59 Intake Total 560 2636.3 Output Total 420 450 Balance 140 2186.3 - Physical Examination General/Neuro: alert & oriented x3 Neck: no JVD present Lungs: CTA Heart: other: (irregular) Abdomen: soft Extremities: other: (2-3+ pitting BLE edema Lt>Rt) - Telemetry Telemetry Rhythm: Afib with PVCs - Labs Result Diagrams: 07/26/18 04:54 07/26/18 04:54 Troponin/CKMB Troponin I 0.022 ng/mL (< 0.028) 07/24/18 00:35 - Assessment/Plan 1. Afib with RVR - well controlled HR with Coreg 6.25mg BID; Try to control with Bblocker instead of Diltiazem due to CHF; Not on any OAC or Lovenox due to elevated LFT? 2. Dilated CM EF at 20-25%, new onset - May d/c with LifeVest? 3. Acute on chronic systolic heart failure with EF 20-25% - On Lasix 40mg IV BID from this AM; On BBlocker. Not on GLORIA/ARB due to hypotensive 4. Chronic shoulder infection 5. Abnormal LFT's. - managed by GI 6. Hypokalemia - replacement 7. Hypomagnesemia - replaced Pt. seen and eval. by me. I agree with the A/P by the SUPERVISOR [employer] CUTTING. Pt. with significant coughing.denies chest pain. irreg/irreg. decreased breath sounds. mild edema. gjm Review of Systems - Review of Systems Constitutional: reports: no symptoms reported EENTM: reports: no symptoms reported Respiratory: reports: no symptoms reported Cardiac (ROS): reports: no symptoms reported ABD/GI: reports: no symptoms reported : reports: no symptoms reported Musculoskeletal: reports: no symptoms reported
[2018-07-26] MEDS ORDERED: guaiFENesin 100 MG/5 ML UDCUP PO PRN (12:49)
--- NOTE | 2018-07-26 12:55 | PDOC.PN ---
- Subjective Encounter Start Date: 07/26/18 (f/u DM) Encounter Start Time: 12:52 Subjective: Pt c/o cough and pain in back/chest/shoulder. Denies any n/v/abd pain -: reports his breathing is better after the lasix yesterday - Objective Resuscitation Status - Order Detail: 07/23/18 20:37 Resuscitation Status Routine Resuscitation Status: FULL: Full Resuscitation Vital Signs & Weight: Vital Signs (12 hours) Temp Pulse Resp BP BP Pulse Ox 07/26/18 09:47 99/64 07/26/18 04:32 110/78 07/26/18 04:10 97.3 F L 89 18 110/78 95 Weight Admit Weight 196 lb 14.4 oz Weight 196 lb 14.4 oz I&O: 07/25/18 07/26/18 07/27/18 06:59 06:59 06:59 Intake Total 560 2636.3 Output Total 420 450 Balance 140 2186.3 Result Diagrams: 07/26/18 04:54 07/26/18 04:54 Additional Labs: Accuchecks 07/26/18 07/26/18 07/25/18 10:47 05:28 20:20 POC Glucose 134 H 96 128 H 07/25/18 17:18 POC Glucose 277 H EKG Reviewed by me: Yes (tele a fib 70-90's, pvc's) Phys Exam - Physical Examination Constitutional: NAD Respiratory: no wheezing, no rales, no rhonchi Cardiovascular: no significant murmur, irregular Gastrointestinal: soft, non-tender, positive bowel sounds 1+ edema bilateral LE Psychiatric: normal affect Deviation from normal: ecchymosis around the lateral aspect of proximal forearm bilatera Dx/Plan (1) Afib Code(s): I48.91 - UNSPECIFIED ATRIAL FIBRILLATION Status: Acute Qualifiers: Atrial fibrillation type: chronic Qualified Code(s): I48.2 - Chronic atrial fibrillation (2) Hepatitis Status: Acute (3) Septic arthritis of shoulder, left Code(s): M00.9 - PYOGENIC ARTHRITIS, UNSPECIFIED Status: Acute Qualifiers: Qualified Code(s): M00.9 - Pyogenic arthritis, unspecified (4) Alcohol abuse Code(s): F10.10 - ALCOHOL ABUSE, UNCOMPLICATED Status: Chronic (5) Chronic anemia Code(s): D64.9 - ANEMIA, UNSPECIFIED Status: Chronic Comment: , (6) Chronic obstructive pulmonary disease Status: Chronic (7) DM type 2 (diabetes mellitus, type 2) Status: Chronic Qualifiers: Diabetes mellitus alf insulin use: without exterminator use Diabetes mellitus complication status: without complication Qualified Code(s): E11.9 - Type 2 diabetes mellitus without complications (8) HTN (hypertension) Code(s): I10 - ESSENTIAL (PRIMARY) HYPERTENSION Status: Chronic Qualifiers: Hypertension type: essential hypertension Qualified Code(s): I10 - Essential (primary) hypertension Comment: - Plan * * appreciate multiple specialists - GI - lft's improving as of yesterday - result pending for today - Cards - appreciate consult * rate controlled now. Reduce coreg to 3.125 mg bid with hold parameters due to bp on the lower side. Resume the 6.25 mg bid as bp will tolerate. * On scheduled lasix bid - change to daily with hold parameters to reduce likelihood of hypotension - Ortho - I&D next week - ID - Vanc and zosyn * continue replacing mag - IV ordered however it was not given - discussed with nurse who will give it now. * continue potassium replacement - on scheduled bid * monitor hand sx from yesterday - may be related to edema * PT and OT for likely weakness/deconditioning * continue ASE monitoring and vitamin replacements * * dvt prophy - scd's * gi prophy -continue famotidine * * pt remains at high risk in current condition. Reviewed plan of care, no questions or further needs at end of eval.
[2018-07-26 13:08] LABS: ALT (SGPT) 373 U/L (8-55); AST (SGOT) 325 U/L (5-34); Albumin 2.7 g/dL (3.4-4.8); Alkaline Phosphatase 134 U/L (40-150); Bilirubin, Direct 1.4 mg/dL (0.1-0.3); Bilirubin, Total 2.2 mg/dL (0.2-1.2); Protein, Total 5.7 g/dL (5.8-8.1)
[2018-07-26] MEDS ORDERED: Carvedilol 3.125 MG TAB PO SCH (13:15)
[2018-07-26] MEDS: oxyCODONE 5 MG TAB PO PRN (15:00)
--- NOTE | 2018-07-26 17:10 | PRG ---
DATE OF SERVICE: 07/26/2018 SUBJECTIVE: Mr. Ring is feeling better. He has less abdominal pain. The shoulder is not bothering him too much. No respiratory symptoms. OBJECTIVE: VITAL SIGNS: His temperature max 98.2, blood pressure 99/64, pulse 89, respirations 18, and O2 saturation 95%. GENERAL: Appears in no distress, oriented. No signs of delirium tremens. MUSCULOSKELETAL: Left shoulder is unchanged with dressing in place. LUNGS: Clear. HEART: S1 and S2, regular rate. ABDOMEN: Mildly tender, mildly distended. EXTREMITIES: Moves all extremities equally. NEUROLOGIC: Cognitive function appears to be intact. LABORATORY DATA: White cell count 4.9, hemoglobin 13.6, platelets 146. Sodium 135, creatinine 0.9. Liver function tests are improving over time. Microbiology with negative C. diff, 4 sets of blood culture negative and bacterial culture from the shoulder drainage. Final results, moderate mixed skin jerry present. 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 The patient is awaiting for improvement in his liver function and eventually will have revision of the left shoulder side. Repeat MRI might be considered to evaluate the extent of the inflammatory process and see if he has osteomyelitis of the scapula/glenoid. Job ID: [id number]
[2018-07-26 17:25] LABS: Vancomycin, Trough 16.3 ug/mL
--- NOTE | 2018-07-26 17:46 | PRG ---
DATE OF SERVICE: 07/26/2018 REASON FOR CONSULTATION: Elevated LFTs. SUBJECTIVE: The patient states that he is feeling much better today after receiving IV furosemide and increased urinary output. He adds that his shortness of breath and ability to ambulate have improved when compared to yesterday, and he does not feel as swollen in his upper and lower extremities. Currently, he denies any nausea, vomiting, fevers, chills, or GI bleeding. OBJECTIVE: VITAL SIGNS: Temperature 97.3, pulse 89, blood pressure 99/64, respiratory rate 18, saturating 95% on room air. GENERAL: The patient is lying in bed, in no acute distress. Alert and oriented x4. CARDIOVASCULAR: Regular rate and rhythm. RESPIRATORY: Clear to auscultation bilaterally. ABDOMEN: Normoactive bowel sounds. Soft, nontender, nondistended. EXTREMITIES: 2+ edema extending to above the bilateral knees. LABORATORY DATA: CBC with a white blood cell count of 4.9, hemoglobin 13.6, hematocrit 43, and platelets 146. Chemistry with a sodium 135, potassium 3.2, chloride 100, CO2 of 24, BUN 24, creatinine 0.9, glucose 90. AST 325, ALT 373, alkaline phosphatase 134, total bilirubin 2.2, albumin 2.7. IMAGING DATA: No current GI imaging is available for review. ASSESSMENT AND PLAN: The patient is a 72-year-old male with past medical history of osteomyelitis of the left shoulder, hypertension, atrial fibrillation, transient ischemic attack, chronic obstructive pulmonary disease, chronic kidney disease, and chronic alcoholism, presenting with significantly elevated liver function tests. Elevated LFTs. The patient presented with a recent history of increased right upper quadrant abdominal pain shortly prior to admission, and while evaluated in the ER, was noted to have significantly elevated transaminases. Given his markedly elevated AST and ALT, the etiology for his transaminitis could be multi-fold with differential including drug-induced liver injury (nonsteroidal anti-inflammatory drugs) chronic alcoholism compounding drug-induced liver injury or hepatic and congestive hepatopathy as evidenced by his significantly elevated BNP. With treatment of [id number] congestive heart failure, the patient has been responding well with continued downtrending of his enzymes during this admission with congestive hepatopathy at this point being the more likely explanation. Current liver workup thus far has been negative for overt underlying liver pathology. RECOMMENDATIONS: 1. Would continue to trend LFTs and INR daily to determine response to treatment and/or worsening liver function. 2. Continue serial neurological exams daily as hepatic encephalopathy could be a harbinger of worsening hepatic function. 3. Would avoid all NSAIDs during this admission. 4. Agree with diuretic management of heart failure and hypervolemia. We will sign off at this time. Please call with any questions. Job ID: [id number] MTDD
[2018-07-26] MEDS: Carvedilol 3.125 MG TAB PO SCH (18:15)
[2018-07-26] MEDS: Vancomycin HCl 1.75 GM in Sodium Chloride 0.9% 500 ML IVPB SCH (18:15)
[2018-07-26] MEDS: Diabetic Tussin 200 MG/10 ML UDCUP PO PRN ×2 (18:17→22:59)
[2018-07-27] MEDS: Piperacillin/Tazobactam 3.375 GM in Sodium Chloride 0.9% 100 ML IVPB SCH ×4 (02:43→23:19)
[2018-07-27 05:39] LABS: ALT (SGPT) 284 U/L (8-55); AST (SGOT) 210 U/L (5-34); Albumin 2.8 g/dL (3.4-4.8); Alkaline Phosphatase 151 U/L (40-150); Anion Gap 10 mmol/L (10-20); BUN (Urea Nitrogen) 24 mg/dL (8.4-25.7); Bilirubin, Total 1.6 mg/dL (0.2-1.2); Calc. Creatinine Clearance 81 mL/min (70-130); Calcium 8.2 mg/dL (7.8-10.44); Carbon Dioxide 30 mmol/L (23-31); Chloride 99 mmol/L (98-107); Estimated GFR-MDRD 72; Globulin 2.8 g/dL (2.4-3.5); Glucose 135 mg/dL (83-110); Magnesium 1.4 mg/dL (1.6-2.6); Potassium 3.8 mmol/L (3.5-5.1); Protein, Total 5.6 g/dL (5.8-8.1); Sodium 135 mmol/L (136-145)
[2018-07-27] MEDS: Folic Acid 1 MG TAB PO SCH (09:58)
[2018-07-27] MEDS: Potassium Chloride 20 MEQ TAB PO SCH ×2 (09:58→16:18)
[2018-07-27] MEDS: Multivitamin W/ Minerals 1 TAB PO SCH (09:58)
[2018-07-27] MEDS: Magnesium Oxide 400 MG TAB PO SCH (09:58)
[2018-07-27] MEDS: Thiamine 100 MG TAB PO SCH (09:58)
[2018-07-27] MEDS: Carvedilol 3.125 MG TAB PO SCH ×2 (09:59→16:19)
[2018-07-27] MEDS: Famotidine 20 MG TAB PO SCH (09:59)
[2018-07-27] MEDS: Furosemide 40 MG/4 ML VIAL SLOW IVP SCH (09:59)
[2018-07-27] MEDS: Diabetic Tussin 200 MG/10 ML UDCUP PO PRN ×2 (10:02→23:23)
[2018-07-27] MEDS: oxyCODONE 5 MG TAB PO PRN ×2 (10:02→23:25)
--- NOTE | 2018-07-27 12:24 | PDOC.PN ---
- Subjective Encounter Start Date: 07/27/18 (f/u DM) Encounter Start Time: 12:22 Subjective: Pt c/o difficulty with breathing - states ongoing and worse today -: itching on abdomen, and has multiple small areas of crusting. Also -: has a stuffy nose - Objective Resuscitation Status - Order Detail: 07/23/18 20:37 Resuscitation Status Routine Resuscitation Status: FULL: Full Resuscitation Vital Signs & Weight: Vital Signs (12 hours) Temp Pulse Resp BP BP Pulse Ox 07/27/18 04:04 97.4 F L 94 18 122/78 98 07/27/18 04:00 122/78 Weight Admit Weight 196 lb 14.4 oz Weight 196 lb 14.4 oz I&O: 07/26/18 07/27/18 07/28/18 06:59 06:59 06:59 Intake Total 2636.3 2244 Output Total 450 1120 Balance 2186.3 1124 Result Diagrams: 07/26/18 04:54 07/27/18 04:39 Additional Labs: Accuchecks 07/27/18 07/27/18 07/26/18 10:59 05:08 20:33 POC Glucose 123 H 128 H 154 H 07/26/18 16:43 POC Glucose 128 H EKG Reviewed by me: Yes (tele - a fib 70-100's) Phys Exam - Physical Examination Constitutional: NAD Respiratory: no wheezing, no rales, no rhonchi Cardiovascular: no significant murmur, irregular Gastrointestinal: soft, non-tender, no distention, positive bowel sounds 2+ edema bilateral Neurological: non-focal, moves all 4 limbs Deviation from normal: skin dryness, 5 small areas of crusting that are covered with bandaid Dx/Plan (1) Afib Code(s): I48.91 - UNSPECIFIED ATRIAL FIBRILLATION Status: Acute Qualifiers: Atrial fibrillation type: chronic Qualified Code(s): I48.2 - Chronic atrial fibrillation (2) Hepatitis Status: Acute (3) Septic arthritis of shoulder, left Code(s): M00.9 - PYOGENIC ARTHRITIS, UNSPECIFIED Status: Acute Qualifiers: Qualified Code(s): M00.9 - Pyogenic arthritis, unspecified (4) Alcohol abuse Code(s): F10.10 - ALCOHOL ABUSE, UNCOMPLICATED Status: Chronic (5) Chronic anemia Code(s): D64.9 - ANEMIA, UNSPECIFIED Status: Chronic Comment: , (6) Chronic obstructive pulmonary disease Status: Chronic (7) DM type 2 (diabetes mellitus, type 2) Status: Chronic Qualifiers: Diabetes mellitus customer logistics manager insulin use: without customer logistics manager use Diabetes mellitus complication status: without complication Qualified Code(s): E11.9 - Type 2 diabetes mellitus without complications (8) HTN (hypertension) Code(s): I10 - ESSENTIAL (PRIMARY) HYPERTENSION Status: Chronic Qualifiers: Hypertension type: essential hypertension Qualified Code(s): I10 - Essential (primary) hypertension Comment: - Plan * * appreciate multiple specialists - GI - lft's continue to improve with multiple tests pending - Cards - appreciate consult * coreg lowered yesterday due to concern of low blood pressure and lasix changed to once daily. Pt with more pitting edema and shortness of breath - will change back to bid with hold parameters for blood pressure. * Shortness of breath may be related to heart and known systolic heart failure, may also be secondary to hx of tobacco abuse. Will order prn nebs. - Ortho - I&D next week - ID - Vanc and zosyn * continue replacing mag replacement - low again today, potassium normalized * itching skin - topical low dose hydrocortisone bid, and low dose benadryl prn * nasal congestion - prn afrin * PT and OT for likely weakness/deconditioning * continue ASE monitoring and vitamin replacements * * dvt prophy - scd's * gi prophy -continue famotidine * * pt remains at high risk in current condition. Reviewed plan of care, no questions or further needs at end of eval..
[2018-07-27] MEDS ORDERED: Magnesium 2 GM/50 ML 2 GM in Premix Bag 1 BAG IVPB SCH (12:30)
--- NOTE | 2018-07-27 13:21 | PDOC.CTH ---
Cardiology Progress Note - Subjective The pt seen and examined. No overnight events. No cardiac complaints. - Objective Vital Signs Temp Pulse Resp BP BP Pulse Ox 07/27/18 08:00 95 07/27/18 04:04 97.4 F L 94 18 122/78 98 07/27/18 04:00 122/78 Admit Weight 196 lb 14.4 oz Weight 196 lb 14.4 oz 07/26/18 07/27/18 07/28/18 06:59 06:59 06:59 Intake Total 2636.3 2244 Output Total 450 1120 Balance 2186.3 1124 - Physical Examination General/Neuro: alert & oriented x3 Neck: no JVD present Lungs: other: (diminished at bases) Heart: other: (irregular) Abdomen: soft Extremities: other: (2-3+ pitting BLE edemas) - Telemetry Telemetry Rhythm: Afib 90-110s - Labs Result Diagrams: 07/26/18 04:54 07/27/18 04:39 Troponin/CKMB Troponin I 0.022 ng/mL (< 0.028) 07/24/18 00:35 - Assessment/Plan 1. Afib with RVR - Coreg was decreased from 6.25mg to 3.125mg BID due to hypotension; Try to control with Bblocker instead of Diltiazem due to CHF; May start Digoxin for tachycardia; Not on any OAC or Lovenox due to elevated LFT? 2. Dilated CM EF at 20-25%, new onset - May d/c with LifeVest? 3. Acute on chronic systolic heart failure with EF 20-25% - On Lasix 40mg IV BID from this AM; On BBlocker. Not on GLORIA/ARB due to hypotensive 4. Chronic shoulder infection - Plan for I&D tomorrow 5. Abnormal LFT's. possible 2/2 ETOH abuse - managed by GI 6. Hypokalemia - replacement 7. Hypomagnesemia - replaced Review of Systems - Review of Systems Constitutional: reports: no symptoms reported EENTM: reports: no symptoms reported Respiratory: reports: no symptoms reported Cardiac (ROS): reports: no symptoms reported ABD/GI: reports: no symptoms reported : reports: no symptoms reported Musculoskeletal: reports: no symptoms reported
[2018-07-27] MEDS: Hydrocortisone 1% Cream 30 GM TUBE TOP SCH (20:19)
[2018-07-27] MEDS: Vancomycin HCl 1.75 GM in Sodium Chloride 0.9% 500 ML IVPB SCH (20:25)
[2018-07-27] MEDS ORDERED: Hydrocortisone 1% Cream 1.5 GM Packet TOP SCH (21:00)
[2018-07-28] MEDS: Piperacillin/Tazobactam 3.375 GM in Sodium Chloride 0.9% 100 ML IVPB SCH ×4 (03:19→22:10)
[2018-07-28 07:11] LABS: #Basophils 0.1 thou/uL (0.0-0.2); #Eosinphils 0.2 thou/uL (0.0-0.7); #Monocytes 0.8 thou/uL (0.11-0.59); #Neutrophils 3.2 thou/uL (1.40-6.50); %Eosinophils 3.5 % (0.0-10.0); %Lymphocytes 32.1 % (21.0-51.0); %Neutrophils 51.4 % (42.0-75.0); Hemoglobin 13.9 g/dL (14.0-18.0); Mean Corpuscular HGB CONC 31.1 g/dL (32.0-36.0); Mean Corpuscular Volume 89.7 fL (78.0-98.0); Mean Platelet Volume 8.3 fL (7.4-10.4); Platelet Count 142 thou/uL (130-400); RBC Distribution Width 16.2 % (11.5-14.5); Red Blood Cell (RBC) Count 4.98 mill/uL (4.70-6.10); White Blood Cell (WBC) Count 6.3 thou/uL (4.8-10.8)
[2018-07-28 07:25] LABS: INR-International Normal Ratio 1.2; Prothrombin Time 14.8 SEC (12.0-14.7)
[2018-07-28 07:26] LABS: ALT (SGPT) 245 U/L (8-55); AST (SGOT) 170 U/L (5-34); Albumin 3.1 g/dL (3.4-4.8); Alkaline Phosphatase 154 U/L (40-150); Anion Gap 13 mmol/L (10-20); BUN (Urea Nitrogen) 24 mg/dL (8.4-25.7); Bilirubin, Total 1.6 mg/dL (0.2-1.2); Calc. Creatinine Clearance 78 mL/min (70-130); Carbon Dioxide 28 mmol/L (23-31); Chloride 101 mmol/L (98-107); Estimated GFR-MDRD 69; Globulin 3.2 g/dL (2.4-3.5); Glucose 148 mg/dL (83-110); Potassium 4.3 mmol/L (3.5-5.1); Protein, Total 6.3 g/dL (5.8-8.1); Sodium 138 mmol/L (136-145)
--- NOTE | 2018-07-28 08:23 | PDOC.PN ---
- Subjective Encounter Start Date: 07/28/18 Encounter Start Time: 10:20 Subjective: Patient reports persistent abdominal pain, LLE pain, helped with pain -: meds. No fever. Persistent Left shoulder drainage. - Objective Resuscitation Status - Order Detail: 07/23/18 20:37 Resuscitation Status Routine Resuscitation Status: FULL: Full Resuscitation MAR Reviewed: Yes Vital Signs & Weight: Vital Signs (12 hours) Temp Pulse Resp BP BP BP Pulse Ox 07/28/18 04:00 117/56 L 07/28/18 03:22 98.5 F 99 16 117/67 97 07/28/18 00:00 98.1 F 88 18 108/79 108/79 07/27/18 20:31 98 F 90 18 123/64 123/67 96 Weight Admit Weight 196 lb 14.4 oz Weight 196 lb 14.4 oz I&O: 07/27/18 07/28/18 07/29/18 06:59 06:59 06:59 Intake Total 2244 2040 Output Total 1120 1902 Balance 1124 138 Result Diagrams: 07/28/18 06:33 07/28/18 06:33 Additional Labs: Accuchecks 07/28/18 07/27/18 07/27/18 05:43 20:44 17:07 POC Glucose 129 H 174 H 169 H 07/27/18 10:59 POC Glucose 123 H Radiology Reviewed by me: Yes (U/S without DVT in LLE) Phys Exam - Physical Examination Constitutional: NAD Very poor hygiene HEENT: moist MMs Respiratory: no wheezing, no rales, no rhonchi Cardiovascular: RRR, no significant murmur Gastrointestinal: soft, positive bowel sounds left shoulder with dressing in place, left leg with redness to just above knee Neurological: non-focal, moves all 4 limbs Psychiatric: normal affect, A&O x 3 Dx/Plan (1) Septic arthritis of shoulder, left Code(s): M00.9 - PYOGENIC ARTHRITIS, UNSPECIFIED Status: Acute Qualifiers: Qualified Code(s): M00.9 - Pyogenic arthritis, unspecified Comment: On Zosyn and Vancomycin, Dr. Hernandez following (2) Acute on chronic diastolic CHF (congestive heart failure) Code(s): I50.33 - ACUTE ON CHRONIC DIASTOLIC (CONGESTIVE) HEART FAILURE Status : Acute Comment: EF 20-25%, diuresing with Lasix, may need LifeVest on D/C (3) Atrial fibrillation with RVR Code(s): I48.91 - UNSPECIFIED ATRIAL FIBRILLATION Status: Chronic Comment: controlling with betablocker- Coreg (4) Hepatitis Status: Acute Comment: likely multifactoral including hepatic congestion from CHF, NSAID use, alcoholism, trending down, GI following (5) DM type 2 (diabetes mellitus, type 2) Status: Chronic Qualifiers: Diabetes mellitus skilled nursing insulin use: without vibration analyst use Diabetes mellitus complication status: without complication Qualified Code(s): E11.9 - Type 2 diabetes mellitus without complications (6) HTN (hypertension) Code(s): I10 - ESSENTIAL (PRIMARY) HYPERTENSION Status: Chronic Qualifiers: Hypertension type: essential hypertension Qualified Code(s): I10 - Essential (primary) hypertension Comment: - Plan cont current plan of care, PT/OT, DVT proph w/SCDs * . - Discharge Day Encounter end time: 10:30
[2018-07-28] MEDS: Potassium Chloride 20 MEQ TAB PO SCH ×2 (08:45→17:43)
[2018-07-28] MEDS: Folic Acid 1 MG TAB PO SCH (08:45)
[2018-07-28] MEDS: Famotidine 20 MG TAB PO SCH (08:45)
[2018-07-28] MEDS: Thiamine 100 MG TAB PO SCH (08:45)
[2018-07-28] MEDS: Multivitamin W/ Minerals 1 TAB PO SCH (08:46)
[2018-07-28] MEDS: Magnesium Oxide 400 MG TAB PO SCH (08:46)
[2018-07-28] MEDS: Hydrocortisone 1% Cream 30 GM TUBE TOP SCH ×2 (08:46→21:15)
[2018-07-28] MEDS: Furosemide 40 MG/4 ML VIAL SLOW IVP SCH (08:46)
[2018-07-28] MEDS: Carvedilol 3.125 MG TAB PO SCH ×2 (08:46→17:43)
[2018-07-28] MEDS: oxyCODONE 5 MG TAB PO PRN ×2 (11:03→21:13)
--- NOTE | 2018-07-28 12:15 | PDOC.CTH ---
Cardiology Progress Note - Subjective He is waiting to have his shoulder worked on. HR is well controlled. - Objective Vital Signs Temp Pulse Resp BP BP BP Pulse Ox 07/28/18 12:00 98.4 F 98 16 125/66 125/66 96 07/28/18 08:40 98.3 F 110 H 18 133/81 133/81 95 07/28/18 04:00 117/56 L 07/28/18 03:22 98.5 F 99 16 117/67 97 Admit Weight 196 lb 14.4 oz Weight 196 lb 14.4 oz 07/27/18 07/28/18 07/29/18 06:59 06:59 06:59 Intake Total 2244 2040 Output Total 1120 1902 Balance 1124 138 - Physical Examination General/Neuro: alert & oriented x3, NAD Neck: no JVD present Lungs: CTA, unlabored respirations Heart: RRR Abdomen: NT/ND Extremities: + edema B (trace) - Telemetry Telemetry Rhythm: Afib HR 90's-100's. - Labs Result Diagrams: 07/28/18 06:33 07/28/18 06:33 Troponin/CKMB Troponin I 0.022 ng/mL (< 0.028) 07/24/18 00:35 - Assessment/Plan 1. Afib RVR 2. Dilated CM EF at 20-25%, new onset. 3. Chronic shoulder infection 4. Acute on chronic systolic heart failure. 5. Abnormal LFT's. PLAN: - Continue IV lasix. - Continue BB for rate control for now. - If HR becomes an issue will do digoxin. - Monitor Ins and outs. - AST /ALT slowly dropping. - For shoulder washout today or tomorrow. - No anticoagulation given his history of alcohol use and non compliance. - Will follow.
[2018-07-28 14:10] LABS: Smooth Muscle Total ABS 8 Units (0-19)
[2018-07-28 17:36] LABS: Vancomycin, Trough 18.5 ug/mL
[2018-07-28] MEDS: Vancomycin HCl 1.75 GM in Sodium Chloride 0.9% 500 ML IVPB SCH (17:44)
[2018-07-28] MEDS: Diabetic Tussin 200 MG/10 ML UDCUP PO PRN (21:14)
[2018-07-28] MEDS: Oxymetazoline HCl 0.05% ( 15 ML ) NASAL PRN (21:14)
[2018-07-29] MEDS: Piperacillin/Tazobactam 3.375 GM in Sodium Chloride 0.9% 100 ML IVPB SCH ×4 (03:13→20:15)
--- NOTE | 2018-07-29 08:04 | PDOC.PN ---
- Subjective Encounter Start Date: 07/29/18 Encounter Start Time: 13:40 Subjective: Patient reports continued chronic SOB. Continued left shoulder drainage. No -: fever. Legs less swollen than 1-2 weeks ago, but still a bit sore in the -: calves. - Objective Resuscitation Status - Order Detail: 07/23/18 20:37 Resuscitation Status Routine Resuscitation Status: FULL: Full Resuscitation MAR Reviewed: Yes Vital Signs & Weight: Vital Signs (12 hours) Temp Pulse Resp BP BP BP Pulse Ox 07/29/18 04:00 112/86 07/29/18 03:29 97.4 F L 89 18 112/89 94 L 07/29/18 00:00 97.5 F L 101 H 18 111/82 111/82 97 07/28/18 21:11 97.9 F 114 H 18 112/78 112/78 96 Weight Admit Weight 196 lb 14.4 oz Weight 196 lb 14.4 oz I&O: 07/28/18 07/29/18 07/30/18 06:59 06:59 06:59 Intake Total 2040 1721 Output Total 1902 500 Balance 138 1221 Result Diagrams: 07/28/18 06:33 07/28/18 06:33 Additional Labs: Accuchecks 07/29/18 07/28/18 07/28/18 06:00 20:53 16:36 POC Glucose 130 H 130 H 154 H 07/28/18 11:10 POC Glucose 140 H Phys Exam - Physical Examination Constitutional: NAD HEENT: moist MMs Respiratory: no wheezing, no rales, no rhonchi Cardiovascular: RRR Gastrointestinal: soft, positive bowel sounds left shoulder with dressing in place c/d/i Neurological: non-focal Psychiatric: normal affect, A&O x 3 Dx/Plan (1) Septic arthritis of shoulder, left Code(s): M00.9 - PYOGENIC ARTHRITIS, UNSPECIFIED Status: Acute Qualifiers: Qualified Code(s): M00.9 - Pyogenic arthritis, unspecified Comment: On Zosyn and Vancomycin, Dr. Hernandez following (2) Acute on chronic diastolic CHF (congestive heart failure) Code(s): I50.33 - ACUTE ON CHRONIC DIASTOLIC (CONGESTIVE) HEART FAILURE Status : Acute Comment: EF 20-25%, diuresing with Lasix, may need LifeVest on D/C (3) Atrial fibrillation with RVR Code(s): I48.91 - UNSPECIFIED ATRIAL FIBRILLATION Status: Chronic Comment: controlling with betablocker- Coreg, Digoxin if needed, HR decently controlled at this time (4) Hepatitis Status: Acute Comment: likely multifactoral including hepatic congestion from CHF, NSAID use, alcoholism, trending down, GI following (5) DM type 2 (diabetes mellitus, type 2) Status: Chronic Qualifiers: Diabetes mellitus residential insulin use: without residential use Diabetes mellitus complication status: without complication Qualified Code(s): E11.9 - Type 2 diabetes mellitus without complications (6) HTN (hypertension) Code(s): I10 - ESSENTIAL (PRIMARY) HYPERTENSION Status: Chronic Qualifiers: Hypertension type: essential hypertension Qualified Code(s): I10 - Essential (primary) hypertension Comment: - Plan cont current plan of care, continue antibiotics, PT/OT, DVT proph w/SCDs Sounds like plan is for antibiotic treatment only at this time, no surgery -: planned. * . - Discharge Day Encounter end time: 14:00
[2018-07-29] MEDS: Hydrocortisone 1% Cream 30 GM TUBE TOP SCH ×2 (10:14→20:13)
[2018-07-29] MEDS: oxyCODONE 5 MG TAB PO PRN (10:16)
[2018-07-29] MEDS: Famotidine 20 MG TAB PO SCH (10:17)
[2018-07-29] MEDS: Potassium Chloride 20 MEQ TAB PO SCH ×2 (10:17→17:38)
[2018-07-29] MEDS: Carvedilol 3.125 MG TAB PO SCH ×2 (10:17→17:38)
[2018-07-29] MEDS: Folic Acid 1 MG TAB PO SCH (10:17)
[2018-07-29] MEDS: Thiamine 100 MG TAB PO SCH (10:17)
[2018-07-29] MEDS: Multivitamin W/ Minerals 1 TAB PO SCH (10:18)
[2018-07-29] MEDS: Furosemide 40 MG/4 ML VIAL SLOW IVP SCH (10:18)
[2018-07-29] MEDS: Magnesium Oxide 400 MG TAB PO SCH (10:18)
--- NOTE | 2018-07-29 17:15 | PDOC.CTH ---
Cardiology Progress Note - Subjective No new issues. No chest pain. - Objective Vital Signs Temp Pulse Pulse Resp BP BP Pulse Ox 07/29/18 12:00 97.8 F 95 18 106/64 98 07/29/18 11:14 113 H 115/77 07/29/18 08:00 98.5 F 105 H 20 112/83 96 Admit Weight 196 lb 14.4 oz Weight 196 lb 14.4 oz 07/28/18 07/29/18 07/30/18 06:59 06:59 06:59 Intake Total 2040 1721 Output Total 1902 500 Balance 138 1221 - Physical Examination General/Neuro: alert & oriented x3, NAD Neck: no JVD present Lungs: unlabored respirations Heart: other: (Irreg irreg.) Abdomen: NT/ND Extremities: + edema B (trace) - Telemetry Telemetry Rhythm: Afib HR 90-110 - Labs Result Diagrams: 07/28/18 06:33 07/28/18 06:33 Troponin/CKMB Troponin I 0.022 ng/mL (< 0.028) 07/24/18 00:35 - Assessment/Plan 1. Afib RVR 2. Dilated CM EF at 20-25%, new onset. 3. Chronic shoulder infection 4. Acute on chronic systolic heart failure. 5. Abnormal LFT's. PLAN: - Continue IV lasix. - Continue BB for rate control for now. - Will add digoxin. - Monitor Ins and outs. - AST/ALT slowly dropping. - For shoulder washout. - Currently not interested in any [facility] he only wants his shoulder fixed. - No anticoagulation given his history of alcohol use and non compliance. - Will follow.
[2018-07-29] MEDS: Vancomycin HCl 1.75 GM in Sodium Chloride 0.9% 500 ML IVPB SCH (17:38)
--- NOTE | 2018-07-29 17:53 | PRG ---
DATE OF SERVICE: 07/29/2018 SUBJECTIVE: The patient still with dyspnea, which is a chronic finding and some drainage in the left shoulder. No chest pain. No cough or sputum production. No abdominal pain or diarrhea. OBJECTIVE: VITAL SIGNS: With a T-max 98.5, blood pressure 106/64, pulse 95, respirations 18, and O2 saturation 98%. SKIN: Areas of prurigo nodularis in the abdominal areas noticed previously. LUNGS: With diminished breath sounds. No wheezing. HEART: S1 and S2. Regular rate. EXTREMITIES: Left shoulder with chronic fistulous drainage spot. NEUROLOGIC: The cognitive function is intact. DIAGNOSTIC DATA: The MRI shows a partial resection proximal humeral head and metaphysis with residual abnormal signal and irregularity in the cortex of the proximal humerus, suspicious for residual osteomyelitis of proximal humeral shaft and has a prominent glenohumeral periarticular soft tissue fluid collection extending to an open wound anterolateral left shoulder joint. Some fluid dissecting into the surrounding soft tissue musculature. Chronic rotator cuff tear and severe atrophy rotator cuff musculature. MICROBIOLOGY: We have a mixed skin jerry from the shoulder swab. LABORATORY DATA: The white cell count 6.3, hemoglobin 13.9, and platelets 142. Chemistry showed the AST down to 170, ALT at 245, alkaline phosphatase is stable at 154, and bilirubin at 1.6. The patient had EBV and PCR ordered and CMV antibodies. The IgG was positive. The IgM was negative for less than 30. Hepatitis serology nonreactive. ASSESSMENT AND DISCUSSION: Chronic obstructive lung disease with alcoholism and hepatitis, possibly alcoholic hepatitis. An alternate etiology has not been ruled out yet. Chronic left shoulder infection refractory to multiple interventions in protracted antimicrobial therapy with various pathogens in the past, previously on chronic suppressive therapy. The patient now comes in with worsening drainage. The repeat MRI shows a possible residual osteo in humerus and the humerus remnant as well as a large glenoid and surrounding tissue fluid collection. Looks like he has not cleared yet for surgical washout of the left shoulder. Before that is accomplished, he will continue on antimicrobial therapy. He is currently receiving broad-spectrum with Zosyn and vancomycin. Job ID: [id number]
[2018-07-29] MEDS: Oxymetazoline HCl 0.05% ( 15 ML ) NASAL PRN (20:22)
[2018-07-30] MEDS: Piperacillin/Tazobactam 3.375 GM in Sodium Chloride 0.9% 100 ML IVPB SCH ×4 (02:31→21:45)
[2018-07-30 05:10] LABS: #Basophils 0.1 thou/uL (0.0-0.2); #Eosinphils 0.2 thou/uL (0.0-0.7); #Lymphocytes 1.9 thou/uL (1.20-3.40); #Monocytes 0.7 thou/uL (0.11-0.59); %Basophils 1.9 % (0.0-1.0); %Eosinophils 3.7 % (0.0-10.0); %Lymphocytes 31.7 % (21.0-51.0); %Monocytes 11.2 % (0.0-10.0); %Neutrophils 51.5 % (42.0-75.0); Hemoglobin 13.3 g/dL (14.0-18.0); Mean Corpuscular HGB CONC 30.3 g/dL (32.0-36.0); Mean Corpuscular Hemoglobin 27.2 pg (27.0-31.0); Mean Corpuscular Volume 89.9 fL (78.0-98.0); Mean Platelet Volume 8.5 fL (7.4-10.4); Platelet Count 146 thou/uL (130-400); RBC Distribution Width 16.2 % (11.5-14.5); Red Blood Cell (RBC) Count 4.88 mill/uL (4.70-6.10); White Blood Cell (WBC) Count 5.9 thou/uL (4.8-10.8)
[2018-07-30 05:29] LABS: Anion Gap 13 mmol/L (10-20); BUN (Urea Nitrogen) 22 mg/dL (8.4-25.7); Calc. Creatinine Clearance 72 mL/min (70-130); Carbon Dioxide 28 mmol/L (23-31); Chloride 100 mmol/L (98-107); Estimated GFR-MDRD 63; Glucose 138 mg/dL (83-110); Potassium 4.4 mmol/L (3.5-5.1); Sodium 137 mmol/L (136-145)
[2018-07-30] MEDS: oxyCODONE 5 MG TAB PO PRN ×3 (06:39→21:55)
--- NOTE | 2018-07-30 08:37 | PDOC.PN ---
- Subjective Encounter Start Date: 07/30/18 Encounter Start Time: 10:10 Subjective: Patient with persistent copious drainage from left shoulder. No fever. -: No chest pain. - Objective Resuscitation Status - Order Detail: 07/23/18 20:37 Resuscitation Status Routine Resuscitation Status: FULL: Full Resuscitation MAR Reviewed: Yes Vital Signs & Weight: Vital Signs (12 hours) Temp Pulse Resp BP BP Pulse Ox 07/30/18 06:39 113/77 07/30/18 04:00 113/76 07/30/18 03:03 98.5 F 102 H 17 113/76 96 07/30/18 00:50 118/67 Weight Admit Weight 196 lb 14.4 oz Weight 196 lb 14.4 oz I&O: 07/29/18 07/30/18 07/31/18 06:59 06:59 06:59 Intake Total 1721 3040 Output Total 500 2500 Balance 1221 540 Result Diagrams: 07/30/18 04:39 07/30/18 04:39 Additional Labs: Accuchecks 07/30/18 07/29/18 07/29/18 05:24 20:37 16:58 POC Glucose 129 H 193 H 179 H 07/29/18 10:56 POC Glucose 167 H Phys Exam - Physical Examination Constitutional: NAD HEENT: moist MMs Respiratory: no wheezing, no rales, no rhonchi Cardiovascular: RRR Gastrointestinal: soft, positive bowel sounds left shoulder wound with dressing c/d/i Neurological: non-focal Psychiatric: normal affect, A&O x 3 Dx/Plan (1) Septic arthritis of shoulder, left Code(s): M00.9 - PYOGENIC ARTHRITIS, UNSPECIFIED Status: Acute Qualifiers: Qualified Code(s): M00.9 - Pyogenic arthritis, unspecified Comment: On Zosyn and Vancomycin, Dr. Hernandez following (2) Acute on chronic diastolic CHF (congestive heart failure) Code(s): I50.33 - ACUTE ON CHRONIC DIASTOLIC (CONGESTIVE) HEART FAILURE Status : Acute Comment: EF 20-25%, diuresing with Lasix, may need LifeVest on D/C (3) Atrial fibrillation with RVR Code(s): I48.91 - UNSPECIFIED ATRIAL FIBRILLATION Status: Chronic Comment: controlling with betablocker- Coreg, Digoxin added, HR going up to just over 100 today (4) Hepatitis Status: Acute Comment: likely multifactoral including hepatic congestion from CHF, NSAID use, alcoholism, trending down, GI following (5) DM type 2 (diabetes mellitus, type 2) Status: Chronic Qualifiers: Diabetes mellitus alf insulin use: without alf use Diabetes mellitus complication status: without complication Qualified Code(s): E11.9 - Type 2 diabetes mellitus without complications (6) HTN (hypertension) Code(s): I10 - ESSENTIAL (PRIMARY) HYPERTENSION Status: Chronic Qualifiers: Hypertension type: essential hypertension Qualified Code(s): I10 - Essential (primary) hypertension Comment: - Plan cont current plan of care, continue antibiotics, PT/OT, DVT proph w/SCDs If no surgical washout planned may need to arrange IV abx at swing -: bed in [place]. * . - Discharge Day Encounter end time: 10:20
[2018-07-30] MEDS ORDERED: Digoxin 0.125 MG TAB PO SCH (09:00)
[2018-07-30] MEDS: Furosemide 40 MG/4 ML VIAL SLOW IVP SCH (09:57)
[2018-07-30] MEDS: Potassium Chloride 20 MEQ TAB PO SCH ×2 (09:57→17:09)
[2018-07-30] MEDS: Folic Acid 1 MG TAB PO SCH (09:57)
[2018-07-30] MEDS: Multivitamin W/ Minerals 1 TAB PO SCH (09:57)
[2018-07-30] MEDS: Magnesium Oxide 400 MG TAB PO SCH (09:57)
[2018-07-30] MEDS: Carvedilol 3.125 MG TAB PO SCH (09:57)
[2018-07-30] MEDS: Thiamine 100 MG TAB PO SCH (09:57)
[2018-07-30] MEDS: Famotidine 20 MG TAB PO SCH (09:57)
[2018-07-30] MEDS: Hydrocortisone 1% Cream 30 GM TUBE TOP SCH ×2 (09:58→21:55)
[2018-07-30 11:14] LABS: Epstein Barr Virus PCR Negative (Negative)
--- NOTE | 2018-07-30 16:54 | PDOC.CTH ---
Cardiology Progress Note - Subjective No new issues. No chest pain, Breathing at baseline. - Objective Vital Signs Temp Pulse Resp BP BP BP Pulse Ox 07/30/18 09:57 113 H 07/30/18 08:07 98.4 F 113 H 18 112/68 112/68 98 07/30/18 06:39 113/77 Admit Weight 196 lb 14.4 oz Weight 196 lb 14.4 oz 07/29/18 07/30/18 07/31/18 06:59 06:59 06:59 Intake Total 1721 3040 Output Total 500 2500 1050 Balance 1221 540 -1050 - Physical Examination General/Neuro: alert & oriented x3, NAD Neck: no JVD present Lungs: unlabored respirations Heart: other: (Irreg irreg) Abdomen: NT/ND Extremities: other: (no edema) - Telemetry Telemetry Rhythm: Afib HR 90-110 - Labs Result Diagrams: 07/30/18 04:39 07/30/18 04:39 Troponin/CKMB Troponin I 0.022 ng/mL (< 0.028) 07/24/18 00:35 - Assessment/Plan 1. Afib RVR 2. Dilated CM EF at 20-25%, new onset. 3. Chronic shoulder infection 4. Acute on chronic systolic heart failure. 5. Abnormal LFT's. PLAN: - Continue IV lasix. - Increase BB for better rate control. - Will increase digoxin. - Monitor Ins and outs. - For shoulder washout. - Currently not interested in any [facility], we spoke about this again today and he is not interested in this. - No anticoagulation given his history of alcohol use and non compliance. - Will follow.
[2018-07-30] MEDS: Carvedilol 6.25 MG TAB PO SCH (17:09)
[2018-07-30] MEDS: Vancomycin HCl 1.75 GM in Sodium Chloride 0.9% 500 ML IVPB SCH (17:39)
[2018-07-31] MEDS: diphenhydrAMINE 25 MG CAP PO PRN (03:04)
[2018-07-31] MEDS: Piperacillin/Tazobactam 3.375 GM in Sodium Chloride 0.9% 100 ML IVPB SCH ×4 (03:09→20:30)
[2018-07-31] MEDS: Oxymetazoline HCl 0.05% ( 15 ML ) NASAL PRN (03:11)
[2018-07-31] MEDS: oxyCODONE 5 MG TAB PO PRN ×2 (04:43→13:10)
--- NOTE | 2018-07-31 08:34 | PDOC.PN ---
- Subjective Encounter Start Date: 07/31/18 Encounter Start Time: 11:00 Subjective: Patient with persistent left shoulder drainage and pain. No SOB. -: No other complaints. Pain meds not adequate. - Objective Resuscitation Status - Order Detail: 07/23/18 20:37 Resuscitation Status Routine Resuscitation Status: FULL: Full Resuscitation MAR Reviewed: Yes Vital Signs & Weight: Vital Signs (12 hours) Temp Pulse Resp BP BP BP Pulse Ox 07/31/18 04:32 97.8 F 91 16 104/71 95 07/31/18 04:00 104/71 07/30/18 21:28 98.6 F 107 H 16 120/81 120/81 98 Weight Admit Weight 196 lb 14.4 oz Weight 196 lb 14.4 oz I&O: 07/30/18 07/31/18 08/01/18 06:59 06:59 06:59 Intake Total 3040 2120 Output Total 2500 1550 Balance 540 570 Result Diagrams: 07/30/18 04:39 07/30/18 04:39 Additional Labs: Accuchecks 07/31/18 07/30/18 07/30/18 05:24 20:27 17:11 POC Glucose 136 H 188 H 141 H 07/30/18 10:50 POC Glucose 270 H Phys Exam - Physical Examination Constitutional: NAD HEENT: moist MMs Respiratory: no wheezing, no rales, no rhonchi Cardiovascular: RRR Gastrointestinal: soft, positive bowel sounds Musculoskeletal: edema present trace bilaterally Neurological: non-focal, moves all 4 limbs Psychiatric: normal affect, A&O x 3 Dx/Plan (1) Septic arthritis of shoulder, left Code(s): M00.9 - PYOGENIC ARTHRITIS, UNSPECIFIED Status: Acute Qualifiers: Qualified Code(s): M00.9 - Pyogenic arthritis, unspecified Comment: On Zosyn and Vancomycin, Dr. Hernandez following (2) Acute on chronic diastolic CHF (congestive heart failure) Code(s): I50.33 - ACUTE ON CHRONIC DIASTOLIC (CONGESTIVE) HEART FAILURE Status : Acute Comment: EF 20-25%, diuresing with Lasix, may need LifeVest on D/C (3) Atrial fibrillation with RVR Code(s): I48.91 - UNSPECIFIED ATRIAL FIBRILLATION Status: Chronic Comment: controlling with betablocker- Coreg, Digoxin added, HR going up to just over 100 today (4) Hepatitis Status: Acute Comment: likely multifactoral including hepatic congestion from CHF, NSAID use, alcoholism, trending down, GI following (5) DM type 2 (diabetes mellitus, type 2) Status: Chronic Qualifiers: Diabetes mellitus exterminator helper insulin use: without long-term use Diabetes mellitus complication status: without complication Qualified Code(s): E11.9 - Type 2 diabetes mellitus without complications (6) HTN (hypertension) Code(s): I10 - ESSENTIAL (PRIMARY) HYPERTENSION Status: Chronic Qualifiers: Hypertension type: essential hypertension Qualified Code(s): I10 - Essential (primary) hypertension Comment: - Plan cont current plan of care, continue antibiotics increase pain meds -: may need swing bed for exterminator helper IV abx if doesn't need -: ortho washout this hospitalization * . - Discharge Day Encounter end time: 11:15
[2018-07-31] MEDS: Carvedilol 6.25 MG TAB PO SCH ×2 (08:37→16:25)
[2018-07-31] MEDS: Potassium Chloride 20 MEQ TAB PO SCH ×2 (08:37→16:25)
[2018-07-31] MEDS: Folic Acid 1 MG TAB PO SCH (08:37)
[2018-07-31] MEDS: Famotidine 20 MG TAB PO SCH (08:37)
[2018-07-31] MEDS: Magnesium Oxide 400 MG TAB PO SCH (08:37)
[2018-07-31] MEDS: Thiamine 100 MG TAB PO SCH (08:38)
[2018-07-31] MEDS: Multivitamin W/ Minerals 1 TAB PO SCH (08:38)
[2018-07-31] MEDS: Digoxin 0.25 MG TAB PO SCH (08:38)
[2018-07-31] MEDS: Furosemide 40 MG/4 ML VIAL SLOW IVP SCH (08:39)
[2018-07-31] MEDS: Hydrocortisone 1% Cream 30 GM TUBE TOP SCH ×2 (09:47→20:28)
[2018-07-31 17:12] LABS: Vancomycin, Trough 22.7 ug/mL
--- NOTE | 2018-07-31 20:36 | PDOC.CTH ---
Cardiology Progress Note - Subjective No new issues. - Objective Vital Signs Temp Pulse Pulse Resp BP BP BP 07/31/18 16:25 100/73 07/31/18 16:15 97.4 F L 97 13 07/31/18 12:35 102/69 07/31/18 12:30 98.7 F 103 H 14 102/69 07/31/18 11:36 123 H 148/83 H 07/31/18 08:38 91 BP Pulse Ox 07/31/18 16:25 07/31/18 16:15 100/73 100 07/31/18 12:35 07/31/18 12:30 96 07/31/18 11:36 07/31/18 08:38 Admit Weight 196 lb 14.4 oz Weight 196 lb 14.4 oz 07/30/18 07/31/18 08/01/18 06:59 06:59 06:59 Intake Total 3040 2120 960 Output Total 2500 1550 2355 Balance 540 570 -1395 - Physical Examination General/Neuro: alert & oriented x3, NAD Neck: no JVD present Lungs: unlabored respirations Heart: other: (Irreg irreg.) Abdomen: NT/ND Extremities: + edema B (trace edema.) - Telemetry Telemetry Rhythm: Afib HR 80-120 - Labs Result Diagrams: 07/30/18 04:39 07/30/18 04:39 Troponin/CKMB Troponin I 0.022 ng/mL (< 0.028) 07/24/18 00:35 - Assessment/Plan 1. Afib RVR 2. Dilated CM EF at 20-25%, new onset. 3. Chronic shoulder infection 4. Acute on chronic systolic heart failure. 5. Abnormal LFT's. PLAN: - Switch to PO lasix at 40 mg daily. - Increase BB today for better rate control. - Continue digoxin. - Not interested in [facility]. - No anticoagulation given his history of alcohol use and non compliance. - Placement.
[2018-08-01] MEDS: Piperacillin/Tazobactam 3.375 GM in Sodium Chloride 0.9% 100 ML IVPB SCH ×4 (03:49→20:33)
[2018-08-01] MEDS: Carvedilol 6.25 MG TAB PO SCH ×2 (09:18→17:36)
[2018-08-01] MEDS: Digoxin 0.25 MG TAB PO SCH (09:18)
[2018-08-01] MEDS: Folic Acid 1 MG TAB PO SCH (09:20)
[2018-08-01] MEDS: Furosemide 40 MG/4 ML VIAL SLOW IVP SCH (09:20)
[2018-08-01] MEDS: Magnesium Oxide 400 MG TAB PO SCH (09:20)
[2018-08-01] MEDS: Thiamine 100 MG TAB PO SCH (09:22)
[2018-08-01] MEDS: Multivitamin W/ Minerals 1 TAB PO SCH (09:22)
[2018-08-01] MEDS: Famotidine 20 MG TAB PO SCH (09:22)
[2018-08-01] MEDS: oxyCODONE 5 MG TAB PO PRN ×3 (09:28→23:18)
[2018-08-01] MEDS: Potassium Chloride 20 MEQ TAB PO SCH ×2 (09:29→17:35)
[2018-08-01] MEDS: Hydrocortisone 1% Cream 30 GM TUBE TOP SCH ×2 (09:30→20:04)
[2018-08-01 11:09] LABS: ALT (SGPT) 109 U/L (8-55); AST (SGOT) 63 U/L (5-34); Albumin 3.9 g/dL (3.4-4.8); Alkaline Phosphatase 134 U/L (40-150); Bilirubin, Direct 1.2 mg/dL (0.1-0.3); Bilirubin, Total 1.8 mg/dL (0.2-1.2); Protein, Total 7.9 g/dL (5.8-8.1)
--- NOTE | 2018-08-01 14:23 | PDOC.PN ---
- Subjective Encounter Start Date: 08/01/18 Encounter Start Time: 10:15 Subjective: pt up in bed complains of pain to his left shoulder - Objective Resuscitation Status - Order Detail: 07/23/18 20:37 Resuscitation Status Routine Resuscitation Status: FULL: Full Resuscitation Vital Signs & Weight: Vital Signs (12 hours) Temp Pulse Resp BP BP Pulse Ox 08/01/18 12:00 92/61 08/01/18 11:23 97.7 F 87 18 92/61 98 08/01/18 09:12 98.0 F 98 14 140/88 98 08/01/18 08:00 140/88 08/01/18 04:00 97.6 F 72 20 115/64 115/64 98 Weight Admit Weight 196 lb 14.4 oz Weight 196 lb 14.4 oz I&O: 07/31/18 08/01/18 08/02/18 06:59 06:59 06:59 Intake Total 2120 1540 Output Total 1550 2355 Balance 570 -815 Result Diagrams: 07/30/18 04:39 07/30/18 04:39 Additional Labs: Accuchecks 08/01/18 07/31/18 07/31/18 06:06 20:43 16:29 POC Glucose 137 H 159 H 109 Phys Exam - Physical Examination Neck: no nodes, no JVD, supple, full ROM Respiratory: no wheezing, no rales, no rhonchi, wheezing present, clear to auscultation bilateral Cardiovascular: RRR, no significant murmur, no rub, gallop, irregular Gastrointestinal: soft, non-tender, no distention, positive bowel sounds purlent drainage to left shoulder Dx/Plan (1) Septic arthritis of shoulder, left Code(s): M00.9 - PYOGENIC ARTHRITIS, UNSPECIFIED Status: Acute Qualifiers: Qualified Code(s): M00.9 - Pyogenic arthritis, unspecified Comment: On Zosyn and Vancomycin, Dr. Hernandez following (2) Hepatitis Status: Acute Comment: likely multifactoral including hepatic congestion from CHF, NSAID use, alcoholism, trending down, GI following (3) DM type 2 (diabetes mellitus, type 2) Status: Chronic Qualifiers: Diabetes mellitus fdc insulin use: without termite renewal inspector use Diabetes mellitus complication status: without complication Qualified Code(s): E11.9 - Type 2 diabetes mellitus without complications (4) HTN (hypertension) Code(s): I10 - ESSENTIAL (PRIMARY) HYPERTENSION Status: Chronic Qualifiers: Hypertension type: essential hypertension Qualified Code(s): I10 - Essential (primary) hypertension Comment: - Plan pt waiting to go for wash out -: will continue abx for now -: lft's improving * . Review of Systems - Review of Systems Respiratory: negative: Cough, Dry, Shortness of Breath, Hemoptysis, SOB with Excertion, Pleuritic Pain, Sputum, Wheezing Cardiovascular: negative: chest pain, palpitations, orthopnea, paroxysmal nocturnal dyspnea, edema, light headedness, other Gastrointestinal: negative: Nausea, Vomiting, Abdominal Pain, Diarrhea, Constipation, Melena, Hematochezia, Other Musculoskeletal: Shoulder Pain - Medications/Allergies Allergies/Adverse Reactions: Allergies Allergy/AdvReac Type Severity Reaction Status Date / Time cefazolin [From [facility]] Allergy Severe Swollen Verified 07/24/18 15:25 Lips Medications: Current Medications Albuterol/Ipratropium (Duoneb) 3 ml NEB [id number] PRN PRN Reason: SOB &/or Wheezing Carvedilol (Coreg) 12.5 mg PO BID-[facility] Last Admin: 08/01/18 09:18 Dose: 12.5 mg Dextrose/Water (Dextrose 50%) 25 gm SLOW IVP PRN PRN PRN Reason: Hypoglycemia Diazepam (Valium) 5 mg PO Q4H PRN PRN Reason: FOR ASE 10 OR GREATER Last Admin: 07/30/18 01:22 Dose: 5 mg Digoxin (Lanoxin) 0.25 mg PO DAILY [facility] Last Admin: 08/01/18 09:18 Dose: 0.25 mg Diphenhydramine HCl (Benadryl) 25 mg PO Q8H PRN PRN Reason: Itching & Insomnia Last Admin: 07/31/18 03:04 Dose: 25 mg Famotidine (Pepcid) 20 mg PO 0900 [facility] Last Admin: 08/01/18 09:22 Dose: 20 mg Folic Acid (Folvite) 1 mg PO DAILY [facility] Last Admin: 08/01/18 09:20 Dose: 1 mg Furosemide (Lasix) 40 mg SLOW IVP DAILY [facility] Last Admin: 08/01/18 09:20 Dose: 40 mg Glucagon (Glucagon) 1 mg IM PRN PRN PRN Reason: Hypoglycemia Guaifenesin (Robitussin Sf) 100 mg PO Q4H PRN PRN Reason: COU Last Admin: 07/28/18 21:14 Dose: 100 mg Hydrocortisone/Aloe (Hydrocortisone 1% Cream) 0 gm TOP BID [facility] Last Admin: 08/01/18 09:30 Dose: Not Given Piperacillin Sod/Tazobactam (Sod 3.375 gm/ Sodium Chloride) 100 mls @ 200 mls/ hr IVPB 0300,0900,1500,2100 [facility] Last Admin: 08/01/18 09:17 Dose: 100 mls Dextrose/Water (D5w) 1,000 mls @ 0 mls/hr IV .Q0M PRN PRN Reason: Hypoglycemia Vancomycin HCl 1.5 gm/ Sodium (Chloride) 300 mls @ 200 mls/hr IVPB Q24H [facility] Insulin Human Lispro (Humalog) 0 units SC .MODERATE SLIDING SC PRN PRN Reason: Moderate Correctional Scale Last Admin: 07/25/18 17:41 Dose: 6 units Insulin Human Lispro (Humalog) 0 units SC .BEDTIME SLIDING SC PRN PRN Reason: Bedtime Correctional Scale Iron/Minerals/Multivitamins (Theragran M) 1 tab PO DAILY [facility] Last Admin: 08/01/18 09:22 Dose: 1 tab Lorazepam (Ativan) 1 mg SLOW IVP Q4H PRN PRN Reason: Anxiety/Agitation Lorazepam (Ativan) 1 mg PO Q4H PRN PRN Reason: Anxiety/Agitation Magnesium Oxide (Magnesium Oxide) 400 mg PO DAILY [facility] Last Admin: 08/01/18 09:20 Dose: 400 mg Miscellaneous Medication (Pharmacy To Dose) 1 each IVPB ONE PRN PRN Reason: DOSING Stop: 08/23/18 00:31 Ondansetron HCl (Zofran Odt) 4 mg PO Q6H PRN PRN Reason: Nausea/Vomiting Ondansetron HCl (Zofran) 4 mg IVP Q6H PRN PRN Reason: Nausea/Vomiting Oxycodone HCl (Oxycodone Ir) 10 mg PO Q6HR PRN PRN Reason: Moderate to Severe Pain (6-10) Oxycodone HCl (Oxycodone Ir) 5 mg PO Q6HR PRN PRN Reason: Mild-Moderate Pain (1-5) Last Admin: 08/01/18 09:28 Dose: 5 mg Oxymetazoline HCl (Oxymetazoline Hcl) 1 sprays NASAL BIDPRN PRN PRN Reason: Nasal Congestion Last Admin: 07/31/18 03:11 Dose: 1 spray Potassium Chloride (K-Dur) 40 meq PO BID-WM JANNETET Last Admin: 08/01/18 09:29 Dose: Not Given Temazepam (Restoril) 15 mg PO HSPRN PRN PRN Reason: Insomnia Last Admin: 07/24/18 23:12 Dose: 15 mg Thiamine HCl (Thiamine) 100 mg PO DAILY JANNETTE Last Admin: 08/01/18 09:22 Dose: 100 mg
--- NOTE | 2018-08-01 15:22 | CON ---
DATE OF CONSULTATION: 08/01/2018 HISTORY OF PRESENT ILLNESS: Mr. Ring is a 72-year-old male with history of multiple recurrent I and D's of the left shoulder osteomyelitis with attempted wound VAC closure failed attempts. The patient's past medical history includes alcoholism, hepatitis, diabetes type 2, hypertension, atrial fibrillation with RVR, and diastolic heart failure. The patient has been hospital recovering. We had discussion with the patient and he desired not to proceed with surgery. Now, the patient is electing to proceed with surgery. The patient has been, per his report, attempting chemical means to cauterize his wound. He has been pulling out what potentially could be small sections of soft tissue versus a clot while debriding his wound at home. The patient desires for eradication of his infection. The patient is currently afebrile, resting comfortably in bed. Neurovascularly intact in the left upper extremity with open draining wound. MRI evidence shows a periarticular infection with fluid transection in the planes away from the shoulder with open anterior wound changes noted in the proximal humerus. IMPRESSION: Left chronic osteomyelitis. ASSESSMENT AND PLAN: I discussed with the patient that I would attempt to take some of the tissue and send some for pathology. He states that there are some pedunculated masses that he had been clipping and removing from his wound, which could be secondary to Mooren's ulcer and squamous cell carcinoma. The patient understands and I discussed with him that this is a very challenging case. I do not have good soft tissue coverage options due to the patient's health as well as between his alcoholism and diabetes and his liver issues, he has a lot of difficulty healing his wound. I am concerned that the patient will never heal this wound and that we will only be doing staged debridements ultimately either leading to a forequarter amputation. I discussed that he has complications that could be associated with this surgery to include damage to the neurovascular structures, need for further surgeries, need for blood transfusion, and loss of life or limb. The patient desires for me to proceed. We will proceed by taking a section of tissue and it will be sent off for pathology. If we see an area that might look like a Mooren's ulcer, we will place a large antibiotic spacer in the space to hold the cavitary space and potentially allow to seal over. I do not feel that the patient will likely ever be able to clear this infection given his health, but we will make our best attempt. Job ID: [id number]
--- NOTE | 2018-08-01 16:05 | PDOC.CTH ---
Cardiology Progress Note - Subjective No new issues. - Objective Vital Signs Temp Pulse Resp BP BP Pulse Ox 08/01/18 12:00 92/61 08/01/18 11:23 97.7 F 87 18 92/61 98 08/01/18 09:12 98.0 F 98 14 140/88 98 08/01/18 08:00 140/88 Admit Weight 196 lb 14.4 oz Weight 196 lb 14.4 oz 07/31/18 08/01/18 08/02/18 06:59 06:59 06:59 Intake Total 2120 1540 Output Total 1550 2355 Balance 570 -815 - Physical Examination General/Neuro: alert & oriented x3, NAD Neck: no JVD present Lungs: unlabored respirations Heart: other: (Irreg Irreg) Abdomen: NT/ND Extremities: other: (no edema) - Telemetry Telemetry Rhythm: Afib HR 80's. - Labs Result Diagrams: 07/30/18 04:39 07/30/18 04:39 Troponin/CKMB Troponin I 0.022 ng/mL (< 0.028) 07/24/18 00:35 - Assessment/Plan 1. Afib RVR 2. Dilated CM EF at 20-25%, new onset. 3. Chronic shoulder infection 4. Acute on chronic systolic heart failure. 5. Abnormal LFT's. PLAN: - Switch to PO lasix at 40 mg daily. - Continue BB at current dose. - Continue digoxin. - Not interested in [facility]. - No anticoagulation given his history of alcohol use and non compliance. - Awaiting shoulder procedure.
[2018-08-01] MEDS: Vancomycin HCl 1.5 GM in Sodium Chloride 0.9% 250 ML 300 ML IVPB SCH (17:35)
[2018-08-01] MEDS: Lorazepam 1 MG TAB PO PRN (20:01)
[2018-08-02] MEDS: Piperacillin/Tazobactam 3.375 GM in Sodium Chloride 0.9% 100 ML IVPB SCH ×4 (02:45→21:04)
[2018-08-02] MEDS: oxyCODONE 5 MG TAB PO PRN ×2 (05:13→17:10)
[2018-08-02] MEDS: Digoxin 0.25 MG TAB PO SCH (08:03)
[2018-08-02] MEDS: Carvedilol 6.25 MG TAB PO SCH ×2 (08:04→17:10)
[2018-08-02] MEDS ORDERED: Famotidine/PF 20 mg/2ml Vial ONE (09:03)
[2018-08-02] MEDS ORDERED: Fentanyl 100 MCG/2 ML VIAL ONE ×3 (09:03→11:32)
[2018-08-02] MEDS ORDERED: Albumin 5% 500 ML ONE (09:03)
[2018-08-02] MEDS ORDERED: PHENYLEPHRINE-NS 100 MCG/ML 10 ML SYRINGE ONE ×2 (09:03→12:21)
[2018-08-02] MEDS ORDERED: ePHEDrine/0.9% NaCl/PF SYRINGE 50 mg/10 ml ONE (09:03)
[2018-08-02] MEDS ORDERED: Tobramycin Sulfate 1.2 GM VIAL ONE (09:10)
[2018-08-02] MEDS ORDERED: Promethazine HCl 25 MG/ML VIAL SLOW IVP PRN (10:32)
[2018-08-02] MEDS ORDERED: Ondansetron HCl/PF 4 MG/2 ML Vial IVP PRN (10:32)
[2018-08-02] MEDS ORDERED: Promethazine HCl 25 MG/ML VIAL IM PRN (10:32)
[2018-08-02] MEDS ORDERED: Meperidine HCl/PF 25 MG/ML VIAL SLOW IVP PRN (10:32)
[2018-08-02] MEDS: Potassium Chloride 20 MEQ TAB PO SCH ×2 (11:08→17:10)
[2018-08-02] MEDS ORDERED: Rocuronium Bromide 10 MG/ML (10ML VIAL) ONE (12:21)
[2018-08-02] MEDS ORDERED: Ketorolac Tromethamine 30 MG/ML VIAL ONE (12:21)
[2018-08-02] MEDS ORDERED: Metoclopramide HCl 10 MG/2 ML VIAL ONE (12:21)
[2018-08-02] MEDS ORDERED: ePHEDrine 50 MG/ML VIAL ONE (12:21)
[2018-08-02] MEDS ORDERED: Lidocaine 1% PF 5 ML VIAL ONE (12:21)
[2018-08-02] MEDS ORDERED: Ondansetron PF 4 MG/2 ML Vial ONE (12:21)
[2018-08-02] MEDS ORDERED: Dexamethasone 20 MG/5 ML VIAL ONE (12:21)
[2018-08-02] MEDS ORDERED: Glycopyrrolate 0.2 MG/ML 5 ML SYRINGE ONE (12:21)
[2018-08-02] MEDS: Multivitamin W/ Minerals 1 TAB PO SCH (14:09)
[2018-08-02] MEDS: Famotidine 20 MG TAB PO SCH (14:10)
[2018-08-02] MEDS: Thiamine 100 MG TAB PO SCH (14:10)
[2018-08-02] MEDS: Magnesium Oxide 400 MG TAB PO SCH (14:10)
[2018-08-02] MEDS: Folic Acid 1 MG TAB PO SCH (14:11)
[2018-08-02] MEDS: Hydrocortisone 1% Cream 30 GM TUBE TOP SCH ×2 (14:11→21:03)
[2018-08-02] MEDS: Furosemide 40 MG/4 ML VIAL SLOW IVP SCH (14:11)
--- NOTE | 2018-08-02 14:59 | PDOC.PN ---
- Subjective Encounter Start Date: 08/02/18 - Objective Resuscitation Status - Order Detail: 07/23/18 20:37 Resuscitation Status Routine Resuscitation Status: FULL: Full Resuscitation Vital Signs & Weight: Vital Signs (12 hours) Temp Pulse Resp BP BP BP Pulse Ox 08/02/18 12:20 98 F 89 16 108/75 108/75 96 08/02/18 08:00 115/62 08/02/18 07:58 97.4 F L 84 18 115/62 95 08/02/18 03:19 98.1 F 85 18 100/55 L 93 L 08/02/18 03:00 100/55 L Weight Admit Weight 196 lb 14.4 oz Weight 170 lb 3.2 oz I&O: 08/01/18 08/02/18 08/03/18 06:59 06:59 06:59 Intake Total 1540 1440 Output Total 2355 2200 Balance -815 760 Result Diagrams: 07/30/18 04:39 07/30/18 04:39 Additional Labs: Accuchecks 08/02/18 08/01/18 08/01/18 05:35 20:01 17:00 POC Glucose 132 H 184 H 224 H 08/01/18 10:41 POC Glucose 122 H Dx/Plan (1) Septic arthritis of shoulder, left Code(s): M00.9 - PYOGENIC ARTHRITIS, UNSPECIFIED Status: Acute Qualifiers: Qualified Code(s): M00.9 - Pyogenic arthritis, unspecified Comment: On Zosyn and Vancomycin, Dr. 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
[2018-08-02] MEDS: Vancomycin HCl 1.5 GM in Sodium Chloride 0.9% 250 ML 300 ML IVPB SCH (17:09)
[2018-08-02 19:11] LABS: Hemoglobin 13.8 g/dL (14.0-18.0); Platelet Count 179 thou/uL (130-400)
[2018-08-02 19:16] LABS: INR-International Normal Ratio 1.2; Prothrombin Time 14.9 SEC (12.0-14.7)
[2018-08-02 19:17] LABS: PTT 32.1 SEC (22.9-36.1)
[2018-08-02] MEDS: diphenhydrAMINE 25 MG CAP PO PRN (21:03)
[2018-08-02] MEDS: Lorazepam 1 MG TAB PO PRN (21:06)
[2018-08-03] MEDS: Piperacillin/Tazobactam 3.375 GM in Sodium Chloride 0.9% 100 ML IVPB SCH ×4 (02:56→23:12)
[2018-08-03] MEDS: oxyCODONE 5 MG TAB PO PRN ×3 (03:01→15:30)
[2018-08-03] MEDS: diphenhydrAMINE 25 MG CAP PO PRN ×2 (06:01→23:11)
[2018-08-03] MEDS: Furosemide 40 MG/4 ML VIAL SLOW IVP SCH (09:05)
[2018-08-03] MEDS: Digoxin 0.25 MG TAB PO SCH (09:06)
[2018-08-03] MEDS: Thiamine 100 MG TAB PO SCH (09:06)
[2018-08-03] MEDS: Magnesium Oxide 400 MG TAB PO SCH (09:07)
[2018-08-03] MEDS: Potassium Chloride 20 MEQ TAB PO SCH ×2 (09:07→17:18)
[2018-08-03] MEDS: Carvedilol 6.25 MG TAB PO SCH ×2 (09:07→17:19)
[2018-08-03] MEDS: Folic Acid 1 MG TAB PO SCH (09:07)
[2018-08-03] MEDS: Multivitamin W/ Minerals 1 TAB PO SCH (09:07)
[2018-08-03] MEDS: Famotidine 20 MG TAB PO SCH (09:07)
[2018-08-03] MEDS: Hydrocortisone 1% Cream 30 GM TUBE TOP SCH ×2 (09:08→23:16)
[2018-08-03] MEDS ORDERED: Lorazepam 2 MG/ML VIAL SLOW IVP PRN (09:16)
[2018-08-03] MEDS ORDERED: Lorazepam 1 MG TAB PO PRN (09:16)
[2018-08-03] MEDS: HumaLOG 300 UNITS/3 ML VIAL SC PRN (11:55)
--- NOTE | 2018-08-03 15:31 | PDOC.PN ---
- Subjective Encounter Start Date: 08/03/18 Encounter Start Time: 12:30 Subjective: pt up in bed complains of pain to his left shoulder - Objective Resuscitation Status - Order Detail: 07/23/18 20:37 Resuscitation Status Routine Resuscitation Status: FULL: Full Resuscitation Vital Signs & Weight: Vital Signs (12 hours) Temp Pulse Resp BP BP BP Pulse Ox 08/03/18 11:34 98.2 F 98 18 117/66 96 08/03/18 08:45 98 F 97 18 126/67 96 08/03/18 08:00 126/67 Weight Admit Weight 196 lb 14.4 oz Weight 180 lb 1 oz I&O: 08/02/18 08/03/18 08/04/18 06:59 06:59 06:59 Intake Total 1440 1614 Output Total 2200 300 Balance -760 1314 Result Diagrams: 08/02/18 19:03 07/30/18 04:39 Additional Labs: Accuchecks 08/03/18 08/03/18 08/02/18 10:59 05:07 20:34 POC Glucose 291 H 201 H 287 H 08/02/18 16:50 POC Glucose 152 H Phys Exam - Physical Examination Respiratory: no wheezing, no rales, no rhonchi, wheezing present, clear to auscultation bilateral Cardiovascular: RRR, no significant murmur, no rub, gallop, irregular Gastrointestinal: soft, non-tender, no distention, positive bowel sounds Musculoskeletal: no edema, pulses present, edema present Neurological: non-focal, normal sensation, moves all 4 limbs Dx/Plan (1) Septic arthritis of shoulder, left Code(s): M00.9 - PYOGENIC ARTHRITIS, UNSPECIFIED Status: Acute Qualifiers: Qualified Code(s): M00.9 - Pyogenic arthritis, unspecified Comment: On Zosyn and Vancomycin, Dr. Hernandez following (2) Hepatitis Status: Acute Comment: likely multifactoral including hepatic congestion from CHF, NSAID use, alcoholism, trending down, GI following (3) DM type 2 (diabetes mellitus, type 2) Status: Chronic Qualifiers: Diabetes mellitus nursing home insulin use: without nursing home use Diabetes mellitus complication status: without complication Qualified Code(s): E11.9 - Type 2 diabetes mellitus without complications (4) HTN (hypertension) Code(s): I10 - ESSENTIAL (PRIMARY) HYPERTENSION Status: Chronic Qualifiers: Hypertension type: essential hypertension Qualified Code(s): I10 - Essential (primary) hypertension Comment: - Plan will add lantus for better sugar control -: will change lasix to po -: pt on pain meds -: pt has been on abx since 07/24 -: cx so far negative from [place] * . Review of Systems - Review of Systems Respiratory: negative: Cough, Dry, Shortness of Breath, Hemoptysis, SOB with Excertion, Pleuritic Pain, Sputum, Wheezing Cardiovascular: negative: chest pain, palpitations, orthopnea, paroxysmal nocturnal dyspnea, edema, light headedness, other Musculoskeletal: Shoulder Pain - Medications/Allergies Allergies/Adverse Reactions: Allergies Allergy/AdvReac Type Severity Reaction Status Date / Time cefazolin [From [facility]] Allergy Severe Swollen Verified 07/24/18 15:25 Lips Medications: Current Medications Albuterol/Ipratropium (Duoneb) 3 ml NEB [id number] PRN PRN Reason: SOB &/or Wheezing Carvedilol (Coreg) 12.5 mg PO BID-[facility] Last Admin: 08/03/18 09:07 Dose: 12.5 mg Dextrose/Water (Dextrose 50%) 25 gm SLOW IVP PRN PRN PRN Reason: Hypoglycemia Diazepam (Valium) 5 mg PO Q4H PRN PRN Reason: FOR ASE 10 OR GREATER Last Admin: 07/30/18 01:22 Dose: 5 mg Digoxin (Lanoxin) 0.25 mg PO DAILY [facility] Last Admin: 08/03/18 09:06 Dose: 0.25 mg Diphenhydramine HCl (Benadryl) 25 mg PO Q8H PRN PRN Reason: Itching & Insomnia Last Admin: 08/03/18 06:01 Dose: 25 mg Famotidine (Pepcid) 20 mg PO 0900 [facility] Last Admin: 08/03/18 09:07 Dose: 20 mg Folic Acid (Folvite) 1 mg PO DAILY [facility] Last Admin: 08/03/18 09:07 Dose: 1 mg Furosemide (Lasix) 40 mg PO DAILY-[facility] Glucagon (Glucagon) 1 mg IM PRN PRN PRN Reason: Hypoglycemia Guaifenesin (Robitussin Sf) 100 mg PO Q4H PRN PRN Reason: COU Last Admin: 07/28/18 21:14 Dose: 100 mg Hydrocortisone/Aloe (Hydrocortisone 1% Cream) 0 gm TOP BID [facility] Last Admin: 08/03/18 09:08 Dose: 1 applic Piperacillin Sod/Tazobactam (Sod 3.375 gm/ Sodium Chloride) 100 mls @ 200 mls/ hr IVPB 0300,0900,1500,2100 [facility] Last Admin: 08/03/18 15:26 Dose: 100 mls Dextrose/Water (D5w) 1,000 mls @ 0 mls/hr IV .Q0M PRN PRN Reason: Hypoglycemia Vancomycin HCl 1.5 gm/ Sodium (Chloride) 300 mls @ 200 mls/hr IVPB Q24H [facility] Last Admin: 08/02/18 17:09 Dose: 300 mls Insulin Glargine 5 units/ (Miscellaneous Medication) 0.05 mls @ 0 mls/hr SC [facility] Insulin Human Lispro (Humalog) 0 units SC .MODERATE SLIDING SC PRN PRN Reason: Moderate Correctional Scale Last Admin: 08/03/18 11:55 Dose: 6 units Insulin Human Lispro (Humalog) 0 units SC .BEDTIME SLIDING SC PRN PRN Reason: Bedtime Correctional Scale Iron/Minerals/Multivitamins (Theragran M) 1 tab PO DAILY [facility] Last Admin: 08/03/18 09:07 Dose: 1 tab Lorazepam (Ativan) 1 mg SLOW IVP Q4H PRN PRN Reason: Anxiety/Agitation Lorazepam (Ativan) 1 mg PO Q4H PRN PRN Reason: Anxiety/Agitation Magnesium Oxide (Magnesium Oxide) 400 mg PO DAILY [facility] Last Admin: 08/03/18 09:07 Dose: 400 mg Miscellaneous Medication (Pharmacy To Dose) 1 each IVPB ONE PRN PRN Reason: DOSING Stop: 08/23/18 00:31 Ondansetron HCl (Zofran Odt) 4 mg PO Q6H PRN PRN Reason: Nausea/Vomiting Ondansetron HCl (Zofran) 4 mg IVP Q6H PRN PRN Reason: Nausea/Vomiting Oxycodone HCl (Oxycodone Ir) 10 mg PO Q6HR PRN PRN Reason: Moderate to Severe Pain (6-10) Last Admin: 08/03/18 15:30 Dose: 10 mg Oxycodone HCl (Oxycodone Ir) 5 mg PO Q6HR PRN PRN Reason: Mild-Moderate Pain (1-5) Last Admin: 08/02/18 17:10 Dose: 5 mg Oxymetazoline HCl (Oxymetazoline Hcl) 1 sprays NASAL BIDPRN PRN PRN Reason: Nasal Congestion Last Admin: 07/31/18 03:11 Dose: 1 spray Potassium Chloride (K-Dur) 40 meq PO BID-[facility] Last Admin: 08/03/18 09:07 Dose: 40 meq Temazepam (Restoril) 15 mg PO HSPRN PRN PRN Reason: Insomnia Last Admin: 07/24/18 23:12 Dose: 15 mg Thiamine HCl (Thiamine) 100 mg PO DAILY [facility] Last Admin: 08/03/18 09:06 Dose: 100 mg
[2018-08-03] MEDS: Vancomycin HCl 1.5 GM in Sodium Chloride 0.9% 250 ML 300 ML IVPB SCH (17:19)
[2018-08-03] MEDS: Insulin Glargine 5 UNITS in Pre-Filled Syringe 1 EACH SC SCH (23:15)
[2018-08-04 07:34] LABS: Hemoglobin 12.5 g/dL (14.0-18.0); Mean Corpuscular HGB CONC 31.8 g/dL (32.0-36.0); Mean Corpuscular Hemoglobin 28.1 pg (27.0-31.0); Mean Corpuscular Volume 88.2 fL (78.0-98.0); Mean Platelet Volume 8.8 fL (7.4-10.4); Platelet Count 184 thou/uL (130-400); Red Blood Cell (RBC) Count 4.47 mill/uL (4.70-6.10); White Blood Cell (WBC) Count 7.8 thou/uL (4.8-10.8)
[2018-08-04] MEDS: Carvedilol 6.25 MG TAB PO SCH ×3 (08:30→17:15)
[2018-08-04] MEDS: Furosemide 40 MG TAB PO SCH ×2 (08:30→08:39)
[2018-08-04] MEDS: Digoxin 0.25 MG TAB PO SCH ×2 (08:31→08:46)
[2018-08-04] MEDS: Thiamine 100 MG TAB PO SCH ×2 (08:31→08:43)
[2018-08-04] MEDS: Potassium Chloride 20 MEQ TAB PO SCH ×4 (08:31→17:14)
[2018-08-04] MEDS: Folic Acid 1 MG TAB PO SCH ×2 (08:31→08:46)
[2018-08-04] MEDS: Multivitamin W/ Minerals 1 TAB PO SCH ×2 (08:31→08:44)
[2018-08-04] MEDS: Magnesium Oxide 400 MG TAB PO SCH ×2 (08:31→08:45)
[2018-08-04] MEDS: Famotidine 20 MG TAB PO SCH ×2 (08:32→08:44)
[2018-08-04] MEDS: Hydrocortisone 1% Cream 30 GM TUBE TOP SCH ×2 (09:50→21:30)
[2018-08-04] MEDS: oxyCODONE 5 MG TAB PO PRN ×2 (10:45→19:54)
--- NOTE | 2018-08-04 10:56 | OP ---
DATE OF PROCEDURE: PREOPERATIVE DIAGNOSIS: Left chronic osteomyelitis left shoulder, status post multiple I and D's. POSTOPERATIVE DIAGNOSIS: Left chronic osteomyelitis left shoulder, status post multiple I and D's. PROCEDURE PERFORMED: I and D, antibiotic spacer, left shoulder. TRAFFIC WORKFORCE REPRESENTATIVE: Danie Elizalde PA-C ANESTHESIOLOGIST: Paco Gonzalez MD ANESTHESIA: The patient received general endotracheal intubation. ESTIMATED BLOOD LOSS: 75 mL. TOURNIQUET TIME: None. IMPLANTS: antibiotics, cement, spacer, 1 with mixed in 2 gm of vancomycin and 2.4 gm of tobramycin, as well as tobramycin and vancomycin powder. EXPLANTS: None. COMPLICATIONS: None. HISTORY OF PRESENT ILLNESS: Mr. Ring is a 72-year-old male, well known to my service. The patient has history of alcoholism, pain medication abuse, hepatitis , diabetes, malnourishment with chronic osteomyelitis, multiple I and D's, undergoing multiple antibiotic spacer exchanges as well as antibiotic spacers. The patient was brought back with having issues with congestive heart failure, AFib. The patient has decreased ejection fraction. The patient has a left shoulder chronically draining wound. The patient's white count has actually normalized. His H and H are normal as he has the wound that just continuously drains, but is unable to heal despite multiple attempts. I discussed with the patient the importance of the surgery that I think that likely he will not ever heal this wound. He is not a good candidate for free flap for coverage as this space is a difficult void to fill. I would have to take more humerus. Potentially, he may lose function of the shoulder. He has essentially a functional stable chronic osteo with a draining, that is just as good as trying to get it healed. Though, couple of times, we could not heal. He actually has reaccumulated, so I do not know if this secondary to the void left or just the patient. I just stated that we would plan on just to repeat I and D to wash out any gross purulence, good tissues, but the patient states that he had been chemically treating his shoulder, which concerned me for possible exposures. 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 He understood the risks and benefits of surgery to include pain, scar, bleeding, infection, damage to vital structures, loss of life or limb, continued chronic infection with failure to clear. He understands these risks and benefits and elected to proceed. DESCRIPTION OF PROCEDURE: Time-out was performed designating the patient's left upper extremity as the operative site based on site, consents, and marking. After time-out, the patient's left shoulder was prepped and draped with Betadine. We took some tissue that looked like granulation tissue within the wound and picked it out and sent it off for culture as well as pathology. We excised a portion about 5 cm margin of the skin to help with a clean edge for cleaning. We curetted out the edge of the bone as well as some of the glenoid. We felt into the whole space, there was only 2 fingerbreadths space in between the bone and not a very large cavitary lesion. I did not find any gross purulence within the shoulder, just a serous fluid collection, just like a burned-out chronic osteo. We washed out 6 L of fluids through and placed 2 g of vancomycin powder and 2.4 g of tobramycin powder in the space. I made a small saucer out of one bag of cement with 2 g and 2.4 of tobramycin, but it only ended up being about in between the glenoid and humerus, which may decrease the motion across the joint and allowed it to heal. We then placed soft tissue dressings over and closed. The patient is a poor candidate for any fixation besides complete amputation, which I think would leave him with less more disability than just having a chronic draining wound. The patient is medically declining, is not a great candidate for any free flap coverage of any type. The patient will likely have this chronic draining sinus the rest of his life. We will continue to follow him in-house. Job ID: [id number] [facility]
[2018-08-04] MEDS: Vancomycin HCl 1.5 GM in Sodium Chloride 0.9% 250 ML 300 ML IVPB SCH (17:15)
[2018-08-04 18:22] LABS: Vancomycin, Trough 36.6 ug/mL
--- NOTE | 2018-08-04 18:32 | PDOC.PN ---
- Subjective Encounter Start Date: 08/04/18 Encounter Start Time: 10:00 Subjective: pt up in bed complains of some pain to his left shoulder - Objective Resuscitation Status - Order Detail: 07/23/18 20:37 Resuscitation Status Routine Resuscitation Status: FULL: Full Resuscitation Vital Signs & Weight: Vital Signs (12 hours) Temp Pulse Resp BP BP Pulse Ox 08/04/18 17:15 129/71 08/04/18 08:46 91 08/04/18 08:45 133/74 08/04/18 07:30 98.6 F 95 16 159/97 H 95 Weight Admit Weight 196 lb 14.4 oz Weight 178 lb I&O: 08/03/18 08/04/18 08/05/18 06:59 06:59 06:59 Intake Total 1614 1521 Output Total 300 1250 Balance 1314 271 Result Diagrams: 08/04/18 07:07 08/04/18 17:42 Additional Labs: Accuchecks 08/04/18 08/04/18 08/04/18 17:06 10:58 05:48 POC Glucose 108 136 H 135 H 08/03/18 08/03/18 20:08 16:54 POC Glucose 157 H 106 Phys Exam - Physical Examination Neck: no nodes, no JVD, supple, full ROM Respiratory: no wheezing, no rales, no rhonchi, wheezing present, clear to auscultation bilateral Cardiovascular: RRR, no significant murmur, no rub, gallop, irregular Gastrointestinal: soft, non-tender, no distention, positive bowel sounds Dx/Plan (1) Septic arthritis of shoulder, left Code(s): M00.9 - PYOGENIC ARTHRITIS, UNSPECIFIED Status: Acute Qualifiers: Qualified Code(s): M00.9 - Pyogenic arthritis, unspecified Comment: On Zosyn and Vancomycin, Dr. Hernandez following (2) Hepatitis Status: Acute Comment: likely multifactoral including hepatic congestion from CHF, NSAID use, alcoholism, trending down, GI following (3) DM type 2 (diabetes mellitus, type 2) Status: Chronic Qualifiers: Diabetes mellitus terminal make up operator insulin use: without correction use Diabetes mellitus complication status: without complication Qualified Code(s): E11.9 - Type 2 diabetes mellitus without complications (4) HTN (hypertension) Code(s): I10 - ESSENTIAL (PRIMARY) HYPERTENSION Status: Chronic Qualifiers: Hypertension type: essential hypertension Qualified Code(s): I10 - Essential (primary) hypertension Comment: - Plan s/p I&D and abx spacer, nurse called elevated vanco level. -: vanco had been started. Instructed nurse to stop vanco now -: will disconitnue vanco all cx negative. pt will need oral abx * . Review of Systems - Review of Systems Cardiovascular: negative: chest pain, palpitations, orthopnea, paroxysmal nocturnal dyspnea, edema, light headedness, other Gastrointestinal: negative: Nausea, Vomiting, Abdominal Pain, Diarrhea, Constipation, Melena, Hematochezia, Other Musculoskeletal: Shoulder Pain - Medications/Allergies Allergies/Adverse Reactions: Allergies Allergy/AdvReac Type Severity Reaction Status Date / Time cefazolin [From [facility]] Allergy Severe Swollen Verified 07/24/18 15:25 Lips Medications: Current Medications Albuterol/Ipratropium (Duoneb) 3 ml NEB [id number] PRN PRN Reason: SOB &/or Wheezing Carvedilol (Coreg) 12.5 mg PO BID-[facility] Last Admin: 08/04/18 17:15 Dose: 12.5 mg Dextrose/Water (Dextrose 50%) 25 gm SLOW IVP PRN PRN PRN Reason: Hypoglycemia Digoxin (Lanoxin) 0.25 mg PO DAILY [facility] Last Admin: 08/04/18 08:46 Dose: 0.25 mg Diphenhydramine HCl (Benadryl) 25 mg PO Q8H PRN PRN Reason: Itching & Insomnia Last Admin: 08/03/18 23:11 Dose: 25 mg Famotidine (Pepcid) 20 mg PO 0900 [facility] Last Admin: 08/04/18 08:44 Dose: 20 mg Folic Acid (Folvite) 1 mg PO DAILY [facility] Last Admin: 08/04/18 08:46 Dose: 1 mg Furosemide (Lasix) 40 mg PO DAILY-[facility] Last Admin: 08/04/18 08:39 Dose: 40 mg Glucagon (Glucagon) 1 mg IM PRN PRN PRN Reason: Hypoglycemia Guaifenesin (Robitussin Sf) 100 mg PO Q4H PRN PRN Reason: COU Last Admin: 07/28/18 21:14 Dose: 100 mg Hydrocortisone/Aloe (Hydrocortisone 1% Cream) 0 gm TOP BID [facility] Last Admin: 08/03/18 23:16 Dose: 1 applic Dextrose/Water (D5w) 1,000 mls @ 0 mls/hr IV .Q0M PRN PRN Reason: Hypoglycemia Insulin Glargine 5 units/ (Miscellaneous Medication) 0.05 mls @ 0 mls/hr SC HS [facility] Last Admin: 08/03/18 23:15 Dose: Not Given Sodium Chloride (Normal Saline 0.9%) 1,000 mls @ 50 mls/hr IV .Q20H [facility] Insulin Human Lispro (Humalog) 0 units SC .MODERATE SLIDING SC PRN PRN Reason: Moderate Correctional Scale Last Admin: 08/03/18 11:55 Dose: 6 units Insulin Human Lispro (Humalog) 0 units SC .BEDTIME SLIDING SC PRN PRN Reason: Bedtime Correctional Scale Iron/Minerals/Multivitamins (Theragran M) 1 tab PO DAILY [facility] Last Admin: 08/04/18 08:44 Dose: 1 tab Lorazepam (Ativan) 1 mg SLOW IVP Q4H PRN PRN Reason: Anxiety/Agitation Lorazepam (Ativan) 1 mg PO Q4H PRN PRN Reason: Anxiety/Agitation Last Admin: 08/03/18 23:12 Dose: 1 mg Magnesium Oxide (Magnesium Oxide) 400 mg PO DAILY [facility] Last Admin: 08/04/18 08:45 Dose: 400 mg Miscellaneous Medication (Pharmacy To Dose) 1 each IVPB ONE PRN PRN Reason: DOSING Stop: 08/23/18 00:31 Ondansetron HCl (Zofran Odt) 4 mg PO Q6H PRN PRN Reason: Nausea/Vomiting Ondansetron HCl (Zofran) 4 mg IVP Q6H PRN PRN Reason: Nausea/Vomiting Oxycodone HCl (Oxycodone Ir) 10 mg PO Q6HR PRN PRN Reason: Moderate to Severe Pain (6-10) Last Admin: 08/03/18 15:30 Dose: 10 mg Oxycodone HCl (Oxycodone Ir) 5 mg PO Q6HR PRN PRN Reason: Mild-Moderate Pain (1-5) Last Admin: 08/04/18 10:45 Dose: 5 mg Oxymetazoline HCl (Oxymetazoline Hcl) 1 sprays NASAL BIDPRN PRN PRN Reason: Nasal Congestion Last Admin: 07/31/18 03:11 Dose: 1 spray Potassium Chloride (K-Dur) 40 meq PO BID-[facility] Last Admin: 08/04/18 17:14 Dose: 40 meq Thiamine HCl (Thiamine) 100 mg PO DAILY [facility] Last Admin: 08/04/18 08:43 Dose: 100 mg
--- NOTE | 2018-08-04 18:55 | PDOC.CTH ---
Cardiology Progress Note - Subjective No new issues. - Objective Vital Signs Temp Pulse Resp BP BP Pulse Ox 08/04/18 17:15 129/71 08/04/18 08:46 91 08/04/18 08:45 133/74 08/04/18 07:30 98.6 F 95 16 159/97 H 95 Admit Weight 196 lb 14.4 oz Weight 178 lb 08/03/18 08/04/18 08/05/18 06:59 06:59 06:59 Intake Total 1614 1521 Output Total 300 1250 Balance 1314 271 - Physical Examination General/Neuro: alert & oriented x3, NAD Neck: no JVD present Lungs: unlabored respirations Heart: other: (Irreg irreg) Abdomen: NT/ND Extremities: other: (no edema) - Telemetry Telemetry Rhythm: Afib HR 80's. - Labs Result Diagrams: 08/04/18 07:07 08/04/18 17:42 Troponin/CKMB Troponin I 0.022 ng/mL (< 0.028) 07/24/18 00:35 - Assessment/Plan 1. Afib RVR, rate controlled. 2. Dilated CM EF at 20-25%, new onset. 3. Chronic shoulder infection 4. Acute on chronic systolic heart failure. Resolved. 5. Abnormal LFT's. PLAN: - On PO lasix at 40 mg daily. - Continue BB at current dose. - Continue digoxin. - Not interested in C. - No anticoagulation given his history of alcohol use and non compliance. - Not interested in Lifevest at this time but may be interested in an AICD in the future. He will have to show compliance by following up. - Will follow.
[2018-08-04] MEDS: Sodium Chloride 0.9% 1,000 ML IV SCH (19:50)
[2018-08-04] MEDS: Insulin Glargine 5 UNITS in Pre-Filled Syringe 1 EACH SC SCH (21:30)
[2018-08-05] MEDS: oxyCODONE 5 MG TAB PO PRN ×2 (04:56→20:22)
[2018-08-05 07:43] LABS: Anion Gap 11 mmol/L (10-20); BUN (Urea Nitrogen) 36 mg/dL (8.4-25.7); Calc. Creatinine Clearance 59 mL/min (70-130); Calcium 9.8 mg/dL (7.8-10.44); Carbon Dioxide 29 mmol/L (23-31); Chloride 101 mmol/L (98-107); Estimated GFR-MDRD 58; Glucose 147 mg/dL (83-110); Potassium 4.4 mmol/L (3.5-5.1); Sodium 137 mmol/L (136-145)
[2018-08-05] MEDS: Carvedilol 6.25 MG TAB PO SCH ×2 (08:40→17:39)
[2018-08-05] MEDS: Magnesium Oxide 400 MG TAB PO SCH (08:40)
[2018-08-05] MEDS: Thiamine 100 MG TAB PO SCH (08:40)
[2018-08-05] MEDS: Famotidine 20 MG TAB PO SCH (08:41)
[2018-08-05] MEDS: Furosemide 40 MG TAB PO SCH (08:41)
[2018-08-05] MEDS: Folic Acid 1 MG TAB PO SCH (08:41)
[2018-08-05] MEDS: Potassium Chloride 20 MEQ TAB PO SCH ×2 (08:42→17:39)
[2018-08-05] MEDS: Multivitamin W/ Minerals 1 TAB PO SCH (08:42)
[2018-08-05] MEDS: Digoxin 0.25 MG TAB PO SCH (08:42)
[2018-08-05] MEDS: Hydrocortisone 1% Cream 30 GM TUBE TOP SCH ×2 (08:43→20:09)
[2018-08-05] MEDS: Sodium Chloride 0.9% 1,000 ML IV SCH (13:27)
--- NOTE | 2018-08-05 15:11 | PDOC.CTH ---
Cardiology Progress Note - Subjective No new issues. - Objective Vital Signs Temp Pulse Resp BP BP BP Pulse Ox 08/05/18 11:30 97.9 F 88 14 105/78 95 08/05/18 08:42 88 08/05/18 08:40 123/62 08/05/18 07:20 97.9 F 88 14 110/71 95 08/05/18 04:00 123/62 Admit Weight 196 lb 14.4 oz Weight 174 lb 3.2 oz 08/04/18 08/05/18 08/06/18 06:59 06:59 06:59 Intake Total 1521 1680 480 Output Total 1250 660 Balance 271 1020 480 - Physical Examination General/Neuro: alert & oriented x3, NAD Neck: no JVD present Lungs: unlabored respirations Heart: RRR Abdomen: NT/ND Extremities: other: (no edema.) - Telemetry Telemetry Rhythm: Afib HR 80's. - Labs Result Diagrams: 08/04/18 07:07 08/05/18 07:12 Troponin/CKMB Troponin I 0.022 ng/mL (< 0.028) 07/24/18 00:35 - Assessment/Plan 1. Afib RVR, rate controlled. 2. Dilated CM EF at 20-25%, new onset. 3. Chronic shoulder infection 4. Acute on chronic systolic heart failure. Resolved. 5. Abnormal LFT's. PLAN: - On PO lasix at 40 mg daily. - Continue BB and digoxin. - Not interested in C. - No anticoagulation given his history of alcohol use and non compliance. - Asprin alone for stroke prophylaxis. - Not interested in Lifevest at this time but may be interested in an AICD in the future. He will have to show compliance by following up. - Will sign off. Please call with any questions. - Patient is to follow up in office in 2 months.
--- NOTE | 2018-08-05 15:29 | PDOC.PN ---
- Subjective Encounter Start Date: 08/05/18 Encounter Start Time: 10:30 Subjective: pt up in bed complains of pain to his left shoulder - Objective Resuscitation Status - Order Detail: 07/23/18 20:37 Resuscitation Status Routine Resuscitation Status: FULL: Full Resuscitation Vital Signs & Weight: Vital Signs (12 hours) Temp Pulse Resp BP BP BP Pulse Ox 08/05/18 11:30 97.9 F 88 14 105/78 95 08/05/18 08:42 88 08/05/18 08:40 123/62 08/05/18 07:20 97.9 F 88 14 110/71 95 08/05/18 04:00 123/62 Weight Admit Weight 196 lb 14.4 oz Weight 174 lb 3.2 oz I&O: 08/04/18 08/05/18 08/06/18 06:59 06:59 06:59 Intake Total 1521 1680 480 Output Total 1250 660 Balance 271 1020 480 Result Diagrams: 08/04/18 07:07 08/05/18 07:12 Additional Labs: Accuchecks 08/05/18 08/05/18 08/04/18 11:10 05:32 20:10 POC Glucose 120 H 189 H 174 H 08/04/18 17:06 POC Glucose 108 Phys Exam - Physical Examination Neck: no nodes, no JVD, supple, full ROM Respiratory: no wheezing, no rales, no rhonchi, wheezing present, clear to auscultation bilateral Cardiovascular: RRR, no significant murmur, no rub, gallop, irregular Gastrointestinal: soft, non-tender, no distention, positive bowel sounds Musculoskeletal: no edema, pulses present, edema present Dx/Plan (1) Septic arthritis of shoulder, left Code(s): M00.9 - PYOGENIC ARTHRITIS, UNSPECIFIED Status: Acute Qualifiers: Qualified Code(s): M00.9 - Pyogenic arthritis, unspecified Comment: On Zosyn and Vancomycin, Dr. Hernandez following (2) Hepatitis Status: Acute Comment: likely multifactoral including hepatic congestion from CHF, NSAID use, alcoholism, trending down, GI following (3) DM type 2 (diabetes mellitus, type 2) Status: Chronic Qualifiers: Diabetes mellitus buttermaker continuous churn insulin use: without mcc use Diabetes mellitus complication status: without complication Qualified Code(s): E11.9 - Type 2 diabetes mellitus without complications (4) HTN (hypertension) Code(s): I10 - ESSENTIAL (PRIMARY) HYPERTENSION Status: Chronic Qualifiers: Hypertension type: essential hypertension Qualified Code(s): I10 - Essential (primary) hypertension Comment: - Plan spoke with ID will need vanco for 8 weeks -: will order picc line. [facility] * . Review of Systems - Review of Systems Respiratory: negative: Cough, Dry, Shortness of Breath, Hemoptysis, SOB with Excertion, Pleuritic Pain, Sputum, Wheezing Cardiovascular: negative: chest pain, palpitations, orthopnea, paroxysmal nocturnal dyspnea, edema, light headedness, other Musculoskeletal: Shoulder Pain - Medications/Allergies Allergies/Adverse Reactions: Allergies Allergy/AdvReac Type Severity Reaction Status Date / Time cefazolin [From [facility]] Allergy Severe Swollen Verified 07/24/18 15:25 Lips Medications: Current Medications Albuterol/Ipratropium (Duoneb) 3 ml NEB [id number] PRN PRN Reason: SOB &/or Wheezing Carvedilol (Coreg) 12.5 mg PO BID-WM [facility] Last Admin: 08/05/18 08:40 Dose: 12.5 mg Dextrose/Water (Dextrose 50%) 25 gm SLOW IVP PRN PRN PRN Reason: Hypoglycemia Digoxin (Lanoxin) 0.25 mg PO DAILY [facility] Last Admin: 08/05/18 08:42 Dose: 0.25 mg Diphenhydramine HCl (Benadryl) 25 mg PO Q8H PRN PRN Reason: Itching & Insomnia Last Admin: 08/03/18 23:11 Dose: 25 mg Famotidine (Pepcid) 20 mg PO 0900 [facility] Last Admin: 08/05/18 08:41 Dose: 20 mg Folic Acid (Folvite) 1 mg PO DAILY [facility] Last Admin: 08/05/18 08:41 Dose: 1 mg Furosemide (Lasix) 40 mg PO DAILY-AC [facility] Last Admin: 08/05/18 08:41 Dose: 40 mg Glucagon (Glucagon) 1 mg IM PRN PRN PRN Reason: Hypoglycemia Guaifenesin (Robitussin Sf) 100 mg PO Q4H PRN PRN Reason: COU Last Admin: 07/28/18 21:14 Dose: 100 mg Hydrocortisone/Aloe (Hydrocortisone 1% Cream) 0 gm TOP BID [facility] Last Admin: 08/05/18 08:43 Dose: Not Given Dextrose/Water (D5w) 1,000 mls @ 0 mls/hr IV .Q0M PRN PRN Reason: Hypoglycemia Insulin Glargine 5 units/ (Miscellaneous Medication) 0.05 mls @ 0 mls/hr SC HS [facility] Last Admin: 08/04/18 21:30 Dose: Not Given Sodium Chloride (Normal Saline 0.9%) 1,000 mls @ 50 mls/hr IV .Q20H [facility] Last Admin: 08/05/18 13:27 Dose: Not Given Vancomycin HCl 750 mg/ Sodium (Chloride) 250 mls @ 250 mls/hr IVPB Q12HR [facility] Insulin Human Lispro (Humalog) 0 units SC .MODERATE SLIDING SC PRN PRN Reason: Moderate Correctional Scale Last Admin: 08/03/18 11:55 Dose: 6 units Insulin Human Lispro (Humalog) 0 units SC .BEDTIME SLIDING SC PRN PRN Reason: Bedtime Correctional Scale Iron/Minerals/Multivitamins (Theragran M) 1 tab PO DAILY [facility] Last Admin: 08/05/18 08:42 Dose: 1 tab Lorazepam (Ativan) 1 mg SLOW IVP Q4H PRN PRN Reason: Anxiety/Agitation Lorazepam (Ativan) 1 mg PO Q4H PRN PRN Reason: Anxiety/Agitation Last Admin: 08/03/18 23:12 Dose: 1 mg Magnesium Oxide (Magnesium Oxide) 400 mg PO DAILY [facility] Last Admin: 08/05/18 08:40 Dose: 400 mg Miscellaneous Medication (Pharmacy To Dose) 1 each IVPB ONE PRN PRN Reason: Pharmacy to dose Ondansetron HCl (Zofran Odt) 4 mg PO Q6H PRN PRN Reason: Nausea/Vomiting Ondansetron HCl (Zofran) 4 mg IVP Q6H PRN PRN Reason: Nausea/Vomiting Oxycodone HCl (Oxycodone Ir) 10 mg PO Q6HR PRN PRN Reason: Moderate to Severe Pain (6-10) Last Admin: 08/04/18 19:54 Dose: 10 mg Oxycodone HCl (Oxycodone Ir) 5 mg PO Q6HR PRN PRN Reason: Mild-Moderate Pain (1-5) Last Admin: 08/05/18 04:56 Dose: 5 mg Oxymetazoline HCl (Oxymetazoline Hcl) 1 sprays NASAL BIDPRN PRN PRN Reason: Nasal Congestion Last Admin: 07/31/18 03:11 Dose: 1 spray Potassium Chloride (K-Dur) 40 meq PO BID- [facility] Last Admin: 08/05/18 08:42 Dose: 40 meq Thiamine HCl (Thiamine) 100 mg PO DAILY [facility] Last Admin: 08/05/18 08:40 Dose: 100 mg
[2018-08-05] MEDS: Vancomycin HCl 750 MG in Sodium Chloride 0.9% 250 ML 250 ML IVPB SCH (17:58)
--- NOTE | 2018-08-05 18:59 | PRG ---
DATE OF SERVICE: 08/05/2018 SUBJECTIVE: Mr. Ring is having pain in the left shoulder. He had I and D and does not look like curative resection is feasible. He has no cough. No chest pain. No dyspnea. No abdominal pain or diarrhea. He is voiding in the urinal. Intermittent cramps in the left shoulder. OBJECTIVE: LUNGS: With symmetric air entry. No crackles or wheezing. HEART: S1 and S2, regular rate. ABDOMEN: Soft, not distended. EXTREMITIES: Moves extremities except for the left upper extremity with limitations due to the left shoulder inflammatory process. LABORATORY DATA: White cell count 7.8, hemoglobin 12.5, platelets of 184. Sodium 137, creatinine 1.22, the last bilirubin is 1.8, AST 63, ALT 109, and alkaline phosphatase 134. Albumin was 3.9. Microbiology with thus far no growth in the left shoulder cultures. Previous cultures have yielded coagulase-negative staph and staph epidermidis with very resistant phenotype of Serratia marcescens. 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 Job ID: [id number]
[2018-08-05] MEDS: Insulin Glargine 5 UNITS in Pre-Filled Syringe 1 EACH SC SCH ×2 (20:09→20:16)
[2018-08-06] MEDS: oxyCODONE 5 MG TAB PO PRN ×3 (02:11→21:14)
[2018-08-06] MEDS: diphenhydrAMINE 25 MG CAP PO PRN (02:16)
[2018-08-06] MEDS: Oxymetazoline HCl 0.05% ( 15 ML ) NASAL PRN (02:17)
[2018-08-06] MEDS: Digoxin 0.25 MG TAB PO SCH (09:20)
[2018-08-06] MEDS: Potassium Chloride 20 MEQ TAB PO SCH ×2 (09:20→18:06)
[2018-08-06] MEDS: Multivitamin W/ Minerals 1 TAB PO SCH (09:20)
[2018-08-06] MEDS: Thiamine 100 MG TAB PO SCH (09:20)
[2018-08-06] MEDS: Folic Acid 1 MG TAB PO SCH (09:20)
[2018-08-06] MEDS: Famotidine 20 MG TAB PO SCH (09:20)
[2018-08-06] MEDS: Magnesium Oxide 400 MG TAB PO SCH (09:20)
[2018-08-06] MEDS: Hydrocortisone 1% Cream 30 GM TUBE TOP SCH ×2 (09:21→21:14)
[2018-08-06] MEDS: Carvedilol 6.25 MG TAB PO SCH ×2 (09:21→18:06)
[2018-08-06] MEDS: Furosemide 40 MG TAB PO SCH (09:21)
[2018-08-06] MEDS: Sodium Chloride 0.9% 1,000 ML IV SCH (12:47)
--- NOTE | 2018-08-06 14:27 | SPC ---
PROCEDURE PERIPHERAL INSERTION CENTRAL CATHETER: INDICATION: Long-term IV antibiotic therapy. FINDINGS: A single lumen 5 Yoruba PICC line placed in the right upper extremity via the right basilic vein usin g fluoroscopic guidance. The tip is positioned in the SVC. PROCEDURE NOTE: Right upper extremity venogram was obtained by injecting contrast in a peripheral right upper extremi ty IV. Basilic vein opacified and was chosen for puncture. Local anesthesia was administered with L idocaine. The vein was punctured using a micropuncture technique under fluoroscopic guidance. The w elsy was introduced into the vein. The wire was advanced into the SVC and positioned. The catheter w as then measured and cut. A sheath was placed over the wire. The catheter was then advanced over th e wire. The peelaway sheath was removed. The catheter was flushed and secured with a sterile dressi ng. There were no problems or complications. EXPOSURE: Fluoro time 1.8 minutes. 2267 mGy*^cm2. POS: [facility]
[2018-08-06 14:33] VITALS: BMI 25.5
[2018-08-06 15:12] LABS: Fungus Stain Final report (.)
--- NOTE | 2018-08-06 15:16 | CON ---
DATE OF CONSULTATION: 08/06/2018 HISTORY OF PRESENT ILLNESS: Mr. Ring is a 72-year-old male, well known to my service. The patient has history of chronic osteomyelitis of the left shoulder, underwent an I and D this last Saturday. Antibiotic spacers with high-dose antibiotics were placed at that time. The patient currently is resting comfortably in bed. No acute distress. PHYSICAL EXAMINATION: VITAL SIGNS: Afebrile. Vital signs stable. GENERAL: Alert and oriented male, in no acute distress. EXTREMITIES: Left shoulder wound clean, dry, and intact. Neurovascular status unchanged distally. LABORATORY DATA: The patient has no growth for his cultures at this point. Pathology is incomplete for the soft tissue sent. IMPRESSION: Left chronic osteomyelitis. ASSESSMENT AND PLAN: The patient will undergo wet-to-dry dressing changes. He may discharge under the medicine's direction. The patient can undergo antibiotic treatment by Dr. Hernandez. He will follow up me in [place] next month in the 1st of the month in my clinic there. The patient was given instructions to work on wet-to-dry dressing. The patient's antibiotic cement spacer may be removed if it is coming out. Job ID: [id number] MTDD
[2018-08-06] MEDS: Vancomycin HCl 750 MG in Sodium Chloride 0.9% 250 ML 250 ML IVPB SCH (19:02)
[2018-08-06] MEDS: Insulin Glargine 5 UNITS in Pre-Filled Syringe 1 EACH SC SCH (21:14)
--- NOTE | 2018-08-06 22:05 | PDOC.PN ---
- Subjective Encounter Start Date: 08/06/18 Encounter Start Time: 15:00 Subjective: pt up in bed no complains - Objective Resuscitation Status - Order Detail: 07/23/18 20:37 Resuscitation Status Routine Resuscitation Status: FULL: Full Resuscitation Vital Signs & Weight: Vital Signs (12 hours) Temp Pulse Resp BP BP Pulse Ox 08/06/18 18:06 116/71 08/06/18 13:23 98.2 F 96 16 146/81 H 96 Weight Admit Weight 196 lb 14.4 oz Weight 173 lb I&O: 08/05/18 08/06/18 08/07/18 06:59 06:59 06:59 Intake Total 1680 2740 1100 Output Total 660 2075 650 Balance 1020 665 450 Result Diagrams: 08/04/18 07:07 08/05/18 07:12 Additional Labs: Accuchecks 08/06/18 08/06/18 08/06/18 20:26 16:20 11:39 POC Glucose 165 H 170 H 157 H 08/06/18 08/05/18 05:37 16:52 POC Glucose 136 H 146 H Phys Exam - Physical Examination Neck: no nodes, no JVD, supple, full ROM Respiratory: no wheezing, no rales, no rhonchi, clear to auscultation bilateral Cardiovascular: RRR, no significant murmur Dx/Plan (1) Septic arthritis of shoulder, left Code(s): M00.9 - PYOGENIC ARTHRITIS, UNSPECIFIED Status: Acute Qualifiers: Qualified Code(s): M00.9 - Pyogenic arthritis, unspecified Comment: On Zosyn and Vancomycin, Dr. Hernandez following (2) Hepatitis Status: Acute Comment: likely multifactoral including hepatic congestion from CHF, NSAID use, alcoholism, trending down, GI following (3) DM type 2 (diabetes mellitus, type 2) Status: Chronic Qualifiers: Diabetes mellitus group home insulin use: without termite control service representative use Diabetes mellitus complication status: without complication Qualified Code(s): E11.9 - Type 2 diabetes mellitus without complications (4) HTN (hypertension) Code(s): I10 - ESSENTIAL (PRIMARY) HYPERTENSION Status: Chronic Qualifiers: Hypertension type: essential hypertension Qualified Code(s): I10 - Essential (primary) hypertension Comment: - Plan pt to get a picc line today -: pt will need to go [facility] when his [facility]x has been set up -: per ID he will need 8wk of vanco * . Review of Systems - Review of Systems Cardiovascular: negative: chest pain, palpitations, orthopnea, paroxysmal nocturnal dyspnea, edema, light headedness, other Gastrointestinal: negative: Nausea, Vomiting, Abdominal Pain, Diarrhea, Constipation, Melena, Hematochezia, Other Musculoskeletal: Shoulder Pain - Medications/Allergies Allergies/Adverse Reactions: Allergies Allergy/AdvReac Type Severity Reaction Status Date / Time cefazolin [From [facility]] Allergy Severe Swollen Verified 07/24/18 15:25 Lips Medications: Current Medications Albuterol/Ipratropium (Duoneb) 3 ml NEB [id number] PRN PRN Reason: SOB &/or Wheezing Carvedilol (Coreg) 12.5 mg PO BID-[facility] Last Admin: 08/06/18 18:06 Dose: 12.5 mg Dextrose/Water (Dextrose 50%) 25 gm SLOW IVP PRN PRN PRN Reason: Hypoglycemia Digoxin (Lanoxin) 0.25 mg PO DAILY [facility] Last Admin: 08/06/18 09:20 Dose: 0.25 mg Diphenhydramine HCl (Benadryl) 25 mg PO Q8H PRN PRN Reason: Itching & Insomnia Last Admin: 08/06/18 02:16 Dose: 25 mg Famotidine (Pepcid) 20 mg PO 0900 [facility] Last Admin: 08/06/18 09:20 Dose: 20 mg Folic Acid (Folvite) 1 mg PO DAILY [facility] Last Admin: 08/06/18 09:20 Dose: 1 mg Furosemide (Lasix) 40 mg PO DAILY-AC [facility] Last Admin: 08/06/18 09:21 Dose: 40 mg Glucagon (Glucagon) 1 mg IM PRN PRN PRN Reason: Hypoglycemia Guaifenesin (Robitussin Sf) 100 mg PO Q4H PRN PRN Reason: COU Last Admin: 07/28/18 21:14 Dose: 100 mg Hydrocortisone/Aloe (Hydrocortisone 1% Cream) 0 gm TOP BID [facility] Last Admin: 08/06/18 21:14 Dose: Not Given Dextrose/Water (D5w) 1,000 mls @ 0 mls/hr IV .Q0M PRN PRN Reason: Hypoglycemia Insulin Glargine 5 units/ (Miscellaneous Medication) 0.05 mls @ 0 mls/hr SC HS [facility] Last Admin: 08/06/18 21:14 Dose: Not Given Vancomycin HCl 750 mg/ Sodium (Chloride) 250 mls @ 250 mls/hr IVPB 1800 [facility] Last Admin: 08/06/18 19:02 Dose: 250 mls Insulin Human Lispro (Humalog) 0 units SC .MODERATE SLIDING SC PRN PRN Reason: Moderate Correctional Scale Last Admin: 08/03/18 11:55 Dose: 6 units Insulin Human Lispro (Humalog) 0 units SC .BEDTIME SLIDING SC PRN PRN Reason: Bedtime Correctional Scale Iron/Minerals/Multivitamins (Theragran M) 1 tab PO DAILY [facility] Last Admin: 08/06/18 09:20 Dose: 1 tab Lorazepam (Ativan) 1 mg SLOW IVP Q4H PRN PRN Reason: Anxiety/Agitation Lorazepam (Ativan) 1 mg PO Q4H PRN PRN Reason: Anxiety/Agitation Last Admin: 08/03/18 23:12 Dose: 1 mg Magnesium Oxide (Magnesium Oxide) 400 mg PO DAILY [facility] Last Admin: 08/06/18 09:20 Dose: 400 mg Miscellaneous Medication (Pharmacy To Dose) 1 each IVPB .VANC [facility] Ondansetron HCl (Zofran Odt) 4 mg PO Q6H PRN PRN Reason: Nausea/Vomiting Ondansetron HCl (Zofran) 4 mg IVP Q6H PRN PRN Reason: Nausea/Vomiting Oxycodone HCl (Oxycodone Ir) 10 mg PO Q6HR PRN PRN Reason: Moderate to Severe Pain (6-10) Last Admin: 08/04/18 19:54 Dose: 10 mg Oxycodone HCl (Oxycodone Ir) 5 mg PO Q6HR PRN PRN Reason: Mild-Moderate Pain (1-5) Last Admin: 08/06/18 21:14 Dose: 5 mg Oxymetazoline HCl (Oxymetazoline Hcl) 1 sprays NASAL BIDPRN PRN PRN Reason: Nasal Congestion Last Admin: 08/06/18 02:17 Dose: 1 spray Potassium Chloride (K-Dur) 40 meq PO BID-WM [facility] Last Admin: 08/06/18 18:06 Dose: 40 meq Thiamine HCl (Thiamine) 100 mg PO DAILY [facility] Last Admin: 08/06/18 09:20 Dose: 100 mg
[2018-08-07] MEDS: Potassium Chloride 20 MEQ TAB PO SCH (09:27)
[2018-08-07] MEDS: Multivitamin W/ Minerals 1 TAB PO SCH (09:29)
[2018-08-07] MEDS: Furosemide 40 MG TAB PO SCH (09:29)
[2018-08-07] MEDS: Carvedilol 6.25 MG TAB PO SCH (09:29)
[2018-08-07] MEDS: Digoxin 0.25 MG TAB PO SCH (09:29)
[2018-08-07] MEDS: Folic Acid 1 MG TAB PO SCH (09:29)
[2018-08-07] MEDS: Thiamine 100 MG TAB PO SCH (09:29)
[2018-08-07] MEDS: Hydrocortisone 1% Cream 30 GM TUBE TOP SCH (09:30)
[2018-08-07] MEDS: Magnesium Oxide 400 MG TAB PO SCH (09:30)
[2018-08-07] MEDS: Famotidine 20 MG TAB PO SCH (09:30)
[2018-08-07] MEDS: oxyCODONE 5 MG TAB PO PRN (09:35)
[2018-08-07 09:57] LABS: Anion Gap 13 mmol/L (10-20); BUN (Urea Nitrogen) 34 mg/dL (8.4-25.7); Calc. Creatinine Clearance 66 mL/min (70-130); Carbon Dioxide 27 mmol/L (23-31); Chloride 100 mmol/L (98-107); Estimated GFR-MDRD 65; Glucose 232 mg/dL (83-110); Potassium 4.3 mmol/L (3.5-5.1); Sodium 136 mmol/L (136-145)
[2018-08-07 13:30] VITALS: BP 105/66; TEMP 98.2
--- NOTE | 2018-08-08 05:19 | DIS ---
DATE OF ADMISSION: 07/23/2018 DATE OF DISCHARGE: 08/07/2018 DIAGNOSES AT THE TIME OF ADMISSION: 1. Alcoholic hepatitis. 2. Atrial fibrillation with rapid ventricular response. 3. Chronic left shoulder osteomyelitis and infection. 4. Hypertension. 5. Acute on chronic kidney injury. DIAGNOSES AT THE TIME OF DISCHARGE: 1. Septic arthritis of left shoulder, status post I and D. 2. Hepatitis secondary to alcoholism. 3. Diabetes mellitus type 2. 4. Hypertension. 5. Atrial fibrillation with rapid ventricular response. 6. Chronic obstructive pulmonary disease. 7. Alcoholism. 8. History of transient ischemic attack. 9. Dilated cardiomyopathy with LVEF at 20% to 25%, new onset. CONSULTANTS: Dr. oJne Joyce, GI; Dr. Lefty Haro, Cardiology; MARIANA Zamora, Bradley Thurston, Ortho. PROCEDURE: Dr. Thurston did I and D on . HOSPITAL COURSE: The patient was a 72-year-old gentleman who had a complex past medical history with recurrent left shoulder infections which initially started in 2016 after he received steroid injection in his shoulder. He had multiple episodes of infection in the shoulder and in the humerus. He was diagnosed with osteomyelitis and he had to have the head of the humerus surgically removed. Also, he had multiple long-term IV antibiotic treatments with regard to the shoulder infection. Prior to this hospitalization, he complained of stomach pain for a couple of weeks along with drainage from his left shoulder, which was quite chronic, the pain in the shoulder was rated at 8 to 10/10. He denied any fever or chills. His abdominal pain was not associated with vomiting or nausea. He drinks alcohol daily just to suppress the amount of pain he has in the left shoulder. Apparently, his hydrocodone was stopped a few months ago and he started drinking more to suppress the pain. His electrocardiogram showed atrial fibrillation with rapid ventricular response. His white count was 6.7 at the time of admission, hemoglobin 15.7. Electrolytes were within normal limits. Creatinine 1.7, total bilirubin 1.7, AST 1397, ALT 879, alkaline phosphatase was 167, and CK was 222. The patient was placed on Cardizem drip. Cardiology was consulted. The patient was placed on Zosyn and vancomycin since the history of MRSA infection in the past. He had abdominal ultrasound done which showed status post cholecystectomy and right pleural effusion. Cardiology was consulted and it was recommended to control the rate, not to use any anticoagulation secondary to his noncompliance and alcohol drinking. Also, he was seen by Dr. Thurston for Ortho evaluation and he underwent subsequently I and D by Dr. Thurston. His echocardiogram showed low LVEF at 20% to 25% He was placed on Lasix IV and diuresed. He was not started on GLORIA or ARB secondary to hypotension. Since he had low LVEF, the LifeVest was obtained and he is going to leave the hospital with a LifeVest. Also, he was started on Coreg 6.25 mg twice a day, hypokalemia and hypomagnesemia were replaced. He was seen by Dr. Hernandez for ID consultation who finally recommended vancomycin IV 750 mg every 24 hours for 8 weeks. MRI of the left upper extremity showed. 1. Interval partial resection of the proximal humeral head and metaphyses with residual abnormal signal and irregularity involving the cortex of the proximal humerus suspicious for residual osteomyelitis of the proximal humeral shaft. 2. Prominent glenohumeral and periarticular soft tissue fluid collection extending to an open wound of the anterolateral left shoulder joint. There was some fluid dissecting into the surrounding soft tissue musculature of the left shoulder with fluid extending down along the superior and lateral aspect of the latissimus dorsi suspicious for periarticular abscess extension. Also, there was stable changes of chronic rotator cuff tear and severe atrophy of the rotator cuff musculature and stable postsurgical change consistent with some debridement of portions of the acromial process. Finally, the patient was switched to beta khalida and digoxin. He was offered to have left heart catheterization, but he declined. His rate was controlled and he is discharged to [facility] in [place], this is a care home facility where he is going to have wound dressing changed were he is going to have IV vancomycin through his PICC line which was placed yesterday. His activities at the time of discharge are due to left shoulder infection. DIET: Low salt. MEDICATIONS: At the time of discharge: 1. Vancomycin 750 mg IV piggyback every 24 hours. 2. Potassium chloride 20 mEq twice a day. 3. Magnesium oxide 400 mg once a day. 4. Multivitamin one a day. 5. Insulin Lantus 5 units once a day. 6. Furosemide 40 mg daily. 7. Folic acid 1 mg once a day. 8. Famotidine 20 mg once a day. 9. Digoxin 0.25 mg once a day. 10. Carvedilol 12.5 mg twice a day. 11. DuoNeb q.4 hours p.r.n. as needed. DISPOSITION: He is going to home. FOLLOWUP: Follow up with his primary care physician in 1 week, with Dr. Thurston in 2 weeks in his office in [place] and with Dr. Haro in 2 to 3 weeks for cardiology followup. He is going to get PT and OT at [place] [facility] and as I mentioned above, wound care will be provided. TIME SPENT: Time spent on this discharge is more than 30 minutes. Job ID: [id number]
== END 2018-08-07 16:43 | disposition swing bed (61) | DRG 492 ==
LOC: ERS 16:49 → ERHOLD 18:55 → 2NO 07-24 14:10
PROVIDERS: ADMIT Hospitalist; ATTEND Hospitalist
PROC: 0RHK08Z Insertion of Spacer into Left Shoulder Joint, Open Approach (ICD-10-PCS; principal; 2018-08-02)
PROC: 0PBG0ZZ Excision of Left Humeral Shaft, Open Approach (ICD-10-PCS; 2018-08-02)
PROC: 0HBCXZX Excision of Left Upper Arm Skin, External Approach, Diagnostic (ICD-10-PCS; 2018-08-02)
PROC: 0PB Upper Bones, Excision (ICD-10-PCS; 2018-08-02)
PROC: 02HV33Z Insertion of Infusion Device into Superior Vena Cava, Percutaneous Approach (ICD-10-PCS; 2018-08-06)
DX: M00.9 Pyogenic arthritis, unspecified (principal); I50.23 Acute on chronic systolic (congestive) heart failure; K72.00 Acute and subacute hepatic failure without coma; M86.4 Chronic osteomyelitis with draining sinus; N17.9 Acute kidney failure, unspecified; I13.0 Hypertensive heart and chronic kidney disease with heart failure and stage 1 through stage 4 chronic kidney disease, or unspecified chronic kidney disease; I42.0 Dilated cardiomyopathy; E11.22 Type 2 diabetes mellitus with diabetic chronic kidney disease; J44.9 Chronic obstructive pulmonary disease, unspecified; I48.2 Chronic atrial fibrillation; E86.0 Dehydration; F10.20 Alcohol dependence, uncomplicated; K70.10 Alcoholic hepatitis without ascites; N18.9 Chronic kidney disease, unspecified; I87.2 Venous insufficiency (chronic) (peripheral); E87.6 Hypokalemia; E83.42 Hypomagnesemia; Z91.14 Patient's other noncompliance with medication regimen; Z86.73 Personal history of transient ischemic attack (TIA), and cerebral infarction without residual deficits; Z87.891 Personal history of nicotine dependence; Z88.1 Allergy status to other antibiotic agents; Z79.84 Long term (current) use of oral hypoglycemic drugs; Z79.82 Long term (current) use of aspirin; Z79.899 Other long term (current) drug therapy
CPT/HCPCS: 36415; 36416; 36569; 71046; 76705; 80048; 80053; 80074; 80076; 80202; 80307; 81003; 81015; 82390; 82550; 82565; 83516; 83605; 83690; 83735; 83880; 84484; 85014; 85018; 85025; 85027; 85049; 85610; 85730; 86038; 86225; 86644; 86645; 86850; 86900; 86901; 87040; 87070; 87102; 87116; 87205; 87206; 87324; 87449; 87798; 88305; 93005; 93306; 93798; 93970; 96361; 96365; 96367; 96375; C1713; C1751; C9113; J0131; J1100; J1825; J1885; J1940; J2001; J2405; J2543; J2765; J3010; J3260; J3370; J3475; J3490; J7050; P9045; Q0163; S0028

== ENCOUNTER → 2018-08-26 | Day surgery (SDC) | payer MEDICARE ==
--- NOTE | 2018-08-26 14:45 | SPC ---
ULTRASOUND GUIDED RIGHT UPPER EXTREMITY PICC LINE PLACEMENT: 08/26/18 HISTORY: Infection. Osteomyelitis. Infected PICC site. COMPARISON: None. EXPOSURE: 1.8 minutes. 6743 mGy*cm2. FINDINGS: Successful right upper extremity PICC line placement with ultrasound guidance. Distal tip is in the r egion of the right axillary vein. The catheter could not be further advanced due to a cephalic approa ch with resultant tangle of veins in the region of the axilla. Single lumen catheter does flush and a spirate without difficulty. TECHNIQUE: Consent obtained to perform a right upper extremity PICC line with ultrasound guidance. Right arm was prepped and draped in the sterile fashion. The existing PICC line was removed. Via a cephalic approa ch, a micropuncture needle was used to cannulated the cephalic vein. A 0.018 guide wire was advanced to the level of the axillary vein. The wire would not further advance due to tortuosity. Therefore, t he catheter was cut such that the tip is in the axilla. Trim length is 27 cm. Catheter does flush and aspirate without difficulty. IMPRESSION: Right upper extremity PICC line placement. Catheter terminates in the region of the right axillary ve in. Catheter could not be advanced due to cephalic approach. The cephalic vein terminates at a tangle of vessels and the wire could not be advanced further. The cephalic approach was utilized given infe ction at the course of the brachial vein. Once the infection resolves, the PICC line can be replaced with a brachial approach. Code T POS: [facility]
== END ==
LOC: SPEC 12:45
PROVIDERS: ATTEND Family Medicine
DX: M86.9 Osteomyelitis, unspecified (principal)
CPT/HCPCS: 36569; C1751

== ENCOUNTER 2019-07-16 18:16 | Emergency (ER) | payer MEDICARE ==
[2019-07-16 19:08] LABS: #Eosinphils 0.1 thou/uL (0.0-0.7); #Lymphocytes 1.7 thou/uL (1.20-3.40); #Monocytes 0.4 thou/uL (0.11-0.59); #Neutrophils 4.9 thou/uL (1.40-6.50); %Basophils 0.6 % (0.0-1.0); %Eosinophils 1.5 % (0.0-10.0); %Lymphocytes 23.5 % (21.0-51.0); %Monocytes 5.2 % (0.0-10.0); %Neutrophils 69.2 % (42.0-75.0); Hemoglobin 13.1 g/dL (14.0-18.0); Mean Corpuscular HGB CONC 32.9 g/dL (32.0-36.0); Mean Corpuscular Hemoglobin 28.7 pg (27.0-31.0); Mean Corpuscular Volume 87.2 fL (78.0-98.0); Platelet Count 278 thou/uL (130-400); RBC Distribution Width 13.2 % (11.5-14.5); Red Blood Cell (RBC) Count 4.57 mill/uL (4.70-6.10); White Blood Cell (WBC) Count 7.1 thou/uL (4.8-10.8)
[2019-07-16] MEDS ORDERED: Cefepime 2 GM VIAL ONE (19:25)
[2019-07-16] MEDS ORDERED: Vancomycin 1 GM/200 ML BAG ONE (19:26)
[2019-07-16 19:27] LABS: Bilirubin Negative (Negative); Blood, Urine Negative (Negative); Clarity Clear (Clear); Glucose, Urine (Dipstick) Normal (Negative); Leukocyte Negative Leu/uL (Negative); Nitrite Negative (Negative); Protein, Urine (Dipstick) 10 mg/dL (Neg-Trace); Urobilinogen Normal mg/dL (Less than 2)
[2019-07-16 19:28] LABS: ALT (SGPT) 14 U/L (8-55); AST (SGOT) 30 U/L (5-34); Albumin 3.9 g/dL (3.4-4.8); Alkaline Phosphatase 138 U/L (40-110); Anion Gap 14 mmol/L (10-20); BUN (Urea Nitrogen) 19 mg/dL (8.4-25.7); Bilirubin, Total 0.2 mg/dL (0.2-1.2); Calc. Creatinine Clearance 0 mL/min (70-130); Calcium 9.8 mg/dL (7.8-10.44); Carbon Dioxide 26 mmol/L (23-31); Chloride 102 mmol/L (98-107); Estimated GFR-MDRD 63; Globulin 3.7 g/dL (2.4-3.5); Glucose 115 mg/dL (83-110); Potassium 3.9 mmol/L (3.5-5.1); Protein, Total 7.6 g/dL (5.8-8.1); Sodium 138 mmol/L (136-145)
--- NOTE | 2019-07-16 19:38 | RAD ---
SINGLE VIEW OF THE CHEST: 07/16/19 COMPARISON: 12/21/15, CTA chest 07/14/19. HISTORY: Left shoulder pain. Patient had recent surgery. The patient's shoulder is leaking fluid. FINDINGS: Single view of the chest shows an enlarged cardiomediastinal silhouette. There is no evidence of cons olidation, mass or pleural effusion. There has been resection of the proximal aspect of the left twila graham. Degenerative changes are seen in the right shoulder. IMPRESSION: Cardiomegaly. POS: [facility]
--- NOTE | 2019-07-16 19:40 | RAD ---
THREE VIEWS OF THE LEFT SHOULDER: 07/16/19 COMPARISON: 04/28/19 HISTORY: Left shoulder surgery that has not healed in one year. Patient's shoulder started leaking fluid four days ago. FINDINGS: Three views of the left shoulder shows resection of the humeral head and neck. The glenoid is not wel l visualized. There is a small amount of ossification within the left shoulder joint. The amount of o ssification in the soft tissues has decreased compared to the prior exam. Diffuse soft tissue swellin g is seen. The visualized left thorax is unremarkable. IMPRESSION: Postsurgical changes of the left shoulder as above. POS: [facility]
--- NOTE | 2019-07-17 15:19 | EKG ---
Test Reason : Blood Pressure : / mmHG Vent. Rate : 105 BPM Atrial Rate : 096 BPM P-R Int : 000 ms QRS Dur : 074 ms QT Int : 332 ms P-R-T Axes : 000 044 044 degrees QTc Int : 438 ms Atrial fibrillation with rapid ventricular response Abnormal ECG Confirmed by DARLEEN LENZ ([id number]), desk editor PAOLA KERR ([id number]) on 07/17/2019 3:19:02 PM Referred By: Confirmed By:DARLEEN Kelsey
== END 2019-07-17 01:50 | disposition home or self-care (01) ==
LOC: ERS 18:16
DX: T81.89XA Other complications of procedures, not elsewhere classified, initial encounter (principal); E11.9 Type 2 diabetes mellitus without complications; I48.91 Unspecified atrial fibrillation; I10 Essential (primary) hypertension; F32.9 Major depressive disorder, single episode, unspecified; Z86.718 Personal history of other venous thrombosis and embolism; Z79.891 Long term (current) use of opiate analgesic; Z79.82 Long term (current) use of aspirin; Z79.899 Other long term (current) drug therapy
CPT/HCPCS: 71045; 73030; 80053; 81003; 83605; 85025; 87040; 87070; 87205; 93005; 96361; 96365; 99283; J0692; J3370; 36415

== ENCOUNTER 2019-07-17 10:54 | Emergency (ER) | payer MEDICARE ==
--- NOTE | 2019-07-17 15:53 | CON ---
DATE OF CONSULTATION: 07/17/2019 HISTORY OF PRESENT ILLNESS: Mr. Ring is a 73-year-old male, well known to my service. He has a history of osteomyelitis in the left proximal humerus with resection and multiple wound VAC attempts, IV antibiotics failed, continued chronic draining sinus. The patient was noted to have increased drainage and bleeding from his left shoulder last night, was seen in the ER in [place]. Pressure dressing was placed. The patient presents today as no active bleeding at this time. He is currently taking a 325 mg aspirin. The patient's left shoulder shows an open wound with no gross purulent drainage. No erythema, just open wound, which can be probed deep into a cavitary defect. The patient is neurovascularly intact distally. IMPRESSION: Chronic osteomyelitis, multiple procedures, left shoulder. ASSESSMENT AND PLAN: We packed and dressed at the ER. We sent home today and he need to follow up with Dr. Hernandez for continued suppression. I discussed them I do not know that there is any great surgical options for resolution of his infection sort of enlarged focal amputation versus which had difficulty healing this wound, I am concerned about potentially he will allow wound. The patient has been in a same state of care for almost greater than a year or 2 and I think if he is comfortable with continuing, I would probably recommend continuance. The patient understands this. He would like to continue with home wound care. Follow up as needed. Job ID: [id number]
== END 2019-07-17 13:58 | disposition home or self-care (01) ==
LOC: ERS 10:54
DX: T81.31XA Disruption of external operation (surgical) wound, not elsewhere classified, initial encounter (principal); E11.69 Type 2 diabetes mellitus with other specified complication; M86.9 Osteomyelitis, unspecified; F32.9 Major depressive disorder, single episode, unspecified; I48.91 Unspecified atrial fibrillation; I10 Essential (primary) hypertension; Z79.82 Long term (current) use of aspirin; Z79.899 Other long term (current) drug therapy
CPT/HCPCS: 99283